=== PATIENT | female | born 1985 | race Caucasian/White ===

== ENCOUNTER 2023-08-22 19:03 | Emergency (ER) | payer BC, SELFPAY ==
[2023-08-22 19:06] VITALS: BP 168/110; PULSE 92; RESP 18; TEMP 37.2; O2SAT 100; BMI 33.9
--- NOTE | 2023-08-22 19:17 | CT_ITS ---
[place] [id number] Patient Name: SANDY CARDOZO MRN: [id number] date: 1985 Sex: F Assigned Patient Location: ER Current Patient Location: [facility] Accession/Order Number: [id number] Exam Date: 08/22/2023 19:57 Report Date: 08/22/2023 20:47 At the request of: SAMANTHA CROW Procedure: CT abdomen pelvis wo con EXAM: CT abdomen pelvis wo con , 08/22/2023 HISTORY: pain COMPARISON: Pelvic ultrasound from 10/31/2022 TECHNIQUE: Noncontrast CT scan of the abdomen and pelvis was performed. Coronal and sagittal reconstructions were performed. Dose reduction techniques were achieved by using automated exposure control and/or adjustment of mA and/or kV according to patient size and/or use of iterative reconstruction technique. FINDINGS: The liver, spleen, pancreas and both adrenal glands are unremarkable. Status post cholecystectomy. No biliary dilatation. No urolithiasis or urinary tract dilatation. No obvious focal lesions in the kidneys. Unremarkable urinary bladder. The uterus and adnexa are unremarkable. No free fluid in the peritoneal cavity. No bowel loop dilatation or bowel wall thickening. No abdominal or pelvic lymphadenopathy. Unremarkable abdominal aorta and IVC. Colonic diverticulosis without diverticulitis. No acute osseous findings. Scans through the lung bases are clear. CT/CT abdomen pelvis wo con IMPRESSION: 1. No acute findings in the abdomen or pelvis. 2. Status post cholecystectomy. 3. Colonic diverticulosis without diverticulitis. Electronically authenticated by: JULIO CONNELLY Date: 08/22/2023 20:47
[2023-08-22 19:38] LABS: Basophils Absolute Auto 0.1 10^3/uL (0.0-0.1); Basophils Percent Auto 0.7 % (0.2-2.0); Eosinophils Absolute Auto 0.1 10^3/uL (0.0-0.7); Eosinophils Percent Auto 0.7 % (0.9-7.0); Hematocrit 40.7 % (36.0-48.0); Hemoglobin 12.9 g/dL (12.0-16.0); Immature Granulocytes Abs Auto 0.01 10^3/uL (0.00-0.03); Immature Granulocytes Pct Auto 0.1 % (0.0-0.5); Lymphocytes Absolute Auto 3.6 10^3/uL (1.2-3.8); Lymphocytes Percent Auto 38.4 % (20.5-60.0); Mean Corpuscular HGB Conc 31.7 g/dL (29.9-35.2); Mean Corpuscular Volume 85.1 fL (81.0-99.0); Monocytes Absolute Auto 0.8 10^3/uL (0.3-0.8); Monocytes Percent Auto 8.9 % (1.7-12.0); Neutrophils Absolute Auto 4.8 10^3/uL (1.4-6.5); Neutrophils Percent Auto 51.2 % (43.0-75.0); Platelet Count 316 10^3/uL (150-450); Red Blood Count 4.78 10^6/uL (4.20-5.40); Red Cell Distribution Width 12.8 % (11.0-15.0); White Blood Count 9.4 10^3/uL (4.0-11.0)
[2023-08-22 19:39] LABS: Bilirubin Urine NEGATIVE (NEGATIVE); Blood Urine MODERATE (NEGATIVE); Clarity Urine CLEAR (CLEAR); Color Urine LT. YELLOW (YELLOW); Glucose Urine UA NEGATIVE (NEGATIVE); Ketones Urine NEGATIVE (NEGATIVE); Leukocyte Esterase Urine NEGATIVE (NEGATIVE); Nitrite Urine NEGATIVE (NEGATIVE); Protein Urine NEGATIVE (NEG/TRACE); Specific Gravity Urine 1.025 (1.005-1.025); Urine Microscopic Indicated YES; Urobilinogen Urine 0.2 EU/dL (0.2-1.0)
[2023-08-22 19:40] LABS: HCG Qualitative Urine* NEGATIVE (NEGATIVE)
[2023-08-22 19:45] LABS: RBC Urine 0-2 #/HPF (0-2); WBC Urine NONE SEEN #/HPF (NONE SEEN)
[2023-08-22] MEDS: ONDANSETRON PF 4 MG/2 ML VIAL IV (19:45)
[2023-08-22] MEDS: KETOROLAC TROMETHAMINE 30 MG/ML VIAL IVP (19:45)
[2023-08-22] MEDS: 0.9 % SODIUM CHLORIDE 1,000 ML 999 ML IV (19:45)
[2023-08-22 19:46] LABS: Bacteria Urine TRACE #/HPF (NONE SEEN); Cast Seen? NONE SEEN #/LPF (NONE SEEN); Crystals Seen? None Seen #/HPF (None Seen); Mucus Urine NONE SEEN (NONE SEEN); Squamous Epithelial Cell Urine MANY #/LPF (NONE/RARE); Urine Culture Indicated NO
[2023-08-22 19:49] VITALS: BP 143/93; PULSE 81; O2SAT 98
[2023-08-22 19:58] LABS: Alanine Aminotransferase 16 U/L (14-59); Albumin Globulin Ratio 0.9; Albumin Level 3.6 g/dL (3.4-5.0); Alkaline Phosphatase 62 U/L (46-116); Anion Gap 11.5; Aspartate Amino Transferase 12 U/L (15-37); BUN Creatinine Ratio 12.5; Bilirubin Total 0.2 mg/dL (0.2-1.0); Calcium 8.9 mg/dL (8.5-10.1); Carbon Dioxide 27.1 mmol/L (21.0-32.0); Chloride 104 mmol/L (98-107); Estimated GFR (African America >60 (>=60); Estimated GFR (Non-African Ame 59 (>=60); Globulin 3.9 g/dL; Glucose 101 mg/dL (74-106); Potassium 3.6 mmol/L (3.5-5.1); Sodium 139 mmol/L (136-145); Total Protein 7.5 g/dL (6.4-8.2)
[2023-08-22 20:43] VITALS: BP 132/90
--- NOTE | 2023-08-22 21:13 | ED.ABDPAIN1 ---
HPI - Abdominal Pain General Chief Complaint: Abdominal Pain Stated Complaint: stabbing pain, r of midline, nausea Time Seen by Provider: 08/22/23 19:09 Source: patient Mode of arrival: walk-in History of Present Illness HPI narrative: 38-year-old female presents chief complaint right lower quadrant abdominal pain. Patient states the pain began suddenly today. She states it feels as if she has a stabbing pain to her right groin region. She had a history of ovarian cysts in the past and states had a 6 cm cyst removed last year on the left side. Denies any known history of cyst on the right. She states she does have heavy menstrual cramping and pain as well. States her period ended earlier this week. Patient history of cholecystectomy and appendectomy. She's had some nausea with this pain. Denies a known history of kidney stone. Patient is afebrile nontoxic. She does have pain to palpation the right lower quadrant on exam. Patient denies any vaginal discharge. Denies dysuria. Related Data Home Medications Medication Instructions Recorded Confirmed No Known Home Medications 08/22/23 08/22/23 Allergies Allergy/AdvReac Type Severity Reaction Status Date / Time No Known Drug Allergies Allergy Verified 08/22/23 19:10 Review of Systems ROS Narrative All Systems are negative except as noted/marked. Status of ROS 10 or more systems reviewed and unremarkable except as noted in history and below [facility] Social History Smoking status: Never smoker Exam Narrative Exam Narrative: Patient is a All Systems are negative except as noted/marked.All systems reviewed and otherwise negative Nurses note and vital signs reviewed and patient is not hypoxic. General: The patient appears well and in no apparent distress. Patient is resting comfortably on cart. Skin: Warm, dry, no pallor noted. There is no rash noted. Head: Normocephalic, atraumatic Cardiovascular: Regular Rate and Rhythm Respiratory: Patient is in no distress, no accessory muscle use, lungs are clear to auscultation, no wheezing, rales or rhonchi Back: non-tender, no CVA tenderness bilaterally to percussion. GI: Normal bowel sounds, no tenderness to palpation, no masses appreciated. No rebound, guarding, or rigidity noted. : Right lower quadrant abdominal tenderness, no rebound or guarding, no masses palpated, Musculoskeletal: The patient has no evidence of calf tenderness, no pitting edema, symmetrical pulses noted bilaterally Neurological: A&O x4, normal speech Psychiatric: Cooperative Constitutional Vital Signs, click to edit/add: Last Vital Signs Temp 98.9 F 08/22/23 19:06 Pulse 81 08/22/23 19:49 Resp 18 08/22/23 19:06 BP 132/90 08/22/23 20:43 Pulse Ox 98 08/22/23 19:49 O2 Del Method Room Air 08/22/23 19:06 Course Vital Signs Vital signs: Vital Signs Temperature 98.9 F 08/22/23 19:06 Pulse Rate 92 H 08/22/23 19:06 Respiratory Rate 18 08/22/23 19:06 Blood Pressure 168/110 H 08/22/23 19:06 Pulse Oximetry 100 08/22/23 19:06 Oxygen Delivery Method Room Air 08/22/23 19:06 Temperature 98.9 F 08/22/23 19:06 Pulse Rate 81 08/22/23 19:49 Respiratory Rate 18 08/22/23 19:06 Blood Pressure 132/90 08/22/23 20:43 Pulse Oximetry 98 08/22/23 19:49 Oxygen Delivery Method Room Air 08/22/23 19:06 MDM - Abdominal Pain MDM Narrative Medical decision making narrative: 43-year-old female presents with a chief complaint right lower quadrant abdominal tenderness. Upon arrival to the emergency room IV was established patient was medicated with Toradol and Zofran. He did help alleviate her symptoms. CBC BMP and urinalysis were obtained. Small amount of blood was noted in her urine. She is currently finishing her menses. CT scan without contrast was also performed to rule out kidney stone. CT scan was read negative. Patient does have a history of a history of ovarian cysts with removal and surgery in the past. Patient has history of cholecystectomy and appendectomy. Examination is negative this time. Patient be given a prescription to have a pelvic ultrasound performed at she will follow-up with her [facility] office this next week. Patient denies need for pain medicine to take home. She states Toradol and Zofran helped her symptoms. I did explain to patient that she may be having cramping pain or pain from adhesions. Patient be evaluated by her [facility]. Patient agrees with plan of care Differential Diagnosis Differential diagnosis: Likely abdominal pain and endometriosis (kidney stone, ovarian cyst) Medical Records Attestation: I reviewed the patient's medical records. Lab Data Attestation: I reviewed the patient's lab results. Labs: Lab Results 08/22/23 Range/Units 19:30 WBC 9.4 (4.0-11.0) 10^3/uL RBC 4.78 (4.20-5.40) 10^6/uL Hgb 12.9 (12.0-16.0) g/dL Hct 40.7 (36.0-48.0) % MCV 85.1 (81.0-99.0) fL MCH 27.0 (26.7-34.0) pg MCHC 31.7 (29.9-35.2) g/dL RDW 12.8 (11.0-15.0) % Plt Count 316 (150-450) 10^3/uL MPV 9.0 L (9.5-13.5) fL Neut % (Auto) 51.2 (43.0-75.0) % Lymph % (Auto) 38.4 (20.5-60.0) % [place] % (Auto) 8.9 (1.7-12.0) % Eos % (Auto) 0.7 L (0.9-7.0) % Baso % (Auto) 0.7 (0.2-2.0) % Neut # (Auto) 4.8 (1.4-6.5) 10^3/uL Lymph # (Auto) 3.6 (1.2-3.8) 10^3/uL [place] # (Auto) 0.8 (0.3-0.8) 10^3/uL Eos # (Auto) 0.1 (0.0-0.7) 10^3/uL Baso # (Auto) 0.1 (0.0-0.1) 10^3/uL Abs Immat Gran (auto) 0.01 (0.00-0.03) 10^3/uL Imm/Tot Granulo (auto) 0.1 (0.0-0.5) % Sodium 139 (136-145) mmol/L Potassium 3.6 (3.5-5.1) mmol/L Chloride 104 (98-107) mmol/L Carbon Dioxide 27.1 (21.0-32.0) mmol/L Anion Gap 11.5 BUN 13.0 (7.0-18.0) mg/dL Creatinine 1.04 H (0.55-1.02) mg/dL Est GFR ( Amer) >60 (>=60) Est GFR (Non-Af Amer) 59 L (>=60) BUN/Creatinine Ratio 12.5 Glucose 101 (74-106) mg/dL Calcium 8.9 (8.5-10.1) mg/dL Total Bilirubin 0.2 (0.2-1.0) mg/dL AST 12 L (15-37) U/L ALT 16 (14-59) U/L Alkaline Phosphatase 62 (46-116) U/L Total Protein 7.5 (6.4-8.2) g/dL Albumin 3.6 (3.4-5.0) g/dL Globulin 3.9 g/dL Albumin/Globulin Ratio 0.9 Urine Color Lt. yellow (YELLOW) Urine Clarity Clear (CLEAR) Urine pH 6.0 (5.0-9.0) Ur Specific [place] 1.025 (1.005-1.025) Urine Protein Negative (NEG/TRACE) mg/dL Urine Glucose (UA) Negative (NEGATIVE) mg/dL Urine Ketones Negative (NEGATIVE) mg/dL Urine Occult Blood Moderate A (NEGATIVE) Urine Nitrite Negative (NEGATIVE) Urine Bilirubin Negative (NEGATIVE) Urine Urobilinogen 0.2 (0.2-1.0) EU/dL Ur Leukocyte Esterase Negative (NEGATIVE) Urine RBC 0-2 (0-2) #/HPF Urine WBC None seen (NONE SEEN) #/HPF Ur Squamous Epith Cells Many A (NONE/RARE) #/LPF Urine Crystals None seen (None Seen) #/HPF Urine Bacteria Trace A (NONE SEEN) #/HPF Urine Casts None seen (NONE SEEN) #/LPF Urine Mucus None seen (NONE SEEN) Ur Culture Indicated? No Urine HCG, Qual Negative (NEGATIVE) Imaging Data CT scan - abdomen: Radiologist's impression: ITS Impressions Abdomen/Pelvis CT 08/22/23 19:17 IMPRESSION: 1. No acute findings in the abdomen or pelvis. 2. Status post cholecystectomy. 3. Colonic diverticulosis without diverticulitis. Electronically authenticated by: JULIO CONNELLY Date: 08/22/2023 20:47 Discharge Plan Discharge Chief Complaint: Abdominal Pain Clinical Impression: Pelvic pain in female, Abdominal pain Patient Disposition: Home, Self-Care Time of Disposition Decision: 21:07 Condition: Good Prescriptions / Home Meds: No Action No Known Home Medications Instructions: Abdominal Pain (ED), Pelvic Pain (ED) Stand Alone Forms: Portal Instructions Referrals: Vikram Chahal DO [Physician] - 1 week Physician,Non-Staff, MD [Primary Care Provider] - 1 week
[2023-08-22 21:16] VITALS: BP 124/86; PULSE 90; O2SAT 98
== END 2023-08-22 21:18 | disposition home or self-care (01) ==
PROVIDERS: Physician Assistant; Emergency Provider Student in an Organized Health Care Education/Training Program
DX: R10.9 Unspecified abdominal pain (principal); R10.2 Pelvic and perineal pain
CPT/HCPCS: 36415; 74176; 80053; 81001; 84703; 85025; 96374; 96375; 99285; J1885; J2405

== ENCOUNTER 2023-08-23 07:28 | Outpatient (OUT) | payer BC, SELFPAY ==
--- NOTE | 2023-08-23 07:41 | US_ITS ---
The [address] [address] Patient Name: SANDY CARDOZO MRN: [id number] date: 1985 Sex: F Assigned Patient Location: [facility] Current Patient Location: RAD Accession/Order Number: [id number] Exam Date: 08/23/2023 07:45 Report Date: 08/23/2023 10:11 At the request of: SAMANTHA CROW Procedure: US pelvis transvaginal EXAM: Pelvic ultrasound HISTORY: . Pelvic pain, ovarian cyst . COMPARISON: None. TECHNIQUE: Transvaginal scanning was performed FINDINGS: Scanning of the pelvis demonstrates the uterus to be anteflexed and measures 9 x 5.2 x 4.1 cm. Endometrial complex measures 5 mm. Right ovary measures 3.8 x 2.2 x 1.8 cm. Color-flow is noted. Within the right ovary is a 1.3 x 1.2 x 0.9 cm avascular smoothly marginated hypoechoic area. Left ovary measures 3.3 x 1.4 x 1.7 cm. Color-flow is noted. No masses were noted. US/US pelvis transvaginal IMPRESSION: 1. Normal-appearing anteflexed uterus with a normal endometrial complex. 2. Normal left ovary. 3. 1.3 x 0.9 cm avascular complicated cyst in the right ovary. Findings would be most consistent with that hemorrhagic follicle/cyst. Less likely would be an inflammatory mass or neoplasm. Clinical correlation is suggested. Electronically authenticated by: YANIRA TATE Date: 08/23/2023 10:11
== END 2023-08-23 07:29 | disposition home or self-care (01) ==
LOC: RAD 07:29
PROVIDERS: Visit Provider Physician Assistant
DX: N83.201 Unspecified ovarian cyst, right side (principal)
CPT/HCPCS: 76830

== ENCOUNTER 2023-12-04 20:24 | Outpatient (REF) | payer BC, SELFPAY ==
--- OUTSIDE RECORDS SUMMARY | 2023-12-04 20:29 | XMS_ITS | CCD ---
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 [employer]otive Name Role Phone Wilda Buckner Primary Care Physician HOME ., DR TRUJILLO Admitting Unavailable HOME ., DR TRUJILLO Consulting Unavailable MISC, DR NEGRON Primary Care Unavailable HOME ., DR TRUJILLO Attending Unavailable ZIEBER, DR KULWINDER Floyd Consulting Unavailable HOME ., DR TRUJILLO Admitting Unavailable HOME ., DR TRUJILLO Consulting Unavailable MISC, DR NEGRON Primary Care Unavailable HOME ., DR TRUJILLO Attending Unavailable MISC, DR NEGRON Primary Care Unavailable HOME ., DR TRUJILLO Consulting Unavailable HOME ., DR TRUJILLO Attending Unavailable HOME ., DR TRUJILLO Admitting Unavailable AGUBOSIM, NURIS Consulting Unavailable LONG, JON Consulting Unavailable JONATAN, MARK Consulting Unavailable HOME ., DR TRUJILLO Consulting Unavailable MISC, DR NEGRON Primary Care Unavailable HOME ., DR TRUJILLO Attending Unavailable HOME ., DR TRUJILLO Admitting Unavailable ZIEBER, DR KULWINDER Floyd Consulting Unavailable HOME ., DR TRUJILLO Consulting Unavailable MISC, DR NEGRON Primary Care Unavailable HOME ., DR TRUJILLO Attending Unavailable HOME ., DR TRUJILLO Admitting Unavailable HOMECASSANDRA R Attending Unavailable Buckner, Wilda L Admitting Unavailable Buckner, Wilda L Attending Unavailable Kaushal Craft Attending Unavailable Buckner, Wilda L Admitting Unavailable Buckner, Wilda L Attending Unavailable Buckner, Wilda L Admitting Unavailable Buckner, Wilda L Attending Unavailable SAMANTHA CROW Attending Unavailable SUJATA RUDD Referring Unavailable SUJATA RUDD Attending Unavailable TIERRA WILL Attending Unavailable SUJATA RUDD Referring Unavailable SUJATA RUDD Attending Unavailable Allergies Allergy Classification Reported Allergen(s) Allergy Type Date of Onset Reaction(s) Facility (5 sources) Ciprofloxacin; Translations: [ciprofloxacin] Drug Allergy Tenalgia (finding) [facility] (1 source) Ciprofloxacin Drug Allergy [facility] Repository Problems Active Problems Problem Classification Problem Date Documented Date Episodic/Chronic Abdominal pain (5 sources) Pelvic and perineal pain; Translations: [PELVIC AND PERINEAL PAIN] Onset: 12-28-2021 Episodic Biliary tract disease (4 sources) Acute cholecystitis 04-17-2018 Episodic Immunizations and screening for infectious disease (1 source) Encounter for screening for human papillomavirus (HPV); Translations: [ENC SCREENING HUMAN PAPILLOMAVIRUS] Onset: 10-25-2022 Episodic Nonmalignant breast conditions (5 sources) Mastodynia; Translations: [Unspecified lump in the right breast, upper outer quadrant] Onset: 10-31-2022 Episodic Other nutritional; endocrine; and metabolic disorders (1 source) Obesity, unspecified; Translations: [OBESITY UNSPECIFIED] Onset: 01-23-2022 Chronic Other nutritional; endocrine; and metabolic disorders (1 source) Body mass index (BMI) 32.0-32.9, adult; Translations: [BODY MASS INDEX BMI 32.0-32.9 ADULT] Onset: 01-23-2022 Chronic Other screening for suspected conditions (not mental disorders or infectious disease) (4 sources) Encounter for screening for malignant neoplasm of cervix; Translations: [ENC SCREENING MALIG NEOPLASM CERV] Onset: 10-23-2022 Episodic Other upper respiratory infections (4 sources) Acute sinusitis 04-17-2018 Episodic Comment on above: taking antibioics, h as had 4 doses so far Ovarian cyst (2 sources) Unspecified ovarian cyst, left side; Translations: [Unspecified ovarian cyst, unspecified side] Onset: 12-27-2021 Episodic Viral infection (1 source) COVID-19; Translations: [COVID-19] Onset: 01-23-2022 Past or Other Problems Problem Classification Problem Date Documented Da te Episodic/Chronic Other gastrointestinal disorders (1 source) Peritoneal adhesions (postprocedural) (postinfection); Translations: [PERITONEAL ADHES POSTPROC POSTINF] Onset: 01-23-2022 Episodic Residual codes; unclassified (1 source) Acquired absence of other specified parts of digestive tract; Translations: [ACQ ABSENCE OTH PART DIGESTV TRACT] Onset: 01-23-2022 Episodic Results Test Name Value Interpretation Reference Range Facility MR KNEE RIGHT WO IV CONTRAST on 10-22-2023 MR KNEE RIGHT WO IV CONTRAST Exam: MR KNEE RIGHT WO IV CONTRAST History: Right knee medial meniscus tear Technique: Multiplanar multisequence MRI of the knee was performed without contrast. Comparison: Radiographs October 09, 2023 Findings: Quadriceps and patellar tendons are intact. No joint effusion. Anterior and posterior cruciate ligaments are intact. The medial collateral ligament, lateral collateral ligament, and popliteus are intact. The medial and lateral meniscus are intact. Partial-thickness cartilage loss of the weightbearing medial femoral condyle without well-defined or measurable cartilage defect. A tiny focus of subcortical bone marrow edema of the inner weightbearing medial femoral condyle is likely secondary to an occult full-thickness cartilage fissure. Popliteal fossa structures are intact. No Estrada cyst. IMPRESSION: Ligaments and menisci are intact. Mild medial compartment osteoarthritis. ELECTRONICALLY SIGNED BY: Delta Geller, DO Normal Not Available Comment on above: Order Comment: No to all MRI Questions Consent for Treatmenton Consent for Treatment [id number] #1.00CD:127 Normal [facility] Physician Orderon 04-02-2023 Physician Order [id number] 0#1.00CD:127 Normal [facility] XR Foot 3+ Views Lefton XR Foot 3+ Views Left Exam Date/Time: 04/02/2023 09:13 EDT Reason for Exam: M25.572 Report IMPRESSION: NEGATIVE LEFT FOOT. CLINICAL HISTORY: M25.572 COMPARISON: None available. FINDINGS: AP, lateral and oblique views of the left foot demonstrate no evidence of a fracture, dislocation, bone or joint abnormality. Ordering Provider: Wilda Buckner FINAL REPORT Dictated: 04/02/2023 1:06 pm Gianni Montoya MD, V. Signed (Electronic Signature): 04/02/2023 1:06 pm Signed by: Gianni Montoya MD, V. Transcribed by: MICHEAL Technologist: APOLLO Technical Comments Radiation Dose: Ka,r in mGy = na DAP = na Normal [facility] XR Wrist 3+ Views Lefton XR Wrist 3+ Views Left Exam Date/Time: 01/09/2023 14:05 EDT Reason for Exam: [id number] Report IMPRESSION: NEGATIVE LEFT WRIST. EXAM: XR Wrist 3+ Views Left DATE: 01/09/2023 1:52 PM CLINICAL HISTORY: M25.539. COMPARISON: None available. TECHNIQUE: PA, lateral, oblique, and navicular radiographs of the left wrist were obtained. FINDINGS: There is no fracture, dislocation, worrisome bone destruction, radiodense foreign bodies, or pathologic calcifications identified. Ordering Provider: Wilda Buckner FINAL REPORT Dictated: 01/11/2023 3:14 pm Boubacar Blank MD Signed (Electronic Signature): 01/11/2023 3:14 pm Signed by: Boubacar Blank MD Transcribed by: MICHEAL Technologist: ORB Technical Comments Radiation Dose: Ka,r in mGy = . DAP = . Normal [facility] XR Wrist 3+ Views Righton XR Wrist 3+ Views Right Exam Date/Time: 01/09/2023 14:05 EDT Reason for Exam: [id number] Report IMPRESSION: NEGATIVE RIGHT WRIST. EXAM: XR Wrist 3+ Views Right DATE: 01/09/2023 1:52 PM CLINICAL HISTORY: M25.539. COMPARISON: Right hand 06/12/2017 TECHNIQUE: PA, lateral, oblique, and navicular radiographs of the right wrist were obtained. FINDINGS: There is no fracture, significant degenerative changes, dislocation, worrisome bone destruction, radiodense foreign bodies, or pathologic calcifications identified. Ordering Provider: Wilda Buckner FINAL REPORT Dictated: 01/11/2023 3:15 pm Boubacar Blank MD Signed (Electronic Signature): 01/11/2023 3:15 pm Signed by: Boubacar Blank MD Transcribed by: MICHEAL Technologist: EITAN Technical Comments Radiation Dose: Ka,r in mGy = . DAP = . Normal [facility] Consent for Treatmenton 12-26 Consent for Treatment [id number] #1.00CD:127 Normal [facility] Physician Orderon 01-09-2023 Physician Order [id number]#1.00CD:127 Normal [facility] SURGICAL PATH REPORTon 11-14 SURGICAL PATH REPORT [facility] Department of Pathology [address] [place] [address] Name: SANDY DENNIS : 1985 [facility] [id number] Number: Gender Female Bartolome SINGH ELMIRA : n: Admit 37 years Attending CASSANDRA CHAHAL Age: Provider: Ordering CASSANDRA CHAHAL Provider: Consulti Surgical Pathology Report ng: ACCESSION: COLLECTED DATE/TIME: RECEIVED DATE/TIME: PATHOLOGIST: [id number] 11/12/2022 16:30 EDT 11/13/2022 13:47 EDT DEJUAN RODRIGUEZ MD Final Diagnosis Report for THE [place] [place] ENDOMETRIAL BIOPSY: - PROLIFERATIVE ENDOMETRIUM. DEJUAN RODRIGUEZ PATHOLOGIST (Electronic Signature) Date Verified 11/14/2022 AD Clinical Data PRE-OP DIAGNOSIS: Not specified POST-OP DIAGNOSIS: Thickened endometrium PROCEDURES: EMBX SPECIMEN: EMBX VISIT #N/A / Doctor's office Gross Description Labeled EMBX. Received in formalin are multiple irregular simons feathery segments of soft tissue. The specimen is filtered and has a filtrate aggregate dimension of 2.5 x 2.0 x 0.5 cm. The specimen is entirely submitted in one cassette. MP/ shital 11/13/2022 Tissue pathology report for: [facility], [address] [place] [id number]; ____ Print 11/14/2022 14:01 EDT Number: Date/Time: [facility] Department of Pathology [address] [place], [place] [address] [phone] Name: SANDY DENNIS : 1985 [employer] [id number] Number: Gender Female Bartolome MCKINNEYUE : n: Admit 37 years Attending CASSANDRA CHAHAL Age: Provider: Ordering CASSANDRA CHAHAL Provider: Consulti Surgical Pathology Report ng: ACCESSION: COLLECTED DATE/TIME: RECEIVED DATE/TIME: PATHOLOGIST: [id number] 11/12/2022 16:30 EDT 11/13/2022 13:47 EDT MICHAEL ZAVALA, DEJUAN Gross Description PATHOLOGY SERVICES PROVIDED BY [employer] (CLIA #[id number]) in cooperation with [facility] at [address] [place] [address] (CLIA #[id number]) Microscopic Diagnosis The final diagnosis is based on a microscopic exam of sales donor recruitment representative sections. Codes CPT CODE: 80189 ____ Print 11/14/2022 14:01 EDT Number: Date/Time: [facility] Comment on above: Performed By: #### [id number] #### [facility] Laboratory Services [address] [place] [address] [employer] Intern: Dejuan Rodriguez MD MG MAMM DIAGNOSTIC 3D YARITZA CA Don 10-31-2022 MG MAMM DIAGNOSTIC 3D YARITZA CAD Patient: SANDY DENNIS. Exam Date: 10/31/2022 : 1985 Gender:F Ordering : DR CASSANDRA CHAHAL . Admission #: [id number] Family : Order #: [id number] CLICK HERE TO VIEW EXAM RADIOLOGY REPORT PROCEDURE: MAMMOGRAM DIAGNOSTIC 3D BILATERAL CAD, 10/31/2022, 09:22 ULTRASOUND BREAST BILATERAL LIMITED, 10/31/2022, 10:18 COMPARISON: None. INDICATIONS: Lump in upper outer quadrant of right breast Calculator Name NCI Breast Cancer Risk Assessment Tool 5 Year Breast Cancer Risk 0.40% Lifetime Breast Cancer Risk 11.20% Personal Breast Cancer No Personal Ovarian Cancer No Treatments None Family Cancers Aunt-paternal with breast cancer at age 48. LOCATION: [facility] BREAST COMPOSITION: Heterogeneously dense,which may obscure small masses. FINDINGS: DIAGNOSTIC CATEGORY 1--NEGATIVE. RIGHT BREAST: Skin surface marker localizing patient's palpable lump to the posterior upper-outer quadrant. Normal appearing underlying fibroglandular tissue. No suspicious findings. Ultrasound evaluation demonstrates normal appearing fibroglandular tissue; no mass or cyst. LEFT BREAST: No significant or suspicious findings. Patient describes tenderness in the subareolar region. Ultrasound evaluation demonstrates normal appearing fibroglandular tissue. RECOMMENDATIONS: CLINICAL EVALUATION. PLEASE NOTE: A NORMAL MAMMOGRAM DOES NOT EXCLUDE THE POSSIBILITY OF BREAST CANCER. A CLINICALLY SUSPICIOUS PALPABLE LUMP SHOULD BE BIOPSIED. Dictated by: Kulwinder Carson M.D. on 10/31/2022 at 11:11 Approved by: Kulwinder Carson M.D. on 10/31/2022 at 11:12 Normal [facility] US BREAST YARITZA LIMITEDon 04-0 US BREAST YARITZA LIMITED Patient: SANDY DENNIS Exam Date: 10/31/2022 : 1985 Gender:F Ordering : DR CASSANDRA CHAHAL . Admission #: [id number] Family : Order #: [id number] CLICK HERE TO VIEW EXAM RADIOLOGY REPORT PROCEDURE: MAMMOGRAM DIAGNOSTIC 3D BILATERAL CAD, 10/31/2022, 09:22 ULTRASOUND BREAST BILATERAL LIMITED, 10/31/2022, 10:18 COMPARISON: None. INDICATIONS: Lump in upper outer quadrant of right breast Calculator Name NCI Breast Cancer Risk Assessment Tool 5 Year Breast Cancer Risk 0.40% Lifetime Breast Cancer Risk 11.20% Personal Breast Cancer No Personal Ovarian Cancer No Treatments None Family Cancers Aunt-paternal with breast cancer at age 48. LOCATION: [facility] BREAST COMPOSITION: Heterogeneously dense,which may obscure small masses. FINDINGS: DIAGNOSTIC CATEGORY 1--NEGATIVE. RIGHT BREAST: Skin surface marker localizing patient's palpable lump to the posterior upper-outer quadrant. Normal appearing underlying fibroglandular tissue. No suspicious findings. Ultrasound evaluation demonstrates normal appearing fibroglandular tissue; no mass or cyst. LEFT BREAST: No significant or suspicious findings. Patient describes tenderness in the subareolar region. Ultrasound evaluation demonstrates normal appearing fibroglandular tissue. RECOMMENDATIONS: CLINICAL EVALUATION. PLEASE NOTE: A NORMAL MAMMOGRAM DOES NOT EXCLUDE THE POSSIBILITY OF BREAST CANCER. A CLINICALLY SUSPICIOUS PALPABLE LUMP SHOULD BE BIOPSIED. Dictated by: Kulwinder Carson M.D. on 10/31/2022 at 11:11 Approved by: Kulwinder Carson M.D. on 10/31/2022 at 11:[address] [facility] US PELVIS AND TRANSVAGon US PELVIS AND TRANSVAG EXAMINATION: US PELVIS AND TRANSVAG HISTORY: Pelvic and perineal pain ; abnormal menses COMPARISON: Ultrasound pelvis 12/26/2021 TECHNIQUE: Transabdominal and transvaginal sonographic examination. FINDINGS: UTERUS: Normal size and appearance. Uterus size: 9.2 x 6.1 x 4.5 cm ENDOMETRIUM: Slightly heterogeneous endometrium with a focal 10 x 9 x 5 mm hypoechoic area of possibly a fluid collection. Endometrial thickness: 14 mm RIGHT OVARY: Normal size and appearance. Duplex Doppler demonstrates normal waveform and flow; resistive index 0.5. Ovary size: 3.9 x 2.8 x 2.6 cm LEFT OVARY: Contains a 1.9 cm benign-appearing cyst/dominant follicle. Duplex Doppler demonstrates normal waveform and flow; resistive index 0.5. Ovary size: 3.0 x 2.2 x 2.5 cm CUL-DE-SAC: Unremarkable. No significant free fluid. BLADDER: Unremarkable. OTHER: None. IMPRESSION: 1. Heterogeneous endometrium at upper limits of normal thickness, with likely small amount of pooling blood products; correlate with patient's stage in her menstrual cycle. 2. Benign cyst within left ovary of doubtful clinical significance. Electronically authenticated by: KULWINDER CARSON Date: 2022-10-31 09:[address] [facility] PAP ACOG PANEL 2: 30 to 65on 10-30-[address] [facility] Comment on above: Result Comment: Perf ormed at: WB Performed By: #### [id number] #### [facility] [address] [place] [address] Dr. Edwina Vicente Age Gdln ACOG Testing 30-[address] [facility] Comment on above: Performed By: #### [id number] #### [facility] [address] [place] [address] Dr. Edwina Vicente DIAGNOSIS: Comment Normal [facility] Comment on above: Result Comment: NEGA TIVE FOR INTRAEPITHELIAL LESION OR MALIGNANCY. Performed at: WB Performed By: #### [id number] #### [facility] [address] [place] [address] Dr. Edwina Vicente HPV Aptima Negative Normal Negative [facility] Comment on above: Result Comment: This nucleic acid amplification test detects fourteen high-risk HPV types (16,18,31,33,35,39,45,51,52,56,58,59,66,68) without differentiation. Performed at: =G Performed By: #### [id number] #### [facility] [address] [place] [address] Dr. Edwina Vicente HPV Genotype Reflex Comment Normal [facility] Comment on above: Result Comment: Crit eria not met, HPV Genotype not performed. Performed at: WB Performed By: #### [id number] #### [facility] [address] [place] [address] Dr. Edwina Vicente Methodology: CTIM [facility] Comment on above: Result Comment: The Thin Prep(R) Cook Ship was unable to read this specimen. Therefore a manual review was performed. Performed at: WB Performed By: #### [id number] #### [facility] [address] [place] [address] Dr. Edwina Vicente Note: Comment Normal [facility] Comment on above: Result Comment: The Pap smear is a screening test designed to aid in the detection of premalignant and malignant conditions of the uterine cervix. It is not a diagnostic procedure and should not be used as the sole means of detecting cervical cancer. Both false-positive and false-negative reports do occur. . Performed at: WB Performed By: #### [id number] #### [facility] [address] [place] [address] Dr. Edwina Vicente Performed by: Comment Normal [facility] Comment on above: Result Comment: Bo Rao, Research Program Assistant (ASCP) Performed at: WB Performed By: #### [id number] #### [facility] [address] [place] [address] Dr. Edwina Vicente Specimen adequacy: Comment Normal [facility] Comment on above: Result Comment: Sati sfactory for evaluation. Endocervical and/or squamous metaplastic cells (endocervical component) are present. Performed at: WB Performed By: #### [id number] #### [facility] [address] [place] [address] Dr. Edwina Vicente Coding Summary.on 09-30-2022 Coding Summary. CD:[id number] Gh0bWw+PGhlYWQ+PE1FV KXkD08xoPVqeN6OL6oPK C2ZCCEXJVXWZO6QCW2hb BL8LPbxZ2SdbxJe NeiaeRPzAX48VXi9UBE3 mNjrCAoyoJ3fbGYwR0u3 AwUoPU55iE69YPbmIIMo YvC2QyZvxidbeNQd O2dnBrLubSXdHrw+PHRh YmxlIHdpZHRoPScxMDAl EsTpvAccTE4fAr2lRSSc LWNvbGxhcHNlOiBj z7gcDXJtESqiBN9aoZok X1QcgMF8EBFif9w3Rt07 dHI+PXDkEAT1xGgoBCvd q927AbKjl0ysEWR6 eNHlAAasFPP7V15xs3V8 JDMpUGKzQAU6hLF6xF7n dEfhhzliD6DyvBEwUpT8 GVM9sCHlvT9wzMnw irtfxN9xKed+S98OWW4M LKVSGB2FSdg1N3ApIxup dHI+CC26NFMaEF73fYFi wAZpp0xjyVh8LvQt YZAuDWH6pUnxFOpbc0Vs QFUrR84rlPCqe8L8FOLj dXnnvXDwSnOtsWK8oH7x OVvjszkyj3fjpfwh Xqllg6fcpm88bA87A60e MJahPCOcZGX6GKHjQHIr wGewgi2ufC2hZs6+IDxj h6hht1grjMj5OgGy CRCkybIgdNofBYG1r9Zc Si58I8UvmHuqg5TvUzi6 lk43iHNha9H9eVD5HWab IANmaP3fUOgxTuU2 OGLnQkZtnB53bYTkLRin Mp7rvIkeyRbsYA0dQOPx clmxUWBbaP4mJZNqdXMt oAykRC8xLDMlmjhu i359OaLdEGE7AXDicZEc L5SldR9pAqWnIDTdJEUf Z5NwsGIvOKexJ230BQfd NcG8KLYkbdRyP3Fc YWRulCwtEeE0b8K8Fp4O h7UaizapGKU9EIdnSZGp LmL9AdDtAsE1H2FhNdg6 GJFsfMlxLN0pU9Ia HYHgiouruhgqzYK9QKIe PSFktQ07pKXuAYsiUf2j v9F5r949IVYwKBIqcN62 Xv4xiDjuSEOciBPO qR8noxwib3lqwyqqHyTk DSTtNJl1FJc9MGZcpDwz AxFlDQT8OuC8TGL1zTBn dX9bhMahuicyrL2j Oyc+M84jqO9pCUE7KFN6 iuooNOFianAwXN79EA16 W4AyGguabCIeqGI+PGRp pfVayValTU0mXxEs l9qjo3YaGZvrW8NrPZRp PGpsHvx6WVQcYXV9dUE5 qO7oIMBoDWuls9J4dCJ2 F6GmqjFnvw9rz7pu SWUfWZtjX68muZBsn0N6 QGUvkTT6KUJvzBjyCmSr vR73Jfl+NMKhkGswi4Py Dldgc2hiu5vybCh8 IjMwJSIgdmFsaWduPSJ0 c1KgDw82H09qHBunTBYf DOFnVTEhUPSukBhnsb5c lN7dWg4+PGNvbCB3 fBY1qX4kXXRbWwW4NKym P826AdAfjJVwQghjo7yt c7tayAh3JfIkLOHhfqLc oNxgRIY8q1VnJm68 R75aMSmsWRIiMWLeTFEw VPEblSnaob1hoM3xEv3+ AS7kr2ylzy15cF72sDS+ ZZPfGLL1jPhmFSsq DZLohK5gIGakQrF2TFAv KmBvjM32kLBwHQprZf7v dUvcwXreHJ0sICQegoxh g638XoXxi4deMCFb yEWrYCjcXQT0M89ih4U6 KRDzIDSkHBK2cPO2zA8h bGlnbjogbGVmdDsgdmVy lMvvHSinCYafC166 IHRvcDsnPlBhdGllbnQg MqUsJKh8L9VvYvu1YRHu hRcnIR5arFCcRMojXc9f jUdfqNdwMN3rHVEk hfpgg463ZpTec5baEIJx gHFnFJptYPT8Z59mt3V7 VUXgYCLeXQY4gMW2xB0e bGlnbjogbGVmdDsg gyFllOyvTOafMRrbF002 IHRvcDsnPkJpcnRoIERh pEI7VH83UC04dUZet5T9 hAB4R5UfUQEtuwzg ftckoYJ8KAErNLKjrN93 Un1nmVnbTi6uDOIbVEE9 VXJmeVXeV0MwuN1jFjNt WQDeSEFsC1MypBFe PWnaB541ZOtvBmZ4OIDh eyNnF4KaDJWuhCcwOnY3 w4B3Ic4WB8T7BB48HP50 pTRbb5S1kJS1N7Ng ZTGpzbqfpazruTH3DQWs VOIlrH75Rf9szQadPc4j NOSnJGP7QZZeoQSoU8Pc nM6iNxTuCOTpGPAj S9FrbHFtYCvuS236RQdo NbI2DUBzneOdT0CvMTCu uHioZdE5b5Y2Vi5ERHs1 PI43NF74xHApq9H8 zPR7S3FpAHJhcclgnpao wDI7QROeTGXelU89Oz9c qUkfKd2rXOSkUFR2GEKg tCPzD9AxpP9bCpQu FAQlJGZwE9SiwOWeEFnx G865AOhaWpP0TZTuwhQn J8TbDLMgyUepOpV3m2N8 Ju9OPPXqTJ61EPW8 pKN0ER61MJ00W4HmBoon dGFibGU+PHRhYmxlIHdp ZHRoPScxMDAlJyBzdHls EV5sKo3iAQQeQGDw uNtylOFmTzWil8auVTWc SHwqEU1dlPhdB8TxpKT7 OVAyi5w3Pr88S20iN6Ck dXA+ZHGbmUJ2pNQ1 fQ2wQhRgKvY5QByuX105 RsRaqCShPdrwf3sbz7cr zSu8GrP6XYDzmeVycNht UHM2j3QoZp90I50t IHdpZHRoPSIxNSUiIHZh bFixll5thG3dVr7+PGNv vQW5uZP6aA1iVvNfBaD1 CWtkF383YnVqaPRn Zsndw2ggy2rrgWa2FtTt MMUtajOxrObhHOI5v6St Za19R8FavEugi3KvBgy0 gx04iCVjf8L8yOZ2 K7UiCASsvvqlkCVhtWqc YE8qICYxgghdAPBkrW2z ORRnK3f1VoKfDnA8FRlm V9YnavT5STWdrZJq BXvnKRC6R57zy2F5WMIr MOYvQLD8jER5rS3mpTxv bjogbGVmdDsgdmVydGlj WNfjCSkvP646KHJc qAjpLTXlcU2uJDEnnORu aSemEP0aRMFwphfwCdKG RVBPVEUsIFRSSVNIQSBK IV43NZ97hDXwy6P6 eIE0U4FpNDTkojuxivag sIR9XVUsNUHhsJ11oYEd DRgqBj5fr8D4a398FRRs PTXusN20Yt3ssMww GFFxgCZUvM6ferxvs3mb jimhWdSuLRDcLRr8GVv3 DYRgbXirRjCxBOC7TqP3 VBQ3tKMdoQ6vqKzt patvkQ6aIkt+MDgvMTAv HMi5UDkdiWA+PHRkIHN0 xPtsKMlgWMBawB3aUJFd X9q7TgRdGvF4WXus K9KoYNTbftjqSq72yF5c AcUsJrC1TVuyB7IrboZ9 XXNvcDLqLMvdPBY2V28w w9R0SXRqDDVjIMJ6 oHA2iY9xgVcdstkdaTFl dDsgdmVydGljYWwtYWxp B634FFAzmVzrGcW1ZOxh UUWwGU74HB69gFVq p5A4hUB3K4OrCRCtkxib nyiosPP8CGQzXZPwbZ43 cNEaSIjdSg1xa4S6k978 IQKoFDSokQ49Du6l uRqyUOVsjAJYqG2tbepa l4jxrvanVlBoVUIfKAt0 TTw9GTLvmOdbWjWtZMC6 WnM3KGN9eWVpwX9d uYrposxwtR7jGrr+RmVt EYsqIS44TU69fWZvd7F1 cFQ3P1XuBKFtkniheush rQL1DPPoYLXspN33 vPBkNWghUz3ke3K1d435 GZNjCIAuoC73Tr5mmYoj PIOkwWCJiX7hahrtq0ym cjogIzAwMDAwMDt0 OAl6QOXxmPugEzSdHGH3 JmE3KYF8nFIjzO4vsZii ikmzuZ0oRgr+G1B2jPW6 aWVudDwvdGQ+PC90 ds91G6GfUvagItg5DFHb YPX1qWU2iP1gBEIeIIwf u9K0dVZ0X2JlglBglr5b z2laGWNhEWnsB74z uRRpo5B5IGOjbWN3CBHb gSdtJsZmdZ65Fav+PGNv xGwmh7JdBpcrh2vhl6bm aEr9SvWvMMImdlAo kFjrHZY0m7KtPg01D62d IHdpZHRoPSIzMCUiIHZh kSutta3ymE9jKc0+PGNv bSX4bJU6wS5sKtUh GaQ5OQtaY286CpBigPWy Qvceg7jrr4ptlXi4CtKz ENGqkkRjfKoqODU6t4Xp Zx68I0FhdCxgr5Eg Zqj2pk27eQGit3G1dBK0 L9DnWLLqsnlrrYOcvLlf UY9mXKSetdybAMEjdA3p ZIYwC8h4RzJzWyS6 GIohN4FzorE3PSEheJAa ULBqgSJLtF0sqdpin0na getqWzPcGLUuKYd8MYe5 LWFsaWduOiBsZWZ0 XqP2JNM5dPDzkF1ncRmf hvkckT0oZvx+CEi8h2cw jWOuXH6niYW0UJ04JH14 hTYiu6U0wQK3M6Tt LRRfnnynqvsbrPT7GKEr MFBplP20Qb7hcMnmGf9m SHXuDAQ3XWFwbUSrF0Tn rZ1uNmPxTREkLJDm I3NylNFwJHklI194RYfu NdC7MZPmqnClU9ZcNYWs yNowJuV0z8P2Id4WPH51 WG90EY84uSRuv2C7 qJW4G4PzQWHgzimehypw xPE8EKTqKAWpaV70Bj6y gQjoDu9dGJHdZSU1GTBa kZMaQ7TmkA2sTeRt FMHkLCPyJ4BipVQbJWgs W900XRxkJwR9RVTebxGn K0UwPPDwdAzrTbM4h3X4 Xv9FLi75NP74MS09 lSFxy6R7iPU7W4YfIXJm imwmigzgnKA3KHYhUOVu xI92Zc4vtShvYn3iOOTf VZW7KDEmsNBtH2Ey aV5eNvTuJNQqREGuA4Pw gIWbJXluA084VTelKyK2 PRQnvhFbN8YtVJIyfFad RuK5a9P3Yt5GISyb tkm9E0ZaDsatfGY+PC90 ZTIzZE35hRTajIQyp7be gHb6VcPeRPYdTYW3tQxy HEutq8AhLIGwP97e bGFw (more content not included)... Normal [facility] Auto Diffon 09-24-2022 Basophils/100 WBC (Bld) 0.5 % Normal 0.0-2.0 [facility] Comment on above: Order Comment: Order Added by Discern Expert. Performed By: #### 2 [id number] #### [facility] [address] [place] [address] Basophils/Leukocytes Auto (Bld) [Pure # fraction] 0.0 E9/L Normal 0.0-0.2 [facility] Comment on above: Order Comment: Order Added by Discern Expert. Performed By: #### 2 [id number] #### [facility] [address] [place] [address] Eosinophils/100 WBC (Bld) 0.9 % Normal 0.0-8.0 [facility] Comment on above: Order Comment: Order Added by Discern Expert. Performed By: #### 2 [id number] #### [facility] [address] [place] [id number] Eosinophils/Leukocyte s Auto (Bld) [Pure # fraction] 0.1 E9/L Normal 0.0-0.5 [facility] Comment on above: Order Comment: Order Added by Discern Expert. Performed By: #### 2 287221, 0976222, 7494144, 8959503, 8759783, [id number] #### [facility] [address] [place] [address] 58336 Lymphocytes/100 WBC (Bld) 28.2 % Normal 14.0-50.0 [facility] Comment on above: Order Comment: Order Added by Discern Expert. Performed By: #### 2 991510, 1981965, 0325050, 8462492, 9449994, [id number] #### [facility] [address] [place] [address] 33781 Lymphocytes/Leukocyte s Auto (Bld) [Pure # fraction] 2.6 E9/L Normal 1.0-4.0 [facility] Comment on above: Order Comment: Order Added by Discern Expert. Performed By: #### 2 426094, 5387166, 0911756, 0761244, 0618959, 94553485 #### [facility] [address] [place] [address] 43147 Monocytes/100 WBC (Bld) 7.4 % Normal 4.0-14.0 [facility] Comment on above: Order Comment: Order Added by Discern Expert. Performed By: #### 2 170767, 2755899, 7425635, 7248335, 2605305, 57870267 #### [facility] [address] [place] [address] 40257 Monocytes/Leukocytes Auto (Bld) [Pure # fraction] 0.7 E9/L Normal 0.2-1.0 [facility] Comment on above: Order Comment: Order Added by Discern Expert. Performed By: #### 2 105576, 3817531, 8195493, 7464757, 1917128, 88386102 #### [facility] [address] [place] [address] Neutrophils/100 WBC (Bld) 63.0 % Normal 36.0-75.0 [facility] Comment on above: Order Comment: Order Added by Discern Expert. Performed By: #### 2 008628, 4438924, 0626964, 8475916, 9488759, 01244452 #### [facility] [address] [place] [address] Neutrophils/Leukocyte s Auto (Bld) [Pure # fraction] 5.7 E9/L Normal 2.0-7.5 [facility] Comment on above: Order Comment: Order Added by Discern Expert. Performed By: #### 2 135567, 5187285, 0345380, 9098149, 5143807, 79122224 #### [facility] [address] [place] [address] 35018 CBC w/ Auto Diffon Erythrocyte distribution width (RBC) [Ratio] 13.6 % Normal 10.9-14.2 [facility] Comment on above: Performed By: #### 2 832900, 3258574, 3330116, 0139813, 3590371, 13682905 #### [facility] [address] [place] [address] Hematocrit (Bld) [Volume fraction] 41.4 % Normal 34.0-46.0 [facility] Comment on above: Performed By: #### 2 392116, 9476795, 6701655, 1487772, 1068389, 85103986 #### [facility] [address] [place] [address] 66328 Hemoglobin (Bld) [Mass/Vol] 13.7 g/dL Normal 12.0-16.0 [facility] Comment on above: Performed By: #### 2 587210, 6947996, 8317998, 0841011, 8695908, 97693834 #### [facility] [address] [place] [address] 19083 MCH (RBC) [Entitic mass] 27.6 pg Normal 27.0-34.0 [facility] Comment on above: Performed By: #### 2 987511, 3971646, 7727875, 5890023, 0708502, 67480323 #### [facility] [address] [place], [place] [id number] MCHC (RBC) [Mass/Vol] 33.1 g/dL Normal 31.4-36.0 [facility] Comment on above: Performed By: #### 2 356520, 3612351, 5781235, 9055271, 5158143, 11229145 #### [facility] [address] [place] [address] 47154 MCV (RBC) [Entitic vol] 83.2 fL Normal 80.0-100.0 [facility] Comment on above: Performed By: #### 2 379546, 7412102, 3290001, 2732481, 3196785, 45618870 #### [facility] [address] [place] [address] 58850 Platelet mean volume (Bld) [Entitic vol] 7.8 fL Normal 6.4-10.8 [facility] Comment on above: Performed By: #### 2 616678, 2097093, 3010105, 9949132, 3451896, 43483418 #### [facility] [address] [place] [address] 51238 Platelets (Bld) [#/Vol] 310.0 E9/L Normal 150.0-500.0 [facility] Comment on above: Performed By: #### 2 026759, 8186242, 4272525, 5729059, 2960489, 23658360 #### [facility] [address] [place] [address] 36134 RBC (Bld) [#/Vol] 5.0 E12/L Normal 4.3-5.9 [facility] Comment on above: Performed By: #### 2 973981, 8207304, 0992726, 0373780, 0601715, 99174636 #### [facility] [address] [place] [address] WBC corrected for nucl RBC Auto (Bld) [#/Vol] 9.1 E9/L Normal 4.0-11.0 [facility] Comment on above: Performed By: #### 2 899541, 6867696, 6298233, 1368483, 3043929, 17926447 #### [facility] [address] [place] [address] CHEMISTRYOrdered By: SYSTEM SYSTEM on 09-24-2022 Albumin [Mass/Vol] 4.0 g/dL Normal 3.3 - 5.0 gm/dL [facility] Albumin/Globulin [Mass ratio] 1.2 {ratio} Normal 1.1 - 2.2 [facility] ALP [Catalytic activity/Vol] 51 [iU]/d Normal 21 - 98 Int._Unit/L [facility] ALT No additional P-5'-P [Catalytic activity/Vol] 16 [iU]/d Normal 6 - 46 Int._Unit/L [facility] Anion gap [Moles/Vol] 9 mmol/L Normal 6 - 16 mEq/L [facility] AST [Catalytic activity/Vol] 15 [iU]/d Normal 5 - 43 Int._Unit/L [facility] Bilirubin [Mass/Vol] 0.7 mg/dL Normal 0.0 - 1 .1 mg/dL [facility] Calcium [Mass/Vol] 8.8 mg/dL Low 8.9 - 11. 1 mg/dL [facility] Chloride [Moles/Vol] 102 mmol/L Normal 101 - 1 11 mmol/L [facility] Cholesterol [Mass/Vol] 185 mg/dL Normal 120 - 200 mg/dL [facility] Cholesterol in HDL [Mass/Vol] 69 mg/dL Invalid Interpretation Code [facility] Cholesterol in LDL [Mass/Vol] 93 mg/dL Normal <=129mg/dL [facility] Cholesterol in VLDL [Mass/Vol] 20 mg/dL Normal 7 - 40 mg/dL [facility] CO2 [Moles/Vol] 29 mmol/L Normal 21 - 31 mmol/L [facility] Creatinine [Mass/Vol] 0.8 mg/dL Normal 0.5 - 1.3 mg/dL [facility] GFR/1.73 sq M.predicted among blacks MDRD (S/P/Bld) [Vol rate/Area] mL/min/1.73 m2 Normal >=59mL/min/1. 73 m2 [facility] Chem S GFR/1.73 sq M.predicted among non-blacks MDRD (S/P/Bld) [Vol rate/Area] mL/min/1.73 m2 Normal >=59mL/min/1. 73 m2 [facility] Chem S Globulin (S) [Mass/Vol] 3.2 g/dL Normal 1.4 - 4.0 gm/dL [facility] Glucose [Mass/Vol] 97 mg/dL Normal 55 - 199 mg/dL [facility] Potassium [Moles/Vol] 3.7 mmol/L Normal 3.5 - 5.3 mmol/L [facility] Protein [Mass/Vol] 7.2 g/dL Normal 6.0 - 7.8 gm/dL [facility] Sodium [Moles/Vol] 136 mmol/L Normal 135 - 145 mmol/L [facility] Triglyceride [Mass/Vol] 102 mg/dL Normal <=149mg/dL [facility] TSH Qn 2.06 m[IU]/L Normal 0.34 - 5.60 mcIU/mL [facility] Urea nitrogen [Mass/Vol] 10 mg/dL Normal 5 - 21 mg/dL [facility] Urea nitrogen/Creatinine [Mass ratio] 12 mg/mg Normal 10 - 20 [facility] CMPon 09-24-2022 Albumin [Mass/Vol] 4.0 g/dL Normal 3.3-5.0 [facility] Comment on above: Performed By: #### 2 503835, 5851121, 1666295, 3106751, 1223978, 83615870 #### [facility] [address] [place] [address] 41861 Albumin/Globulin (S) [Mass conc ratio] 1.2 Normal 1.1-2.2 [facility] Comment on above: Performed By: #### 2 963841, 0966275, 7442112, 4268959, 5009861, 99522561 #### [facility] [address] [place] [address] ALP [Catalytic activity/Vol] 51 Int._Unit/L Normal 21-98 [facility] Comment on above: Performed By: #### 2 728714, 6658453, 8272613, 6585708, 3192902, 68679305 #### [facility] [address] [place] [address] ALT No additional P-5'-P [Catalytic activity/Vol] 16 Int._Unit/L Normal 6-46 [facility] Comment on above: Performed By: #### 2 977314, 9616600, 7313698, 1480264, 1592414, 09129424 #### [facility] [address] [place] [address] Anion gap [Moles/Vol] 9 mmol/L Normal 6-16 [facility] Comment on above: Performed By: #### 2 272367, 2772213, 9226650, 1446263, 9799558, 67915990 #### [facility] [address] [place] [address] AST [Catalytic activity/Vol] 15 Int._Unit/L Normal 5-43 [facility] Comment on above: Performed By: #### 2 266403, 4516881, 1668672, 2758099, 1842417, 64936815 #### [facility] [address] [place] [address] Bilirubin [Mass/Vol] 0.7 mg/dL Normal 0.0-1.1 [facility] Comment on above: Performed By: #### 2 655641, 1571930, 7102068, 4996423, 6792607, 02898310 #### [facility] [address] [place] [address] Calcium [Mass/Vol] 8.8 mg/dL Low 8.9-11.1 [facility] Comment on above: Performed By: #### 2 605594, 7798643, 7467917, 7630590, 0006614, 79415711 #### [facility] [address] [place] [address] Chloride [Moles/Vol] 102 mmol/L Normal 101-111 [facility] Comment on above: Performed By: #### 2 224642, 9736646, 7747439, 5421020, 0119195, 66772179 #### [facility] [address] [place] [address] CO2 [Moles/Vol] 29 mmol/L Normal 21-31 [facility] Comment on above: Performed By: #### 2 763453, 9367229, 8413744, 6519897, 8725748, 86059311 #### [facility] [address] [place] [address] Creatinine [Mass/Vol] 0.8 mg/dL Normal 0.5-1.3 [facility] Comment on above: Performed By: #### 2 216688, 7624006, 2491860, 6379790, 9356853, 45819696 #### [facility] [address] [place] [address] Globulin (S) [Mass/Vol] 3.2 g/dL Normal 1.4-4.0 [facility] Comment on above: Performed By: #### 2 758766, 2934818, 9385714, 9865576, 8986312, 22340906 #### [facility] [address] [place] [address] Glucose [Mass/Vol] 97 mg/dL Normal 55-199 [facility] Comment on above: Result Comment: If t his glucose result represents a fasting glucose, interpretation should refer to the following reference range: 55-99 mg/dL Performed By: #### 2 820434, 5990958, 1326253, 2967267, 5536175, 78770806 #### [facility] [address] [place] [address] Potassium [Moles/Vol] 3.7 mmol/L Normal 3.5-5.3 [facility] Comment on above: Performed By: #### 2 404039, 6595530, 9854939, 4294357, 7538162, 70255056 #### [facility] [address] [place] [address] Protein [Mass/Vol] 7.2 g/dL Normal 6.0-7.8 [facility] Comment on above: Performed By: #### 2 128769, 0531662, 1523608, 3576060, 1916343, 50083067 #### [facility] [address] [place] [address] Sodium [Moles/Vol] 136 mmol/L Normal 135-145 [facility] Comment on above: Performed By: #### 2 138324, 9727222, 1432110, 8848809, 3508214, 41268121 #### [facility] [address] [place] [address] Urea nitrogen [Mass/Vol] 10 mg/dL Normal 5-21 [facility] Comment on above: Performed By: #### 2 828140, 2341320, 7598052, 6534678, 2464592, 43878739 #### [facility] [address] [place] [address] Urea nitrogen/Creatinine [Mass ratio] 12 No Units Normal 10-20 [facility] Comment on above: Performed By: #### 2 251570, 2732878, 1118373, 3198287, 0164419, 21255622 #### [facility] [address] [place] [address] Consent for Treatmenton 08-29 Consent for Treatment [id number] #1.00CD:127 Normal [facility] HEMATOLOGYOrdered By: SYSTEM SYSTEM on 09-24-2022 Basophils/100 WBC (Bld) 0.5 % Normal 0.0 - 2.0 % [facility] Basophils/Leukocytes Auto (Bld) [Pure # fraction] 0.0 E9/L Normal 0.0 - 0.2 E9/L [facility] Eosinophils/100 WBC (Bld) 0.9 % Normal 0.0 - 8.0 % [facility] Eosinophils/Leukocyte s Auto (Bld) [Pure # fraction] 0.1 E9/L Normal 0.0 - 0.5 E9/L [facility] Lymphocytes/100 WBC (Bld) 28.2 % Normal 14.0 - 50.0 % [facility] Lymphocytes/Leukocyte s Auto (Bld) [Pure # fraction] 2.6 E9/L Normal 1.0 - 4.0 E9/L [facility] Monocytes/100 WBC (Bld) 7.4 % Normal 4.0 - 14.0 % [facility] Monocytes/Leukocytes Auto (Bld) [Pure # fraction] 0.7 E9/L Normal 0.2 - 1.0 E9/L [facility] Neutrophils/100 WBC (Bld) 63.0 % Normal 36.0 - 75.0 % [facility] Neutrophils/Leukocyte s Auto (Bld) [Pure # fraction] 5.7 E9/L Normal 2.0 - 7.5 E9/L [facility] HEMATOLOGYOrdered By: Mayank Benson on 09-24-2022 Erythrocyte distribution width (RBC) [Ratio] 13.6 % Normal 10.9 - 14.2 % [facility] Hematocrit (Bld) [Volume fraction] 41.4 % Normal 34.0 - 46.0 % [facility] Hemoglobin (Bld) [Mass/Vol] 13.7 g/dL Normal 12.0 - 16.0 gm/dL [facility] MCH (RBC) [Entitic mass] 27.6 pg Normal 27.0 - 34.0 pg [facility] MCHC (RBC) [Mass/Vol] 33.1 g/dL Normal 31.4 - 36.0 gm/dL [facility] MCV (RBC) [Entitic vol] 83.2 fL Normal 80.0 - 100.0 fL [facility] Platelet mean volume (Bld) [Entitic vol] 7.8 fL Normal 6.4 - 10.8 fL [facility] Platelets (Bld) [#/Vol] 310.0 E9/L Normal 150.0 - 500.0 E9/L [facility]eAutoSS RBC (Bld) [#/Vol] 5.0 E12/L Normal 4.3 - 5.9 E12/L [facility] WBC corrected for nucl RBC Auto (Bld) [#/Vol] 9.1 E9/L Normal 4.0 - 11.0 E9/L [facility] Lipid Panelon 09-24-2022 Cholesterol [Mass/Vol] 185 mg/dL Normal 120-200 [facility] Comment on above: Performed By: #### 2 661561, 1772409, 0320524, 3558217, 6597976, 06137734 #### [facility] [address] [place] [address] Cholesterol in HDL [Mass/Vol] 69 mg/dL Invalid Interpretation Code [facility] Comment on above: Result Comment: HDL > or equal to 60 mg/dL: Low cardiovascular risk HDL < 40 mg/dL : High cardiovascular risk Performed By: #### 2 334072, 7028541, 9730113, 1324591, 2587370, 38334530 #### [facility] [address] [place] [address] Cholesterol in LDL [Mass/Vol] 93 mg/dL Normal <=129 [facility] Comment on above: Performed By: #### 2 293957, 3367335, 4951050, 5795479, 2973349, 30594208 #### [facility] [address] [place] [address] Cholesterol in VLDL [Mass/Vol] 20 mg/dL Normal 7-40 [facility] Comment on above: Performed By: #### 2 665525, 2406698, 2901183, 6593631, 1245954, 61353837 #### [facility] [address] [place] [address] Triglyceride [Mass/Vol] 102 mg/dL Normal <=149 [facility] Comment on above: Performed By: #### 2 101943, 4254648, 4085850, 9215854, 3162065, 37475353 #### [facility] [address] [place] [address] Physician Orderon 09-24-2022 Physician Order [id number] #1.00CD:127 Normal [facility] TSHon 09-24-2022 TSH Qn 2.06 m[IU]/L Normal 0.34-5.60 [facility] Comment on above: Performed By: #### 2 171380, 5501809, 0917929, 6100645, 3211646, 07597515 #### [facility] [address] [place] [address] eGFRon 09-24-2022 GFR/1.73 sq M.predicted among blacks MDRD (S/P/Bld) [Vol rate/Area] mL/min/{1.73_m2} Normal >=59 [facility] Comment on above: Order Comment: Order added by Discern Expert. Result Comment: eGFR is race adjusted. AA=. Performed By: #### 2 783526, 5957390, 9518708, 6194829, 9205313, 31905564 #### [facility] [address] [place] [address] GFR/1.73 sq M.predicted among non-blacks MDRD (S/P/Bld) [Vol rate/Area] mL/min/{1.73_m2} Normal >=59 [facility] Comment on above: Order Comment: Order added by Discern Expert. Result Comment: Regional Liaison isis kidney disease could be indicated at eGFR's of less than 60 mL/min/1.73m2. Kidney failure is indicated at less than 15 mL/min/1.73m2. Performed By: #### 2 669632, 5717072, 6329904, 6728157, 8283937, 05573959 #### [facility] [address] [place] [address] CBC AUTO DIFFon 12-28-2021 BASO # 0.1 103/ul Normal 0.0-0.1 [facility] Comment on above: Performed By: #### C BC #### [facility] [address] [address] [address] Edwina Vicente Basophils/100 WBC (Bld) 0.8 % Normal 0.2-2.0 [facility] Comment on above: Performed By: #### C BC #### [facility] [address] [address] [address] Edwina Vicente EO # 0.1 103/ul Normal 0.0-0.7 [facility] Comment on above: Performed By: #### C BC #### [facility] [address] [place] [address] Dr. Edwina Vicente Eosinophils/100 WBC (Bld) 1.6 % Normal 0.9-7.0 [facility] Comment on above: Performed By: #### C BC #### [facility] [address] [place] [address] Dr. Edwina Vicente Erythrocyte distribution width (RBC) [Ratio] 12.8 % Normal 11.0-15.0 [facility] Comment on above: Performed By: #### C BC #### [facility] [address] [place] [address] Dr. Edwina Vicente Hematocrit (Bld) [Volume fraction] 43.1 % Normal 36.0-48.0 [facility] Comment on above: Performed By: #### C BC #### [facility] [address] [place] [address] Dr. Edwina Vicente Hemoglobin (Bld) [Mass/Vol] 14.1 g/dL Normal 12.0-16.0 [facility] Comment on above: Performed By: #### C BC #### [facility] [address] [place] [address] Dr. Edwina Vicente IG # 0.01 10e3/ul Normal 0.00-0.03 [facility] Comment on above: Performed By: #### C BC #### [facility] [address] [place] [address] Dr. Edwina Vicente IG % 0.2 % Normal 0.0-0.5 [facility] Comment on above: Performed By: #### C BC #### [facility] [address] [place] [address] Dr. Edwina Vicente LYMPH # 2.4 103/ul Normal 1.2-3.8 [facility] Comment on above: Performed By: #### C BC #### [facility] [address] [place] [address] Dr. Edwina Vicente Lymphocytes/100 WBC (Bld) 37.2 % Normal 20.5-60.0 [facility] Comment on above: Performed By: #### C BC #### [facility] [address] [place] [address] Dr. Edwina Vicente MANUAL DIFF REQ NO Normal [facility] Comment on above: Performed By: #### C BC #### [facility] [address] [place] [address] Dr. Edwina Vicente MCH (RBC) [Entitic mass] 27.3 pg Normal 26.7-34.0 [facility] Comment on above: Performed By: #### C BC #### [facility] [address] [place] [address] Dr. Edwina Vicente MCHC (RBC) [Mass/Vol] 32.7 g/dL Normal 29.9-35.2 [facility] Comment on above: Performed By: #### C BC #### [facility] [address] [place] [address] Dr. Edwina Vicente MCV (RBC) [Entitic vol] 83.4 fL Normal 81.0-99.0 [facility] Comment on above: Performed By: #### C BC #### [facility] [address] [place] [address] Dr. Edwina Vicente MONO # 0.5 103/ul Normal 0.3-0.8 [facility] Comment on above: Performed By: #### C BC #### [facility] [address] [place] [address] Dr. Edwina Vicente Monocytes/100 WBC (Bld) 8.1 % Normal 1.7-12.0 [facility] Comment on above: Performed By: #### C BC #### [facility] [address] [place] [address] Dr. Edwina Vicente NEUT # 3.3 103/ul Normal 1.4-6.5 [facility] Comment on above: Performed By: #### C BC #### [facility] [address] [place] [address] Dr. Edwina Vicente Neutrophils/100 WBC (Bld) 52.1 % Normal 43.0-75.0 [facility] Comment on above: Performed By: #### C BC #### [facility] [address] [place] [address] Dr. Edwina Vicente Platelet mean volume (Bld) [Entitic vol] 8.8 fL Critically low 9.5-13.5 [facility] Comment on above: Performed By: #### C BC #### [facility] [address] [place] [address] Dr. Edwina Vicente PLT 328 103/ul Normal 150-450 [facility] Comment on above: Performed By: #### C BC #### [facility] [address] [place] [address] Dr. Edwina Vicente RBC 5.17 106/ul Normal 4.20-5.40 [facility] Comment on above: Performed By: #### C BC #### [facility] [address] [place] [address] Dr. Edwina Vicente WBC 6.4 103/ul Normal 4.0-11.0 [facility] Comment on above: Performed By: #### C BC #### [facility] [address] [place] [address] Dr. Edwina Vicente PREG QUANT HCGon 12-28-2021 HCG QUANT <1 Normal [facility] Comment on above: Performed By: #### P REGQNT #### [facility] [address] [place] [address] Dr. Edwina Vicente HCG RANGE SEE BELOW Normal [facility] Comment on above: Result Comment: 5-50 0-1 WEEK 40-300 1-2 WEEKS 100-1,000 2-3 WEEKS 500-6,000 3-4 WEEKS 5,000-200,000 1-2 MONTHS 10,000-100,000 2-3 MONTHS 3,000-50,000 2ND TRIMESTER 1,000-50,000 3RD TRIMESTER Performed By: #### P REGQNT #### [facility] [address] [address] [address] Edwina Vicente US PELVIS AND TRANSVAGon US PELVIS AND TRANSVAG EXAMINATION: US PELVIS AND TRANSVAG HISTORY: Cyst of ovary ; left ovarian cyst COMPARISON: No relevant comparison available. TECHNIQUE: Transabdominal and transvaginal sonographic examination. FINDINGS: UTERUS: Normal size and appearance. Uterus size: 8.6 x 3.9 x 5.0 cm ENDOMETRIUM: Normal homogeneous appearance. Endometrial thickness: 5 mm RIGHT OVARY: Normal size and appearance. Duplex Doppler demonstrates normal waveform and flow; resistive index 0.44. Ovary size: 3.7 x 2.1 x 2.9 cm LEFT OVARY: Contains a 3.4 x 2.3 x 2.1 cm heterogeneous complex cyst versus hypovascular mass. Duplex Doppler demonstrates normal waveform and flow; resistive index 0.46. Ovary size: 4.9 x 3.4 3.7 cm CUL-DE-SAC: Unremarkable. No significant free fluid. BLADDER: Unremarkable. OTHER: None. IMPRESSION: 1. Left ovary contains a 3.4 cm complex cyst versus mass. Follow-up ultrasound evaluation in 6 weeks is recommended to document regression. No prior studies available for comparison. Electronically authenticated by: KULWINDER CARSON Date: 2021-12-27 07:30 Normal [facility] Covid-19 PCR (CVDTB)on SARS-CoV-2 (COVID-19) RNA TRESSA+probe Ql (Unsp spec) Detected Critically abnormal NOT DETECTED [facility] Comment on above: Result Comment: This test is not yet approved or cleared by the [place] FDA. When there are no FDA-approved or cleared tests available, and other criteria are met, FDA can make tests available under an emergency access mechanism called an Emergency Use Authorization (EUA). The EUA for this test is supported by the [place] of Health and Human Service's declaration that circumstances exist to justify the emergency use of in vitro diagnostics for the detection and/or diagnosis of the virus that causes COVID-19. This EUA will remain in effect for the duration of the COVID-19 declaration justifying emergency of IVDs, unless it is terminated or revoked by the FDA (after which the test may no longer be used). Performed By: #### C VDTB #### [facility] [address] [place] [address] Dr. Edwina Pereira 10-16-2020 CNOV Office Visit (ORTHCC) SANDY DENNIS ([id number]) 1985 F Date Time Provider Department 10/16/20 1:15 PM MINESH GURROLA)POOL During your visit today, we recorded the following information about you: Minesh Gurrola PA-C 10/16/2020 1:03 PM Signed SUBJECTIVE Sandy Aponte Jeannie is a 35 year old female, right hand dominate, Worker's Compensation and legal considerations: none Ms. Dennis presents for initial evaluation of bilateral wrist pain Patient reports: Patient presents the office today for evaluation of bilateral wrist pain. Patient states that she has had increased wrist pain (right greater than left) on and off for several years. 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 Patient rates her pain currently 2-3/10. States her pain is worse with use of repetitive nature in both hands. Symptoms are primarily of the first dorsal compartment and will radiate into the thumb. She denies numbness or tingling in both hands, denies previous surgery to same. Review of Systems: All were reviewed and found to be negative except those present in HPI. Past medical history: There is no problem list on file for this patient. Past surgical history: No past surgical history on file. Family history:No family history on file. Social history: Social History Tobacco Use - Smoking status: Not on file Substance Use Topics - Alcohol use: Not on file - Drug use: Not on file Medications: No current outpatient medications on file prior to visit. No current facility-administere d medications on file prior to visit. Allergies: ALLERGIES Not on File OBJECTIVE GENERAL: no acute distress, alert, oriented x 3, appropriate mood and affect Bilateral Hand(s): SKIN: intact SWELLING: negative EFFUSION: negative WARMTH: negative TENDERNESS: First dorsal compartment ROM: Full range of motion NOHEMI TEST: Positive STRENGTH: 5/5 biceps, triceps, document image technician, finger abduction, WE, WF, AND EPL STABILITY: all joints stable CREPITUS: negative NEUROLOGICAL EXAM: Sensory: sensation intact to light touch axillary, radial, median, AND ulnar distributions 2-point discrimination intact throughout all digits. Motor strength: equal bilaterally with 5/5 biceps, triceps, document image technician, finger abduction, WE, WF, thumb opposition, AND EPL Atrophy: none seen in thenar, hypothenar, or first dorsal interosseous. Tinel sign: at carpal tunnel negative and at ulnar nerve negative Phalen's test: negative Flexed elbow test: negative NECK: supple, non tender, full ROM, AND negative Spurling's VASCULAR EXAM: good capillary refill, warm with good color, and radial AND brachial pulses present LYMPH NODES: no epitrochlear adenopathy palpable ASSESSMENT Tendinitis, de quervain's (primary encounter diagnosis) PLAN The following plan was agreed upon: Discussed conservative treatment for de Quervain's syndrome. Discussed cortisone injection, patient wishes to defer. Discussed use of thumb spica splint, topical NSAID cream (Voltaren gel), icing and occupational therapy. Patient will call to schedule for occupational therapy. Start diclofenac gel apply 2 g to site of pain 4 times daily as needed. Follow-up as symptoms dictate Minesh Gurrola PA-C This note is created with the assistance of a speech-recognition program. It may contain inaccuracies such as misspellings,inaccua rate syntax or word sense that escaped review. While intending to generate a document that accurately reflects the content of the visit, no guarantee can be provided that every mistake has been identified and corrected by editing. Referring Provider: SELF [[id number]] Allergies As of Date: 10/16/2020 (Not on File) Date Reviewed: 10/16/2020 Reviewed by: Minesh ReaNeida Gurrola - Fully Assessed Reason for Visit: Hand Pain [1581] Cmt: R>L Primary Visit Diagnosis:Tendinitis , de Quervain's [M65.4] Order(s):diclofenac (VOLTAREN) 1 % topical gelApply 2 g to affected area four times daily.Disp: 100 gRfl: 1 CONSULT TO AFTER SCHOOL TUTOR [[id number]] Order #: [id number]: 1 FUTURE Prescriptions as of 10/16/2020 Sig: DICLOFENAC 1 % TOPICAL GEL Apply 2 g to affected area fo* Problem List As Of Date: 10/16/2020 (None) Prescriptions ordered this encounter Disp Refills Start End DICLOFENAC 1 % TOPICAL GEL 100 g 1 10/16/2020 Route: TOPICAL Sig: Apply 2 g to affected area four times daily. Disposition: Return if symptoms worsen or fail to improve. Follow-up and Disposition History Recorded Encounter Status:Closed by MINESH GURROLA PA-C on 10/16/20 Normal [facility] Encounters Encounter Date Encounter Type Care Provider Facility Start: 10-28-2023 End: 10-28-2023 ambulatory SUJATA RUDD Not Available Start: 10-22-2023 End: 10-23-2023 ambulatory SUJATA RUDD Not Available Start: 10-09-2023 End: 10-09-2023 ambulatory SUJATA RUDD Not Available Start: 08-27-2023 End: 08-27-2023 ambulatory SAMANTHA CROW Not Available Start: 06-17-2023 End: 06-17-2023 ambulatory TIERRA WILL Not Available Start: 04-02-2023 End: 04-03-2023 ambulatory Wilda Buckner Facility:[facility] Start: 04-02-2023 End: 04-02-2023 Patient encounter procedure Wilda Buckner [facility] Start: 01-09-2023 End: 01-10-2023 ambulatory Wilda Buckner Facility:[facility] Start: 01-09-2023 End: 01-09-2023 Patient encounter procedure Wilda Buckner [facility] Start: 11-12-2022 End: 11-13-2022 ambulatory CASSANDRA CHAHAL Facility:[facility] Start: 10-31-2022 End: 11-01-[address] CASSANDRA CHAHAL . Facility: Start: 10-23-2022 End: 10-23-[address] CASSANDRA CHAHAL . Facility: Start: 09-24-2022 End: 09-25-2022 ambulatory Wilda Buckner Facility:[facility] Start: 09-24-2022 End: 09-24-2022 Patient encounter procedure Wilda Buckner [facility] Start: 05-03-2022 End: 08-02-2022 ambulatory Kaushal Craft Facility:[facility] Start: 12-28-2021 End: 12-28-[address] DOCTOR DUEÑAS Facility: Start: 12-27-2021 Encounter for preprocedural laboratory examination DR CASSANDRA CHAHAL . [facility] Start: 12-26-2021 End: 12-27-2021 Encounter for preprocedural laboratory examination DR CASSANDRA CHAHAL . Facility: Start: 12-26-2021 End: 12-27-[address] CASSANDRA CHAHAL . Facility: Start: 12-18-2021 End: 12-18-2021 Patient encounter procedure YELENA JAMES [facility] Procedures Date Procedure Procedure Detail Performing Clinician Start: 06-04-2019 Esophagogastroduodenoscopy YELENA CHE Start: 04-17-2018 CHOLECYSTECTOMY LAPAROSCOPIC W/ CHOLANGIOGRAM 1 YELENA JAMES Comment on above: CHOLECYSTECTOMY LAPAROSCOPIC W/ CHOLANGI OGRAM Start: 04-25-2013 Appendectomy YELENA JAMES Immunizations Immunization Date Immunization Notes Care Provider Fa cili 05-21-2022 influenza virus vaccine, unspecified formulation Wilda Buckner [facility] Comment on above: Reason for Medicatio n: Prophylaxis 05-25-2021 influenza virus vaccine, unspecified formulation; Translations: [Fluzone PF Quadrivalent ] YELENA JAMES [facility] Comment on above: Reason for Medicatio n: Other (see comment) Payers Date Payer Category Payer Unknown [id number] 1985 Unknown [id number] 2.16.84 [id number] 1985 Unknown [id number] 2.16.84 [id number] 1985 Unknown [id number] 2.16.84 0.1.659840.3.579.2.593 1985 Unknown [id number] 2.16.84 0.1.559550.3.579.2.593 1985 Unknown [id number] 2.16.84 0.1.782764.3.579.2.593 1985 Unknown [id number] 2.16.8 40.1.867111.3.579.2.727 1985 Unknown [id number] 2.16.8 40.1.549517.3.579.2.727 1985 Unknown [id number] 2.16.8 40.1.812887.3.579.2.727 1985 Unknown [id number] 2.16.8 40.1.697877.3.579.2.727 1985 Unknown [id number] 2.16.84 0.1.275205.3.579.2.1259 1985 Unknown [id number] 2.16.84 0.1.442144.3.579.2.1259 1985 Unknown [id number] 2.16.84 0.1.263651.3.579.2.1259 1985 Unknown [id number] 2.16.84 0.1.947758.3.579.2.1259 1985 Unknown [id number] 2.16.84 0.1.036269.3.579.2.1259 1985 Unknown [id number] 2.16.840 .1.279772.3.579.2.1259 1959 Unknown [id number] 1959 Unknown [id number] Social History Date Type Detail Facility Start: 02-22-2021 Tobacco smoking status Never s moked tobacco (finding) [facility] Tobacco smoking status Never [facility] Sex Assigned At Female [facility] Clinical Note 12-28-2021 Note Date & Type Note Facility 12-28-2021 Note [facility] [place], [place] NAME: SANDY DENNIS DATE OF : MEDICAL REC#: [id number] [employer]ASOLINE [employer] 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 PREOPERATIVE DIAGNOSIS: Pelvic pain, left ovarian cyst 6 cm in nature. POSTOPERATIVE DIAGNOSIS: Pelvic pain without left ovarian cyst, however, there was a small adhesion which was easily taken down from the anterior abdominal wall that was omental in nature. SURGEON: Cassandra Chahal D.O. PROTOTYPE DEICER ASSEMBLER: VITA Rondon URINE OUTPUT: Yellow and clear. BLOOD LOSS: 5 mL. FINDINGS: Normal appearing ovaries, uterus and tubes. A small adhesion of the omentum to the anterior abdominal wall. SPECIMEN: None. PROCEDURE: The patient was taken back to the Operating Room where she was placed in dorsal lithotomy position after given general anesthesia. The patient was prepped and draped in normal sterile fashion. A sponge stick was placed into the patient's vagina. Attention was turned to the patient's abdomen, where a small umbilical incision was made. The fascia was tented using Jovanni clamps and the fascia was entered sharply. Confirmation of intraabdominal placement of the 10 mm port was confirmed under direct visualization using a laparoscope. The patient's abdomen was then insufflated using CO2 gas with approximately 4 liters. A second port was placed left laterally, this was done under direct visualization with a 5 mm port. Survey of the patient's abdomen demonstrated normal liver and gallbladder. Survey of the patient's pelvic anatomy demonstrated normal appearing ovaries and tubes as well as normal appearing uterus. No endometrial implants could be noted, no evidence of any pelvic disease was seen, normal appearing pelvic cavity. All instruments were removed from the patient's abdomen. The patient's abdomen was desufflated of CO2 gas. The patient tolerated the procedure well. Sponge stick was removed from the patient's vagina. The patient's infraumbilical fascia was closed using #0 Vicryl on a GI needle. The patient's skin was closed laterally and infraumbilically using 4-0 Vicryl. The patient tolerated the procedure well. Sponge, lap and needle counts were correct x 2. The patient was taken to Recovery Room in stable condition. please note small adhesion was taken down bluntly from anterior abdominal wall Electronically Authenticated and Edited by: Cassandra Chahal DO on 01/01/2022 09:27 PM EDT IFC Signed and Approved by: DR CASSANDRA CHAHAL . 01/01/2022 21:27:00 [facility] Progress note 10-16-2020 Note Date & Type Note Facility 10-16-2020 Note HNO ID: [id number] Author: Minesh Gurrola Service: ? Author Type: Physician Toolroom Clerk Type: Progress Notes Filed: 10/16/2020 1:03 PM Note Text: SUBJECTIVE Sandy Dennis is a 35 year old female, right hand dominate, Worker's Compensation and legal considerations: none Ms. Dennis presents for initial evaluation of bilateral wrist pain Patient reports: Patient presents the office today for evaluation of bilateral wrist pain. Patient states that she has had increased wrist pain (right greater than left) on and off for several years. 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 Patient rates her pain currently 2-3/10. States her pain is worse with use of repetitive nature in both hands. Symptoms are primarily of the first dorsal compartment and will radiate into the thumb. She denies numbness or tingling in both hands, denies previous surgery to same. Review of Systems: All were reviewed and found to be negative except those present in HPI. Past medical history: There is no problem list on file for this patient. Past surgical history: No past surgical history on file. Family history:No family history on file. Social history: Social History Tobacco Use - Smoking status: Not on file Substance Use Topics - Alcohol use: Not on file - Drug use: Not on file Medications: No current outpatient medications on file prior to visit. No current facility-administered medications on file prior to visit. Allergies: ALLERGIES Not on File OBJECTIVE GENERAL: no acute distress, alert, oriented x 3, appropriate mood and affect Bilateral Hand(s): SKIN: intact SWELLING: negative EFFUSION: negative WARMTH: negative TENDERNESS: First dorsal compartment ROM: Full range of motion NOHEMI TEST: Positive STRENGTH: 5/5 biceps, triceps, document image technician, finger abduction, WE, WF, AND EPL STABILITY: all joints stable CREPITUS: negative NEUROLOGICAL EXAM: Sensory: sensation intact to light touch axillary, radial, median, AND ulnar distributions 2-point discrimination intact throughout all digits. Motor strength: equal bilaterally with 5/5 biceps, triceps, document image technician, finger abduction, WE, WF, thumb opposition, AND EPL Atrophy: none seen in thenar, hypothenar, or first dorsal interosseous. Tinel sign: at carpal tunnel negative and at ulnar nerve negative Phalen's test: negative Flexed elbow test: negative NECK: supple, non tender, full ROM, AND negative Spurling's VASCULAR EXAM: good capillary refill, warm with good color, and radial AND brachial pulses present LYMPH NODES: no epitrochlear adenopathy palpable ASSESSMENT Tendinitis, de quervain's (primary encounter diagnosis) PLAN The following plan was agreed upon: Discussed conservative treatment for de Quervain's syndrome. Discussed cortisone injection, patient wishes to defer. Discussed use of thumb spica splint, topical NSAID cream (Voltaren gel), icing and occupational therapy. Patient will call to schedule for occupational therapy. Start diclofenac gel apply 2 g to site of pain 4 times daily as needed. Follow-up as symptoms dictate Minesh Gurrola PA-C This note is created with the assistance of a speech-recognition program. It may contain inaccuracies such as misspellings,inaccuarate syntax or word sense that escaped review. While intending to generate a document that accurately reflects the content of the visit, no guarantee can be provided that every mistake has been identified and corrected by editing. [facility] Evaluation + Plan note Note Date & Type Note Facility Evaluation + Plan note No data available for this section [facility] Hospital Discharge instructions Note Date & Type Note Facility Hospital Discharge instructions No data available for this section [facility] Progress note Note Date & Type Note Facility Progress note No data available for this section [facility] Summary Purpose Family History No Family History Records FoundNo Family History Records FoundNo Family History Records FoundNo Family History Records FoundNo Family History Records Found Advance Directives No Advanced Directives Records FoundNo Advanced Directives Records FoundNo Advanced Directives Records FoundNo Advanced Directives Records FoundNo Advanced Directives Records Found Additional Source Comments INFORMATION SOURCE (unrecogn ized section and content) DATE CREATED AUTHOR 08/26/2021 [facility] DATE CREATED AUTHOR AUTHOR'S ORGANIZ ATION 11/09/2022 [facility] DATE CREATED AUTHOR AUTHOR'S ORGANIZ ATION 11/14/2022 [facility] DATE CREATED AUTHOR AUTHOR'S ORGANIZ ATION 04/03/2023 [facility] DATE CREATED AUTHOR AUTHOR'S ORGANIZ ATION 10/29/2023 [facility] EPIC Patient Care team informatio n (unrecognized section and content) Personnel Name: Wilda Buckner CNP Address: Address: [address] [place] [address] Personnel Name: Wilda Buckner CNP Address: Address: [address] [place] [address] Personnel Name: Wilda Buckner CNP Address: Address: [address] [place] [address] FOR RECORDS PERTAINING TO PATIENTS WHO ARE OR HAVE BEEN ENROLLED IN A CHEMICAL DEPENDENCY/SUBSTANCEABUSE PROGRAM, SOME INFORMATION MAY BE OMITTED. This clinical summary was aggregated from multiple sources. Caution should be exercised in using it in the provision of clinical care. This summary normalizes information from multiple sources, and as a consequence, information in this document may materially change the coding, format and clinical context of patient data. In addition, data may be omitted in some cases. CLINICAL DECISIONS SHOULD BE BASED ON THE PRIMARY CLINICAL RECORDS. [facility] [employer] [facility]. provides no warranty or guarantee of the accuracy or completeness of information in this document.
== END 2023-12-04 20:25 | disposition home or self-care (01) ==
LOC: LAB 20:24
PROVIDERS: Visit Provider Obstetrics & Gynecology
DX: Z01.419 Encounter for gynecological examination (general) (routine) without abnormal findings (principal)
CPT/HCPCS: 87624; G0145

== ENCOUNTER 2023-12-15 08:21 | Outpatient (OUT) | payer BC, SELFPAY ==
--- NOTE | 2023-12-15 08:24 | MM_ITS ---
Patient Name: SANDY CARDOZO MR#: [id number] : 1985 Exam Date: 12/15/2023 Ordering Doctor: DR Vikram Chahal . RADIOLOGY REPORT PROCEDURE: MM TOMOSYNTHESIS SCREENING BI COMPARISON: [facility] MAMM DIAGNOSTIC 3D YARITZA CAD, 10/31/2022. INDICATIONS: Screening Calculator Name NCI Breast Cancer Risk Assessment Tool 5 Year Breast Cancer Risk 0.50% Lifetime Breast Cancer Risk 11.20% Personal Breast Cancer No Personal Ovarian Cancer No Treatments None Family Cancers Aunt-paternal with breast cancer at age 48. LOCATION: [facility] BREAST COMPOSITION: The breasts are heterogeneously dense,which may obscure small masses. FINDINGS: DIAGNOSTIC CATEGORY 1--NEGATIVE. RIGHT BREAST: No significant suspicious finding. No significant change has occurred. LEFT BREAST: No significant suspicious finding. No significant change has occurred. RECOMMENDATIONS: ROUTINE MAMMOGRAM AND CLINICAL EVALUATION IN 12 MONTHS. PLEASE NOTE: A NORMAL MAMMOGRAM DOES NOT EXCLUDE THE POSSIBILITY OF BREAST CANCER. A CLINICALLY SUSPICIOUS PALPABLE LUMP SHOULD BE BIOPSIED. Dictated by: Kulwinder Carson M.D. on 12/16/2023 at 14:23 Approved by: Kulwinder Carson M.D. on 12/16/2023 at 14:25
== END 2023-12-15 08:22 | disposition home or self-care (01) ==
LOC: MAMMO 08:22
PROVIDERS: Visit Provider Obstetrics & Gynecology
DX: Z12.31 Encounter for screening mammogram for malignant neoplasm of breast (principal); Z80.3 Family history of malignant neoplasm of breast
CPT/HCPCS: 77063; 77067

== ENCOUNTER 2024-03-17 06:33 | Outpatient (OUT) | payer BC, SELFPAY ==
--- OUTSIDE RECORDS SUMMARY | 2024-03-17 06:35 | XMS_ITS | CCD ---
Author Organization [facility] Care Team Providers Care Glass Calibrator Name Role Phone Wilda Buckner Primary Care [...] TRUJILLO Admitting Unavailable AGUBOSIM, NURIS Consulting Unavailable DEEPAK, JON Consulting Unavailable JONATAN, MARK Consulting Unavailable [...] CROW Attending Unavailable SUJATA RUDD Referring Unavailable TIERRA WILL Attending Unavailable SUJATA RUDD Attending Unavailable SUJATA RUDD Referring Unavailable SUJATA RUDD Attending Unavailable CASSANDRA CHAHAL Attending Unavailable Allergies Allergy Classification Reported Allergen(s) Allergy Type Date of Onset Reaction(s) Facility (5 sources) Ciprofloxacin; Translations: [ciprofloxacin] Drug Allergy Tenalgia (finding) [facility] (1 source) Ciprofloxacin Drug Allergy [facility] Repository Problems Active Problems Problem Classification [...] compartment osteoarthritis. ELECTRONICALLY SIGNED BY: Delta Geller, Normal Not Available Comment on above: Order Comment: No to all MRI Questions Consent for Treatmenton Consent for Treatment [id number] 30 [id number] #1.00CD:127 Normal [facility] Physician Orderon 04-02-2023 Physician Order [id number] 0#1.00CD:127 Normal [facility] XR Foot 3+ Views Lefton XR Foot [...] MICHEAL Technologist: APOLLO Technical Comments Radiation Dose: Kar in mGy = na DAP = na Normal [facility] XR Wrist 3+ Views Lefton XR Wrist [...] mGy = . DAP = . Normal [facility] XR Wrist 3+ Views Righton XR Wrist [...] mGy = . DAP = . Normal [facility] Consent for Treatmenton 12-26 Consent for Treatment [id number] #1.00CD:127 Normal [facility] Physician Orderon 01-09-2023 Physician Order [id number] 5#1.00CD:127 Normal [facility] SURGICAL PATH REPORTon 11-14 SURGICAL PATH REPORT [facility] Department of Pathology [address] [place] [address] Name: SANDY DENNIS : 1985 [facility] [id number] Number: Gender Female [facility] : n: Admit 37 years Attending CASSANDRA CHAHAL Age: Provider: Ordering CASSANDRA CHAHAL Provider: Consulti Surgical Pathology Report ng: ACCESSION: COLLECTED DATE/TIME: RECEIVED DATE/TIME: PATHOLOGIST: [id number] 11/12/2022 16:30 EDT 11/13/2022 13:47 EDT DEJUAN RODRIGUEZ MD Final Diagnosis Report for [facility], [place] ENDOMETRIAL BIOPSY: - PROLIFERATIVE ENDOMETRIUM. DEJUAN [...] shital 11/13/2022 Tissue pathology report for: [facility], [address] [place] [address]; ____ Print 11/14/2022 14:01 EDT Number: Date/Time: [facility] Department of Pathology [address] [place] [id number] Name: SANDY DENNIS : 1985 [employer] [id number] Number: Gender Female aBrtolome MCKINNEYUE : n: Admit 37 years Attending CASSANDRA CHAHAL Age: Provider: Ordering CASSANDRA CHAHAL Provider: Consulti Surgical Pathology Report ng: ACCESSION: COLLECTED DATE/TIME: RECEIVED DATE/TIME: PATHOLOGIST: [id number] 11/12/2022 16:30 EDT 11/13/2022 13:47 EDT MICHAEL ZAVALA, DEJUAN Gross Description PATHOLOGY SERVICES PROVIDED BY [employer] (CLIA #[id number]) in cooperation with [facility] at [address] [place] [address] (CLIA #[id number]) Microscopic Diagnosis The final diagnosis is based on a microscopic exam of provider service representative sections. Codes CPT CODE: 86714 ____ [facility] 11/14/2022 14:01 EDT Number: Date/Time: Normal [facility] Comment on above: Performed By: #### 9 [id number] #### [facility] [address] [place] [address] Order Planner: Dejuan Rodriguez MD [facility] 3D YARITZA CA Don 10-31-2022 [facility] 3D YARITZA CAD Patient: SANDY DENNIS. Exam Date: 10/31/2022 : 1985 Gender:F Ordering : DR CASSANDRA CHAHAL . Admission #: [id number] Family : Order #: [id number] CLICK HERE TO VIEW EXAM RADIOLOGY REPORT [...] breast cancer at age 48. LOCATION: [facility] BREAST COMPOSITION: Heterogeneously dense,which may obscure small [...] M.D. on 10/31/2022 at 11:12 Normal [facility] US BREAST YARITZA LIMITEDon 04-0 US BREAST YARITZA LIMITED Patient: SANDY DENNIS Exam Date: 10/31/2022 : 1985 Gender:F Ordering : DR CASSANDRA CHAHAL . Admission #: [id number] Family : Order #: [id number] CLICK HERE TO VIEW EXAM RADIOLOGY REPORT [...] breast cancer at age 48. LOCATION: [facility] BREAST COMPOSITION: Heterogeneously dense,which may obscure small [...] Carson M.D. on 10/31/2022 at 11:12 Normal [facility] US PELVIS AND TRANSVAGon US PELVIS [...] by: KULWINDER CARSON Date: 2022-10-31 09:40 Normal [facility] PAP ACOG PANEL 2: 30 to 65on 10-30-2022 . . Normal [facility] Comment on above: Result Comment: Perf ormed at: WB Performed By: #### 4 [id number] #### [facility] [address] [place] [address] Dr. Edwina Vicente Age Gdln ACOG Testing 30-65 [facility] Comment on above: Performed By: #### 4 [id number] #### [facility] [address] [address] [address] Edwina Vicente DIAGNOSIS: Comment Normal [facility] Comment on above: Result Comment: NEGA TIVE FOR INTRAEPITHELIAL LESION OR MALIGNANCY. Performed at: WB Performed By: #### 4 [id number] #### [facility] [address] [place] [address] Dr. Edwina Vicente HPV Aptima Negative Normal Negative [facility] Comment on above: Result Comment: This nucleic acid amplification test detects fourteen high-risk HPV types (16,18,31,33,35,39,45,51,52,56,58,59,66,68) without differentiation. Performed at: =G Performed By: #### 4 [id number] #### [facility] [address] [place] [address] Dr. Edwina Vicente HPV Genotype Reflex Comment Normal [facility] Comment on above: Result Comment: Crit eria not met, HPV Genotype not performed. Performed at: WB Performed By: #### 4 [id number] #### [facility] [address] [place] [address] Dr. Edwina Vicente Methodology: CTIM [facility] Comment on above: Result Comment: The Thin Prep(R) Agricultural Research Technician was unable to read this specimen. Therefore a manual review was performed. Performed at: WB Performed By: #### 4 [id number] #### [facility] [address] [place] [address] Dr. Edwina Vicente Note: Comment Normal [facility] Comment on above: Result Comment: The Pap smear is a screening test designed to aid in the detection of premalignant and malignant conditions of the uterine cervix. It is not a diagnostic procedure and should not be used as the sole means of detecting cervical cancer. Both false-positive and false-negative reports do occur. . Performed at: WB Performed By: #### 4 [id number] #### [facility] [address] [place] [address] Dr. Edwina Vicente Performed by: Comment Normal [facility] Comment on above: Result Comment: Bo Rao, Logistics Engineer (ASCP) Performed at: WB Performed By: #### 4 [id number] #### [facility] [address] [place] [address] Dr. Edwina Vicente Specimen adequacy: Comment Normal [facility] Comment on above: Result Comment: Sati sfactory for evaluation. Endocervical and/or squamous metaplastic cells (endocervical component) are present. Performed at: WB Performed By: #### 4 [id number] #### [facility] [address] [place] [address] Dr. Edwina Vicente Coding Summary.on 09-30-2022 Coding Summary. CD:[id number] Gh0bWw+PGhlYWQ+PE1FV JLuR61qtKZvzY4HA0uPI E7YBLEFRRCYGD9VKX1of CV1EVouX3SxqzUt XbcntLBcFH36NYz6ZIX0 tPsqZIzvkT1czIJzM6r9 BjIyVA54mT02ZOywKAUb JbH2QsSsykwuxVBz E8ubDhIfiWDtKwt+PHRh YmxlIHdpZHRoPScxMDAl OdIieJygVM1tEk3zKKZn LWNvbGxhcHNlOiBj y4wrQKMySJfeEC6vxNvc N6OkeBE0NMIyb2y9Mw23 dHI+OOGfFZH3zCjuRBcv t564ZtZij4bcBLK0 mOOcKIetPCQ7D91jh4V0 ETTqLJYbANP2eWM9pI9s bUvzwydvA2BbmDUqWtW7 VJZ2nIBaaO7ahFps djnkmI1oRms+H82OYL9U VTOLDA0BAwh0P4RxEcss dHI+ZT78IUJdRF55kSTz dRAkm2paiLn0ZgDg EEMfWVB6fQjoVBpni7Iq GEZoN84jyYZxk9W9DMRv aHfkpDZxNjQalPA6dN9k MHigukqda9xkvtwh Dptnx7tewb57yZ47F29c TIhsTCVmBFN3QHKsLCJh kEubjd3fkR6vSo9+IDxj s6skx3jxfJr8BpEd FLEmeyUapSvgIZF8h6Wc Or13D6TvxZolt9SfZrd7 wn53oZTvm2U8lDZ7HZgz XKYgeE8yLBraEcF6 SSCjXxAmnB03lNZwTKce Rr9ycTkvcNlmHQ8sJXMt dmcwZDEqtY3cYFFufGBi qFzaMZ3sONIvzten r015ZvWsOEM8YJQrwKTq Y4DcnQ9dUrMkNFFcVEYe R5DfmRNeZLhsW265PBlp IbF9EBLwubJyK1Jd YTHwfCxxLvL4b9T2Wa7B u9OzoqlzSSV9OFccOQVe RmA3JnKhTpQ7S4YgKnz7 JJZybMasNU6fG3My LDQzaxmbvbhpdCW5JXZr RFAuzW57zYHxRJkbVr7f l4G4u107IHPqDABgoR39 Bj7blSueFARguCWZ eW8bgjhxv2cdslfjIeBl NLBpATa5YOy7UVIhiAbh MuQdXYP4QuB4OHC4oXId tF3nrIcpnfzvhN1e Oyc+J85pfN0mVDM5GBW3 fetmETDircRuCG00UZ79 Q7TdKasxbJIupHM+PGRp xiNbvMzcRF6kRqCs e0mct3WjXPnzY4LbRYWb WNobGda5SRVvYOO7bEA1 eJ0cMVXnUDhrg2O0dYL2 G5SdxxVtwj2js7ap MNIuVMchZ02gaHUtq2Q3 SPSmsZJ7ABZzeJjuIaAj xA28Cme+KSPegLuti0Fu Jyavf1yqd8jakYm7 IjMwJSIgdmFsaWduPSJ0 w6ClFz81P36qBOndIYUa SFTvDGQaKDMscDefdv1u rA0qOx8+PGNvbCB3 uJW2aY8aBDXaPxA2DIko N396YbMuzSAzAeeeg3ga r7jhrFd4QhPyRRUyqoBs iRqvCNG8a2YoVj86 M76mVTjsMQSpOPIcAZJi IDBqaHaczy8caB3qOu0+ EE9ls2gphj83qL73pEB+ PQZoTZS5tWfbINkh VDAnmW4vSQklEiZ3MGQj FbPmmY59xOQaROrvIs0p eUziqHupDJ8tEKBcntet l577ZhKxi5gpHQEr iNXtGHoeQPW0H47gy2H7 OKVoHCPiTWP8gXM5iP9p bGlnbjogbGVmdDsgdmVy eTyqQQucLMumW741 IHRvcDsnPlBhdGllbnQg MfKsGRw6J9AjTkx8DXRk nXjhGX9rgAGlLNdeTo0x oWhhkOlqVB8jYTSx ktzux168YxTjm8szDYHr hWZoLByjHHV4D11qz9M3 EXCsCWXwDNS6iIC7kU8f bGlnbjogbGVmdDsg vqCskNajMGeuBJmsD285 IHRvcDsnPkJpcnRoIERh fRV4PU26MF58rNWgz5U9 tPX2B1MsFNMkxfdu zpslwKO2SJMiEBEpdU47 Gu5zbXlgWu9bGFQeLAX1 IZXonJDrT1LkvC9sVwIy KNHhDBPoY1HiuKXd DTjsM030XKbjRqH4VVMb zkHfV0MsRZKwxZmxGnG0 g4L6Nw0ZO9E6JZ98TC97 qTLyw5Z5xJL0S1Cv QIEicviwzdvlxWP0PYNl RIJusD23Fa7ftMchCi8g WCNiHHC8XNIrpDCbC5Ix sG1zIxGhMZExBOVu U7EesJXeNBccX776YMlr LqO9UAOvgmRbH1AvAWUd kGvfUeD2n8I7Oc9PSDb9 KJ98RN39wIBrj0W3 uOY2V7OeKHBvsefqxyrh tEG7OAYsHYAyyA60Lk0p jJfmMr2vJXAgSIJ8RDDn gKBgH7HdxG4wMhKw FMGnUCAbI8MqlOKeBZfr A522TMvqSeN3IKXxomHq R0MpGONgnQhbQzG3u5J6 Ol9MVMWsPN85QRE1 hCH6OA47KT85R5GoGllx dGFibGU+PHRhYmxlIHdp ZHRoPScxMDAlJyBzdHls EA9qIc1uNTNvICNa gHdnbGMtEkCes9kxAXId VFecJN8nhFtkI2OslTW8 PVDjj0m5Eg04E88aK3Sj dXA+XOXzpCP8hFU8 aM6tYyQmZfK2YNmkN087 NxHufDZzYumqk2fmu5cl rTu6KjT3ZIWgmvSqlPiz SUT8j6XvYa64F49j IHdpZHRoPSIxNSUiIHZh wEqxtv5gsX5xVs7+PGNv vJP0tIL1mN3mJcCqXsJ0 CVhdW530QdVymMIn Kcdps7orh5rkhLw4WoCe EBUjgnHnbZuxRWM6t1Mc Te96R4DpjKbdw6YpChe3 xl80qJFhv4E9sPZ1 P3CpXLAauxcpvJAaoYpi BK0pCVQmvabmJZFgjT1v YKFrV4j5IhSsVpB2FKsu A1OybeN8KVGjkRBp ZIbxNZV6V31kv4K5NIAz WBYhNSJ4uXT3nS1myGqc bjogbGVmdDsgdmVydGlj ESwcWVjeE909SQSn jEnbTBZbzL4yYOPlmKJh nPdrLA5vGZZhwhfeDiWG RVBPVEUsIFRSSVNIQSBK JN52NM82pKZuz6P7 iAC8A1MvCTKzdjzqccue aUP0VPQhOURoyC05qJDm HElsNm0rl3S1m984YMWw VBVvcU78Iq1qeRsm FKAayBCDlB3hjvdcw8ie tdvxCyCwTIKuDQj5HYx5 DGRwmIkbTtSeCVS4IiL0 AXD3zLZcaN3ceHik vghswN0cBxn+MDgvMTAv LVz2EUbkyZX+PHRkIHN0 sKdgSKlcTANvrT3sSQDm H1b4AlUxQiV0EWud S2YnXSPmylaoMv79dG8s DzBuRaZ9ZOrqE8MgioZ0 RODhlCDdMDfoTCG7G17w q5M7YJNxIEFoVPL1 pKF0cO1pjYwvxhrcvMKw dDsgdmVydGljYWwtYWxp E111UEXwsFeyJfT9QHib STNxQF80JW16vGKr f2M9tRJ9C4PaULSkjryq qlvcwQN0ENIsOBAgyM72 fZBwHYdaYd6np0A0r996 ZFQbYWAqhF22Oa8p kTfkXSKvcFJQvY3fauwu z9gajoapNaVvZRBvSQt4 YXr1CHSyaTthPaKfKNW6 WbE2OXL5qPQfnR1c nVilvngvtY4uKqk+RmVt HEfpDH91GD81qGHqc9F1 tIN4Q0PkODInrrnfwgwf bNV3IFBtEJRfbE10 lSPiLUdcAl8qw5G0u779 DMNbTTAtbO70Nw1riJmn XEGtrRVZiI5qyibps2qz cjogIzAwMDAwMDt0 LCa5WUDcjCnbQrLyCZI4 CzG8KTQ8cOUnoL1vjDtm sadxfP4nXyb+E4H4cPW1 aWVudDwvdGQ+PC90 jx30E7DjZrywPtp7DOMa RMD5pRT2iC9cFAYeEJht i6J7tPU5V9YiihYfat9t y0wxWBMgTRhwP40m aNCiv0L3WNTbfVE7OLFh pKklHdUmuJ40Fwc+PGNv sJcit2IhOaquc1hdj5gp gQc0LdHfKWJwlpHg tMjyOBG3z0XaJr40O53q IHdpZHRoPSIzMCUiIHZh zXfyzj5tnC3nUq3+PGNv rTO9zBO2xB6sKjFp QnR1LKgvV709PkTpfQAc Nybuc7psj4lkrHi8QpTu FXJleqNruKwmKOK9a2Wa Jw55H7BaaTqep0Bf Bvt0mu81aRTjp4X7pOA3 X8DwCEFejwaxyWDkhNnn VR7iATCxlpiiGVMoeK3f DMEhD8n0ElIhUcD2 RUveW2EeloA4OZJrvIVw MBYziINUaI9gmgwfn8yy kzlhFxUjNOQoMOf3CXj9 LWFsaWduOiBsZWZ0 MgB5MEJ8eJEmgU0mrFsv qvjheX9aAqk+ANq4g8du wZZqVS0vhOT8IS37PO17 pGBta1V2fCJ3Y5Ro TUJmkgyepzdhsBX8HYLx HWVpjC19An4arUmdPb6k ZZZhPLX1CPDmgPMqV4Fq vT3uYlHjTPRcGFMi O2GgkYOsDNgmM847HVeg QyZ3VGSrcsUuF4UzMKRl pWmxIgW7j0R7At9GGW33 AT54KC21fJVuu3A6 nMG9V3RcEDDuhprtoxuq qDS9YTEcMTWjfW73Ae2m sJiyHx0tLYHrDJC3AZKq jEWeN8YneY8pOwOy IGPnOSEoQ7XvkUFrMJgr L519CXcoFbP4ZFOarcAg Y0KlROVqbTdwGqN0n5R8 Of4VSu72EE91CW41 bZMpl4Q4bCD1F9JlGQHj tderlvznhRD1XPSgTPEx sQ53Qo0uaEuiAd5iMAGt UST6UYUqcFRgO0Ak rA2wJtVrWMTvUEYqD4Gt hYXvSGpbX073DWgpXoY8 EBVbnjUxH5JwVLIftBcd EyF8e7J9Xt9UMVai igk6E8GyQncvrTG+PC90 IKPnKK62xZMssKXsi2ij jDi4PbUqULSiSPG7mMml OWurq2KiPDLyR60c bGFw (more content not included)... Normal [facility] Auto Diffon 09-24-2022 Basophils/100 WBC (Bld) 0.5 % Normal 0.0-2.0 [facility] Comment on above: Order Comment: Order Added by Discern Expert. Performed By: #### 2 873723, 7497910, 7934143, 4316171, 0893870, 50223875 #### [facility] [address] [place] [address] Basophils/Leukocytes Auto (Bld) [Pure # fraction] 0.0 E9/L Normal 0.0-0.2 [facility] Comment on above: Order Comment: Order Added by Discern Expert. Performed By: #### 2 814665, 3827144, 2580775, 6734141, 4762282, 75125558 #### [facility] [address] [place] [address] Eosinophils/100 WBC (Bld) 0.9 % Normal 0.0-8.0 [facility] Comment on above: Order Comment: Order Added by Discern Expert. Performed By: #### 2 394785, 1430345, 3173911, 3450440, 5164230, 08234781 #### [facility] [address] [place] [address] Eosinophils/Leukocyte s Auto (Bld) [Pure # fraction] 0.1 E9/L Normal 0.0-0.5 [facility] Comment on above: Order Comment: Order Added by Discern Expert. Performed By: #### 2 184539, 9417544, 0237458, 5561240, 3776720, 36230822 #### [facility] [address] [place] [address] Lymphocytes/100 WBC (Bld) 28.2 % Normal 14.0-50.0 [facility] Comment on above: Order Comment: Order Added by Discern Expert. Performed By: #### 2 577147, 3459920, 6706098, 8828941, 5924780, 09803127 #### [facility] [address] [place] [address] Lymphocytes/Leukocyte s Auto (Bld) [Pure # fraction] 2.6 E9/L Normal 1.0-4.0 [facility] Comment on above: Order Comment: Order Added by Discern Expert. Performed By: #### 2 686631, 5494868, 2437630, 7515780, 6215033, 48579327 #### [facility] [address] [place] [address] Monocytes/100 WBC (Bld) 7.4 % Normal 4.0-14.0 [facility] Comment on above: Order Comment: Order Added by Discern Expert. Performed By: #### 2 654054, 4626885, 4152123, 2458249, 6251057, 70816077 #### [facility] [address] [place] [address] Monocytes/Leukocytes Auto (Bld) [Pure # fraction] 0.7 E9/L Normal 0.2-1.0 [facility] Comment on above: Order Comment: Order Added by Discern Expert. Performed By: #### 2 831698, 7691422, 2117711, 5545512, 3159438, 46192851 #### [facility] [address] [place] [address] Neutrophils/100 WBC (Bld) 63.0 % Normal 36.0-75.0 [facility] Comment on above: Order Comment: Order Added by Discern Expert. Performed By: #### 2 627984, 7494330, 5445651, 7814570, 9039811, 08120377 #### [facility] [address] [place] [address] Neutrophils/Leukocyte s Auto (Bld) [Pure # fraction] 5.7 E9/L Normal 2.0-7.5 [facility] Comment on above: Order Comment: Order Added by Discern Expert. Performed By: #### 2 657839, 9923327, 4328322, 5079642, 0014493, 42070724 #### [facility] [address] [place] [address] CBC w/ Auto Diffon Erythrocyte distribution width (RBC) [Ratio] 13.6 % Normal 10.9-14.2 [facility] Comment on above: Performed By: #### 2 319436, 5030422, 5401494, 1676011, 4321918, 78024716 #### [facility] [address] [place] [address] Hematocrit (Bld) [Volume fraction] 41.4 % Normal 34.0-46.0 [facility] Comment on above: Performed By: #### 2 579964, 5390418, 9255700, 4437750, 6496807, 81274736 #### [facility] [address] [place] [address] Hemoglobin (Bld) [Mass/Vol] 13.7 g/dL Normal 12.0-16.0 [facility] Comment on above: Performed By: #### 2 485905, 8788986, 3118700, 8283923, 3564980, 88417829 #### [facility] [address] [place], [place] [address] MCH (RBC) [Entitic mass] 27.6 pg Normal 27.0-34.0 [facility] Comment on above: Performed By: #### 2 417113, 1397281, 3861303, 4624418, 7725387, 41028845 #### [facility] [address] [place] [address] MCHC (RBC) [Mass/Vol] 33.1 g/dL Normal 31.4-36.0 [facility] Comment on above: Performed By: #### 2 159410, 9557426, 3667938, 7158128, 4101421, 95000873 #### [facility] [address] [place] [address] MCV (RBC) [Entitic vol] 83.2 fL Normal 80.0-100.0 [facility] Comment on above: Performed By: #### 2 139889, 2367836, 3252516, 9274914, 6911290, 94437702 #### [facility] [address] [place], [place] [address] Platelet mean volume (Bld) [Entitic vol] 7.8 fL Normal 6.4-10.8 [facility] Comment on above: Performed By: #### 2 460144, 0569946, 1227481, 8453410, 9888045, 42691312 #### [facility] [address] [place], [place] [address] Platelets (Bld) [#/Vol] 310.0 E9/L Normal 150.0-500.0 [facility] Comment on above: Performed By: #### 2 229102, 4080708, 7661584, 6930975, 0969671, 30487238 #### [facility] [address] [place], [place] [address] RBC (Bld) [#/Vol] 5.0 E12/L Normal 4.3-5.9 [facility] Comment on above: Performed By: #### 2 699009, 2008711, 8375324, 5865650, 6237095, 12204193 #### [facility] [address] [place] [address] WBC corrected for nucl RBC Auto (Bld) [#/Vol] 9.1 E9/L Normal 4.0-11.0 [facility] Comment on above: Performed By: #### 2 776804, 0061273, 7450972, 6727950, 7728032, 67550446 #### [facility] [address] [place] [address] CHEMISTRYOrdered By: SYSTEM SYSTEM on 09-24-2022 Albumin [...] rate/Area] mL/min/1.73 m2 Normal >=59mL/min/1. 73 m2 FT Chem S Globulin (S) [Mass/Vol] 3.2 g/dL [...] 09-24-2022 Albumin [Mass/Vol] 4.0 g/dL Normal 3.3-5.0 [facility] Comment on above: Performed By: #### 2 434932, 2912114, 3019882, 0607998, 9240598, 41509099 #### [facility] [address] [place] [address] Albumin/Globulin (S) [Mass conc ratio] 1.2 Normal 1.1-2.2 [facility] Comment on above: Performed By: #### 2 610033, 7557277, 9909018, 3209664, 9207794, 47702642 #### [facility] [address] [place] [address] ALP [Catalytic activity/Vol] 51 Int._Unit/L Normal 21-98 [facility] Comment on above: Performed By: #### 2 103963, 4352295, 7477984, 7990710, 6934572, 93523086 #### [facility] [address] [place] [address] ALT No additional P-5'-P [Catalytic activity/Vol] 16 Int._Unit/L Normal 6-46 [facility] Comment on above: Performed By: #### 2 634509, 3293920, 9959279, 5406000, 5767652, 11895571 #### [facility] [address] [id number] Anion gap [Moles/Vol] 9 mmol/L Normal 6-16 [facility] Comment on above: Performed By: #### 2 474923, 8447927, 3000196, 7249852, 2669139, 33425543 #### [facility] [address] [place] [address] AST [Catalytic activity/Vol] 15 Int._Unit/L Normal 5-43 [facility] Comment on above: Performed By: #### 2 209524, 1911752, 6046317, 3682505, 6393083, 85904200 #### [facility] [address] [place] [address] Bilirubin [Mass/Vol] 0.7 mg/dL Normal 0.0-1.1 [facility] Comment on above: Performed By: #### 2 083523, 3530180, 8079917, 5282274, 4081299, 35755869 #### [facility] [address] [place] [address] Calcium [Mass/Vol] 8.8 mg/dL Low 8.9-11.1 [facility] Comment on above: Performed By: #### 2 726165, 5047464, 4876231, 1242059, 5271098, [id number] #### [facility] [address] [place] [address] Chloride [Moles/Vol] 102 mmol/L Normal 101-111 [facility] Comment on above: Performed By: #### 2 890207, 1768157, 4801409, 0125798, 4113613, 62713430 #### [facility] [address] [place] [address] CO2 [Moles/Vol] 29 mmol/L Normal 21-31 [facility] Comment on above: Performed By: #### 2 695490, 7771890, 2544619, 7706389, 0890151, 19522937 #### [facility] [address] [place] [address] Creatinine [Mass/Vol] 0.8 mg/dL Normal 0.5-1.3 [facility] Comment on above: Performed By: #### 2 958822, 8920032, 4358839, 7175817, 9531549, 68799137 #### [facility] [address] [place] [address] Globulin (S) [Mass/Vol] 3.2 g/dL Normal 1.4-4.0 [facility] Comment on above: Performed By: #### 2 711833, 3457599, 3204494, 1163379, 8995742, 50189908 #### [facility] [address] [place] [address] Glucose [Mass/Vol] 97 mg/dL Normal 55-199 [facility] Comment on above: Result Comment: If t his glucose result represents a fasting glucose, interpretation should refer to the following reference range: 55-99 mg/dL Performed By: #### 2 736182, 8567829, 3301860, 2344033, 4799235, [id number] #### [facility] [address] [place] [address] Potassium [Moles/Vol] 3.7 mmol/L Normal 3.5-5.3 [facility] Comment on above: Performed By: #### 2 041362, 7692347, 5554209, 1030546, 3214357, 69952915 #### [facility] [address] [place] [address] Protein [Mass/Vol] 7.2 g/dL Normal 6.0-7.8 [facility] Comment on above: Performed By: #### 2 073865, 9096992, 6978919, 6443254, 8069534, 43838683 #### [facility] [address] [place] [address] Sodium [Moles/Vol] 136 mmol/L Normal 135-145 [facility] Comment on above: Performed By: #### 2 589796, 3100159, 9258766, 3508497, 6685939, 83535079 #### [facility] [address] [place] [address] Urea nitrogen [Mass/Vol] 10 mg/dL Normal 5-21 [facility] Comment on above: Performed By: #### 2 206761, 7940057, 3985872, 8969822, 9746010, 22590265 #### [facility] [address] [place] [address] Urea nitrogen/Creatinine [Mass ratio] 12 No Units Normal 10-20 [facility] Comment on above: Performed By: #### 2 844573, 2679499, 4387789, 2919371, 6149781, 22307229 #### [facility] [address] [place] [address] Consent for Treatmenton 08-29 Consent for Treatment [id number] #1.00CD:127 Normal [facility] HEMATOLOGYOrdered By: SYSTEM SYSTEM on 09-24-2022 Basophils/100 [...] 7.8 fL Normal 6.4 - 10.8 fL [facility] HemeAutoSS Platelets (Bld) [#/Vol] 310.0 E9/L Normal 150.0 - 500.0 E9/L [facility]eAutoSS RBC (Bld) [#/Vol] 5.0 E12/L Normal 4.3 - 5.9 E12/L [facility] HemeAutoSS WBC corrected for nucl RBC Auto (Bld) [#/Vol] 9.1 E9/L Normal 4.0 - 11.0 E9/L [facility]eAutoSS Lipid Panelon 09-24-2022 Cholesterol [Mass/Vol] 185 mg/dL Normal 120-200 [facility] Comment on above: Performed By: #### 2 982417, 3989151, 7420778, 4875329, 6536901, 66401533 #### [facility] [address] [place] [address] Cholesterol in HDL [Mass/Vol] 69 mg/dL Invalid Interpretation Code [facility] Comment on above: Result Comment: HDL > or equal to 60 mg/dL: Low cardiovascular risk HDL < 40 mg/dL : High cardiovascular risk Performed By: #### 2 843225, 5240365, 7117227, 9334762, 1755221, 06759012 #### [facility] [address] [place] [address] Cholesterol in LDL [Mass/Vol] 93 mg/dL Normal <=129 [facility] Comment on above: Performed By: #### 2 236451, 8579986, 8524603, 8274557, 4782901, 12184046 #### [facility] [address] [place] [address] Cholesterol in VLDL [Mass/Vol] 20 mg/dL Normal 7-40 [facility] Comment on above: Performed By: #### 2 091513, 6793744, 2438633, 3598264, 9751549, 84430218 #### [facility] Laboratory [address] [place] [address] Triglyceride [Mass/Vol] 102 mg/dL Normal <=149 [facility] Comment on above: Performed By: #### 2 [id number], [id number], [id number], [id number], [id number], [id number] #### [facility] [address] [place] [address] Physician Orderon 09-24-2022 Physician Order [id number] #[id number]:[id number] Normal [facility] TSHon 09-24-2022 TSH Qn 2.06 m[IU]/L Normal 0.34-5.60 [facility] Comment on above: Performed By: #### 2 [id number], [id number], [id number], [id number], [id number] #### [facility] [address] [place] [address] eGFRon 09-24-2022 GFR/1.73 sq M.predicted among blacks MDRD (S/P/Bld) [Vol rate/Area] mL/min/{1.73_m2} Normal >=59 [facility] Comment on above: Order Comment: Order added by Discern Expert. Result Comment: eGFR is race adjusted. AA=. Performed By: #### 2 [id number], [id number], [id number], [id number], [id number], [id number] #### [facility] [address] [place] [address] GFR/1.73 sq M.predicted among non-blacks MDRD (S/P/Bld) [Vol rate/Area] mL/min/{1.73_m2} Normal >=59 [facility] Comment on above: Order Comment: Order added by Discern Expert. Result Comment: [employer] isis kidney disease could be indicated at eGFR's of less than 60 mL/min/1.73m2. Kidney failure is indicated at less than 15 mL/min/1.73m2. Performed By: #### 2 [id number], [id number], [id number], [id number], [id number], [id number] #### [facility] [address] [place] [address] CBC AUTO DIFFon 12-28-2021 BASO # 0.1 103/ul Normal 0.0-0.1 [facility] Comment on above: Performed By: #### C BC #### [facility] [address] [place] [address] Dr. Edwina Vicente Basophils/100 WBC (Bld) 0.8 % Normal 0.2-2.0 [facility] Comment on above: Performed By: #### C BC #### [facility] [address] [place] [address] Dr. Edwina Vicente EO # 0.1 103/ul Normal 0.0-0.7 [facility] Comment on above: Performed By: #### C BC #### [facility] [address] [place] [address] Dr. Edwina Vicente Eosinophils/100 WBC (Bld) 1.6 % Normal 0.9-7.0 [facility] Comment on above: Performed By: #### C BC #### [facility] [address] [place] [address] Dr. Edwina Vicente Erythrocyte distribution width (RBC) [Ratio] 12.8 % Normal 11.0-15.0 [facility] Comment on above: Performed By: #### C BC #### [facility] [address] [place] [address] Dr. Edwina Vicente Hematocrit (Bld) [Volume fraction] 43.1 % Normal 36.0-48.0 [facility] Comment on above: Performed By: #### C BC #### [facility] [address] [place] [address] Dr. Edwina Vicente Hemoglobin (Bld) [Mass/Vol] 14.1 g/dL Normal 12.0-16.0 [facility] Comment on above: Performed By: #### C BC #### [facility] [address] [place] [address] Dr. Edwina Vicente IG # 0.01 10e3/ul Normal 0.00-0.03 [facility] Comment on above: Performed By: #### C BC #### [facility] [address] [place] [address] Dr. Edwina Vicente IG % 0.2 % Normal 0.0-0.5 [facility] Comment on above: Performed By: #### C BC #### [facility] [address] [place] [address] Dr. Edwina Vicente LYMPH # 2.4 103/ul Normal 1.2-3.8 [facility] Comment on above: Performed By: #### C BC #### [facility] [address] [place] [address] Dr. Edwina Vicente Lymphocytes/100 WBC (Bld) 37.2 % Normal 20.5-60.0 [facility] Comment on above: Performed By: #### C BC #### [facility] [address] [place] [address] Dr. Edwina Vicente MANUAL DIFF REQ NO Normal [facility] Comment on above: Performed By: #### C BC #### [facility] [address] [place] [address] Dr. Edwina Vicente MCH (RBC) [Entitic mass] 27.3 pg Normal 26.7-34.0 [facility] Comment on above: Performed By: #### C BC #### [facility] [address] [place] [address] Dr. Edwina Vicente MCHC (RBC) [Mass/Vol] 32.7 g/dL Normal 29.9-35.2 [facility] Comment on above: Performed By: #### C BC #### [facility] [address] [place] [address] Dr. Edwina Vicente MCV (RBC) [Entitic vol] 83.4 fL Normal 81.0-99.0 [facility] Comment on above: Performed By: #### C BC #### [facility] [address] [place] [address] Dr. Edwina Vicente MONO # 0.5 103/ul Normal 0.3-0.8 [facility] Comment on above: Performed By: #### C BC #### [facility] [address] [place] [address] Dr. Edwina Vicente Monocytes/100 WBC (Bld) 8.1 % Normal 1.7-12.0 [facility] Comment on above: Performed By: #### C BC #### [facility] [address] [address] [address] Edwina Vicente NEUT # 3.3 103/ul Normal 1.4-6.5 [facility] Comment on above: Performed By: #### C BC #### [facility] [address] [place] [address] Dr. Edwina Vicente Neutrophils/100 WBC (Bld) 52.1 % Normal 43.0-75.0 [facility] Comment on above: Performed By: #### C BC #### [facility] [address] [place] [address] Dr. Edwina Vicente Platelet mean volume (Bld) [Entitic vol] 8.8 fL Critically low 9.5-13.5 [facility] Comment on above: Performed By: #### C BC #### [facility] [address] [place] [address] Dr. Edwina Vicente PLT 328 103/ul Normal 150-450 [facility] Comment on above: Performed By: #### C BC #### [facility] [address] [place] [address] Dr. Edwina Vicente RBC 5.17 106/ul Normal 4.20-5.40 [facility] Comment on above: Performed By: #### C BC #### [facility] [address] [place] [address] Dr. Edwina Vicente WBC 6.4 103/ul Normal 4.0-11.0 [facility] Comment on above: Performed By: #### C BC #### [facility] [address] [place] [address] Dr. Edwina Vicente PREG QUANT HCGon 12-28-2021 HCG QUANT <1 Normal [facility] Comment on above: Performed By: #### P REGQNT #### [facility] [address] [place] [address] Dr. Edwina Vicente HCG RANGE SEE BELOW Normal [facility] Comment on above: Result Comment: 5-50 0-1 WEEK 40-300 1-2 WEEKS 100-1,000 2-3 WEEKS 500-6,000 3-4 WEEKS 5,000-200,000 1-2 MONTHS 10,000-100,000 2-3 MONTHS 3,000-50,000 2ND TRIMESTER 1,000-50,000 3RD TRIMESTER Performed By: #### P REGQNT #### [facility] [address] [address] [address] Edwina Vicente US PELVIS AND TRANSVAGon [...] KULWINDER CARSON Date: 2021-12-27 07:30 Normal [facility]on SARS-CoV-2 (COVID-19) RNA TRESSA+probe Ql (Unsp spec) Detected Critically abnormal NOT DETECTED [facility] Comment on above: Result Comment: This test is not yet approved or cleared by the [place] FDA. When there are no FDA-approved or cleared tests available, and other criteria are met, FDA can make tests available under an emergency access mechanism called an Emergency Use Authorization (EUA). The EUA for this test is supported by the [place] of Health and Human Service's declaration that [...] longer be used). Performed By: #### C [facility] #### [facility] [address] [address] [address] Edwina Pereira 10-16-2020 CNOV Office Visit (ORTHCC) SANDY DENNIS ([id number]) 1985 F Date Time Provider Department 10/16/20 1:15 PM MINESH GURROLA (LEXIS)DESIRE During your visit today, we recorded the [...] NOHEMI TEST: Positive STRENGTH: 5/5 biceps, triceps, team sports sales associate, finger abduction, WE, WF, AND EPL STABILITY: all joints stable CREPITUS: negative NEUROLOGICAL EXAM: Sensory: sensation intact to light touch axillary, radial, median, AND ulnar distributions 2-point discrimination intact throughout all digits. Motor strength: equal bilaterally with 5/5 biceps, triceps, team sports sales associate, finger abduction, WE, WF, thumb opposition, AND [...] File) Date Reviewed: 10/16/2020 Reviewed by: Minesh Rea) [employer] - Fully Assessed Reason for Visit: Hand Pain [1581] Cmt: R>L Primary Visit Diagnosis:Tendinitis , de Quervain's [M65.4] Order(s):diclofenac (VOLTAREN) 1 % topical gelApply 2 g to affected area four times daily.Disp: 100 gRfl: 1 CONSULT TO TROLLEY OPERATOR [[id number]] Order #: [id number]: 1 FUTURE Prescriptions as of 10/16/2020 Sig: [...] and Disposition History Recorded Encounter Status:Closed by GALILEO PIRES, MINESH Blue on 10/16/20 [facility] Encounters Encounter Date Encounter Type Care Provider Facility Start: 12-04-2023 End: 12-04-2023 ambulatory CASSANDRA CHAHAL Not Available Start: 10-28-2023 End: 10-28-2023 ambulatory SUJATA RUDD Not Available Start: 10-22-2023 End: 10-23-2023 ambulatory SUJATA RUDD Not Available Start: 10-09-2023 End: 10-09-2023 ambulatory SUJATA RUDD Not Available Start: 08-27-2023 End: 08-27-2023 ambulatory SAMANTHA CROW Not Available Start: 06-17-2023 End: 06-17-2023 ambulatory TIERRA WILL Not Available Start: 04-02-2023 End: 04-03-2023 ambulatory Wilda Buckner Facility:[facility] Start: 04-02-2023 End: 04-02-2023 Patient encounter procedure Wilda Buckner [facility] Start: 01-09-2023 End: 01-10-2023 ambulatory Wilda Buckner Facility:[facility] Start: 01-09-2023 End: 01-09-2023 Patient encounter procedure Wilda Buckner [facility] Start: 11-12-2022 End: 11-13-2022 ambulatory CASSANDRA CHAHAL Facility:[facility] Start: 10-31-2022 End: 11-01-[address] CASSANDRA CHAHAL . Facility: Start: 10-23-2022 End: 10-23-[address] CASSANDRA CHAHAL . Facility: Start: 09-24-2022 End: 09-25-2022 ambulatory Wilda Buckner Facility:[facility] Start: 09-24-2022 End: 09-24-2022 Patient encounter procedure Wilda Buckner [facility] Start: 05-03-2022 End: 08-02-2022 ambulatory Kaushal Craft Facility:[facility] Start: 12-28-2021 End: 12-28-[address] DOCTOR DUEÑAS Facility: Start: 12-27-2021 Encounter for preprocedural laboratory examination DR CASSANDRA CHAHAL . [facility] Start: 12-26-2021 End: 12-27-2021 Encounter for preprocedural laboratory examination DR CASSANDRA CHAHAL . Facility: Start: 12-26-2021 End: 12-27-[address] CASSANDRA CHAHAL . Facility: Start: 12-18-2021 End: 12-18-2021 Patient encounter procedure YELENA JAMES [facility] Procedures Date Procedure Procedure Detail Performing Clinician Start: 06-04-2019 Esophagogastroduodenoscopy YELENA CHE Start: 04-17-2018 CHOLECYSTECTOMY LAPAROSCOPIC W/ CHOLANGIOGRAM 1 YELENA JAMES Comment on above: CHOLECYSTECTOMY LAPAROSCOPIC W/ CHOLANGI OGRAM Start: 04-25-2013 Appendectomy YELENA JAMES Immunizations Immunization Date Immunization Notes Care Provider Fa cili 05-21-2022 influenza virus vaccine, unspecified formulation Wilda Dudley [facility] Comment on above: Reason for Medicatio n: Prophylaxis 05-25-2021 influenza virus vaccine, unspecified formulation; Translations: [Fluzone PF Quadrivalent ] YELENA JAMES [facility] Comment on above: Reason for Medicatio n: Other (see comment) Payers Date Payer Category Payer Unknown [id number] 1985 Unknown [id number] 2.16.84 [id number] 1985 Unknown [id number] 2.16.84 0.1.053463.3.579.2.593 1985 Unknown [id number] 2.16.84 0.1.859624.3.579.2.593 1985 Unknown [id number] 2.16.84 0.1.517843.3.579.2.593 1985 Unknown [id number] 2.16.84 0.1.546263.3.579.2.593 1985 Unknown [id number] 2.16.8 40.1.528194.3.579.2.727 1985 Unknown [id number] 2.16.8 40.1.393130.3.579.2.727 1985 Unknown [id number] 2.16.8 40.1.028649.3.579.2.727 1985 Unknown [id number] 2.16.8 40.1.074763.3.579.2.727 1985 Unknown [id number] 2.16.84 0.1.317564.3.579.2.1259 1985 Unknown [id number] 2.16.84 0.1.263438.3.579.2.1259 1985 Unknown [id number] 2.16.84 0.1.024625.3.579.2.1259 1985 Unknown [id number] 2.16.84 0.1.232702.3.579.2.9 1985 Unknown [id number] 2.16.84 0.1.114447.3.579.2.9 1985 Unknown [id number] 2.16.84 0.1.413350.3.579.2.1258 1985 Unknown [id number] 2.16.840 .1.793413.3.579.2.1259 1959 Unknown [id number] 1959 Unknown [id number] Social History Date Type Detail Facility Start: 02-22-2021 Tobacco smoking status Never s moked tobacco (finding) [facility] Tobacco smoking status Never [facility] Sex Assigned At Female [facility] Clinical Note 12-28-2021 Note Date & Type Note Facility 12-28-2021 Note [facility] [place] [place] NAME: SANDY DENNIS DATE OF : MEDICAL REC#: [id number] PHYSICIST NUCLEAR: [address] [facility], TRANSADMIT DATE: 12/28/2021 11:03:00 JUNIOR ANALYST DATE: 12/29/2021 21:00 DICTATING PHYSICIAN: CASSANDRA CHAHAL DICTATION DATE: 12/28/2021 15:00 OPERATIVE NOTE OPERATION DATE: 12/28/2021 PROCEDURE: Diagnostic laparoscopy. PREOPERATIVE DIAGNOSIS: Pelvic pain, left ovarian cyst 6 cm in nature. POSTOPERATIVE DIAGNOSIS: Pelvic pain without left ovarian cyst, however, there was a small adhesion which was easily taken down from the anterior abdominal wall that was omental in nature. SURGEON: Cassandra Chahal D.O. AIR INTERCEPT CONTROLLER: VITA Rondon URINE OUTPUT: Yellow and clear. [...] DR CASSANDRA CHAHAL . 01/01/2022 21:27:00 [facility] Progress note 10-16-2020 Note Date & Type Note Facility 10-16-2020 Note HNO ID: [id number] Author: Minesh Gurrola Service: ? Author Type: Physician Sticker Machine Operator Type: Progress Notes Filed: 10/16/2020 1:03 PM [...] NOHEMI TEST: Positive STRENGTH: 5/5 biceps, triceps, team sports sales associate, finger abduction, WE, WF, AND EPL STABILITY: all joints stable CREPITUS: negative NEUROLOGICAL EXAM: Sensory: sensation intact to light touch axillary, radial, median, AND ulnar distributions 2-point discrimination intact throughout all digits. Motor strength: equal bilaterally with 5/5 biceps, triceps, team sports sales associate, finger abduction, WE, WF, thumb opposition, AND [...] has been identified and corrected by editing. [facility] Evaluation + Plan note Note Date & Type Note Facility Evaluation + Plan note No data available for this section [facility] Hospital Discharge instructions Note Date & Type Note Facility Hospital Discharge instructions No data available for this section [facility] Progress note Note Date & Type Note Facility Progress note No data available for this section [facility] Summary Purpose Family History No Family History Records FoundNo Family History Records FoundNo Family History Records FoundNo Family History Records FoundNo Family History Records Found Advance Directives No Advanced Directives Records FoundNo Advanced Directives Records FoundNo Advanced Directives Records FoundNo Advanced Directives Records FoundNo Advanced Directives Records Found Additional Source Comments INFORMATION SOURCE (unrecogn ized section and content) DATE CREATED AUTHOR 08/26/2021 [facility] DATE CREATED AUTHOR AUTHOR'S ORGANIZ ATION 11/09/2022 [facility] DATE CREATED AUTHOR AUTHOR'S ORGANIZ ATION 11/14/2022 [facility] DATE CREATED AUTHOR AUTHOR'S ORGANIZ ATION 04/03/2023 [facility] DATE CREATED AUTHOR AUTHOR'S ORGANIZ ATION 12/06/2023 [facility] EPIC Patient Care team informatio n (unrecognized section and content) Personnel Name: Wilda Buckner CNP Address: Address: [address] [place] [address] Personnel Name: Wilda Buckner CNP Address: Address: [address] [place] [address] Personnel Name: Wilda uBckner CNP Address: Address: [address] [place] [address] FOR RECORDS PERTAINING TO PATIENTS WHO ARE [...] BE BASED ON THE PRIMARY CLINICAL RECORDS. [facility]. provides no warranty or guarantee of the accuracy or completeness of information in this document.
[2024-03-17 07:01] LABS: Estimated Average Glucose 100 mg/dL; Glycohemoglobin A1C 5.1 % (4.5-6.2)
[2024-03-17 07:29] LABS: Free T3 2.75 pg/mL (2.18-3.98); Glucose 91 mg/dL (74-106); Thyroid Stimulating Hormone 2.168 uIU/mL (0.358-3.740)
[2024-03-17 10:12] LABS: Free T4 0.72 ng/dL (0.76-1.46)
[2024-03-18 04:07] LABS: Progesterone 6.2 ng/mL (.); Sex Horm Binding Glob, Serum 42.1 nmol/L (24.6-122.0)
[2024-03-18 09:09] LABS: Insulin 14.4 uIU/mL (2.6-24.9)
[2024-03-18 10:09] LABS: C-Peptide, Serum 2.9 ng/mL (1.1-4.4)
[2024-03-18 14:10] LABS: Thyroglobulin Antibody <1.0 IU/mL (0.0-0.9); Thyroid Peroxidase (TPO) Ab <9 IU/mL (0-34)
[2024-03-20 13:11] LABS: Free Testosterone(Direct) 3.6 pg/mL (0.0-4.2); Testosterone 28 ng/dL (8-60)
[2024-03-20 19:07] LABS: Serotonin, Serum 178 ng/mL (31-207)
== END 2024-03-17 06:34 | disposition home or self-care (01) ==
LOC: LAB 06:33
PROVIDERS: Visit Provider Physician Assistant
DX: E34.9 Endocrine disorder, unspecified (principal)
CPT/HCPCS: 36415; 82306; 82530; 82627; 82670; 82679; 82728; 82947; 83036; 83525; 84144; 84260; 84270; 84402; 84403; 84432; 84436; 84439; 84443; 84481; 84482; 84681; 86376; 86800

== ENCOUNTER 2024-03-20 08:55 | Outpatient (OUT) | payer BC, SELFPAY ==
--- OUTSIDE RECORDS SUMMARY | 2024-03-20 08:57 | XMS_ITS | CCD ---
Author Organization [facility] [employer] Care Team Providers Care Missing Persons Investigator Name Role Phone Wilda Buckner Primary Care Physician [phone] TRUJILLO Admitting Unavailable HOME [...] RUDD Attending Unavailable CASSANDRA CHAHAL Attending Unavailable SAMANTHA CROW Attending Unavailable Allergies Allergy Classification Reported Allergen(s) Allergy Type Date of Onset Reaction(s) Facility (5 sources) Ciprofloxacin; Translations: [ciprofloxacin] Drug Allergy Tenalgia (finding) [facility] (1 source) Ciprofloxacin Drug Allergy [facility] Repository Problems Active Problems Problem Classification Problem [...] for Treatmenton Consent for Treatment [id number] #1.00CD:127 Normal [facility] Physician Orderon 04-02-2023 Physician Order [id number] 0#1.00CD:127 Normal [facility] XR Foot 3+ Views Lefton XR [...] mGy = na DAP = na Normal [facility] XR Wrist 3+ Views Lefton XR [...] mGy = . DAP = . Normal [facility] XR Wrist 3+ Views Righton XR [...] mGy = . DAP = . Normal [facility] Consent for Treatmenton 12-26 Consent for Treatment [id number] #1.00CD:127 Normal [facility] Physician Orderon 01-09-2023 Physician Order [id number] 5#1.00CD:127 Normal [facility] SURGICAL PATH REPORTon 11-14 SURGICAL PATH REPORT [facility] Department of Pathology [address] [place] [id number] Name: SANDY DENNIS : 1985 [facility] [id number] Number: Gender Female Locatio [facility] : n: Admit 37 years Attending CASSANDRA CHAHAL Age: Provider: Ordering CASSANDRA CHAHAL Provider: Consulti Surgical Pathology Report ng: ACCESSION: COLLECTED DATE/TIME: RECEIVED DATE/TIME: PATHOLOGIST: [id number] 11/12/2022 16:30 EDT 11/13/2022 13:47 EDT DEJUAN RODRIGUEZ MD Final Diagnosis Report for [facility], [place] ENDOMETRIAL BIOPSY: - PROLIFERATIVE ENDOMETRIUM. DEJUAN [...] shital 11/13/2022 Tissue pathology report for: [facility], [address] [place] [address]; ____ Print 11/14/2022 14:01 EDT Number: Date/Time: [facility] Department of Pathology [address] [place] [id number] Name: SANDY DENNIS : 1985 [employer] [id number] Number: Gender Female Loclei [facility] : n: Admit 37 years Attending CASSANDRA CHAHAL Age: Provider: Ordering CASSANDRA CHAHAL Provider: Consulti Surgical Pathology Report ng: ACCESSION: COLLECTED DATE/TIME: RECEIVED DATE/TIME: PATHOLOGIST: [id number] 11/12/2022 16:30 EDT 11/13/2022 13:47 EDT MICHAEL ZAVALA, DEJUAN Gross Description PATHOLOGY SERVICES PROVIDED BY [employer] (CLIA #[id number]) in cooperation with [facility] at [address] [place] [address] (CLIA #[id number]) Microscopic Diagnosis The final diagnosis is based on a microscopic exam of traffic workforce representative sections. Codes CPT CODE: 06070 ____ Print 11/14/2022 14:01 EDT Number: Date/Time: Normal [facility] Comment on above: Performed By: #### 9 [id number] #### [facility] Laboratory Services [address] [place], [place] [id number] Learning Disabilities Specialist: Dejuan Rodriguez MD [facility] 3D YARITZA CA Don 10-31-2022 [facility] YARITZA CAD Patient: SANDY DENNIS. Exam Date: 10/31/2022 : 1985 Gender:F Ordering : DR CASSANDRA CHAHAL . Admission #: [id number] Family : Order #: [id number] CLICK HERE TO VIEW EXAM RADIOLOGY REPORT [...] breast cancer at age 48. LOCATION: [facility] BREAST COMPOSITION: Heterogeneously dense,which may obscure [...] M.D. on 10/31/2022 at 11:12 Normal [facility] US BREAST YARITZA LIMITEDon 04-0 US BREAST YARITZA LIMITED Patient: SANDY DENNIS Exam Date: 10/31/2022 : 1985 Gender:F Ordering : DR CASSANDRA CHAHAL . Admission #: [id number] Family : Order #: [id number] CLICK HERE TO VIEW EXAM RADIOLOGY REPORT [...] breast cancer at age 48. LOCATION: [facility] BREAST COMPOSITION: Heterogeneously dense,which may obscure [...] Carson M.D. on 10/31/2022 at 11:12 Normal [facility] US PELVIS AND TRANSVAGon US PELVIS AND [...] by: KULWINDER CARSON Date: 2022-10-31 09:40 Normal [facility] PAP ACOG PANEL 2: 30 to 65on 10-30-2022 . . Normal [facility] Comment on above: Result Comment: Perf ormed at: WB Performed By: #### 4 [id number] #### [facility] [address] [address] [address] Edwina Vicente Age Gdln ACOG Testing 30-65 Normal [facility] Comment on above: Performed By: #### 4 [id number] #### [facility] [address] [address] [address] Edwina Vicente DIAGNOSIS: Comment Normal [facility] Comment on above: Result Comment: NEGA TIVE FOR INTRAEPITHELIAL LESION OR MALIGNANCY. Performed at: WB Performed By: #### 4 [id number] #### [facility] [address] [address] [address] Edwina Vicente HPV Aptima Negative Normal Negative [facility] Comment on above: Result Comment: This nucleic acid amplification test detects fourteen high-risk HPV types (16,18,31,33,35,39,45,51,52,56,58,59,66,68) without differentiation. Performed at: =G Performed By: #### 4 [id number] #### [facility] [address] [address] [address] Edwina Vicente HPV Genotype Reflex Comment Normal [facility] Comment on above: Result Comment: Crit eria not met, HPV Genotype not performed. Performed at: WB Performed By: #### 4 [id number] #### [facility] [address] [place] [address] Dr. Edwina Vicente Methodology: CTIM [facility] Comment on above: Result Comment: The Thin Prep(R) Lead Nuclear Medicine Technologist was unable to read this specimen. Therefore a manual review was performed. Performed at: WB Performed By: #### 4 [id number] #### [facility] [address] [place] [address] Dr. Edwina Vicente Note: Comment Normal [facility] Comment on above: Result Comment: The Pap smear is a screening test designed to aid in the detection of premalignant and malignant conditions of the uterine cervix. It is not a diagnostic procedure and should not be used as the sole means of detecting cervical cancer. Both false-positive and false-negative reports do occur. . Performed at: WB Performed By: #### 4 [id number] #### [facility] [address] [place] [address] Dr. Edwina Vicente Performed by: Comment Normal [facility] Comment on above: Result Comment: Bo Rao, Merchandise Execution Leader (ASCP) Performed at: WB Performed By: #### 4 [id number] #### [facility] [address] [place] [address] Dr. Edwina Vicente Specimen adequacy: Comment Normal [facility] Comment on above: Result Comment: Sati sfactory for evaluation. Endocervical and/or squamous metaplastic cells (endocervical component) are present. Performed at: WB Performed By: #### 4 [id number] #### [facility] [address] [place] [address] Dr. Edwina Vicente Coding Summary.on 09-30-2022 Coding Summary. CD:[id number] Gh0bWw+PGhlYWQ+PE1FV CIbY09qdCWdrF6PB6fBH F4TDLDARDENOH5YRY2vw EU8YLoiZ0PqngPk RtzodDMwPA39BNx2DYN8 dXrxKQrgzA7riGIbY7e5 ZnKnJO29sJ42LWqwFFRb BoJ9UgJbbxhkkIGy R9ltWtKckYXdAmp+PHRh YmxlIHdpZHRoPScxMDAl NrMahIqrBM5nOe3xKBJh LWNvbGxhcHNlOiBj c6ghDKGjZJzfVQ6wvJtn S0DqcFI3FDJyb8t9Cd18 dHI+NMCiSUS1cXbpBWct e675YpJio8xpECI4 pEIoKKenVPV8K40gi9E0 ORLnCLPzGLL8pLV3gH4m aFzpkjybC8NatQAjLmD9 LQH4qHLgaU6buNra eaoepD2bZmz+C64EXR5W UPSBPK4VAwo8A1FeCbog dHI+MY37KKJiBE79vFIv xPXpk0xirZh2YbTi FBFoQUO1dAhaBYnpr7Hv HOFuE95eyHKpo0L7PWEb rGsguYDgAlAwqRH8rH4k FUygoxpwo5rwhfnd Volmj3rlqa68vK23K74t BElcOXEaGEO8KKDmQPEt iLftbv6feH7xTu5+IDxj b9apf8mkjLk5LyHs PCGqmqSjlLmgYKM1g3Gj Fj49N5GwwHort8KxYxu8 lh02fINrr7O9gII7OFkj ROEuvY2cVXgrNdB9 YXKxRsIzuB39lZTiGYlq Pr3sdYogvEpdND9jDLTq hpgyUHJtuA2bQONorTOn yCasYC9tNTMhszhe x295SiXtHSK7HFTltZXy X5YhzK7zCkPaENQpEBHt Z3DoeYHoZEzrI917LVkr RzF4FYCnowQfN4Vh UMDunNauZsM4r7I5Zs3A v3NsxujwNPM8YAiwCDBd RxX5NwXaUxO6L0BoIka7 QPPyqWnrYS4wW1Zp HFTjnnjswufpbJB4OBLa QPYjnP55hFJqEJzrJa8k d5W6p278RYAhYJLzvB03 Rk2fmVweONHlkDKK fC2ymqbxg2rfkoqnVrRx YJRaMMz2CYe4SIThmWej YaRoBPY9FgI0NFI9xBPi hK0xrWuchdgmmY2s Oyc+A71omH5qDJL0TTP1 agqbNVYwvsVhWI39HU80 A3TwVtugtSUbfQB+PGRp wgJsnBrtXR2zWaOw a7dik0DnUUvuB0PxKVRk PWycPjn1QGGgWER9vAL2 eN2gULTdEVqcf7K0pNV4 Z8OrgmHclt7zu8yj KDKfSXpgJ14dkQXur0A0 OIFeoCP0OFJffGgzLmYz lV92Uir+PADleCgaq6Lc Jfqqt1eid7pqoAf4 IjMwJSIgdmFsaWduPSJ0 w1YvTx42E16lZZlyZZFu OOXkIMGwCPLztFaltv8l hL3bYl6+PGNvbCB3 wCE3kP1oWOBkQxE3UHun T538CjWoyRSzYegvu1cj k9iiyAt8KqLmPPSdqbWx eQezITS6d0UhTz75 A57qNTscVEJzSLAvJYWk YSNoaHdmzw7kjU1gVw6+ FC9xi6lncq56qS36jLI+ VNXeQJR7yFjoBMui DBCdqQ4aOVusQyC0WIBp JsQanH76aCDkFOjoYy1u gEvolIunSX2vHYZriwyk p483JvEmf1aiWRVo jJByQSpfKKH5D30ib1S4 TOJcIUTcOSG8kRT6rT5m bGlnbjogbGVmdDsgdmVy xRrhMLskSAioE218 IHRvcDsnPlBhdGllbnQg HbXcIIq9E1QzEnj7KMJg gVyeBE3yuZFqSPgtNc9l aFubjYdkQQ1oUPCk nfada147QeTns1dxSCAr bXSfIWqsGXH7Q57sc2N4 OQTfLHVgNIA1bFO8fF1u bGlnbjogbGVmdDsg cdOazEzeCJbaICurJ358 IHRvcDsnPkJpcnRoIERh uLA5FN61CB70eZKgf0D4 sYG9K5VnXOEegble onkzmSI6NHAsIHSmpN57 Od6lgWmmUo8nRRLjJRO5 NLNxkQHgU9CelH3hZiQk IXDpSKTdF6XqwYAj EFpqB162OTieItZ7SIQr rrMeZ8XiEUPaaPmcYrD4 s9K5Eg2MH7F6AU34UZ23 fOIet3B7dSD3X0Fq SOJgdtlerwkddGU0QJYt AWCitM85Dg3ojBvpIm8d VRAlOUW8JDKuiQKhU9Dk yT1sXrDnUVSnTEWv G7EcwIBuYUllM517LRuf SsF3CRJehlRrK2DnCSTg lRnpVjK5s0S8Fx8XTZn9 HD32OQ15dVKvt9K7 aWJ4Z0DnBGKcozvyyeux yOQ5MWCqLFYtgN20Ie1x aAymIg5iDIOvPEB4HFJh wDOfJ8KkcY4kTdRt VETsVXIpB4YezWZqWRqn C981AJjxHdA3AZQvqbBd Z0HfUQPwrVuoRnQ1v9O9 Dp8ETVPiQB00EEH1 mHJ6AI51QP87C8SoYtzq dGFibGU+PHRhYmxlIHdp ZHRoPScxMDAlJyBzdHls MA4wNx8qPWYzHYTc fLvmoFOyHbOvv6ynUEBq NJexDM7dcLovB2VibWB6 PPLxw5w1Wk78E53pM1Hv dXA+UUFrxYS0pVV0 dY0tGlFhChK5NQjhC516 ZdMcaVNzHiygi0vfk5pz mOh5SbZ4FDJiunAptXgp PWL5x6JtKb03H58n IHdpZHRoPSIxNSUiIHZh nSmfyy1mdQ4dDt6+PGNv bNT2pGQ1eT1zFkFpAgW7 ZVyiR634FkHdgPPl Yvcbj4dyp7wwxYz2WwAu YDHftfBzqArvAGV8k0Yl Bx47Q8JgbAonu8RwBjx2 bg79gCPdu0R9gZW5 F6ImHUObmnamgCLveMpa OP0uLOSbfcewBPWnwB9l HRSeC9k9BrTpDiB6IMsm W7JlwnL9BYFgdQVw GYxvMIM8O10se2R8RWLw FKGuJGP3mIT6gO3nzDer bjogbGVmdDsgdmVydGlj TVrwMPixJ245JEHc uOixENSjaC9xDCFspIMg oPozVO1dODPjnfytUuUL RVBPVEUsIFRSSVNIQSBK JJ71YD42dZAzr6P0 qKB0K7AtLUYmlpkostat kXB4XZAbFOLuhF42qPPv NOjkSs2rs9Y1m172VHOl ZPNdtG93Pp4vnXny GGTxcFOJxV8mxwmoa0zd psxuUcHqCKBnQVt7MTm8 EIApgUqyNtQpALA5TzP9 YWZ8mWZxtC5jdAqt rrhdiR2eKnd+MDgvMTAv HJb9UJdebIS+PHRkIHN0 fIdkUWnxKTRxtX4sKRYk R5z8UzIeYgG1ZOpb O8AmJDVqkpzxDo37jQ7o NsDmFaD9NAzwW4LrvuZ6 FOVhvCHtJDsfXYL9W12z o6M4DEDrAEFfOBJ0 kSC8iK5akTpirfgcjQYo dDsgdmVydGljYWwtYWxp Z851GBTljBgvQmD9TZik DYOpMQ95VJ90wVIp r8K9oSU2N9KxGZTtyrbw yolbrGL7ABCoSMSwcO00 iCLvEWifGk0nv3Q0r229 HIFmMQSrvY92Sk1v bPfmNRVkqAAMaK3izlzt b0dgmfbkPwJpTLDeCFg2 JKc5YKTjvClcJxGtVAV2 MzD8VDB5lKXojN0r oZjqxiyjfJ0mUby+RmVt DAlbMB33TV97xVDov7R7 zUX4R0XoGHGiilqqktew wYC0RHTwQOZpnF04 dXSaJPtnUr1hb7M4c101 MKTaKORfkQ16Zf5euFga MJPshPGEuO9nrqclz1gu cjogIzAwMDAwMDt0 XRs9YTTbcAdiRlLdORO5 EwH7NYD3pLYavA2bpLql bxclhA9lWcc+W3C7sIW1 aWVudDwvdGQ+PC90 yl45W5BeUdduBxz8QGSm CLW8mQU1eO8mBMOoDWgu w3M6dOT3R4XzenGhbi2u p5vcWNNsCKdxS34l rEUir0L1VQNolGC4WCDq aAdmUeOnoV27Ewl+PGNv nFdpf2CbWmcsq5apa6mb bEq8BiPsTKEkfmBk qHxvKYL3b3UpAz05C28l IHdpZHRoPSIzMCUiIHZh nChjva2fvH9eOp0+PGNv lKI8wRZ7kM7fAyNs NwP7CAxrC492BzVygACm Xbmhi1bkj6erlHn2TgEp AAXhbjKimMhdFVM0m9Hu Pa33T8TopDonp2Gu Ixy5bp19cPUnm8F1bUK6 T1AsLAMljtqnzIYmmSyr XU5uRRSlwwkcANDznJ5j AJKkF5q2FzFfWdA8 FYwzA4CfriO4CDRmhXDz NHCciOBNvC0bvhfzw6jy rmnjPqHtOZTwQOu3UZq4 LWFsaWduOiBsZWZ0 MlS4WHA6uSGwhY9dgGez yyoujM2rWak+QRk1x7zs hSQkZB7xuZE9FV25OX25 vXZlz7I6lMY5H3Up KCWrryrrdbtjsZC9TYFl INXndJ54Fa8jbCzcTe5z EEEpIGN9ALGpsLHeC1Zd oG2yNdUoNUTiALQh B3YxzLNbWYvmZ578WWya XwS3GKZcupFmP3JhKZTp fZvpGcF6p7B7Rx2TOZ18 MJ95GI40dYTzl2I8 sRM6A1NkRTJwdmtiagqp eAF6AHFaQUThbM69Wb2g pHyeMd9nURRhNJO7GNDw xNLnU4TxqZ0vRwSt TJMpNOStR8CcoRMwPVes I547WDedFlV2NGTbkjJd K8PsEKQckDwrNcT8w3R1 Lj0GHo98ZG59BN39 mVEdg8C2oIR1A0XuOMUn naznrytydVF2FVUlKKSl vR50Yv2fgCffBr3tLNZr PXP2UCUdyFPiP5Sg tY5fYzZnHHWzEIKtP8Jl lWZxKKtxO133IGuwIyV7 DVVmigEpX8TzSHYvtTyt OxS6c3I6Km7GGTwj vbg7F2OzInjxlVF+PC90 OXZfXM92lSFnlNIab3vb qGd0DpPbXKElCPB3gGkc IRons2GxJBDzX76h bGFw (more content not included)... Normal [facility] Auto Diffon 09-24-2022 Basophils/100 WBC (Bld) 0.5 % Normal 0.0-2.0 [facility] Comment on above: Order Comment: Order Added by Discern Expert. Performed By: #### 2 639532, 6655005, 2282057, 6707416, 8275705, [id number] #### [facility] [address] [place] [address] Basophils/Leukocytes Auto (Bld) [Pure # fraction] 0.0 E9/L Normal 0.0-0.2 [facility] Comment on above: Order Comment: Order Added by Discern Expert. Performed By: #### 2 428091, 8488552, 1478254, 1115982, 0039191, 97310298 #### [facility] [address] [place] [address] Eosinophils/100 WBC (Bld) 0.9 % Normal 0.0-8.0 [facility] Comment on above: Order Comment: Order Added by Discern Expert. Performed By: #### 2 322371, 3021380, 6830822, 1557691, 2640813, 51657851 #### [facility] [address] [place] [address] Eosinophils/Leukocyte s Auto (Bld) [Pure # fraction] 0.1 E9/L Normal 0.0-0.5 [facility] Comment on above: Order Comment: Order Added by Discern Expert. Performed By: #### 2 796127, 5982078, 2058395, 8662844, 8010132, 97877385 #### [facility] [address] [place] [address] Lymphocytes/100 WBC (Bld) 28.2 % Normal 14.0-50.0 [facility] Comment on above: Order Comment: Order Added by Discern Expert. Performed By: #### 2 723903, 7626807, 1343197, 2148888, 2705728, 10663140 #### [facility] [address] [place] [address] Lymphocytes/Leukocyte s Auto (Bld) [Pure # fraction] 2.6 E9/L Normal 1.0-4.0 [facility] Comment on above: Order Comment: Order Added by Discern Expert. Performed By: #### 2 445724, 7816387, 8911422, 8812913, 7669255, 63941741 #### [facility] [address] [place] [address] Monocytes/100 WBC (Bld) 7.4 % Normal 4.0-14.0 [facility] Comment on above: Order Comment: Order Added by Discern Expert. Performed By: #### 2 285532, 1523722, 5749778, 9348386, 5565649, 23398042 #### [facility] [address] [place] [address]453 Monocytes/Leukocytes Auto (Bld) [Pure # fraction] 0.7 E9/L Normal 0.2-1.0 [facility] Comment on above: Order Comment: Order Added by Discern Expert. Performed By: #### 2 127286, 8403769, 4178684, 5708098, 5964562, 31804459 #### [facility] [address] [place] [address] Neutrophils/100 WBC (Bld) 63.0 % Normal 36.0-75.0 [facility] Comment on above: Order Comment: Order Added by Discern Expert. Performed By: #### 2 726469, 0412188, 4106846, 7991420, 9279705, 38592761 #### [facility] [address] [place] [address] Neutrophils/Leukocyte s Auto (Bld) [Pure # fraction] 5.7 E9/L Normal 2.0-7.5 [facility] Comment on above: Order Comment: Order Added by Discern Expert. Performed By: #### 2 312930, 1140377, 3020632, 8629360, 1620275, 87168982 #### [facility] [address] [place] [address] 611[address] CBC w/ Auto Diffon Erythrocyte distribution width (RBC) [Ratio] 13.6 % Normal 10.9-14.2 [facility] Comment on above: Performed By: #### 2 761663, 1891502, 0341512, 1750969, 0574925, 44286593 #### [facility] [address] [place] [address] Hematocrit (Bld) [Volume fraction] 41.4 % Normal 34.0-46.0 [facility] Comment on above: Performed By: #### 2 823233, 6159301, 2541683, 0786661, 2345863, 60478670 #### [facility] [address] [place] [address] 47572 Hemoglobin (Bld) [Mass/Vol] 13.7 g/dL Normal 12.0-16.0 [facility] Comment on above: Performed By: #### 2 810016, 3934488, 0933284, 5238643, 5720803, 44275388 #### [facility] [address] [place] [address] 25412 MCH (RBC) [Entitic mass] 27.6 pg Normal 27.0-34.0 [facility] Comment on above: Performed By: #### 2 674005, 1028455, 1793658, 7346675, 2510426, 09647105 #### [facility] [address] [place] [address] 20799 MCHC (RBC) [Mass/Vol] 33.1 g/dL Normal 31.4-36.0 [facility] Comment on above: Performed By: #### 2 484919, 1852197, 6613768, 7041964, 1803314, 21203763 #### [facility] [address] [place], [place] [address] MCV (RBC) [Entitic vol] 83.2 fL Normal 80.0-100.0 [facility] Comment on above: Performed By: #### 2 855731, 2780257, 2868164, 3401792, 0053131, 41049661 #### [facility] [address] [place] [address] Platelet mean volume (Bld) [Entitic vol] 7.8 fL Normal 6.4-10.8 [facility] Comment on above: Performed By: #### 2 544267, 1946133, 6235644, 0376445, 5760019, 36906317 #### [facility] [address] [place] [address]2952 Platelets (Bld) [#/Vol] 310.0 E9/L Normal 150.0-500.0 [facility] Comment on above: Performed By: #### 2 600158, 2628681, 7056964, 5532569, 0117706, 73811024 #### [facility] [address] [place] [address] 75280 RBC (Bld) [#/Vol] 5.0 E12/L Normal 4.3-5.9 [facility] Comment on above: Performed By: #### 2 126991, 3683796, 6564969, 6960369, 4577955, 32630238 #### [facility] [address] [place] [address] WBC corrected for nucl RBC Auto (Bld) [#/Vol] 9.1 E9/L Normal 4.0-11.0 [facility] Comment on above: Performed By: #### 2 288307, 8452236, 8705461, 8410039, 3068868, 02106268 #### [facility] [address] [place] [address] CHEMISTRYOrdered By: SYSTEM SYSTEM on 09-24-2022 Albumin [...] 09-24-2022 Albumin [Mass/Vol] 4.0 g/dL Normal 3.3-5.0 [facility] Comment on above: Performed By: #### 2 721670, 7262546, 4513561, 6334689, 2365866, 28077034 #### [facility] [address] [place] [address] 19025 Albumin/Globulin (S) [Mass conc ratio] 1.2 Normal 1.1-2.2 [facility] Comment on above: Performed By: #### 2 219913, 0148992, 8670770, 5319359, 3420067, 85204837 #### [facility] [address] [place] [address] ALP [Catalytic activity/Vol] 51 Int._Unit/L Normal 21-98 [facility] Comment on above: Performed By: #### 2 754361, 1552621, 9648828, 5065329, 4509525, 65660266 #### [facility] [address] [place] [address] ALT No additional P-5'-P [Catalytic activity/Vol] 16 Int._Unit/L Normal 6-46 [facility] Comment on above: Performed By: #### 2 528525, 7838459, 9348285, 8108843, 2295854, 79087052 #### [facility] [address] [place] [address] Anion gap [Moles/Vol] 9 mmol/L Normal 6-16 [facility] Comment on above: Performed By: #### 2 105230, 5704613, 7590757, 8787109, 2194849, 00554907 #### [facility] [address] [place] [address] AST [Catalytic activity/Vol] 15 Int._Unit/L Normal 5-43 [facility] Comment on above: Performed By: #### 2 808301, 5249897, 3072969, 4378157, 6948496, 00924604 #### [facility] [address] [place] [address] Bilirubin [Mass/Vol] 0.7 mg/dL Normal 0.0-1.1 [facility] Comment on above: Performed By: #### 2 659381, 3625263, 1592344, 3254059, 8620890, 06666244 #### [facility] [address] [place] [address] Calcium [Mass/Vol] 8.8 mg/dL Low 8.9-11.1 [facility] Comment on above: Performed By: #### 2 930044, 1076166, 3349046, 0542282, 0782618, 55805858 #### [facility] [address] [place] [address] Chloride [Moles/Vol] 102 mmol/L Normal 101-111 [facility] Comment on above: Performed By: #### 2 851277, 5511548, 7198369, 0837998, 9048619, 01000439 #### [facility] [address] [place] [address] CO2 [Moles/Vol] 29 mmol/L Normal 21-[address] [facility] Comment on above: Performed By: #### 2 977851, 5461501, 2314201, 1693084, 7138762, [id number] #### [facility] [address] [place] [address] Creatinine [Mass/Vol] 0.8 mg/dL Normal 0.5-1.3 [facility] Comment on above: Performed By: #### 2 [id number], 3693973, 2724818, 0980004, 7365352, [id number] #### [facility] [address] [place] [address] Globulin (S) [Mass/Vol] 3.2 g/dL Normal 1.4-4.0 [facility] Comment on above: Performed By: #### 2 308350, 2328147, 8407784, 0991335, 2120896, [id number] #### [facility] [address] [place] [address] Glucose [Mass/Vol] 97 mg/dL Normal 55-199 [facility] Comment on above: Result Comment: If t his glucose result represents a fasting glucose, interpretation should refer to the following reference range: 55-99 mg/dL Performed By: #### 2 511567, 3857741, 0960865, 2821263, 1247711, [id number] #### [facility] [address] [place] [address] Potassium [Moles/Vol] 3.7 mmol/L Normal 3.5-5.3 [facility] Comment on above: Performed By: #### 2 818322, 0075616, 7635266, 1927066, 4416626, [id number] #### [facility] [address] [place] [address] Protein [Mass/Vol] 7.2 g/dL Normal 6.0-7.8 [facility] Comment on above: Performed By: #### 2 362302, 3076297, 5585102, 0134772, 7373886, [id number] #### [facility] [address] [place] [address] Sodium [Moles/Vol] 136 mmol/L Normal 135-145 [facility] Comment on above: Performed By: #### 2 521861, 9356488, 6466584, 2861038, 5514998, [id number] #### [facility] [address] [place] [address] Urea nitrogen [Mass/Vol] 10 mg/dL Normal 5-21 [facility] Comment on above: Performed By: #### 2 571022, 4160536, 6180804, 0838342, 7726025, [id number] #### [facility] [address] [place] [address] Urea nitrogen/Creatinine [Mass ratio] 12 No Units Normal 10-20 [facility] Comment on above: Performed By: #### 2 232802, 0526891, 7454265, 6769712, 9757825, [id number] #### [facility] [address] [place] [address] Consent for Treatmenton 08-29 Consent for Treatment [id number] 30 [id number] #[id number]:[id number] Normal [facility] HEMATOLOGYOrdered By: SYSTEM SYSTEM on 02-28-2023 Basophils/100 WBC (Bld) 0.5 % Normal 0.0 [...] 7.8 fL Normal 6.4 - 10.8 fL [facility]e[employer] Platelets (Bld) [#/Vol] 310.0 E9/L Normal 150.0 - 500.0 E9/L [facility] RBC (Bld) [#/Vol] 5.0 E12/L Normal 4.3 - 5.9 E12/L [facility] WBC corrected for nucl RBC Auto (Bld) [#/Vol] 9.1 E9/L Normal 4.0 - 11.0 E9/L [facility] Lipid Panelon 09-24-2022 Cholesterol [Mass/Vol] 185 mg/dL Normal 120-200 [facility] Comment on above: Performed By: #### 2 589969, 0382999, 4880805, 4536777, 1554503, [id number] #### [facility] [address] [place] [address] Cholesterol in HDL [Mass/Vol] 69 mg/dL Invalid Interpretation Code [facility] Comment on above: Result Comment: HDL > or equal to 60 mg/dL: Low cardiovascular risk HDL < 40 mg/dL : High cardiovascular risk Performed By: #### 2 [id number], [id number], [id number], [id number], [id number], [id number] #### [facility] [address] [place] [address] Cholesterol in LDL [Mass/Vol] 93 mg/dL Normal <=129 [facility] Comment on above: Performed By: #### 2 [id number], [id number], [id number], [id number], [id number], [id number] #### [facility] [address] [place] [address] Cholesterol in VLDL [Mass/Vol] 20 mg/dL Normal 7-40 [facility] Comment on above: Performed By: #### 2 [id number], [id number], 1987133, [id number], [id number], [id number] #### [facility] [address] [place] [address] Triglyceride [Mass/Vol] 102 mg/dL Normal <=149 [facility] Comment on above: Performed By: #### 2 [id number], [id number], [id number], [id number], [id number], [id number] #### [facility] [address] [place] [address] Physician Orderon 09-24-2022 Physician Order [id number] #[id number]:127 Normal [facility] TSHon 09-24-2022 TSH Qn 2.06 m[IU]/L Normal 0.34-5.60 [facility] Comment on above: Performed By: #### 2 [id number], [id number], 6305774, [id number], [id number], [id number] #### [facility] [address] [place] [address] eGFRon 09-24-2022 GFR/1.73 sq M.predicted among blacks MDRD (S/P/Bld) [Vol rate/Area] mL/min/{1.73_m2} Normal >=59 [facility] Comment on above: Order Comment: Order added by Discern Expert. Result Comment: eGFR is race adjusted. AA=. Performed By: #### 2 [id number], [id number], [id number], 7256440, [id number], [id number] #### [facility] [address] [place] [address] GFR/1.73 sq M.predicted among non-blacks MDRD (S/P/Bld) [Vol rate/Area] mL/min/{1.73_m2} Normal >=59 [facility] Comment on above: Order Comment: Order added by Discern Expert. Result Comment: Tool Analyst isis kidney disease could be indicated at eGFR's of less than 60 mL/min/1.73m2. Kidney failure is indicated at less than 15 mL/min/1.73m2. Performed By: #### 2 [id number], 6372998, [id number], 1382630, [id number], [id number] #### [facility] [address] [place] [address] CBC AUTO DIFFon 12-28-2021 BASO # 0.1 103/ul Normal 0.0-0.1 [facility] Comment on above: Performed By: #### C BC #### [facility] [address] [place] [address] Dr. Edwina Vicente Basophils/100 WBC (Bld) 0.8 % Normal 0.2-2.0 [facility] Comment on above: Performed By: #### C BC #### [facility] [address] [place] [address] Dr. Edwina Vicente EO # 0.1 103/ul Normal 0.0-0.7 [facility] Comment on above: Performed By: #### C BC #### [facility] [address] [place] [address] Dr. Edwina Vicente Eosinophils/100 WBC (Bld) 1.6 % Normal 0.9-7.0 [facility] Comment on above: Performed By: #### C BC #### [facility] [address] [place] [address] Dr. Edwina Vicente Erythrocyte distribution width (RBC) [Ratio] 12.8 % Normal 11.0-15.0 [facility] Comment on above: Performed By: #### C BC #### [facility] [address] [place] [address] Dr. Edwina Vicente Hematocrit (Bld) [Volume fraction] 43.1 % Normal 36.0-48.0 [facility] Comment on above: Performed By: #### C BC #### [facility] [address] [place] [address] Dr. Edwina Vicente Hemoglobin (Bld) [Mass/Vol] 14.1 g/dL Normal 12.0-16.0 [facility] Comment on above: Performed By: #### C BC #### [facility] [address] [place] [address] Dr. Edwina Vicente IG # 0.01 10e3/ul Normal 0.00-0.03 [facility] Comment on above: Performed By: #### C BC #### [facility] [address] [place] [address] Dr. Edwina Vicente IG % 0.2 % Normal 0.0-0.5 [facility] Comment on above: Performed By: #### C BC #### [facility] [address] [place] [address] Dr. Edwina Vicente LYMPH # 2.4 103/ul Normal 1.2-3.8 [facility] Comment on above: Performed By: #### C BC #### [facility] [address] [place] [address] Dr. Edwina Vicente Lymphocytes/100 WBC (Bld) 37.2 % Normal 20.5-60.0 [facility] Comment on above: Performed By: #### C BC #### [facility] [address] [place] [address] Dr. Edwina Vicente MANUAL DIFF REQ NO Normal [facility] Comment on above: Performed By: #### C BC #### [facility] [address] [place] [address] Dr. Edwina Vicente MCH (RBC) [Entitic mass] 27.3 pg Normal 26.7-34.0 [facility] Comment on above: Performed By: #### C BC #### [facility] [address] [place] [address] Dr. Edwina Vicente MCHC (RBC) [Mass/Vol] 32.7 g/dL Normal 29.9-35.2 [facility] Comment on above: Performed By: #### C BC #### [facility] [address] [place] [address] Dr. Edwina Vicente MCV (RBC) [Entitic vol] 83.4 fL Normal 81.0-99.0 [facility] Comment on above: Performed By: #### C BC #### [facility] [address] [place] [address] Dr. Edwina Vicente MONO # 0.5 103/ul Normal 0.3-0.8 [facility] Comment on above: Performed By: #### C BC #### [facility] [address] [place] [address] Dr. Edwina Vicente Monocytes/100 WBC (Bld) 8.1 % Normal 1.7-12.0 [facility] Comment on above: Performed By: #### C BC #### [facility] [address] [address] [address] Edwina Vicente NEUT # 3.3 103/ul Normal 1.4-6.5 [facility] Comment on above: Performed By: #### C BC #### [facility] [address] [address] [address] Edwina Vicente Neutrophils/100 WBC (Bld) 52.1 % Normal 43.0-75.0 [facility] Comment on above: Performed By: #### C BC #### [facility] [address] [address] [address] Edwina Vicente Platelet mean volume (Bld) [Entitic vol] 8.8 fL Critically low 9.5-13.5 [facility] Comment on above: Performed By: #### C BC #### [facility] [address] [place] [address] Dr. Edwina Vicente PLT 328 103/ul Normal 150-450 [facility] Comment on above: Performed By: #### C BC #### [facility] [address] [address] [address] Edwina Vicente RBC 5.17 106/ul Normal 4.20-5.40 [facility] Comment on above: Performed By: #### C BC #### [facility] [address] [place] [address] Dr. Edwina Vicente WBC 6.4 103/ul Normal 4.0-11.0 [facility] Comment on above: Performed By: #### C BC #### [facility] [address] [place] [address] Dr. Edwina Vicente PREG QUANT HCGon 12-28-2021 HCG QUANT <1 Normal [facility] Comment on above: Performed By: #### P REGQNT #### [facility] [address] [place] [address] Dr. Edwina Vicente HCG RANGE SEE BELOW Normal [facility] Comment on above: Result Comment: 5-50 0-1 WEEK 40-300 1-2 WEEKS 100-1,000 2-3 WEEKS 500-6,000 3-4 WEEKS 5,000-200,000 1-2 MONTHS 10,000-100,000 2-3 MONTHS 3,000-50,000 2ND TRIMESTER 1,000-50,000 3RD TRIMESTER Performed By: #### P REGQNT #### [facility] [address] [address] [address] Edwina Vicente US PELVIS AND TRANSVAGon [...] KULWINDER CARSON Date: 2021-12-27 07:30 Normal [facility] Covid-19 PCR (CVDTBH)on SARS-CoV-2 (COVID-19) RNA TRESSA+probe Ql (Unsp spec) Detected Critically abnormal NOT DETECTED [facility] Comment on above: Result Comment: This test is not yet approved or cleared by the [place] FDA. When there are no FDA-approved or cleared tests available, and other criteria are met, FDA can make tests available under an emergency access mechanism called an Emergency Use Authorization (EUA). The EUA for this test is supported by the [place] of Health and Human Service's declaration that [...] longer be used). Performed By: #### C [facility] #### [facility] [address] [address] [address] Edwina Pereira 10-16-2020 CNOV Office Visit (ORTHCC) SANDY DENNIS ([id number]) 1985 F Date Time Provider Department 10/16/20 [...] NOHEMI TEST: Positive STRENGTH: 5/5 biceps, triceps, pharmacy innovation assistant, finger abduction, WE, WF, AND EPL STABILITY: all joints stable CREPITUS: negative NEUROLOGICAL EXAM: Sensory: sensation intact to light touch axillary, radial, median, AND ulnar distributions 2-point discrimination intact throughout all digits. Motor strength: equal bilaterally with 5/5 biceps, triceps, pharmacy innovation assistant, finger abduction, WE, WF, thumb opposition, AND [...] times daily.Disp: 100 gRfl: 1 CONSULT TO BUDGET AND POLICY ANALYST [19990805] Order #: [id number]: 1 FUTURE Prescriptions as of 10/16/2020 Sig: [...] by GALILEO PIRES, MINESH Blue on 10/16/20 Normal [facility] Encounters Encounter Date Encounter Type Care Provider Facility Start: 03-16-2024 End: 03-16-2024 ambulatory SAMANTHA CROW Not Available Start: 12-04-2023 End: 12-04-2023 ambulatory CASSANDRA CHAHAL Not Available Start: 10-28-2023 End: 10-28-2023 ambulatory SUJATA RUDD Not Available Start: 10-22-2023 End: 10-22-2023 ambulatory SUJATA RUDD Not Available Start: 10-09-2023 End: 10-09-2023 ambulatory SUJATA RUDD Not Available Start: 08-27-2023 End: 08-27-2023 ambulatory SAMANTHA CROW Not Available Start: 06-17-2023 End: 06-17-2023 ambulatory TIERRA WILL Not Available Start: 04-02-2023 End: 04-03-2023 ambulatory Wilda Buckner Facility:[facility] Start: 04-02-2023 End: 04-02-2023 Patient encounter procedure Wilda Buckner [facility] Start: 01-09-2023 End: 01-10-2023 ambulatory Wilda Buckner Facility:[facility] Start: 01-09-2023 End: 01-09-2023 Patient encounter procedure Wilda Botello Dudley [facility] Start: 11-12-2022 End: 11-13-2022 ambulatory CASSANDRA CHAHAL Facility:[facility] Start: 10-31-2022 End: 11-01-[address] CASSANDRA CHAHAL . Facility: Start: 10-23-2022 End: 10-23-[address] CASSANDRA CHAHAL . Facility: Start: 09-24-2022 End: 09-25-2022 ambulatory Wilda Buckner Facility:[facility] Start: 09-24-2022 End: 09-24-2022 Patient encounter procedure Wilda Buckner [facility] Start: 05-03-2022 End: 08-02-2022 ambulatory Kaushal Craft Facility:[facility] Start: 12-28-2021 End: 12-28-[address] DOCTOR DUEÑAS Facility: Start: 12-27-2021 Encounter for preprocedural laboratory examination DR CASSANDRA CHAHAL . [facility] Start: 12-26-2021 End: 12-27-2021 Encounter for preprocedural laboratory examination DR CASSANDRA CHAHAL . Facility: Start: 12-26-2021 End: 12-27-[address] CASSANDRA CHAHAL . Facility: Start: 12-18-2021 End: 12-18-2021 Patient encounter procedure YELENA JAMES [facility] Procedures Date Procedure Procedure Detail Performing Clinician Start: 06-04-2019 Esophagogastroduodenoscopy YELENA CHE Start: 04-17-2018 CHOLECYSTECTOMY LAPAROSCOPIC W/ CHOLANGIOGRAM 1 YELENA JAMES Comment on above: CHOLECYSTECTOMY LAPAROSCOPIC W/ CHOLANGI OGRAM Start: 04-25-2013 Appendectomy YELENA JAMES Immunizations Immunization Date Immunization Notes Care Provider Fa cility 05-21-2022 influenza virus vaccine, unspecified formulation Wilda Dudley [facility] Comment on above: Reason for Medicatio n: Prophylaxis 05-25-2021 influenza virus vaccine, unspecified formulation; Translations: [Fluzone PF Quadrivalent ] YELENA JAMES [facility] Comment on above: Reason for Medicatio n: Other (see comment) Payers Date Payer Category Payer Unknown [id number] 1985 Unknown [id number] 2.16.84 [id number] 1985 Unknown [id number] 2.16.84 0.1.225228.3.579.2.593 1985 Unknown [id number] 2.16.84 0.1.505376.3.579.2.593 1985 Unknown [id number] 2.16.84 0.1.525774.3.579.2.593 1985 Unknown [id number] 2.16.84 0.1.766786.3.579.2.593 1985 Unknown [id number] 2.16.8 40.1.425233.3.579.2.727 1985 Unknown [id number] 2.16.8 40.1.675452.3.579.2.727 1985 Unknown [id number] 2.16.8 40.1.465193.3.579.2.727 1985 Unknown [id number] 2.16.8 40.1.169684.3.579.2.727 1985 Unknown [id number] 2.16.84 0.1.234868.3.579.2.1259 1985 Unknown [id number] 2.16.84 0.1.566366.3.579.2.1258 1985 Unknown [id number] 2.16.84 0.1.657104.3.579.2.1258 1985 Unknown [id number] 2.16.84 0.1.636727.3.579.2.1258 1985 Unknown [id number] 2.16.84 0.1.608918.3.579.2.1258 1985 Unknown [id number] 2.16.84 0.1.759209.3.579.2.1258 1985 Unknown [id number] 2.16.84 0.1.843695.3.579.2.1258 1985 Unknown [id number] 2.16.840 .1.706004.3.579.2.9 1959 Unknown [id number] 1959 Unknown [id number] Social History Date Type Detail Facility Start: 02-22-2021 Tobacco smoking status Never s moked tobacco (finding) [facility] Tobacco smoking status Never [facility] Sex Assigned At Female [facility] Clinical Note 12-28-2021 Note Date & Type Note Facility 12-28-2021 Note The [place], [place] NAME: SANDY DENNIS DATE OF : MEDICAL REC#: [id number] 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 PREOPERATIVE DIAGNOSIS: Pelvic pain, left ovarian cyst 6 cm in nature. POSTOPERATIVE DIAGNOSIS: Pelvic pain without left ovarian cyst, however, there was a small adhesion which was easily taken down from the anterior abdominal wall that was omental in nature. SURGEON: Cassandra Chahal D.O. ACCOUNT OFFICER: VITA Rondon URINE OUTPUT: Yellow and clear. [...] Chahal DO on 01/01/2022 09:27 PM EDT [facility] Signed and Approved by: DR CASSANDRA CHAHAL . 01/01/2022 21:27:00 [facility] Progress note 10-16-2020 Note Date & Type Note Facility 10-16-2020 Note HNO ID: [id number] Author: Minesh Gurrola Service: ? Author Type: Physician Bean Weigher Type: Progress Notes Filed: 10/16/2020 1:03 PM [...] NOHEMI TEST: Positive STRENGTH: 5/5 biceps, triceps, pharmacy innovation assistant, finger abduction, WE, WF, AND EPL STABILITY: all joints stable CREPITUS: negative NEUROLOGICAL EXAM: Sensory: sensation intact to light touch axillary, radial, median, AND ulnar distributions 2-point discrimination intact throughout all digits. Motor strength: equal bilaterally with 5/5 biceps, triceps, pharmacy innovation assistant, finger abduction, WE, WF, thumb opposition, AND [...] has been identified and corrected by editing. [facility] Evaluation + Plan note Note Date & Type Note Facility Evaluation + Plan note No data available for this section [facility] Hospital Discharge instructions Note Date & Type Note Facility Hospital Discharge instructions No data available for this section [facility] Progress note Note Date & Type Note Facility Progress note No data available for this section [facility] Summary Purpose Family History No Family History Records FoundNo Family History Records FoundNo Family History Records FoundNo Family History Records FoundNo Family History Records Found Advance Directives No Advanced Directives Records FoundNo Advanced Directives Records FoundNo Advanced Directives Records FoundNo Advanced Directives Records FoundNo Advanced Directives Records Found Additional Source Comments INFORMATION SOURCE (unrecogn ized section and content) DATE CREATED AUTHOR 08/26/2021 [facility] DATE CREATED AUTHOR AUTHOR'S ORGANIZ ATION 11/09/2022 [facility] DATE CREATED AUTHOR AUTHOR'S ORGANIZ ATION 11/14/2022 [facility] DATE CREATED AUTHOR AUTHOR'S ORGANIZ ATION 04/03/2023 [facility] DATE CREATED AUTHOR AUTHOR'S ORGANIZ ATION 03/17/2024 [facility] EPIC Patient Care team informatio n (unrecognized section and content) Personnel Name: Wilda Buckner CNP Address: Address: [address] [place] [address], [address] Personnel Name: Wilda Buckner CNP Address: Address: [address] Personnel Name: Wilda Buckner CNP Address: Address: [address] [place] [address], [address] FOR RECORDS PERTAINING TO PATIENTS WHO ARE [...] BE BASED ON THE PRIMARY CLINICAL RECORDS. [facility] [employer] [facility]. provides no warranty or guarantee of the accuracy or completeness of information in this document.
--- NOTE | 2024-03-20 08:58 | US_ITS ---
The [address] [address] Patient Name: SANDY CARDOZO MRN: [id number] date: 1985 Sex: F Assigned Patient Location: US Current Patient Location: US Accession/Order Number: [id number] Exam Date: 03/20/2024 09:00 Report Date: 03/20/2024 23:42 At the request of: SAMANTHA CROW Procedure: US pelvis w/ transvaginal EXAM: US Pelvis Transvaginal CLINICAL INDICATION: PELVIC PAIN, OVARIAN CYST TECHNIQUE: Real-time transvaginal pelvic ultrasound with image documentation. Transvaginal imaging was used for better evaluation of the endometrium and adnexa. COMPARISON: July 2023 FINDINGS: UTERUS/CERVIX: Unremarkable. Normal endometrial stripe thickness. No myometrial mass. RIGHT OVARY: Dominant 2.1 x 1.5 cm right ovarian follicle. This appears to be increased slightly from prior examination. Normal blood flow. LEFT OVARY: Unremarkable. No mass. Normal blood flow. FREE FLUID: No free fluid. BLADDER: Empty bladder which cannot be evaluated with this probe. US/US pelvis w/ transvaginal IMPRESSION: Mild increase in size of a right ovarian cyst or dominant follicle. Continued surveillance advised with a follow-up ultrasound in 6 months. Electronically authenticated by: KAI OCAMPO Date: 03/20/2024 23:42
== END 2024-03-20 08:56 | disposition home or self-care (01) ==
LOC: US 08:55
PROVIDERS: Visit Provider Physician Assistant
DX: R10.2 Pelvic and perineal pain (principal); N83.291 Other ovarian cyst, right side
CPT/HCPCS: 76830; 76856

== ENCOUNTER 2024-05-11 07:59 | Outpatient (REF) | payer BC, SELFPAY ==
--- OUTSIDE RECORDS SUMMARY | 2024-05-19 08:04 | XMS_ITS | CCD ---
Author Organization 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 Name Role Phone Wilda Buckner Primary Care Physician TIRSO ., DR TRUJILLO Admitting Unavailable TIRSO ., DR TRUJILLO Consulting Unavailable MISC, DR NEGRON Primary Care Unavailable TIRSO ., DR TRUJILLO Attending Unavailable ZIEBER, DR KULWINDER Floyd Consulting Unavailable TIRSO ., DR TRUJILLO Admitting Unavailable TIRSO ., DR TRUJILLO Consulting Unavailable MISC, DR NEGRON Primary Care Unavailable TIRSO ., DR TRUJILLO Attending Unavailable MISC, DR NEGRON Primary Care Unavailable TIRSO ., DR TRUJILLO Consulting Unavailable TIRSO ., DR TRUJILLO Attending Unavailable TIRSO ., DR TRUJILLO Admitting Unavailable AGUBOSIM, NURIS Consulting Unavailable JON SOTELO Consulting Unavailable JONATANMARK Consulting Unavailable TIRSO ., DR TRUJILLO Consulting Unavailable MISC, DR NEGRON Primary Care Unavailable TIRSO ., DR TRUJILLO Attending Unavailable TIRSO ., DR TRUJILLO Admitting Unavailable ZIEBER, DR KULWINDER Floyd Consulting Unavailable TIRSO ., DR TRUJILLO Consulting Unavailable MISC, DR NEGRON Primary Care Unavailable TIRSO ., DR TRUJILLO Attending Unavailable TIRSO ., DR TRUJILLO Admitting Unavailable TIRSOCASSANDRA R Attending Unavailable Buckner, Wilda L Admitting Unavailable Buckner, Wilda L Attending Unavailable Kaushal Craft Attending Unavailable Buckner, Wilda L Admitting Unavailable Buckner, Wilda L Attending Unavailable Buckner, Wilda L Admitting Unavailable Buckner, Wilda L Attending Unavailable Unallocated , Noms Provider Primary Care Provi mirna SAMANTHA CROW Attending Unavailable SUJATA RUDD Referring Unavailable TIERRA STEPHENSON Attending Unavailable SUJATA RUDD Attending Unavailable SUJATA RUDD Referring Unavailable SUJATA RUDD Attending Unavailable CASSANDRA CHAHAL Attending Unavailable SAMANTHA CROW Attending Unavailable TIERRA STEPHENSON Attending Unavailable CASSANDRA CHAHAL Attending Unavailable Allergies Allergy Classification Reported Allergen(s) Allergy Type Date of Onset Reaction(s) Facility (9 sources) Ciprofloxacin; Translations: [ciprofloxacin] Drug Allergy 3 Tenalgia (finding), Rash [facility] (1 source) Ciprofloxacin Drug Allergy 7 [facility] Repository Medications Current Medications Medication Drug Class(es) Dates Sig (Normalized) Sig (Original) escitalopram 20 mg oral tablet (1 source) Serotonin Reuptake Inhibitor Start: 01-06-2024 take 1 tablet by mouth once daily escitalopram (Lexapro) 20 MG tablet Take 20 mg by mouth Daily 01/06/2024 Active Problems Active Problems Problem Classification Problem Date Documented Date Episodic/Chronic Abdominal pain (6 sources) Pelvic and perineal pain; Translations: [Pain in female pelvis] Onset: 12-28-2021 Episodic Biliary tract disease (4 sources) Acute cholecystitis 04-17-2018 Episodic Contraceptive and procreative management (1 source) Sterilization requested; Translations: [Encounter for sterilization] 05-11-2024 Episodic Immunizations and screening for infectious disease (1 source) Encounter for screening for human papillomavirus (HPV); Translations: [ENC SCREENING HUMAN PAPILLOMAVIRUS] Onset: 10-25-2022 Episodic Menstrual disorders (1 source) Menorrhagia; Translations: [Excessive and frequent menstruation with regular cycle] 05-11-2024 Chronic Nonmalignant breast conditions (5 sources) Mastodynia; Translations: [Unspecified lump in the right breast, upper outer quadrant] Onset: 10-31-2022 Episodic Other connective tissue disease (2 sources) Pain in left foot; Translations: [Pain in left foot] 04-29-2024 Episodic Other endocrine disorders (1 source) Disorder of endocrine system; Translations: [Endocrine disorder, unspecified] 05-11-2024 Episodic Other female genital disorders (1 source) Abnormal uterine bleeding; Translations: [Abnormal uterine and vaginal bleeding, unspecified] 05-11-2024 Chronic Other fractures (2 sources) Disorder of bone; Translations: [Stress fracture, unspecified site, initial encounter for fracture] 04-29-2024 Episodic Other nutritional; endocrine; and metabolic disorders [...] ovarian cyst, unspecified side] Onset: 12-27-2021 Episodic Sprains and strains (2 sources) Sprain of ligament of tarsometatarsal joint; Translations: [Sprain of tarsometatarsal ligament of left foot, subsequent encounter] 04-29-2024 Episodic Viral infection (1 source) COVID-19; Translations: [...] Test Name Value Interpretation Reference Range Facility HCG ( test) Ql (U)o n 05-11-2024 Interpretation and review of laboratory results Normal [facility] Preg Test, Ur Negative [facility] XR Foot - left 3 [facility] Result: Three views of the left foot: AP, MO, LAT were performed today in the office. Radiographs were read by myself and demonstrate: No evidence of acute fracture or dislocation. Normal joint spaces noted with no evidence of narrowing or osteophyte formation. There are no structural deformities noted [facility]iology Study observation (narrative) [facility] MR KNEE RIGHT WO IV CONTRAST on [...] medial compartment osteoarthritis. ELECTRONICALLY SIGNED BY: Delta Geller DO Normal Not Available Comment on above: Order Comment: No to all MRI Questions Consent for Treatmenton Consent for Treatment [id number] #1.00CD:127 Normal [facility] Physician Orderon 04-02-2023 Physician Order [id number] 0#1.00CD:127 Normal [facility] XR Foot 3+ Views Lefton XR [...] mGy = na DAP = na Normal [facility] XR Wrist 3+ Views Lefton XR [...] mGy = . DAP = . Normal [facility] XR Wrist 3+ Views Righton XR [...] mGy = . DAP = . Normal [facility] Consent for Treatmenton 12-26 Consent for Treatment [id number] #1.00CD:127 Normal [facility] Physician Orderon 01-09-2023 Physician Order [id number] 5#1.00CD:127 Normal [facility] SURGICAL PATH REPORTon 11-14 SURGICAL PATH REPORT [facility] Department of Pathology [address] [place] [id number] [phone] Name: SANDY DENNIS : 1985 [facility] [id number] Number: [facility] : n: Admit 37 years Attending CASSANDRA CHAHAL Age: Provider: Ordering CASSANDRA CHAHAL Provider: Consulti Surgical Pathology Report ng: ACCESSION: COLLECTED DATE/TIME: RECEIVED DATE/TIME: PATHOLOGIST: [id number] 11/12/2022 16:30 EDT 11/13/2022 13:47 EDT DEJUAN RODRIGUEZ MD Final Diagnosis Report for [facility] [place] [place] ENDOMETRIAL BIOPSY: - PROLIFERATIVE ENDOMETRIUM. DEJUAN [...] is entirely submitted in one cassette. MP/ ald 11/13/2022 Tissue pathology report for: [facility], [address] [place] [address]; ____ Print 11/14/2022 14:01 EDT Number: Date/Time: [facility] Department of Pathology [address] [place], [place] [id number] Name: SANDY DENNIS : 1985 [employer] [id number] Number: Gender Female Bartolome MCKINNEYUE : n: Admit 37 years Attending CASSANDRA CHAHAL Age: Provider: Ordering CASSANDRA CHAHAL Provider: Consulti Surgical Pathology Report ng: ACCESSION: COLLECTED DATE/TIME: RECEIVED DATE/TIME: PATHOLOGIST: [id number] 11/12/2022 16:30 EDT 11/13/2022 13:47 EDT MICHAEL ZAVALA, DEJUAN Gross Description PATHOLOGY SERVICES PROVIDED BY [facility] (CLIA #[id number]) in cooperation with [facility] at [address] [place] [address] (CLIA #[id number]) Microscopic Diagnosis The final diagnosis is based on a microscopic exam of novelties sales representative sections. Codes CPT CODE: 30905 ____ Print 11/14/2022 14:01 EDT Number: Date/Time: Normal [facility] Comment on above: Performed By: #### 9 [id number] #### [facility] Services [address] [place] [address] Manager Net: Dejuan Rodriguez MD [facility] DIAGNOSTIC 3D YARITZA CA Don 10-31-2022 [facility] DI[facility]NOST[facility] 3D YARITZA CAD Patient: SANDY DENNIS. Exam Date: 10/31/2022 : 1985 Gender:F Ordering : DR CASSANDRA CHAHAL . Admission #: [id number] Family : Order #: [id number] CLICK HERE TO VIEW EXAM RADIOLOGY REPORT PROCEDURE: MAMMOGRAM DIAGNOSTIC 3D BILATERAL CAD, 10/31/2022, 09:22 ULTRASOUND BREAST BILATERAL LIMITED, 10/31/2022, 10:18 COMPARISON: None. INDICATIONS: Lump in upper outer quadrant of right breast Calculator Name [facility] Breast Cancer Risk Assessment Tool 5 Year Breast Cancer Risk 0.40% Lifetime Breast Cancer Risk 11.20% Personal Breast Cancer No Personal Ovarian Cancer No Treatments None Family Cancers Aunt-paternal with breast cancer at age 48. LOCATION: [facility] BREAST COMPOSITION: Heterogeneously dense,which may obscure small [...] M.D. on 10/31/2022 at 11:12 Normal [facility] US BREAST YARITZA LIMITEDon 04-0 US BREAST YARITZA LIMITED Patient: SANDY DENNIS Exam Date: 10/31/2022 : 1985 Gender:F Ordering : DR CASSANDRA CHAHAL . Admission #: [id number] Family : Order #: [id number] CLICK HERE TO VIEW EXAM RADIOLOGY REPORT [...] breast cancer at age 48. LOCATION: [facility] BREAST COMPOSITION: Heterogeneously dense,which may obscure small [...] Carson M.D. on 10/31/2022 at 11:12 Normal [facility] US PELVIS AND TRANSVAGon US PELVIS AND [...] by: KULWINDER CARSON Date: 2022-10-31 09:40 Normal [facility] PAP ACOG PANEL 2: 30 to 65on 10-30-2022 . . Normal [facility] Comment on above: Result Comment: Perf ormed at: WB Performed By: #### 4 [id number] #### [facility] [address] [address] [address] Edwina Vicente Age Gdln ACOG Testing 30-65 Normal [facility] Comment on above: Performed By: #### 4 [id number] #### [facility] [address] [place] [address] Dr. Edwina Vicente DIAGNOSIS: Comment Normal [facility] Comment on above: Result Comment: NEGA TIVE FOR INTRAEPITHELIAL LESION OR MALIGNANCY. Performed at: WB Performed By: #### 4 [id number] #### [facility] [address] [place] [address] Dr. Edwina Vicente HPV Aptima Negative Normal Negative [facility] Comment on above: Result Comment: This nucleic acid amplification test detects fourteen high-risk HPV types (16,18,31,33,35,39,45,51,52,56,58,59,66,68) without differentiation. Performed at: =G Performed By: #### 4 [id number] #### [facility] [address] [place] [address] Dr. Edwina Vicente HPV Genotype Reflex Comment Normal [facility] Comment on above: Result Comment: Crit eria not met, HPV Genotype not performed. Performed at: WB Performed By: #### 4 [id number] #### [facility] [address] [place] [address] Dr. Edwina Vicente Methodology: CTIM Normal [facility] Comment on above: Result Comment: The Thin Prep(R) Dairy Nutritionist was unable to read this specimen. Therefore a manual review was performed. Performed at: WB Performed By: #### 4 [id number] #### [facility] [address] [place] [address] Dr. Edwina Vicente Note: Comment Normal [facility] Comment on above: Result Comment: The Pap smear is a screening test designed to aid in the detection of premalignant and malignant conditions of the uterine cervix. It is not a diagnostic procedure and should not be used as the sole means of detecting cervical cancer. Both false-positive and false-negative reports do occur. . Performed at: WB Performed By: #### 4 [id number] #### [facility] [address] [address] [address] Edwina Vicente Performed by: Comment Normal [facility] Comment on above: Result Comment: Bo Rao, Wide Piece Goods Inspector (ASCP) Performed at: WB Performed By: #### 4 [id number] #### [facility] [address] [address] [address] Edwina Vicente Specimen adequacy: Comment Normal [facility] Comment on above: Result Comment: Sati sfactory for evaluation. Endocervical and/or squamous metaplastic cells (endocervical component) are present. Performed at: WB Performed By: #### 4 [id number] #### [facility] [address] [place] [address] Dr. Edwina Vicente Coding Summary.on 09-30-2022 Coding Summary. CD:[id number] Gh0bWw+PGhlYWQ+PE1FV RTyZ43deKScfT2RP1xBA V3CIJKUFIIBJX7BQO2nw RS5CZloD2DuirDz FsfpoKNhZP54HMz3RTJ7 yRfzDNlxiU1lgCRvG6j0 GyFoHI64eF83MRcmIVSj ChO5XeBwzjqwqPYh C0ztLzKppMVmKec+PHRh YmxlIHdpZHRoPScxMDAl OtIzaRxnLY3zXv1xLRIy LWNvbGxhcHNlOiBj i5maHQFeNNtfAV3bzNyn I3DjeGX7ZWUdq2c5Io04 dHI+HSOzBSE4vBgrNIcz o548BdSfk9wxYFI6 tRQpMRixFEF8M20hn5Q5 GCTyHXUyZTZ2bNX0qG3g xQjblohlB5DtkSCfHbP2 MRT9mGOrxC1klWyn lkvpdL4yTnq+S21OSO9X LZHGOQ0GXen5H2RtRuac dHI+UU69SDWnOS72wRMs xCZvp1nclJn7CwDj VBRsNTQ7iAkiJJjej2Er AQBoU09viIFbn2X3KAMf uFcjwFJlKrRcdPB0mX6y AFlqyjunu1ybjpdy Abanm8zflm84eR28E39g LRtcUFNnDJN2EMQtZECa mQakxj5ayB3sRm0+IDxj k0tmu5koySi0DfKm JBRadcEjvGjrHSQ1p1Hh Kl60L2ZtoIqfq4AjJlq5 rl39lDEbt4O2bCE6NQfw PPHomM1aFTkgSuL2 LPYsHsPatH43jQGgCDcb Cb1myWyfsJwhIL8vIAKz qlvdPKHnhG7dGPTinOEn nHhqGG8yEMEiaxfm k239TvExZGE7UYEreEWf L1LvaV4xEdRfIYCwOFBm D3QtwLCuCNroB947HMjb AcX3NIWeetZeF0Mv WDHfkVrtPjS2p0F7Eb7T a8TmqkugLNM6XRchXGEn EqS5IuIaWhR4U2QmHzq8 WKYqeHfoWS6iY3Dz YAOllxvgpbxndFD9BZEr XYTsgR48yEHqZDhgLi2i w0B3i789DRMeRLBblX81 Rd5phFsqVGNcaIFV vA1xjoudx9lsgorzJmQq KWQuIXr8ZRs3KHKxxDta PsIrVDL3TlH5BZC0nONj kU9jvMqfawptkB3o Oyc+D59cyT3kEMF4PIC6 iljxDYKupyLbGY60VC82 S0FsWxlfbQAbgIQ+PGRp cgCymWdqMG7tGhJx e1ehm9WqBCulM5SgHGKn FLhpQni8KVBfHRX2iBA8 jL9eMPDaJAkmr7R1wQI7 Y6XvuqOplv6yv3wm RVHmAIvqZ78jwFHee5P1 ODHvuDQ6OYOsnFziJbCz eO49Ofd+HNKtbNuos3Fs Badri7bbh3elgTe8 IjMwJSIgdmFsaWduPSJ0 z9JyFc46N20iTUonESZd CNKgYWXcVGBmnTmtpy2u yY6zMq5+PGNvbCB3 fYT8mP7dFGQvLeR0WIxy V156FaCryENjOzkya9ap a1ivzOy1OtZzLXLsfeBd nXxjPUX7i4KnNp39 F03lGXasKOUjXXVeTOEw CWRpmVymly2vlR5uDq2+ GE6qf2rpke59iT73jOJ+ ANJnWSZ5hEbaJSom MJDsqL2hAGuqVhE0UGLm XsFzhZ18pBFkIKddMx4w kTczkWrvWQ0qLUNziqca j162DtSdx3axNNXj nHRfOJfzJSS3M96mx8R9 YRKfVZFhNAU6eGY8uL1d bGlnbjogbGVmdDsgdmVy aPpcDPfhNAqjX522 IHRvcDsnPlBhdGllbnQg XoYkFKc6J7CaQnd8OBVx rZlqNT4qxLDpCBnyQi1z iFwzqIibMJ5gJHJd esbeo543UoZts9mxZTSt rQRwAMuoBLI5W22wa8C8 LPQmDXDpCCT6mJL7uC1z bGlnbjogbGVmdDsg seLruPjpYIzcBAzeD857 IHRvcDsnPkJpcnRoIERh vXT8PD57QE87lKDvj9I8 xED2C6QcAUYgkjge jmzmmVW0KWBeJGBxpB52 Ee2ktZqfOi1kBQEqHWC9 WEDyoZStE7UepL8cMtBu PRGaVKGiZ3IarSPq ZLkpG827IPauIbO4WKXk bgWcL3JhFJSkpUuaUtZ1 t8G1Wm9KC3J8OD35GX45 qYCcg4K2bAD4C4Lz DCZfrvbilmvvuOF0YWNe SIBfdX38Bc6qeQmoOk1j HYUgFBY7BZDrbNQmC7Uu pC9eKbDcUZQzKQDr C1FegSBvZPsoB280QHkr QmJ6SMXlqcNmK7EkSAAh bJaxAvE0p8H2Xo4LHJs0 FQ54MZ24yHFkp4B0 kZW5P2XfEDOqkkjrgdxe kOC5OVWoCCBpnB21Tp7f oEilKh2yIYCeRZE5WFOe sYKeO7OhxR6jSyRw JFUiJWKdH3MveKFdLOmz O624LFhrQdO9WXLpbmBj P6DeALZxqWvnMwN8z8F9 Sr9MUBQvBR22NJI5 xOM1UB57IF99E1UnKtbn dGFibGU+PHRhYmxlIHdp ZHRoPScxMDAlJyBzdHls NI4tUr2qWHCwSBIz lTdggSRxUaIjr0vfMBQo FYqeJI6wfSlmE4ZffAO6 OHSfi2r6Dy76F07wP0Gu dXA+ZRHmbSO1qDK0 jU5aLwWlNmR8QJbkM055 BcFbsNCaVogau8hke8zh nOs6JnS2GYDbcwUzyPym KYH6r1MmZp28E43u IHdpZHRoPSIxNSUiIHZh vHumie5sdF3jPc5+PGNv cDO0ePZ2nZ6kWiHmQdR1 DHfpI784KvEumFMf Dfdcm0uid5qzzEx0GyLo OPUonmIakTguWSD5i5Im Vt90Z0JffZdwh7VvSmq2 dh47zCVin9S1gTQ8 X6HtYURxmbalqGBirZob MB2sPKVylfpdOPYtqH5l TQTqC5l9XpQcSrM2ZEkb U9HktoQ1TQUpzQZk NIitRCR9K86bn5U4KGPu UJKmXFY0lBE0qG1noSim bjogbGVmdDsgdmVydGlj XDtdCFnwF134JOLw tPyoFDLrmI4uRYEocDAu tSlnPI6xKIEfguosUgCG RVBPVEUsIFRSSVNIQSBK JE69FQ50tMTkl5Q9 sKD8X8BwBZPisaphtwwf qWJ3MGFpVISkkK10oZPe VKiwPn9qq8U3e394QYAk VOWmzV58Xi4thQge HRTnnLUYaZ0vjcbjk4rk zolzPpJvFAHtUXr9GLy6 PBYyuVgnKgVcAJK4NjJ9 BKA9eHEvuA0mmPhg ckuibN0bTqd+MDgvMTAv DYl7GDoxiWM+PHRkIHN0 pLiqWYdrJNOacP0dXOCe K8o2GjTwRhV6GOdd S6WzINAhgqxmFy30yA0g SoPgYiY5BDhjT8UthjO1 WYEsgDKqBZlnYGF6T08n c7G3ZXVfKPCuNQU4 pWI3jJ5fjKgksawxdADj dDsgdmVydGljYWwtYWxp Q414LEKahQtrVtO4PItb AZCyEW52KN78aKUk o4E1dEZ9K6JsFTRvzavh putqrII0AFZgKZGtdE63 nOZxAMraZk9ln4F4d588 CRVdMNUgmB80Nj2r uQvqLXBxwFSWeN0kvgqg p2vhpxeiHcLjOQZuAJr9 WUs4CWOwdFjyRkMeYUR2 BwP2SBI4tMRrcT8j jNhyvbkpiE3vWfc+RmVt VLrhNV65TD68zVKit1D7 vBG1O3DiROPmxclamvwn sKP6BXDoRESztU47 fPRhIMjlWo7mf2Y3o923 EMPnYPZdkH15Dr9syYcl SBHbpMGIhT8ezgvsu4ry cjogIzAwMDAwMDt0 OVd2FABbqZauFnVoQAK9 AoH9LZD5aDTezN2vnZsd huhzwK7jEee+B6T6oJI6 aWVudDwvdGQ+PC90 yp31B6ShFnjvHgq6YZGt LAI6uUV2tW1lCGOaUKuw e1H6zDU6P3LmblGkvf4k g7tnKSUwCLjzE20f eQPwx0A3MKQfdWR4TASn yZvvJsLhmA49Txa+PGNv sLwki4MgSbxqg9pkk2th fHl4ZvBpMZWwkoSq iYqgQFO8s3DoLh91U01l IHdpZHRoPSIzMCUiIHZh eAhclo7veI8dSq9+PGNv pVM5dRF8vK4oSbDk AiR4JJroL535LiZknLXj Ahyen1fxe9hptSl9DzOr QUBbcsVvcVnpRES1q1Cl Hy76P9RakLymf7Cz Yqo8za49nFDce4T5eTK2 E3YlYTKruwpkxVBwiGcn QT8tTXIztpvrLTXspO7p KKZkB1i2HbKiBhE3 XIouI4FogsN4YROriCHq PKGeoZYFmD9dyuuqx0sm mpumUcTsEHWcMEq9QWi9 LWFsaWduOiBsZWZ0 FkV4SDR0bTFkrQ1inCvy cwvgdX5qQxd+TTk5i4px eQQlYC0awJZ0JR39GI90 sNUmi1I7aYR2W3Gv VBDnibadqeddeBS7OEGv WAGolQ88Rr7wzCazBp5v PYIjPBZ1RTAykUKmU2Cq eM3wJsGfLNVoMTVg S3WvmILmQOfcS407DScf CwH3DUBoewSvZ5IbWGEi pKbeRpQ5z2B8Zq6ZIH34 RQ58NR83fSVjp9N6 tFB6G2QeRRUqyrqorkln jWW7AYSwRHVzeV47Yj0u lYwkNd4zZBJtGGI3UEBe cPXgC9ThgS6pRgSf KJMdQQWrP2FnqHJnMHdw S284PWnhEjM1EDMvpjMx Y8PvIPMqwRtoJbM9w1H2 Ao9PSq67WA38ON92 nELjd4C7dBW8Q4TnWDMs wxdfudezoTR5FIEfRZQk uM66Bm3xdIfwAw7lFYGa SLR5GMSocKNiJ7Cc pX2nSlXvPNHgLLLhI5Di hSPhBYciT600JZtzTkT2 EYIpdaZpB6MjIRYqjHdk HmH7f3J9Xc7OFXld dsu5V4DtRnvwnVF+PC90 ZXJtMF48eCUpuKCvu0xz qSf9GpWwVSQkWHP6sVim XOlcf2YcNKFoJ64a bGFw (more content not included)... Normal [facility] Auto Diffon 09-24-2022 Basophils/100 WBC (Bld) 0.5 % Normal 0.0-2.0 [facility] Comment on above: Order Comment: Order Added by Discern Expert. Performed By: #### 2 [id number], 7741445, 3296154, 2117755, 7758271, [id number] #### [facility] [address] [place] [address] Basophils/Leukocytes Auto (Bld) [Pure # fraction] 0.0 E9/L Normal 0.0-0.2 [facility] Comment on above: Order Comment: Order Added by Discern Expert. Performed By: #### 2 859555, 8663005, 4927886, 5160578, 7345897, [id number] #### [facility] [address] [place] [address] Eosinophils/100 WBC (Bld) 0.9 % Normal 0.0-8.0 [facility] Comment on above: Order Comment: Order Added by Discern Expert. Performed By: #### 2 440812, 2057476, 0380095, 3845394, 4276080, [id number] #### [facility] [address] [place] [address] Eosinophils/Leukocyte s Auto (Bld) [Pure # fraction] 0.1 E9/L Normal 0.0-0.5 [facility] Comment on above: Order Comment: Order Added by Discern Expert. Performed By: #### 2 672005, 6637643, 6247379, 2938016, 3285787, [id number] #### [facility] [address] [place] [address] Lymphocytes/100 WBC (Bld) 28.2 % Normal 14.0-50.0 [facility] Comment on above: Order Comment: Order Added by Discern Expert. Performed By: #### 2 425714, 9500608, 3572971, 8750409, 8615164, [id number] #### [facility] [address] [place] [address] Lymphocytes/Leukocyte s Auto (Bld) [Pure # fraction] 2.6 E9/L Normal 1.0-4.0 [facility] Comment on above: Order Comment: Order Added by Discern Expert. Performed By: #### 2 566069, 1620297, 8976439, 0087738, 0704086, [id number] #### [facility] [address] [place] [address] Monocytes/100 WBC (Bld) 7.4 % Normal 4.0-14.0 [facility] Comment on above: Order Comment: Order Added by Discern Expert. Performed By: #### 2 063953, 8098856, 1853031, 6433408, 5149167, [id number] #### [facility] [address] [place] [address] Monocytes/Leukocytes Auto (Bld) [Pure # fraction] 0.7 E9/L Normal 0.2-1.0 [facility] Comment on above: Order Comment: Order Added by Discern Expert. Performed By: #### 2 422774, 5010202, 1912446, 6376358, 2020530, [id number] #### [facility] [address] [place] [address] Neutrophils/100 WBC (Bld) 63.0 % Normal 36.0-75.0 [facility] Comment on above: Order Comment: Order Added by Discern Expert. Performed By: #### 2 589141, 0277155, 6924895, 5670352, 3274972, [id number] #### [facility] [address] [place] [address] Neutrophils/Leukocyte s Auto (Bld) [Pure # fraction] 5.7 E9/L Normal 2.0-7.5 [facility] Comment on above: Order Comment: Order Added by Discern Expert. Performed By: #### 2 029652, 9099749, 8551430, 9432705, 7496494, [id number] #### [facility] [address] [place] [address] CBC w/ Auto Diffon Erythrocyte distribution width (RBC) [Ratio] 13.6 % Normal 10.9-14.2 [facility] Comment on above: Performed By: #### 2 [id number], 3693055, 3688027, 2833680, 2751779, [id number] #### [facility] [address] [place] [address] Hematocrit (Bld) [Volume fraction] 41.4 % Normal 34.0-46.0 [facility] Comment on above: Performed By: #### 2 995708, 4855142, 3071621, 2603980, 0634774, [id number] #### [facility] [address] [place] [address] Hemoglobin (Bld) [Mass/Vol] 13.7 g/dL Normal 12.0-16.0 [facility] Comment on above: Performed By: #### 2 031331, 7214335, 2850025, 7056980, 0056948, [id number] #### [facility] [address] [place] [address] MCH (RBC) [Entitic mass] 27.6 pg Normal 27.0-34.0 [facility] Comment on above: Performed By: #### 2 918778, 1822847, 4339169, 6868239, 3500677, 45974100 #### [facility] [address] [place], [place] [id number] MCHC (RBC) [Mass/Vol] 33.1 g/dL Normal 31.4-36.0 [facility] Comment on above: Performed By: #### 2 012029, 8389188, 6617857, 6119028, 3064162, 62983614 #### [facility] [address] [place], [place] [address] MCV (RBC) [Entitic vol] 83.2 fL Normal 80.0-100.0 [facility] Comment on above: Performed By: #### 2 205860, 0319817, 2809903, 5612672, 6502059, 23008224 #### [facility] [address] [place], [place] [address] Platelet mean volume (Bld) [Entitic vol] 7.8 fL Normal 6.4-10.8 [facility] Comment on above: Performed By: #### 2 007422, 8854190, 7455516, 3988314, 4882586, [id number] #### [facility] [address] [place] [address] Platelets (Bld) [#/Vol] 310.0 E9/L Normal 150.0-500.0 [facility] Comment on above: Performed By: #### 2 602974, 8143477, 4462665, 7607620, 5323389, [id number] #### [facility] [address] [place] [address] RBC (Bld) [#/Vol] 5.0 E12/L Normal 4.3-5.9 [facility] Comment on above: Performed By: #### 2 372812, 1775233, 4258131, 7412930, 5309326, 94060385 #### [facility] [address] [place] [address] WBC corrected for nucl RBC Auto (Bld) [#/Vol] 9.1 E9/L Normal 4.0-11.0 [facility] Comment on above: Performed By: #### 2 636550, 7259199, 9885127, 0583400, 6436305, 88208012 #### [facility] [address] [place] [address] CHEMISTRYOrdered By: SYSTEM SYSTEM on 09-24-2022 Albumin [...] 3.2 g/dL Normal 1.4 - 4.0 gm/dL FT Remisol Glucose [Mass/Vol] 97 mg/dL Normal 55 - 199 mg/dL FT Remisol Potassium [Moles/Vol] 3.7 mmol/L Normal 3.5 - 5.3 mmol/L FT Remisol Protein [Mass/Vol] 7.2 g/dL Normal 6.0 [...] 09-24-2022 Albumin [Mass/Vol] 4.0 g/dL Normal 3.3-5.0 [facility] Comment on above: Performed By: #### 2 653302, 0953172, 7697499, 7509603, 0043459, 33553929 #### [facility] [address] [place] [address] Albumin/Globulin (S) [Mass conc ratio] 1.2 Normal 1.1-2.2 [facility] Comment on above: Performed By: #### 2 961186, 3184783, 3384220, 4878441, 0971473, 71800786 #### [facility] [address] [place] [address] ALP [Catalytic activity/Vol] 51 Int._Unit/L Normal 21-98 [facility] Comment on above: Performed By: #### 2 924632, 3453735, 1184156, 4778014, 8547086, 89325056 #### [facility] [address] [place] [address] ALT No additional P-5'-P [Catalytic activity/Vol] 16 Int._Unit/L Normal 6-46 [facility] Comment on above: Performed By: #### 2 060200, 5859205, 3102831, 9942016, 9368904, 24340079 #### [facility] [address] [place] [address] Anion gap [Moles/Vol] 9 mmol/L Normal 6-16 [facility] Comment on above: Performed By: #### 2 911515, 6743904, 0059798, 1936540, 0950775, 33504186 #### [facility] [address] [place] [address] AST [Catalytic activity/Vol] 15 Int._Unit/L Normal 5-43 [facility] Comment on above: Performed By: #### 2 022133, 0824695, 9627112, 6299926, 4486573, 91700248 #### [facility] [address] [place] [address] Bilirubin [Mass/Vol] 0.7 mg/dL Normal 0.0-1.1 [facility] Comment on above: Performed By: #### 2 100549, 1827351, 8479772, 2468558, 8920699, 91748990 #### [facility] [address] [place] [address] Calcium [Mass/Vol] 8.8 mg/dL Low 8.9-11.1 [facility] Comment on above: Performed By: #### 2 644942, 0237049, 8490875, 5019929, 0447218, 38608581 #### [facility] [address] [place] [address] Chloride [Moles/Vol] 102 mmol/L Normal 101-111 [facility] Comment on above: Performed By: #### 2 864764, 9727527, 4105696, 4822449, 9173960, 59324146 #### [facility] [address] [place] [address] CO2 [Moles/Vol] 29 mmol/L Normal 21-31 [facility] Comment on above: Performed By: #### 2 620546, 1044900, 0878872, 6215902, 1635611, 05032100 #### [facility] [address] [place] [address] Creatinine [Mass/Vol] 0.8 mg/dL Normal 0.5-1.3 [facility] Comment on above: Performed By: #### 2 075117, 5861277, 3158283, 0325609, 9063333, 12559914 #### [facility] [address] [place] [address] Globulin (S) [Mass/Vol] 3.2 g/dL Normal 1.4-4.0 [facility] Comment on above: Performed By: #### 2 525345, 8896734, 1172581, 3628948, 1755919, 91908873 #### [facility] [address] [place] [address] Glucose [Mass/Vol] 97 mg/dL Normal 55-199 [facility] Comment on above: Result Comment: If t his glucose result represents a fasting glucose, interpretation should refer to the following reference range: 55-99 mg/dL Performed By: #### 2 936413, 4948564, 3915380, 0716201, 4500598, 76140612 #### [facility] [address] [place] [address] Potassium [Moles/Vol] 3.7 mmol/L Normal 3.5-5.3 [facility] Comment on above: Performed By: #### 2 138567, 9805511, 9330983, 9588279, 0336407, 33190838 #### [facility] [address] [place] [address] Protein [Mass/Vol] 7.2 g/dL Normal 6.0-7.8 [facility] Comment on above: Performed By: #### 2 600361, 4388741, 1814154, 8776567, 8981780, 49445265 #### [facility] [address] [place] [address] Sodium [Moles/Vol] 136 mmol/L Normal 135-145 [facility] Comment on above: Performed By: #### 2 651366, 5049920, 8784489, 7397515, 4535390, 02894360 #### [facility] [address] [place] [address] Urea nitrogen [Mass/Vol] 10 mg/dL Normal 5-21 [facility] Comment on above: Performed By: #### 2 589051, 2799223, 0128066, 9806515, 1501713, 34134857 #### [facility] [address] [place] [address] Urea nitrogen/Creatinine [Mass ratio] 12 No Units Normal 10-20 [facility] Comment on above: Performed By: #### 2 276823, 3786934, 0548823, 8018852, 8860724, 55943873 #### [facility] [address] [place] [address] Consent for Treatmenton 08-29 Consent for Treatment [id number] #1.00CD:127 Normal [facility] HEMATOLOGYOrdered By: SYSTEM SYSTEM on 09-24-2022 Basophils/100 WBC (Bld) 0.5 % Normal 0.0 - 2.0 % [facility] HemeAutoSS Basophils/Leukocytes Auto (Bld) [Pure # fraction] [...] 310.0 E9/L Normal 150.0 - 500.0 E9/L [facility] HemeAutoSS RBC (Bld) [#/Vol] 5.0 E12/L Normal 4.3 - 5.9 E12/L [facility] HemeAutoSS WBC corrected for nucl RBC Auto (Bld) [#/Vol] 9.1 E9/L Normal 4.0 - 11.0 E9/L [facility] HemeAutoSS Lipid Panelon 09-24-2022 Cholesterol [Mass/Vol] 185 mg/dL Normal 120-200 [facility] Comment on above: Performed By: #### 2 928493, 3618433, 8795910, 3480703, 8718347, 96542966 #### [facility] [address] [place] [address] Cholesterol in HDL [Mass/Vol] 69 mg/dL Invalid Interpretation Code [facility] Comment on above: Result Comment: HDL > or equal to 60 mg/dL: Low cardiovascular risk HDL < 40 mg/dL : High cardiovascular risk Performed By: #### 2 983897, 8433755, 2049294, 5947580, 1058392, 83571061 #### [facility] [address] [place] [address] Cholesterol in LDL [Mass/Vol] 93 mg/dL Normal <=129 [facility] Comment on above: Performed By: #### 2 953405, 8509897, 7006424, 1256411, 3221104, 31099087 #### [facility] [address] [place] [address] Cholesterol in VLDL [Mass/Vol] 20 mg/dL Normal 7-40 [facility] Comment on above: Performed By: #### 2 463436, 8237341, 6036236, 1945080, 0796904, 11401640 #### [facility] [address] [place] [address] Triglyceride [Mass/Vol] 102 mg/dL Normal <=149 [facility] Comment on above: Performed By: #### 2 857339, 8797058, 7882692, 4425290, 8055539, 25953679 #### [facility] [address] [place] [address] Physician Orderon 09-24-2022 Physician Order [id number] #1.00CD:127 Normal [facility] TSHon 09-24-2022 TSH Qn 2.06 m[IU]/L Normal 0.34-5.60 [facility] Comment on above: Performed By: #### 2 950074, 9793207, 7771545, 2013902, 6876751, 78287473 #### [facility] [address] [place] [address] eGFRon 09-24-2022 GFR/1.73 sq M.predicted among blacks MDRD (S/P/Bld) [Vol rate/Area] mL/min/{1.73_m2} Normal >=59 [facility] Comment on above: Order Comment: Order added by Discern Expert. Result Comment: eGFR is race adjusted. AA=. Performed By: #### 2 325904, 6873120, 1777217, 2334819, 7452695, 63651920 #### [facility] [address] [place] [address] GFR/1.73 sq M.predicted among non-blacks MDRD (S/P/Bld) [Vol rate/Area] mL/min/{1.73_m2} Normal >=59 [facility] Comment on above: Order Comment: Order added by Discern Expert. 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 Kidney failure is indicated at less than 15 mL/min/1.73m2. Performed By: #### 2 480747, 6622811, 3144867, 7846370, 2260261, 84272524 #### [facility] [address] [place] [address] CBC AUTO DIFFon 12-28-2021 BASO # 0.1 103/ul Normal 0.0-0.1 [facility] Comment on above: Performed By: #### C BC #### [facility] [address] [place] [address] Dr. Edwina Vicente Basophils/100 WBC (Bld) 0.8 % Normal 0.2-2.0 [facility] Comment on above: Performed By: #### C BC #### [facility] [address] [place] [address] Dr. Edwina Vicente EO # 0.1 103/ul Normal 0.0-0.7 [facility] Comment on above: Performed By: #### C BC #### [facility] [address] [place] [address] Dr. Edwina Vicente Eosinophils/100 WBC (Bld) 1.6 % Normal 0.9-7.0 [facility] Comment on above: Performed By: #### C BC #### [facility] [address] [place] [address] Dr. Edwina Vicente Erythrocyte distribution width (RBC) [Ratio] 12.8 % Normal 11.0-15.0 [facility] Comment on above: Performed By: #### C BC #### [facility] [address] [place] [address] Dr. Edwina Vicente Hematocrit (Bld) [Volume fraction] 43.1 % Normal 36.0-48.0 [facility] Comment on above: Performed By: #### C BC #### [facility] [address] [place] [address] Dr. Edwina Vicente Hemoglobin (Bld) [Mass/Vol] 14.1 g/dL Normal 12.0-16.0 [facility] Comment on above: Performed By: #### C BC #### [facility] [address] [place] [address] Dr. Edwina Vicente IG # 0.01 10e3/ul Normal 0.00-0.03 [facility] Comment on above: Performed By: #### C BC #### [facility] [address] [place] [address] Dr. Edwina Vicente IG % 0.2 % Normal 0.0-0.5 [facility] Comment on above: Performed By: #### C BC #### [facility] [address] [place] [address] Dr. Edwina Vicente LYMPH # 2.4 103/ul Normal 1.2-3.8 [facility] Comment on above: Performed By: #### C BC #### [facility] [address] [place] [address] Dr. Edwina Vicente Lymphocytes/100 WBC (Bld) 37.2 % Normal 20.5-60.0 [facility] Comment on above: Performed By: #### C BC #### [facility] [address] [place] [address] Dr. Edwina Vicente MANUAL DIFF REQ NO Normal [facility] Comment on above: Performed By: #### C BC #### [facility] [address] [place] [address] Dr. Edwina Vicente MCH (RBC) [Entitic mass] 27.3 pg Normal 26.7-34.0 [facility] Comment on above: Performed By: #### C BC #### [facility] [address] [place] [address] Dr. Edwina Vicente MCHC (RBC) [Mass/Vol] 32.7 g/dL Normal 29.9-35.2 [facility] Comment on above: Performed By: #### C BC #### [facility] [address] [place] [address] Dr. Edwina Vicente MCV (RBC) [Entitic vol] 83.4 fL Normal 81.0-99.0 [facility] Comment on above: Performed By: #### C BC #### [facility] [address] [place] [address] Dr. Edwina Vicente MONO # 0.5 103/ul Normal 0.3-0.8 [facility] Comment on above: Performed By: #### C BC #### [facility] [address] [place] [address] Dr. Edwina Vicente Monocytes/100 WBC (Bld) 8.1 % Normal 1.7-12.0 [facility] Comment on above: Performed By: #### C BC #### [facility] [address] [place] [address] Dr. Edwina Vicente NEUT # 3.3 103/ul Normal 1.4-6.5 [facility] Comment on above: Performed By: #### C BC #### [facility] [address] [place] [address] Dr. Edwina Vicente Neutrophils/100 WBC (Bld) 52.1 % Normal 43.0-75.0 [facility] Comment on above: Performed By: #### C BC #### [facility] [address] [place] [address] Dr. Edwina Vicente Platelet mean volume (Bld) [Entitic vol] 8.8 fL Critically low 9.5-13.5 [facility] Comment on above: Performed By: #### C BC #### [facility] [address] [place] [address] Dr. Edwina Vicente PLT 328 103/ul Normal 150-450 [facility] Comment on above: Performed By: #### C BC #### [facility] [address] [place] [address] Dr. Edwina Vicente RBC 5.17 106/ul Normal 4.20-5.40 [facility] Comment on above: Performed By: #### C BC #### [facility] [address] [place] [address] Dr. Edwina Vicente WBC 6.4 103/ul Normal 4.0-11.0 [facility] Comment on above: Performed By: #### C BC #### [facility] [address] [place] [address] Dr. Edwina Vicente PREG QUANT HCGon 12-28-2021 HCG QUANT <1 Normal [facility] Comment on above: Performed By: #### P REGQNT #### [facility] [address] [place] [address] Dr. Edwina Vicente HCG RANGE SEE BELOW Normal [facility] Comment on above: Result Comment: 5-50 0-1 WEEK 40-300 1-2 WEEKS 100-1,000 2-3 WEEKS 500-6,000 3-4 WEEKS 5,000-200,000 1-2 MONTHS 10,000-100,000 2-3 MONTHS 3,000-50,000 2ND TRIMESTER 1,000-50,000 3RD TRIMESTER Performed By: #### P REGQNT #### [facility] [address] [address] [address] Edwina Vicente US PELVIS AND TRANSVAGon [...] KULWINDER CARSON Date: 2021-12-27 07:30 Normal [facility] PCR [facility]on SARS-CoV-2 (COVID-19) RNA TRESSA+probe Ql (Unsp spec) Detected Critically abnormal NOT DETECTED [facility] Comment on above: Result Comment: This test is not yet approved or cleared by the [place] FDA. When there are no FDA-approved or cleared tests available, and other criteria are met, FDA can make tests available under an emergency access mechanism called an Emergency Use Authorization (EUA). The EUA for this test is supported by the Nurse Informatics Educator of Health and Human Service's declaration that [...] longer be used). Performed By: #### C [facility] #### [facility] [address] [place] [address] Dr. Edwina Pereira 10-16-2020 CNOV Office Visit (ORTHCC) SANDY DENNIS ([id number]) 1985 F Date Time Provider Department 10/16/20 1:15 PM MINESH GURROLA (LEXIS)[facility] During your visit today, we recorded the [...] NOHEMI TEST: Positive STRENGTH: 5/5 biceps, triceps, animal nurse, finger abduction, WE, WF, AND EPL STABILITY: all joints stable CREPITUS: negative NEUROLOGICAL EXAM: Sensory: sensation intact to light touch axillary, radial, median, AND ulnar distributions 2-point discrimination intact throughout all digits. Motor strength: equal bilaterally with 5/5 biceps, triceps, animal nurse, finger abduction, WE, WF, thumb opposition, AND [...] Date Reviewed: 10/16/2020 Reviewed by: Minesh Rea) Tony - Fully Assessed Reason for Visit: Hand Pain [1581] Cmt: R>L Primary Visit Diagnosis:Tendinitis , de Quervain's [M65.4] Order(s):diclofenac (VOLTAREN) 1 % topical gelApply 2 g to affected area four times daily.Disp: 100 gRfl: 1 CONSULT TO AIRFRAME AND POWERPLANT MECHANIC [19990805] Order #: [id number]: 1 FUTURE Prescriptions as of 10/16/2020 Sig: [...] by MINESH GURROLA PA-C on 10/16/20 Normal [facility] Vital Signs Date Time Vital Sign Value Performing Clinician Faci lity 05-11-2024 09:56-0400 Body mass index (BMI) [Ratio] 34.02 kg/m2 [facility] Phone: [facility] 05-11-2024 09:56-0400 Body weight 95.62 kg [facility] Phone: [facility] 05-11-2024 09:56-0400 Diastolic blood pressure 78 mm[Hg] [facility] Phone: [facility] 05-11-2024 09:56-0400 Systolic blood pressure 116 mm[Hg] [facility] Phone: [facility] Healthcare Encounters Encounter Date Encounter Type Care Provider Facility Start: 05-11-2024 End: 05-11-2024 Patient encounter procedure [facility] Phone: [facility] Comment on above: Pre-op examination; Request for sterilization; Menorrhagia with regular cycle; Abnormal uterine bleeding (AUB); Pelvic pain in female; Hormone disorder Start: 05-11-2024 End: 05-11-2024 Preprocedural examination done Cassandra Tirso DO Work Phone: [facility] Start: 05-11-2024 End: 05-11-2024 ambulatory CASSANDRA TIRSO Not Available Start: 04-29-2024 End: 04-29-2024 Office outpatient visit 15 minutes Tierra Stephenson DPM Work Phone: [facility] Comment on above: Sprain of tarsometat arsal joint of left foot, subsequent encounter (Primary Dx); Stress reaction of bone; Left foot pain Start: 04-29-2024 End: 04-29-2024 ambulatory TIERRA STEPHENSON Not Available Start: 04-29-2024 End: 04-29-2024 Bamboo flowsheet Tierra Stephenson DPM Work Phone: [facility] Start: 04-29-2024 End: 04-29-2024 Bamboo flowsheet Tierra Stephenson DPM Work Phone: [facility] Start: 03-16-2024 End: 03-16-2024 ambulatory SAMANTHA CROW Not Available Start: 12-04-2023 End: 12-04-2023 ambulatory CASSANDRA TIRSO Not Available Start: 10-28-2023 End: 10-28-2023 ambulatory SUJATA RUDD Not Available Start: 10-22-2023 End: 10-22-2023 ambulatory SUJATA RUDD Not Available Start: 10-09-2023 End: 10-09-2023 ambulatory SUJATA RUDD Not Available Start: 08-27-2023 End: 08-27-2023 ambulatory SAMANTHA TRISTIN Not Available Start: 06-17-2023 End: 06-17-2023 ambulatory TIERRA STEPHENSON Not Available Start: 04-02-2023 End: 04-03-2023 ambulatory Wilda Buckner Facility:[facility] Start: 04-02-2023 End: 04-02-2023 Patient encounter procedure Wilda Buckner [facility] Start: 01-09-2023 End: 01-10-2023 ambulatory Wilda Buckner Facility:[facility] Start: 01-09-2023 End: 01-09-2023 Patient encounter procedure Wilda L Dudley [facility] Start: 11-12-2022 End: 11-13-2022 ambulatory CASSANDRA CHAHAL Facility:[facility] Start: 10-31-2022 End: 11-01-[address] CASSANDRA CHAHAL . Facility: Start: 10-23-2022 End: 10-23-[address] CASSANDRA CHAHAL . Facility: Start: 09-24-2022 End: 09-25-2022 ambulatory Wilda Buckner Facility:[facility] Start: 09-24-2022 End: 09-24-2022 Patient encounter procedure Wilda Bcukner [facility] Start: 05-03-2022 End: 08-02-2022 ambulatory Kaushal Craft Facility:[facility] Start: 12-28-2021 End: 12-28-[address] DOCTOR DUEÑAS Facility: Start: 12-27-2021 Encounter for preprocedural laboratory examination DR CASSANDRA CHAHAL . [facility] Start: 12-26-2021 End: 12-27-2021 Encounter for preprocedural laboratory examination DR CASSANDRA CHAHAL . Facility: Start: 12-26-2021 End: 12-27-[address] CASSANDRA CHAHAL . Facility: Start: 12-18-2021 End: 12-18-2021 Patient encounter procedure YELENA JAMES [facility] Procedures Date Procedure Procedure Detail Performing Clinician Start: 05-11-2024 Urine test visual color cmprsn dons Cassandra Chahal DO Work Phone: Start: 04-29-2024 Radex foot complete minimum 3 views Tierra Stephenson DPM Work Phone: Start: 12-04-2023 Microscopic observation [Identifier] in Cervix by Cyto stain Tierra Stephenson DPM Work Phone: Start: 06-04-2019 Esophagogastroduodenoscopy YELENA CHE Start: 04-17-2018 CHOLECYSTECTOMY LAPAROSCOPIC W/ CHOLANGIOGRAM 1 YELENA JAMES Comment on above: CHOLECYSTECTOMY LAPAROSCOPIC W/ CHOLANGI OGRAM Start: 04-25-2013 Appendectomy YELENA JAMES Plan of Treatment Date Care Activity Detail Author Start: 12-03-2026 Screening for malignant neoplasm of cervix [facility] Start: 12-13-2024 End: 12-13-2024 Patient encounter procedure 12/13/2024 9:00 AM EDT Office Visit [facility] [address] [id number] Cassandra Chahal, DO [address] [place] [address] [facility] Start: 09-22-2024 End: 09-22-2024 Professional / ancillary services management 09/22/2024 8:00 AM EST Ancillary Procedure [facility] [address] [id number] [facility] Start: 05-11-2024 End: 05-11-2024 Patient encounter procedure 05/11/2024 9:30 AM EDT Procedure Visit [facility] [address] [place] [phone] Cassandra Chahal, DO [address] [place] [address] [facility] Start: 04-29-2024 End: 04-29-2024 Patient encounter procedure 04/29/2024 3:00 PM EDT Office Visit [facility] [address] [place] [id number] Tierra Stephenson DPM [address] [place] [address] Arrived [facility] Comment on above: Arrived Start: 03-28-2024 Influenza vaccination Influenza Vacc ine (#1) [facility] Start: 2015 Screening for malignant neoplasm of cervix HPV/Cotest [facility] Biopsy endometrium Biopsy endome trium Procedures Routine Hormone disorder Ordered: 05/11/2024 [facility] Work Phone: Comment on above: Ordered: 05/11/2024 MR Ankle - left WO contrast MR ankle left wo IV contrast Imaging Routine Sprain of tarsometatarsal joint of left foot, subsequent encounter Stress reaction of bone Ordered: 04/29/2024 [facility] Work Phone: Comment on above: Ordered: 04/29/2024 Immunizations Immunization Date Immunization Notes Care Provider Fa [facility] 05-21-2022 influenza virus vaccine, unspecified formulation Wilda Dudley [facility] Comment on above: Reason for Medicatio n: Prophylaxis 05-25-2021 influenza virus vaccine, unspecified formulation; Translations: [Fluzone PF Quadrivalent ] YELENA JAMES [facility] Comment on above: Reason for Medicatio n: Other (see comment) Payers Date Payer Category Payer [facility] [id number] 2023 Unknown [facility] xxxxxx [id number] 2023-Present [phone] [address] [place] [address] [id number]. [id number] 2023 Unknown [id number] 1985 Unknown [id number] 2.16.840.1.949575.3.579. 2.593 1985 Unknown [id number] 2.16.840.1.364700.3.579. 2.593 1985 Unknown [id number] 2.16.840.1.124239.3.579. 2.593 1985 Unknown [id number] 2.16.840.1.841987.3.579. 2.593 1985 Unknown [id number] 2.16.840.1.989835.3.579. 2.593 1985 Unknown [id number] 2.16.840.1.600988.3.579. 2.727 1985 Unknown [id number] 2.16.840.1.537089.3.579. 2.727 1985 Unknown [id number] 2.16.840.1.393582.3.579. 2.727 1985 Unknown [id number] 2.16.840.1.559667.3.579. 2.727 1985 Unknown [id number] 2.16.840.1.236191.3.579. 2.1259 1985 Unknown [id number] 2.16.840.1.131136.3.579. 2.1259 1985 Unknown [id number] 2.16.840.1.978764.3.579. 2.1259 1985 Unknown [id number] 2.16.840.1.683590.3.579. 2.1259 1985 Unknown [id number] 2.16.840.1.894226.3.579. 2.1259 1985 Unknown [id number] 2.16.840.1.764650.3.579. 2.1259 1985 Unknown [id number] 2.16.840.1.207556.3.579. 2.1259 1985 Unknown [id number] 2.16.840.1.457231.3.579. 2.1259 1985 Unknown [id number] 2.16.840.1.405806.3.579. 2.9 1985 Unknown [id number] 2.16.840.1.861653.3.579. 2.1259 1959 Unknown [id number] 1959 Unknown [id number] Social History Date Type Detail Facility Start: 02-22-2021 End: 05-07-2023 Tobacco smoking status Never smoked tobacco (finding) [facility] Tobacco smoking status Never [facility] Start: 05-26-2023 End: 04-29-2024 Sex Assigned At Female [facility] Start: 05-07-2023 Tobacco use and exposure Smokeless tobacco non-user [facility] Start: 03-16-2024 End: 05-11-2024 Alcoholic beverage intake Current drinker of alcohol (finding) [facility] Start: 05-26-2023 End: 04-29-2024 History of Social function [facility] How often to you hav e a drink containing alcohol? Monthly or less [facility] How many standard drinks containing alcohol do you have on a typical day? 1 or 2 [facility] How often do you hav e 6 or more drinks on 1 occasion? Never [facility] Start: 1985 Sex assigned at Not on file [facility] History of Present illness Narrative 05-11-2024 Debo Graham - 05/11/2024 9:30 AM EDT Note Date & Type Note Facility 05-11-2024 History of Presen t illness Narrative Reason for Appointment: Patient ID: Sandy Dennis is a 39 y.o. female who presents for EMBX Patient presents today for Pre Op/Endometrial Biopsy appointment. Patient is scheduled to undergo Da Loly assisted Bilateral Laparoscopic Salpingectomy and Endometrial Ablation with Merly on 06/04/[address] Chahal at [facility]. MEDICATIONS Current Outpatient Medications Medication Instructions escitalopram (LEXAPRO) 20 mg, Daily ALLERGIES Allergies Allergen Reactions Ciprofloxacin Rash Other Reaction(s): Tendon pain PROBLEMS Active Ambulatory Problems Diagnosis Date Noted No Active Ambulatory Problems Resolved Ambulatory Problems Diagnosis Date Noted No Resolved Ambulatory Problems Past Medical History: Diagnosis Date Anxiety Obesity (BMI 30-39.9) Ovarian cyst Postop check HISTORY PAST MEDICAL HISTORY SOCIAL HISTORY Past Medical History: Diagnosis Date Anxiety Obesity (BMI 30-39.9) Ovarian cyst Postop check x4 Social History Tobacco Use Smoking status: Never Smokeless tobacco: Never Vaping Use Vaping status: Unknown Substance Use Topics Alcohol use: Yes Drug use: Not on file FAMILY HISTORY Family History Family history unknown: Yes SURGICAL HISTORY Past Surgical History: Procedure Laterality Date APPENDECTOMY 2013 CHOLECYSTECTOMY 2018 OVARIAN CYST REMOVAL Left 12/2021 REVIEW OF SYSTEMS Review of Systems: Review of Systems Constitutional: Negative. HENT: Negative. Eyes: Negative. Respiratory: Negative. Cardiovascular: Negative. Gastrointestinal: Negative. Genitourinary: Positive for menstrual problem and pelvic pain. Musculoskeletal: Negative. Skin: Negative. Neurological: Negative. All other systems reviewed and are negative. Hematological: Negative. Endocrine: Negative. Allergic/Immunologic: Negative. OBJECTIVE Objective: Physical Exam Constitutional: Appearance: Normal appearance. She is well-developed. Genitourinary: Vulva normal. Cardiovascular: Rate and Rhythm: Normal rate and regular rhythm. Pulmonary: Effort: Pulmonary effort is normal. Breath sounds: Normal breath sounds. Abdominal: General: Bowel sounds are normal. There is no distension. Palpations: Abdomen is soft. Tenderness: There is no abdominal tenderness. There is no guarding or rebound. Musculoskeletal: General: No swelling. Normal range of motion. Right lower leg: No edema. Left lower leg: No edema. Neurological: Mental Status: She is alert and oriented to person, place, and time. Skin: General: Skin is warm and dry. Psychiatric: Mood and Affect: Mood normal. Behavior: Behavior normal. Vitals and nursing note reviewed. Exam conducted with a director digital analytics present. Vitals: Estimated body mass index is 34.02 kg/m as calculated from the following: Height as of 03/16/24: 5' 6 . Weight as of this encounter: 210 lb 12.8 oz. BP: 116/78 No LMP recorded. ASSESSMENT & PLAN ICD-10-CM 1. Pre-op examination Z01.818 2. Request for sterilization Z30.2 3. Menorrhagia with regular cycle N92.0 4. Abnormal uterine bleeding (AUB) N93.9 5. Pelvic pain in female R10.2 6. Hormone disorder E34.9 POC , urine Biopsy endometrium EMBX: Patient was placed in dorsal lithotomy position with feet in stirrups. A sterile speculum was placed into the vagina and the cervix was visualized. The cervix was grasped with a single tooth tenaculum. The endometrial pipette was placed through the cervix into the uterus, endometrial curettage was performed and sampling was obtained, endometrial curettings were placed in formalin, and single tooth tenaculum was removed. Excellent hemostasis was assured. All instruments were removed from vagina. Pre Op: Patient is doing well but has desire for sterilization and has complaints of bleeding and pelvic pain. Patient has tried hormone therapy in the past but all attempts to subside patients issues of bleeding have failed. I have discussed conservative management vs. surgical management with the patient in detail and patient desires surgical management at this time. Patient has voiced understanding that a Bilateral Salpingectomy is considered to be permanent and patient will undergo Da Loly assisted Bilateral Laparoscopic Salpingectomy & Endometrial Ablation with Merly on 06/04/2024. Surgical consents were signed, mmc was reviewed, and patient is to proceed to [facility] OR. Follow Up: Patient is to follow up between 1-2 weeks post op to assess proper healing and recovery from procedure. Documented by Abida Wellington LPN on behalf of: Cassandra Chahal DO documented in this encounter [facility] History of Present illness Narrative 04-29-2024 Tierra Stephenson DPM - 04/29/2024 3:00 PM EDT Note Date & Type Note Facility 04-29-2024 History of Presen t illness Narrative Images from the original note were not included. HPI: Sandy Dennis presents today for Recheck of left foot pain. She states that once she started exercising again the pain came back. Pt states she has tried using the walking boot for over 3-4 weeks again with no relief. The boot seemed to cause more pain in the left foot. She has pain to the lateral left foot along the outside of foot that worsens with activity. She will walk and start to have pain and symptoms after 20 mins and then it will be painful for 3-4 days. She has done shoe gear changes, NSAIDs, inserts, home therapy and ROM along with the walking boot for over 10 months without symptom improvement. No other complaints. Exam: General Examination: GENERAL APPEARANCE: awake, aware of surroundings, in no acute distress Vascular: DORSALIS PEDIS PULSE: 2/4, bilaterally POSTERIOR TIBIAL PULSE: 2/4, bilaterally TEMPERATURE GRADIENT: warm to cool EDEMA: none CAPILLARY FILLING TIME(sec): capillary fill inact bilateral digits less than 3 secs Neurologic: NEUROLOGIC: light touch is intact to the plantar foot Dermatologic: SKIN FINDINGS: normal HYPERKERATOSIS: none NAIL PATHOLOGY: digits 1-5 bilateral are intact SKIN PATHOLOGY: texture, turgor, hair growth, within normal limits Orthopedic: FOOT MORPHOLOGY: Neutral JOINT RANGE OF MOTION: Without pain to the ankle, subtalar joint and first MPJ left DEFORMITIES: none PAIN ELICITED WITH PALPATION OF: No current pain with palpation overlying the base of the fourth, fifth metatarsal associated cuboid joint. No pain with palpation overlying the insertion of the peroneal brevis tendon and distal styloid process of the fifth metatarsal. There does not appear to be any pain with palpation to the more substance of the peroneal tendons along the inferior lateral ankle. There is no pain with compression to the left midfoot PAIN ELICITED WITH ROM: Dorsiflexion plantar flexion of the lateral aspect of the tarsometatarsal joint left MUSCLE STRENGTH: 5/5 for all pedal groups tested Assessments: Left midfoot sprain Stress reaction and bone possible stress fracture to the cuboid Insertional Peroneal Brevis tendinitis Left foot pain Plan: 1. I explained to the patient the indication for ancillary imaging, specifically MRI, due to the fact that they continue to have persistent and recurrent pain despite numerous conservative efforts, including immobilization, stretching, icing, inserts, and anti-inflammatories for several consecutive months. This will directly affect the treatment plan and is medically necessary for further evaluation of the current diagnosis. 2. [facility]. 3. Patient was instructed on scheduling once prior authorization is obtained if needed and follow-up afterward. Patient was instructed to make an appointment 3-5 days afterward to discuss the results and further treatment plan. 4. Patient was instructed on continued conservative treatment in the meantime including immobilization, NSAIDs, supportive shoe gear. 5. RTC: following MRI. 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 PREOPERATIVE DIAGNOSIS: Pelvic pain, left ovarian cyst 6 cm in nature. POSTOPERATIVE DIAGNOSIS: Pelvic pain without left ovarian cyst, however, there was a small adhesion which was easily taken down from the anterior abdominal wall that was omental in nature. SURGEON: Cassandra Chahal D.O. GRILL COOK: VITA Rondon URINE OUTPUT: Yellow and clear. [...] DR CASSANDRA CHAHAL . 01/01/2022 21:27:00 [facility] Progress note 10-16-2020 Note Date & Type Note Facility 10-16-2020 Note HNO ID: [id number] Author: Minesh Gurrola Service: ? Author Type: Physician [employer] Type: Progress Notes Filed: 10/16/2020 1:03 PM Note Text: DOMINIQUE Dennis is a 35 year old female, [...] NOHEMI TEST: Positive STRENGTH: 5/5 biceps, triceps, animal nurse, finger abduction, WE, WF, AND EPL STABILITY: all joints stable CREPITUS: negative NEUROLOGICAL EXAM: Sensory: sensation intact to light touch axillary, radial, median, AND ulnar distributions 2-point discrimination intact throughout all digits. Motor strength: equal bilaterally with 5/5 biceps, triceps, animal nurse, finger abduction, WE, WF, thumb opposition, AND [...] has been identified and corrected by editing. [facility] Evaluation + Plan note Note Date & Type Note Facility Evaluation + Plan note No data available for this section [facility] Evaluation note Note Date & Type Note Facility Evaluation note Diagnosis Sprain of tarsometatarsal joint of left foot, subsequent encounter- Primary Stress reaction of bone Stress fracture of other bone Left foot pain Pain in soft tissues of limb documented in this encounter [facility] Evaluation note Note Date & Type Note Facility Evaluation note Diagnosis Pre-op examination Request for sterilization Menorrhagia with regular cycle Abnormal uterine bleeding (AUB) Pelvic pain in female Unspecified symptom associated with female genital organs Hormone disorder Unspecified endocrine disorder documented in this encounter [facility] Hospital Discharge instructions Note Date & Type Note Facility Hospital Discharge instructions No data available for this section [facility] Progress note Note Date & Type Note Facility Progress note No data available for this section [facility] Summary Purpose Family History No Family History Records FoundNo Family History Records FoundNo Family History Records FoundNo Family History Records FoundNo Family History Records Found Advance Directives No Advanced Directives Records FoundNo Advanced Directives Records FoundNo Advanced Directives Records FoundNo Advanced Directives Records FoundNo Advanced Directives Records Found Reason for Referral Specialty Diagnoses / Procedures Referred By Gisela gibbons Referred To Contact Radiology Diagnoses Sprain of tarsometatarsal joint of left foot, subsequent encounter Stress reaction of bone Procedures MR ankle left wo IV contrast Tierra Stephenson, DPKev [address] [place] [address] Referral ID Status Reason Start Date Expiration Date V isits Requested Visits Authorized [id number] Pending Review 04/29/2024 10/26/2024 1 1 Additional Source Comments INFORMATION SOURCE (unrecogn ized section and content) DATE CREATED AUTHOR 08/26/2021 [facility] DATE CREATED AUTHOR AUTHOR'S ORGANIZ ATION 11/09/2022 [facility] DATE CREATED AUTHOR AUTHOR'S ORGANIZ ATION 11/14/2022 [facility] DATE CREATED AUTHOR AUTHOR'S ORGANIZ ATION 04/03/2023 [facility] DATE CREATED AUTHOR AUTHOR'S ORGANIZ ATION 05/13/2024 [facility] EPIC Patient Care team informatio n (unrecognized section and content) [employer] Relationship Specialty Start Date End Date Unallocated, Antionette Morales, [address] [facility] [place] [address] PCP - General 05/07/23 [employer] Relationship Specialty Start Date End Date Unallocated, Antionette [place] [address] PCP - General 05/07/23 [employer] Relationship Specialty Start Date End Date Unallocated, Antionette Morales MD [address] [place] [address] PCP - General 05/07/23 Reason for Visit (unrecogniz ed section and content) Reason Comments EMBX FOR RECORDS PERTAINING TO PATIENTS WHO ARE [...] BE BASED ON THE PRIMARY CLINICAL RECORDS. [facility] [employer] [facility]. provides no warranty or guarantee of the accuracy or completeness of information in this document.
== END 2024-05-11 08:00 | disposition home or self-care (01) ==
LOC: LAB 07:59
PROVIDERS: Visit Provider Obstetrics & Gynecology
DX: N93.9 Abnormal uterine and vaginal bleeding, unspecified (principal)

== ENCOUNTER 2024-05-27 09:24 | Outpatient (OUT) | payer BC, SELFPAY | END 2024-05-27 09:25 | disposition home or self-care (01) | LOC: PST 09:25 | PROVIDERS: Visit Provider Obstetrics & Gynecology | DX: Z01.818 Encounter for other preprocedural examination (principal); Z30.2 Encounter for sterilization; N92.0 Excessive and frequent menstruation with regular cycle; N93.9 Abnormal uterine and vaginal bleeding, unspecified; R10.2 Pelvic and perineal pain ==

== ENCOUNTER 2024-06-04 10:31 | Day surgery (SDC) | payer BC, SELFPAY ==
[2024-05-27 10:17] VITALS: BP 115/83; PULSE 82; TEMP 36.2; O2SAT 98; BMI 34.1
[2024-06-04] VITALS (16 sets, daily range): BP systolic 126–146; BP diastolic 79–96; PULSE 76–116; TEMP 35.5–36.3; O2SAT 98–100; BMI 33.7
[2024-06-04 10:38] LABS: Basophils Percent Auto 0.5 % (0.2-2.0); Eosinophils Absolute Auto 0.1 10^3/uL (0.0-0.7); Eosinophils Percent Auto 0.8 % (0.9-7.0); Hematocrit 42.5 % (36.0-48.0); Hemoglobin 14.2 g/dL (12.0-16.0); Immature Granulocytes Abs Auto 0.02 10^3/uL (0.00-0.03); Immature Granulocytes Pct Auto 0.3 % (0.0-0.5); Lymphocytes Absolute Auto 2.5 10^3/uL (1.2-3.8); Lymphocytes Percent Auto 31.4 % (20.5-60.0); Mean Corpuscular HGB Conc 33.4 g/dL (29.9-35.2); Mean Corpuscular Hemoglobin 28.1 pg (26.7-34.0); Mean Corpuscular Volume 84.2 fL (81.0-99.0); Mean Platelet Volume 8.8 fL (9.5-13.5); Monocytes Absolute Auto 0.7 10^3/uL (0.3-0.8); Monocytes Percent Auto 8.7 % (1.7-12.0); Neutrophils Absolute Auto 4.6 10^3/uL (1.4-6.5); Neutrophils Percent Auto 58.3 % (43.0-75.0); Platelet Count 306 10^3/uL (150-450); Red Blood Count 5.05 10^6/uL (4.20-5.40); Red Cell Distribution Width 13.1 % (11.0-15.0); White Blood Count 7.9 10^3/uL (4.0-11.0)
--- OUTSIDE RECORDS SUMMARY | 2024-06-04 10:53 | XMS_ITS | CCD ---
Author Organization [facility] Care Team Providers Care Mortician Helper Name Role Phone Widla Buckner Primary Care Physician TIRSO ., DR [...] STEPHENSON Attending Unavailable CASSANDRA CHAHAL Attending Unavailable TIERRA STEPHENSON Referring Unavailable TIERRA STEPHENSON Attending Unavailable Allergies Allergy Classification Reported Allergen(s) Allergy Type Date of Onset Reaction(s) Facility (10 sources) Ciprofloxacin; Translations: [ciprofloxacin] Drug Allergy 3 Tenalgia (finding), Rash [facility] (1 source) Ciprofloxacin Drug Allergy 7 [facility] Repository Medications Current Medications Medication Drug Class(es) Dates Sig (Normalized) Sig (Original) escitalopram 20 mg oral tablet (2 sources) Serotonin Reuptake Inhibitor Start: 01-06-2024 take 1 [...] Interpretation and review of laboratory results Normal [facility] Healthcare Preg Test, Ur Negative [facility] MR ANKLE LEFT WO IV CONTRAST on 04-29-2024 MR ANKLE LEFT WO IV CONTRAST EXAM: MR ANKLE LEFT WO IV CONTRAST HISTORY: Peroneal tendon pain. Midfoot pain. TECHNIQUE: Multisequence multiplanar MRI of the ankle was performed without contrast COMPARISON: FINDINGS: Achilles tendon is intact. The visualized plantar fascia is intact and is without thickening or nodularity. The tibialis posterior, flexor hallucis longus, and flexor digitorum longus tendons are intact. No space-occupying lesion within the tarsal tunnel. Tiny tear of peroneus longus tendon as it courses along the inferior margin of the cuboid with adjacent soft tissue edema and edema within the undersurface of the cuboid. Mild associated tenosynovitis. Peroneus brevis tendon is intact. Extensor tendons are intact. The anterior and posterior tibiofibular ligaments, anterior and posterior talofibular ligaments, and calcaneofibular ligament are intact. Superficial and deep fibers of the deltoid ligament are intact. Spring ligament is intact. Sinus tarsi fat is preserved. No well defined or measurable cartilage defect of the tibial plafond, talar dome, or subtalar joint. No ankle joint effusion. No evidence of fracture or stress reaction of the visualized bones. IMPRESSION: Tiny tear of peroneus longus tendon as detailed. ELECTRONICALLY SIGNED BY: Delta Geller, DO Normal Not Available Comment on above: Order Comment: Left midfoot/cuboid region XR Foot - left 3 [facility] Result: Three views of the left foot: AP, MO, LAT were performed today in the office. Radiographs were read by myself and demonstrate: No evidence of acute fracture or dislocation. Normal joint spaces noted with no evidence of narrowing or osteophyte formation. There are no structural deformities noted [facility] Radiology Study observation (narrative) [facility] MR KNEE RIGHT WO IV CONTRAST on [...] for Treatmenton Consent for Treatment [id number] #1.00CD:127 Normal [facility] Physician Orderon 04-02-2023 Physician Order [id number] 0#1.00CD:127 Normal [facility] XR Foot 3+ Views Lefton XR [...] mGy = na DAP = na Normal [facility] XR Wrist 3+ Views Lefton XR [...] mGy = . DAP = . Normal [facility] XR Wrist 3+ Views Righton XR [...] mGy = . DAP = . Normal [facility] Consent for Treatmenton 12-26 Consent for Treatment [id number] #1.00CD:[address] [facility] Physician Orderon 01-09-2023 Physician Order [id number] 5#1.00CD:127 Normal [facility] SURGICAL PATH REPORTon 11-14 SURGICAL PATH REPORT [facility] Department of Pathology [address] [place] [phone] Name: SANDY DENNIS : 1985 [facility] [id number] Number: Gender Female Bartolome MCKINNEYUE : n: Admit 37 years Attending CASSANDRA CHAHAL Age: Provider: Ordering CASSANDRA CHAHAL Provider: Consulti Surgical Pathology Report ng: ACCESSION: COLLECTED DATE/TIME: RECEIVED DATE/TIME: PATHOLOGIST: [id number] 11/12/2022 16:30 EDT 11/13/2022 13:47 EDT DEJUAN RODRIGUEZ MD Final Diagnosis Report for [facility] [place] ENDOM[facility]RIAL [facility]OPSY: - PROLIFERATIVE ENDOMETRIUM. DEJUAN [...] ald 11/13/2022 Tissue pathology report for: [facility], [address] [place] [id number]; ____ Print 11/14/2022 14:01 EDT Number: Date/Time: [facility] Department of Pathology [address] [place] [phone] Name: SANDY DENNIS : 1985 [facility] [id number] Number: Gender Female [facility] : n: Admit 37 years Attending CASSANDRA CHAHAL Age: Provider: Ordering CASSANDRA CHAHAL Provider: Consulti Surgical Pathology Report ng: ACCESSION: COLLECTED DATE/TIME: RECEIVED DATE/TIME: PATHOLOGIST: [id number] 11/12/2022 16:30 EDT 11/13/2022 13:47 EDT DEJUAN RODRIGUEZ MD Gross Description PATHOLOGY SERVICES PROVIDED BY [facility] (CLIA #[id number]) in cooperation with [facility] at [address] [place] [address] (CLIA #[id number]) Microscopic Diagnosis The final diagnosis is based on a microscopic exam of sales representative advertising sections. Codes CPT CODE: 77009 ____ Print 11/14/2022 14:01 EDT Number: Date/Time: Normal [facility] Comment on above: Performed By: #### 9 [id number] #### [facility] Laboratory Services [address] [place] [address] Product Expert: Dejuan Rodriguez MD [facility]ST[facility] 3D YARITZA CA Don 10-31-2022 [facility] DIAGNOSTIC 3D YARITZA CAD Patient: SANDY DENNIS Exam Date: 10/31/2022 : 1985 Gender:F Ordering : DR CASSANDRA CHAHAL . Admission #: [id number] Family : Order #: [id number] CLICK HERE TO VIEW EXAM RADIOLOGY REPORT [...] breast cancer at age 48. LOCATION: [facility] BREAST COMPOSITION: Heterogeneously dense,which may obscure [...] Carson M.D. on 10/31/2022 at 11:12 Normal [facility] US BREAST YARITZA LIMITEDon 04-0 US BREAST YARITZA LIMITED Patient: SANDY DENNIS Exam Date: 10/31/2022 : 1985 Gender:F Ordering : DR CASSANDRA CHAHAL . Admission #: [id number] Family : Order #: [id number] CLICK HERE TO VIEW EXAM RADIOLOGY REPORT [...] breast cancer at age 48. LOCATION: [facility] BREAST COMPOSITION: Heterogeneously dense,which may obscure [...] Carson M.D. on 10/31/2022 at 11:12 Normal [facility] US PELVIS AND TRANSVAGon US PELVIS [...] by: KULWINDER CARSON Date: 2022-10-31 09:40 Normal [facility] PAP ACOG PANEL 2: 30 to 65on 10-30-2022 . . Normal [facility] Comment on above: Result Comment: Perf ormed at: WB Performed By: #### 4 [id number] #### [facility] [address] [address] [address] Edwina Vicente Age Gdln ACOG Testing 30-65 Normal [facility] Comment on above: Performed By: #### 4 [id number] #### [facility] [address] [place], [place] [address] Dr. Edwina Vicente DIAGNOSIS: Comment Normal [facility] Comment on above: Result Comment: NEGA TIVE FOR INTRAEPITHELIAL LESION OR MALIGNANCY. Performed at: WB Performed By: #### 4 [id number] #### [facility] [id number] Edwina Vicente HPV Aptima Negative Normal Negative [facility] Comment on above: Result Comment: This nucleic acid amplification test detects fourteen high-risk HPV types (16,18,31,33,35,39,45,51,52,56,58,59,66,68) without differentiation. Performed at: =G Performed By: #### 4 [id number] #### [facility] [address] [place] [address] Dr. Edwina Vicente HPV Genotype Reflex Comment Normal [facility] Comment on above: Result Comment: Crit eria not met, HPV Genotype not performed. Performed at: WB Performed By: #### 4 [id number] #### [facility] [address] [place] [address] Dr. Edwina Vicente Methodology: CTIM Normal [facility] Comment on above: Result Comment: The [employer] Rep was unable to read this specimen. Therefore a manual review was performed. Performed at: WB Performed By: #### 4 [id number] #### [facility] [address] [place] [address] Dr. Edwina Vicente Note: Comment Normal [facility] Comment on above: Result Comment: The Pap smear is a screening test designed to aid in the detection of premalignant and malignant conditions of the uterine cervix. It is not a diagnostic procedure and should not be used as the sole means of detecting cervical cancer. Both false-positive and false-negative reports do occur. . Performed at: WB Performed By: #### 4 [id number] #### [facility] [address] [place] [address] Dr. Edwina Vicente Performed by: Comment Normal [facility] Comment on above: Result Comment: Cind allison Rao, Dramatic Agent (ASCP) Performed at: WB Performed By: #### 4 [id number] #### [facility] [address] [place] [address] Dr. Edwina Vicente Specimen adequacy: Comment Normal [facility] Comment on above: Result Comment: Sati sfactory for evaluation. Endocervical and/or squamous metaplastic cells (endocervical component) are present. Performed at: WB Performed By: #### 4 [id number] #### [facility] [address] [place] [address] Dr. Edwina Vicente Coding Summary.on 09-30-2022 Coding Summary. CD:[id number] Gh0bWw+PGhlYWQ+PE1FV ULsF94gtCAikX6VB4aMD H9JHDPUXQPFNB1OBO9np II1PZayS2AyniDw WfqizAHgSX22ACm9USI6 yAjaKXvrpD8mjAAbM9e0 YrRkRD43yU65SItcNADo HrE8IbExcfhbtJTu T5tsTnCydQXvExn+PHRh YmxlIHdpZHRoPScxMDAl RwCdvUskGK5kRt7aUDAy LWNvbGxhcHNlOiBj j0fsJHWtVLsxNX7xeMri W8NrfKY0SWYsb2f1Nx54 dHI+COQcZSF5zEmyNGms y022UrYgo0pcCUU6 iNWhZQyfCXH2B64he1T6 JNXmAXBoCYK7jNU9yJ5q uRnxkkwkV2WbwNZfRkM5 PMD2jCQkhM9bzYed hednnA1eGrd+V01ZXH2V DUFUJE7LZpl7A5YhOzrl dHI+DR80MCYsDL09wPXl tZVci5sesMi1DyPz ZBCqVVK0zQmlGZeuv5Db JQKrA32nvHEhq0R3SIWw tSdvcFCpFdYwpFZ9mC3g STcgpiwfy6cwqsxj Mvfca7emcj36lO26C36x KHxjJJHwSRP7ZGJvQVLr gMzmjz6wzB6pNu2+IDxj z4xqt6klvTw7HqZx RINagaVedTnkCJB7a9Bx Oj79Y0ZduLpoo7FjXsn6 ix97yAHrn3K2bMS7CHva ZTBapE8cMHjzNmB6 NJYyFrRplU34xCIgEVey Tq4goTbawUskZM9mCUOa rkfzUQGksB8vHUUorPYj dQzyWH0vIHGrhldk b658AnBxSAQ1JLBamNRy T3KjmC8qVtXoJCVmYTFu S0DyvAJpSHexQ608JFey SnQ0LGTdjeYcT1Kx WXPgaSotGgX6i2R6Mq1O f8WufstbVHF5VZcbEXQw TsD9GoGoVsR6K9XdLse3 ODZyhDrwIJ9hL2My RHNdjdhsoixhiSS6RHTb MIItaW50lPOeMWodWt0m f6B3m728HBMeYDSpwR37 Jp8fzHisFHUdsXJP cY3ndgphn5htzhasFdNl ERFeYZr3YSj6AYKrlGmy HhXlJLV7BaA6JPR5vPVy iQ4bmPzbneccmO2e Oyc+Y37fhW3uNPH6XLI0 rtfmMGFoplCnWH91GU78 K1ZzHznxoAXqeBR+PGRp vyKfwKwuJG9xBoCb d4jxb3FiDDscG2McPFYy ATukShg7YBUjKPJ7nOS5 pI2iQQAfGHkdl4U1mZB7 M7ExchKnll3yk7zy KHNaGUcpR33ceTKcv4D3 MAJikKT2TITgfApaBrTm sI32Hcx+WMIheXpls8Ua Cqmzd7sbg2trsHv8 IjMwJSIgdmFsaWduPSJ0 a9IbNf21P22jDOgcDWNo CNJzJHMzXCCmtOgznt4l iY1kTw6+PGNvbCB3 oXO8jA3uULAkHzM6FLfm Y210UwUwkYWjYukwe3ov r5cocNr6EsSkRPVdilHu xSbyBAM2h9UvAa63 S31pZVmwLTEnFJYjKXPu QWDnjVvbvh0eeT1cMj7+ UZ6oj7cdig82vI15bSM+ VZReFMV4hUmzCEzm UWYxxC5eTZnbVwF8XTRw RqTkaC07xODtKHypBb6y sTnlgKjaDD4jRUMuilbu s973EnOca2fpVRZd vPWtOHcmXCI7V13sk1L4 LJQtEFImRMA0cJC0wU3g bGlnbjogbGVmdDsgdmVy aHxmIOmdIVqbQ383 IHRvcDsnPlBhdGllbnQg AvNaORv1L5PbLlm6NUZl xFxbQG1yfUBjZMoxPn0m xIxusFpmWC7iPACx iisjn819JoJdj1vbSQQx zAVvGMtoRCT5E42ke6U0 UBBcROZrTRX1yQM0dZ1e bGlnbjogbGVmdDsg tpXnrTmrSTleVRvjY602 IHRvcDsnPkJpcnRoIERh sQP9ND78HW86wOVmr3X9 lHA8N6EyOZBjlkyl cnlzsWW7HMEoXTGnbQ32 Pm6ytUslRi1fBNDkANE1 LHScnVEkX7FpvW0qIpAa ADNaKNZgA6ZejFJf BAixL077BFzjEjG4JOOm onSlD0GyLUEujAqpYiO2 g3N2Ce5OK9X8UR04WR14 nYEba1S0mWD6F9Rz CEVdqrzzohbanTB5JFAc FBBjhN83Bm0hyKatIv3n MADxSLA1CKKtrDQbI5Mn pO5oYtCcENNmKBMt A9NlhHMvQVniX585PJxw SmW1LQVxcxEcL2FvDIXd bZrbFoB2p7L5Bm3FWNs9 GM03JP93bYYlu4S6 wZN4J2MlNEAimfkzaraj oCN5RBBsOOPrfT71Cb9l xEamHx0wYHQkIRO2CUJs rRAhP0UdrK2oLlAr ARBrSSPiK1ZosNRrNBuy R329JCkcOaD2WDKxvgCg X2DyMTEkvJjvWkA9u1N4 Qi6FSWWvEG28DFO4 lJK1ND50LC28I0ElCtrv dGFibGU+PHRhYmxlIHdp ZHRoPScxMDAlJyBzdHls BX8eIi0lIAWnJRAq vAknxJPkHwHbp0irJZDf DUzdRS6brAnyB0ShhVI7 ECIes6g3Cr93V53cP0Tq dXA+UJFwkUS6xFK9 tG8vNhLiIqL2DLgoA992 SsTqqIDrQwuet6bfq1ip sKf3OhJ8ABNaqbFjkOch DQH6q3BsGf98T58r IHdpZHRoPSIxNSUiIHZh hGguuh4zmB0nZl6+PGNv dER8dSR5bD1hScPuEiO7 GBgqC472RcDbsFBx Wdjiy7fie2oenTr7PnSq OQRhprWjdCkyKUH9z3Bx Vy03I7WwaFzlr0RnCex2 mu48oZXld0A4zQI5 F4QpRWEjbketnPBgdIey HE7hIVOsjfigFDDlyL3s GFRvW1k2DdRxUqF3YXux Y9NujrR8AVVimTEj XIcxPXH8H22nt4W3UWQv MUNnJAS7zYX0hZ9ifKnb bjogbGVmdDsgdmVydGlj PXpxGJzfI621UHZr wYbiFNAkuU2pMDDiqYDu kUvuQA2sWSMzlzakExYJ RVBPVEUsIFRSSVNIQSBK NV90XQ81dKVqb5B2 bTP5G3BlGWIuraytcwty bPH2CDZiLGDfgQ24xWAz TMucUm0qs7R2t205CHKe VKCjfC11Fq9lcRpm OTVkvMDCqW1nvdosf6su ggyeZhQdKUIsLOw7NNe1 UBKpoHofKsGuZPS8VdK8 POV0vSBojF8fxWty ggtbcT9uTra+MDgvMTAv SNd4JYgrsHV+PHRkIHN0 sOzbBNhhKBNcxN2mQDHy P3g0DxAxQlB9CEsq W2PyMTXcsxztFv39zD4s AuBlYdA0KKshW6PukmG8 RAXttRFtTHayGGJ5K69s t8M4LYDhAVDdGDS5 dJA5bQ3bxDvdbqmcfVTk dDsgdmVydGljYWwtYWxp L090PAIcqKcxJlM3DMsk CAVzKW99FE74iDHg p0E0eYH3O2BlOQRwpdhk hjphwRT4SGImLNMeiF52 sTXzBRukRp1vy9A7e635 WGLsLLVlvW89Rn7t kDguEQVldJIXgW6qdpmg p8cwcpfnPwBwTANvUCm8 FWn1CKKsdHluBgPgZGX8 VtY6TPK6kDVkiK1x wTctnctahT5gChd+RmVt EJygEP63PQ98xGFtx7T4 wHO7Q4GnRZSflqpeyxfu bKA3BYOzVAPdtP22 fBGpVCwbIm4qo1N9t686 CKXsKBOqwR51Px4obJuj VVTtnBAKzR3tjtthz3vi cjogIzAwMDAwMDt0 WEe4TAOlpOhzPiYsDGT0 SsJ0FBG1aUYfxG2ueNgc ltssrW5rOwt+U0U3iQM0 aWVudDwvdGQ+PC90 tg75L9JvCaipOoi6XNSo PUD3jCE9fK0cPVDhAXov z6Q0tDT7W9YkoyLapy8e r9fhPDKkXGuoB72z rTRtz9K5SZOnoLP1QDZa pBftMwZniW92Djc+PGNv gZdtg7WkUscdt2ojy2fk jVd6PkXxAXBbwlHh yLakHQU3b7RaBp44Z82e IHdpZHRoPSIzMCUiIHZh mXzdpj3hkJ8zJk7+PGNv mWF5yDC9aG3dHxYq ApB2EDkuX990NgBqoRCp Pxrfl3ahn5eppJu2AdIi YTOmvwMrbRvpYPU2z7Jw Mb82X1GkpAadn6Ph Tcr2qq13dUOek9Y9jKH0 D0EqWAUypeqvaVIcoRew FI6rFWPcwqkcCGZntD5p SJUhP9i5WcPfQzW6 SMwtE6EbxrV8DMKjpYIy RXCpkYVHvF2ngfhpm3jf eyfiYkRaHVYrERo4DKj3 LWFsaWduOiBsZWZ0 NaF8YAC6oZPdeD3gvXcp coxggO9eGnu+FIj5v8pg wNDmBM6ltCF3IP55ZF45 fBPaq6M1nOX7I8Pc OHDxritndsedmFC3BXJi ZWKkfM87Gr4nfUboJn3o SWXmBMJ8DWVugVGcA4Cp nR4nJyXbPVZaASLa N1ZxlYCjEJrmZ307HHwt NcM7LZJkjnIcM1WlNBFq eThzHlC8h6C3Nd9QAK01 NW78NV79gTJud9N8 zSZ2X0BtQKGvhhbwbnbb sZC9EAGoLFZnpJ90Zy1j rFytDt9nLFOkWBN0EXOl sVSuU1NolR9rCsVl AOHlLKZjO5KgiRCmFXkc U954VHjfQsR1FJJubeRj R8XsQXCvwSrfHsB4f5K0 Hq7JRb24CU82SC59 jQEsn2K2mPX5X5KiRCTn ibarcxdxsPK9MFQiDGZb uS69Kt4duAqeKo1mJYTt RLL6ETMljQKeK8Pm kW5mPqKrPNIbKTHpS5Gb pDUiDYewB252BYeoZzS2 MLDughWmH2FnVNBweXcb UzQ0n3Y2Hh6ILDqu tho3F7YgRdsxaEJ+PC90 TCLeRN12pTMmjIFgt0uc fId5HvYpMLHeHGW0hPfd BRmni3EmPACbG15k bGFw (more content not included)... Normal [facility] Auto Diffon 09-24-2022 Basophils/100 WBC (Bld) 0.5 % Normal 0.0-2.0 [facility] Comment on above: Order Comment: Order Added by Discern Expert. Performed By: #### 2 096414, 6518705, 4333576, 2552358, 8006067, [id number] #### [facility] [address] [place] [address] Basophils/Leukocytes Auto (Bld) [Pure # fraction] 0.0 E9/L Normal 0.0-0.2 [facility] Comment on above: Order Comment: Order Added by Discern Expert. Performed By: #### 2 843915, 2003106, 7692123, 1017876, 4342580, [id number] #### [facility] [address] [place] [address] Eosinophils/100 WBC (Bld) 0.9 % Normal 0.0-8.0 [facility] Comment on above: Order Comment: Order Added by Discern Expert. Performed By: #### 2 440723, 8408230, 3775464, 7720738, 1726182, [id number] #### [facility] [address] [place] [address] Eosinophils/Leukocyte s Auto (Bld) [Pure # fraction] 0.1 E9/L Normal 0.0-0.5 [facility] Comment on above: Order Comment: Order Added by Discern Expert. Performed By: #### 2 189930, 3176609, 4354225, 0184629, 5217961, 62769388 #### [facility] [address] [place] [address] Lymphocytes/100 WBC (Bld) 28.2 % Normal 14.0-50.0 [facility] Comment on above: Order Comment: Order Added by Discern Expert. Performed By: #### 2 768009, 7975753, 7008639, 4671123, 1278596, 89702634 #### [facility] [address] [place] [address] Lymphocytes/Leukocyte s Auto (Bld) [Pure # fraction] 2.6 E9/L Normal 1.0-4.0 [facility] Comment on above: Order Comment: Order Added by Discern Expert. Performed By: #### 2 573357, 1780149, 3035735, 3469940, 9765021, 21227649 #### [facility] [address] [place] [address] Monocytes/100 WBC (Bld) 7.4 % Normal 4.0-14.0 [facility] Comment on above: Order Comment: Order Added by Discern Expert. Performed By: #### 2 124743, 0404843, 5883971, 4301351, 6240840, 37033638 #### [facility] [address] [place] [address] Monocytes/Leukocytes Auto (Bld) [Pure # fraction] 0.7 E9/L Normal 0.2-1.0 [facility] Comment on above: Order Comment: Order Added by Discern Expert. Performed By: #### 2 126266, 9344249, 0180664, 6019413, 0440349, 92560314 #### [facility] [address] [place] [address] Neutrophils/100 WBC (Bld) 63.0 % Normal 36.0-75.0 [facility] Comment on above: Order Comment: Order Added by Discern Expert. Performed By: #### 2 469343, 8143035, 6685674, 7187800, 0710928, 57385058 #### [facility] [address] [place] [address] Neutrophils/Leukocyte s Auto (Bld) [Pure # fraction] 5.7 E9/L Normal 2.0-7.5 [facility] Comment on above: Order Comment: Order Added by Discern Expert. Performed By: #### 2 687055, 0036523, 1419814, 1231794, 5175083, 93757878 #### [facility] [address] [place] [address] CBC w/ Auto Diffon Erythrocyte distribution width (RBC) [Ratio] 13.6 % Normal 10.9-14.2 [facility] Comment on above: Performed By: #### 2 477629, 7663140, 5261885, 4387494, 9183016, 11848038 #### [facility] [address] [place] [address] Hematocrit (Bld) [Volume fraction] 41.4 % Normal 34.0-46.0 [facility] Comment on above: Performed By: #### 2 173431, 0601343, 2956761, 7131527, 4291608, 87419920 #### [facility] [address] [place] [address] Hemoglobin (Bld) [Mass/Vol] 13.7 g/dL Normal 12.0-16.0 [facility] Comment on above: Performed By: #### 2 566262, 9173678, 9422284, 6022401, 2246569, 41800694 #### [facility] [address] [place] [address] 16735 MCH (RBC) [Entitic mass] 27.6 pg Normal 27.0-34.0 [facility] Comment on above: Performed By: #### 2 542135, 2062751, 9963528, 0582064, 0203130, 42510301 #### [facility] [address] [place] [address] MCHC (RBC) [Mass/Vol] 33.1 g/dL Normal 31.4-36.0 [facility] Comment on above: Performed By: #### 2 575729, 0509586, 3188208, 3404290, 6843878, 05831092 #### [facility] [address] [place] [address] MCV (RBC) [Entitic vol] 83.2 fL Normal 80.0-100.0 [facility] Comment on above: Performed By: #### 2 831521, 0467789, 2433280, 8668070, 1390626, 02957747 #### [facility] [address] [id number] Platelet mean volume (Bld) [Entitic vol] 7.8 fL Normal 6.4-10.8 [facility] Comment on above: Performed By: #### 2 988309, 5906685, 4173572, 9034376, 6678725, 94270280 #### [facility] [address] [place], [place] [address] Platelets (Bld) [#/Vol] 310.0 E9/L Normal 150.0-500.0 [facility] Comment on above: Performed By: #### 2 009118, 5620082, 3461237, 8496831, 4295825, 67316451 #### [facility] [address] [place], [place] [address] RBC (Bld) [#/Vol] 5.0 E12/L Normal 4.3-5.9 [facility] Comment on above: Performed By: #### 2 910134, 7675973, 2483794, 9415587, 1885255, 55796090 #### [facility] [address] [place], [place] [address] WBC corrected for nucl RBC Auto (Bld) [#/Vol] 9.1 E9/L Normal 4.0-11.0 [facility] Comment on above: Performed By: #### 2 170055, 8215138, 3981097, 1536442, 5680001, 57894341 #### [facility] [address] [place] [address] CHEMISTRYOrdered By: SYSTEM SYSTEM on 09-24-2022 Albumin [...] Remisol Triglyceride [Mass/Vol] 102 mg/dL Normal <=149mg/dL FT Remisol TSH Qn 2.06 m[IU]/L Normal 0.34 - 5.60 mcIU/mL [facility] Remisol Urea nitrogen [Mass/Vol] 10 mg/dL Normal 5 - 21 mg/dL FT Remisol Urea nitrogen/Creatinine [Mass ratio] 12 mg/mg Normal 10 - 20 FT [facility] CMPon 09-24-2022 Albumin [Mass/Vol] 4.0 g/dL Normal 3.3-5.0 [facility] Comment on above: Performed By: #### 2 496585, 5938058, 9548725, 4944674, 8741990, 53333476 #### [facility] [address] [place] [address] Albumin/Globulin (S) [Mass conc ratio] 1.2 Normal 1.1-2.2 [facility] Comment on above: Performed By: #### 2 109326, 0796834, 9747955, 5320188, 0815557, [id number] #### [facility] [address] [place] [address] ALP [Catalytic activity/Vol] 51 Int._Unit/L Normal 21-98 [facility] Comment on above: Performed By: #### 2 921491, 1151726, 0712263, 8031056, 5664287, [id number] #### [facility] [address] [place] [address] ALT No additional P-5'-P [Catalytic activity/Vol] 16 Int._Unit/L Normal 6-46 [facility] Comment on above: Performed By: #### 2 384675, 1822496, 5518116, 2169734, 9902914, [id number] #### [facility] [address] [place] [address] Anion gap [Moles/Vol] 9 mmol/L Normal 6-16 [facility] Comment on above: Performed By: #### 2 610058, 6311543, 6988269, 8579681, 8292937, 46597970 #### [facility] [address] [place] [address] AST [Catalytic activity/Vol] 15 Int._Unit/L Normal 5-43 [facility] Comment on above: Performed By: #### 2 821009, 0364495, 3580182, 6412425, 0894696, [id number] #### [facility] [address] [place] [address] Bilirubin [Mass/Vol] 0.7 mg/dL Normal 0.0-1.1 [facility] Comment on above: Performed By: #### 2 945099, 4738045, 2675215, 7100969, 0876684, 72121208 #### [facility] [address] [place] [address] Calcium [Mass/Vol] 8.8 mg/dL Low 8.9-11.1 [facility] Comment on above: Performed By: #### 2 151824, 1498625, 4859673, 6654262, 3233383, [id number] #### [facility] [address] [place] [address] Chloride [Moles/Vol] 102 mmol/L Normal 101-111 [facility] Comment on above: Performed By: #### 2 159882, 2319585, 3112134, 0063459, 8712899, 96372916 #### [facility] [address] [place] [address] CO2 [Moles/Vol] 29 mmol/L Normal 21-31 [facility] Comment on above: Performed By: #### 2 699705, 6550283, 2171024, 9277156, 8033408, 98937968 #### [facility] [address] [place] [address] Creatinine [Mass/Vol] 0.8 mg/dL Normal 0.5-1.3 [facility] Comment on above: Performed By: #### 2 129373, 5644693, 6543767, 5790511, 8742446, [id number] #### [facility] [address] [place] [address] Globulin (S) [Mass/Vol] 3.2 g/dL Normal 1.4-4.0 [facility] Comment on above: Performed By: #### 2 848286, 9844558, 7758752, 7887118, 5663701, 01441908 #### [facility] [address] [place] [address] Glucose [Mass/Vol] 97 mg/dL Normal 55-199 [facility] Comment on above: Result Comment: If t his glucose result represents a fasting glucose, interpretation should refer to the following reference range: 55-99 mg/dL Performed By: #### 2 440446, 0668212, 2240694, 8123197, 8915454, 66955053 #### [facility] [address] [place] [address] Potassium [Moles/Vol] 3.7 mmol/L Normal 3.5-5.3 [facility] Comment on above: Performed By: #### 2 941569, 5715897, 9437424, 5368869, 4039038, 49059618 #### [facility] [address] [place] [address] Protein [Mass/Vol] 7.2 g/dL Normal 6.0-7.8 [facility] Comment on above: Performed By: #### 2 050046, 7216512, 0248262, 0669399, 2562622, 38176159 #### [facility] [address] [place] [address] Sodium [Moles/Vol] 136 mmol/L Normal 135-145 [facility] Comment on above: Performed By: #### 2 941528, 0224726, 0875458, 7815210, 1038738, [id number] #### [facility] [address] [place] [address] Urea nitrogen [Mass/Vol] 10 mg/dL Normal 5-21 [facility] Comment on above: Performed By: #### 2 891773, 4130528, 3192372, 8701558, 0269718, [id number] #### [facility] [address] [place] [address] Urea nitrogen/Creatinine [Mass ratio] 12 No Units Normal 10-20 [facility] Comment on above: Performed By: #### 2 245243, 3853502, 2921695, 7291026, 0974840, [id number] #### [facility] [address] [place] [address] Consent for Treatmenton 08-29 Consent for Treatment [id number] #1.00CD:127 Normal [facility] HEMATOLOGYOrdered By: SYSTEM SYSTEM on 09-24-2022 [...] 5.7 E9/L Normal 2.0 - 7.5 E9/L FT HemeAutoSS HEMATOLOGYOrdered By: Mayank Benson on 09-24-2022 [...] 7.8 fL Normal 6.4 - 10.8 fL FT [facility]eAutoSS Platelets (Bld) [#/Vol] 310.0 E9/L Normal 150.0 - 500.0 E9/L FT[facility] HemeAutoSS RBC (Bld) [#/Vol] 5.0 E12/L Normal 4.3 - 5.9 E12/L FT HemeAutoSS WBC corrected for nucl RBC Auto (Bld) [#/Vol] 9.1 E9/L Normal 4.0 - 11.0 E9/L FT [facility]SS Lipid Panelon 09-24-2022 Cholesterol [Mass/Vol] 185 mg/dL Normal 120-200 [facility] Comment on above: Performed By: #### 2 [id number], 0423159, 1446499, 3625476, 2216124, [id number] #### [facility] [address] [place] [address] Cholesterol in HDL [Mass/Vol] 69 mg/dL Invalid Interpretation Code [facility] Comment on above: Result Comment: HDL > or equal to 60 mg/dL: Low cardiovascular risk HDL < 40 mg/dL : High cardiovascular risk Performed By: #### 2 224848, 9529836, 8521277, 7585005, 7961129, [id number] #### [facility] [address] [place] [address] Cholesterol in LDL [Mass/Vol] 93 mg/dL Normal <=129 [facility] Comment on above: Performed By: #### 2 475213, 5034415, 8400131, 9319334, 2404047, 30077230 #### [facility] [address] [place] [address] Cholesterol in VLDL [Mass/Vol] 20 mg/dL Normal 7-40 [facility] Comment on above: Performed By: #### 2 283443, 8252352, 0493746, 0967730, 9381678, [id number] #### [facility] [address] [place] [address] Triglyceride [Mass/Vol] 102 mg/dL Normal <=149 [facility] Comment on above: Performed By: #### 2 625422, 2989018, 4746894, 4455382, 7178764, [id number] #### [facility] [address] [place] [address] Physician Orderon 09-24-2022 Physician Order [id number] #1.00CD:127 Normal [facility] TSHon 09-24-2022 TSH Qn 2.06 m[IU]/L Normal 0.34-5.60 [facility] Comment on above: Performed By: #### 2 925245, 3092658, 3542731, 9661943, 3673725, 96928612 #### [facility] [address] [place] [address] eGFRon 09-24-2022 GFR/1.73 sq M.predicted among blacks MDRD (S/P/Bld) [Vol rate/Area] mL/min/{1.73_m2} Normal >=59 [facility] Comment on above: Order Comment: Order added by Discern Expert. Result Comment: eGFR is race adjusted. AA=. Performed By: #### 2 756105, 5800216, 0260420, 2286038, 6385918, 83373059 #### [facility] [address] [place] [address] GFR/1.73 sq M.predicted among non-blacks MDRD (S/P/Bld) [Vol rate/Area] mL/min/{1.73_m2} Normal >=59 [facility] Comment on above: Order Comment: Order added by Discern Expert. Result Comment: Tin Assorter isis kidney disease could be indicated at eGFR's of less than 60 mL/min/1.73m2. Kidney failure is indicated at less than 15 mL/min/1.73m2. Performed By: #### 2 378066, 3206456, 3153453, 2687756, 0381267, [id number] #### [facility] [address] [place] [address] CBC AUTO DIFFon 12-28-2021 BASO # 0.1 103/ul Normal 0.0-0.1 [facility] Comment on above: Performed By: #### C BC #### [facility] [address] [place] [address] Dr. Edwina Vicente Basophils/100 WBC (Bld) 0.8 % Normal 0.2-2.0 [facility] Comment on above: Performed By: #### C BC #### [facility] [address] [address] [address] Edwina Vicente EO # 0.1 103/ul Normal 0.0-0.7 [facility] Comment on above: Performed By: #### C BC #### [facility] [address] [address] [address] Edwina Vicente Eosinophils/100 WBC (Bld) 1.6 % Normal 0.9-7.0 [facility] Comment on above: Performed By: #### C BC #### [facility] [address] [address] [address] Edwina Vicente Erythrocyte distribution width (RBC) [Ratio] 12.8 % Normal 11.0-15.0 [facility] Comment on above: Performed By: #### C BC #### [facility] [address] [place] [address] Dr. Edwina Vicente Hematocrit (Bld) [Volume fraction] 43.1 % Normal 36.0-48.0 [facility] Comment on above: Performed By: #### C BC #### [facility] [address] [place] [address] Dr. Edwina Vicente Hemoglobin (Bld) [Mass/Vol] 14.1 g/dL Normal 12.0-16.0 [facility] Comment on above: Performed By: #### C BC #### [facility] [address] [place] [address] Dr. Edwina Vicente IG # 0.01 10e3/ul Normal 0.00-0.03 [facility] Comment on above: Performed By: #### C BC #### [facility] [address] [place] [address] Dr. Edwina Vicente IG % 0.2 % Normal 0.0-0.5 [facility] Comment on above: Performed By: #### C BC #### [facility] [address] [place] [address] Dr. Edwina Vicente LYMPH # 2.4 103/ul Normal 1.2-3.8 [facility] Comment on above: Performed By: #### C BC #### [facility] [address] [place] [address] Dr. Edwina Vicente Lymphocytes/100 WBC (Bld) 37.2 % Normal 20.5-60.0 [facility] Comment on above: Performed By: #### C BC #### [facility] [address] [place] [address] Dr. Edwina Vicente MANUAL DIFF REQ NO Normal [facility] Comment on above: Performed By: #### C BC #### [facility] [address] [place] [address] Dr. Edwina Vicente MCH (RBC) [Entitic mass] 27.3 pg Normal 26.7-34.0 [facility] Comment on above: Performed By: #### C BC #### [facility] [address] [place] [address] Dr. Edwina Vicente MCHC (RBC) [Mass/Vol] 32.7 g/dL Normal 29.9-35.2 [facility] Comment on above: Performed By: #### C BC #### [facility] [address] [place] [address] Dr. Edwina Vicente MCV (RBC) [Entitic vol] 83.4 fL Normal 81.0-99.0 [facility] Comment on above: Performed By: #### C BC #### [facility] [address] [place] [address] Dr. Edwina Vicente MONO # 0.5 103/ul Normal 0.3-0.8 [facility] Comment on above: Performed By: #### C BC #### [facility] [address] [place] [address] Dr. Edwina Vicente Monocytes/100 WBC (Bld) 8.1 % Normal 1.7-12.0 [facility] Comment on above: Performed By: #### C BC #### [facility] [address] [place] [address] Dr. Edwina Vicente NEUT # 3.3 103/ul Normal 1.4-6.5 [facility] Comment on above: Performed By: #### C BC #### [facility] [address] [place] [address] Dr. Edwina Vicente Neutrophils/100 WBC (Bld) 52.1 % Normal 43.0-75.0 [facility] Comment on above: Performed By: #### C BC #### [facility] [address] [place] [address] Dr. Edwina Vicente Platelet mean volume (Bld) [Entitic vol] 8.8 fL Critically low 9.5-13.5 [facility] Comment on above: Performed By: #### C BC #### [facility] [address] [address] [address] Edwina Vicente PLT 328 103/ul Normal 150-450 [facility] Comment on above: Performed By: #### C BC #### [facility] [address] [place] [address] Dr. Edwina Vicente RBC 5.17 106/ul Normal 4.20-5.40 [facility] Comment on above: Performed By: #### C BC #### [facility] [address] [address] [address] Edwina Vicente WBC 6.4 103/ul Normal 4.0-11.0 [facility] Comment on above: Performed By: #### C BC #### [facility] [address] [place] [address] Dr. Edwina Vicente PREG QUANT HCGon 12-28-2021 HCG QUANT <1 Normal [facility] Comment on above: Performed By: #### P REGQNT #### [facility] [address] [place] [address] Dr. Edwina Vicente HCG RANGE SEE BELOW Normal [facility] Comment on above: Result Comment: 5-50 0-1 WEEK 40-300 1-2 WEEKS 100-1,000 2-3 WEEKS 500-6,000 3-4 WEEKS 5,000-200,000 1-2 MONTHS 10,000-100,000 2-3 MONTHS 3,000-50,000 2ND TRIMESTER 1,000-50,000 3RD TRIMESTER Performed By: #### P REGQNT #### [facility] [address] [place] [address] Dr. Edwina Vicente US PELVIS AND TRANSVAGon [...] KULWINDER CARSON Date: 2021-12-27 07:30 Normal [facility] Covid-19 PCR (CVDTBH)on SARS-CoV-2 (COVID-19) RNA TRESSA+probe Ql (Unsp spec) Detected Critically abnormal NOT DETECTED [facility] Comment on above: Result Comment: This test is not yet approved or cleared by the [place] FDA. When there are no FDA-approved or cleared tests available, and other criteria are met, FDA can make tests available under an emergency access mechanism called an Emergency Use Authorization (EUA). The EUA for this test is supported by the [place] of Health and Human Service's declaration that [...] longer be used). Performed By: #### C [facility] #### [facility] [address] [place] [address] Dr. Edwina Pereira 10-16-2020 CNOV Office Visit ([facility]) SANDY DENNIS ([id number]) 1985 F Date Time Provider Department 10/16/20 1:15 PM MINESH GURROLA)[facility] During your visit today, we recorded the following information about you: Minesh Gurrola PA-C 10/16/2020 1:03 PM Signed SUBJECTIVE Sandy Dennis is a 35 year [...] NOHEMI TEST: Positive STRENGTH: 5/5 biceps, triceps, printer helper, finger abduction, WE, WF, AND EPL STABILITY: all joints stable CREPITUS: negative NEUROLOGICAL EXAM: Sensory: sensation intact to light touch axillary, radial, median, AND ulnar distributions 2-point discrimination intact throughout all digits. Motor strength: equal bilaterally with 5/5 biceps, triceps, printer helper, finger abduction, WE, WF, thumb opposition, AND [...] times daily.Disp: 100 gRfl: 1 CONSULT TO LACE TEARING SUPERVISOR [[id number]] Order #: [id number]: 1 FUTURE Prescriptions as of 10/16/2020 Sig: [...] by MINESH GURROLA PA-C on 10/16/20 Normal [facility] Vital Signs Date Time Vital Sign Value Performing Clinician David echols 05-11-2024 09:56-0400 Body mass index (BMI) [Ratio] 34.02 kg/m2 Cassandra Tirso DO Work Phone: [facility] 05-11-2024 09:56-0400 Body weight 95.62 kg Cassandra Tirso DO Work Phone: [facility] 05-11-2024 09:56-0400 Diastolic blood pressure 78 mm[Hg] Cassandra Tirso DO Work Phone: [facility] 05-11-2024 09:56-0400 Systolic blood pressure 116 mm[Hg] Cassandra Tirso DO Work Phone: [facility] Healthcare Encounters Encounter Date Encounter Type Care Provider Facility Start: 06-02-2024 End: 06-02-2024 Bamboo flowsheet Tierra Stephenson DPM Work Phone: [facility] Start: 06-02-2024 End: 06-02-2024 Bamboo flowsheet Tierra Stephenson DPM Work Phone: [facility] Start: 06-02-2024 End: 06-02-2024 ambulatory TIERRA STEPHENSON Not Available Start: 05-28-2024 End: 05-28-2024 ambulatory TIERRA STEPHENSON Not Available Start: 05-11-2024 End: 05-11-2024 Patient encounter procedure Cassandra Tirso DO Work Phone: [facility] Comment on above: Pre-op examination; Request for sterilization; Menorrhagia with regular cycle; Abnormal uterine bleeding (AUB); Pelvic pain in female; Hormone disorder Start: 05-11-2024 End: 05-11-2024 Preprocedural examination done Cassandra Tirso DO Work Phone: [facility] Start: 05-11-2024 End: 05-11-2024 ambulatory CASSANDRA TIRSO Not Available Start: 04-29-2024 End: 04-29-2024 Office outpatient visit 15 minutes Tierra Stephenson DPM Work Phone: [facility] Comment on above: Sprain of tarsometat arsal joint of left foot, subsequent encounter (Primary Dx); Stress reaction of bone; Left foot pain Start: 04-29-2024 End: 04-29-2024 ambulatory TIERRA STEPHENSON Not Available Start: 04-29-2024 End: 04-29-2024 Bamboo flowsheet Tierra Stephenson DPM Work Phone: [facility] Start: 04-29-2024 End: 04-29-2024 Bamboo flowsheet Tierra Stephenson DPM Work Phone: [facility] Start: 03-16-2024 End: 03-16-2024 ambulatory SAMANTHA CROW Not Available Start: 12-04-2023 End: 12-04-2023 ambulatory CASSANDRA TIRSO Not Available Start: 10-28-2023 End: 10-28-2023 ambulatory SUJATA T BLAIRE Not Available Start: 10-22-2023 End: 10-22-2023 ambulatory SUJATA T RUDD Not Available Start: 10-09-2023 End: 10-09-2023 ambulatory SUJATA T RUDD Not Available Start: 08-27-2023 End: 08-27-2023 ambulatory SAMANTHA TRISTIN Not Available Start: 06-17-2023 End: 06-17-2023 ambulatory TIERRA STEPHENSON Not Available Start: 04-02-2023 End: 04-03-2023 ambulatory Wilda Buckner Facility:[facility] Start: 04-02-2023 End: 04-02-2023 Patient encounter procedure Wilda Buckner [facility] Start: 01-09-2023 End: 01-10-2023 ambulatory Wilda Buckner Facility:[facility] Start: 01-09-2023 End: 01-09-2023 Patient encounter procedure Wilda Buckner [facility] Start: 11-12-2022 End: 11-13-2022 ambulatory CASSANDRA CHAHAL Facility:[facility] Start: 10-31-2022 End: 11-01-[address] CASSANDRA CHAHAL . Facility: Start: 10-23-2022 End: 10-23-[address] CASSANDRA CHAHAL . Facility: Start: 09-24-2022 End: 09-25-2022 ambulatory Wilda Buckner Facility:[facility] Start: 09-24-2022 End: 09-24-2022 Patient encounter procedure Wilda Buckner [facility] Start: 05-03-2022 End: 08-02-2022 ambulatory Kaushal Craft Facility:[facility] Start: 12-28-2021 End: 12-28-[address] DOCTOR DUEÑAS Facility: Start: 12-27-2021 Encounter for preprocedural laboratory examination DR CASSANDRA CHAHAL . [facility] Start: 12-26-2021 End: 12-27-2021 Encounter for preprocedural laboratory examination DR CASSANDRA CHAHAL . Facility: Start: 12-26-2021 End: 12-27-[address] CASSANDRA CHAHAL . Facility: Start: 12-18-2021 End: 12-18-2021 Patient encounter procedure YELENA JAMES [facility] Procedures Date Procedure Procedure Detail Performing Clinician Start: 05-11-2024 Urine test visual color cmprsn meths Cassandra Chahal DO Work Phone: Start: 04-29-2024 Radex foot complete minimum 3 views Tierra BURTONM Work Phone: Start: 12-04-2023 Microscopic observation [Identifier] in Cervix by Cyto stain Tierra BURTONM Work Phone: Start: 06-04-2019 Esophagogastroduodenoscopy YELENA CHE Start: 04-17-2018 CHOLECYSTECTOMY LAPAROSCOPIC W/ CHOLANGIOGRAM 1 YELENA JAMES Comment on above: CHOLECYSTECTOMY LAPAROSCOPIC W/ CHOLANGI OGRAM Start: 04-25-2013 Appendectomy YELENA JAMES Plan of Treatment Date Care Activity Detail Author Start: 12-03-2026 Screening for malignant neoplasm of cervix [facility] Start: 12-13-2024 End: 12-13-2024 Patient encounter procedure 12/13/2024 9:00 AM EDT Office Visit [facility] [address] [place] [id number] Cassandra Chahal, DO [address] [place] [address] [facility] Start: 09-22-2024 End: 09-22-2024 Professional / ancillary services management 09/22/2024 8:00 AM EST Ancillary Procedure [facility] [address] [place] [id number] [facility] Start: 06-02-2024 End: 06-02-2024 Patient encounter procedure 06/02/2024 9:45 AM EST Office Visit [facility] [address] [place] [address] Tierra Stephenson DPM [address] [place] [address] Arrived [facility] Comment on above: Arrived Start: 05-11-2024 End: 05-11-2024 Patient encounter procedure 05/11/2024 9:30 AM EDT Procedure Visit [facility] [address] [place] [phone] Cassandra Chahal, DO [address] [place] [address] [facility] Start: 04-29-2024 End: 04-29-2024 Patient encounter procedure 04/29/2024 3:00 PM EDT Office Visit [facility] [address] [place] [address] Tierra Stephenson DPM [address] [place] [address] Arrived [facility] Comment on above: Arrived Start: 03-28-2024 Influenza vaccination Influenza Vacc ine (#1) [facility] Start: 2015 Screening for malignant neoplasm of cervix HPV/Cotest [facility] Biopsy endometrium Biopsy endome trium Procedures Routine Hormone disorder Ordered: 05/11/2024 [facility] Work Phone: Comment on above: Ordered: 05/11/2024 MR Ankle - left WO contrast MR ankle left wo IV contrast Imaging Routine Sprain of tarsometatarsal joint of left foot, subsequent encounter Stress reaction of bone Ordered: 04/29/2024 [facility] Work Phone: Comment on above: Ordered: 04/29/2024 Immunizations Immunization Date Immunization Notes Care Provider Fa [facility] 05-21-2022 influenza virus vaccine, unspecified formulation Wilda Buckner [facility] Comment on above: Reason for Medicatio n: Prophylaxis 05-25-2021 influenza virus vaccine, unspecified formulation; Translations: [Fluzone PF Quadrivalent ] YELENA JAMES [facility] Comment on above: Reason for Medicatio n: Other (see comment) Payers Date Payer Category Payer [facility] [id number] 2023 Unknown BCBS BCBS [id number] 2023-Present [phone] [address] [place] [address] [id number] 2023 Unknown [id number] 1985 Unknown [id number] 2.16.840.1.985964.3.579. 2.593 1985 Unknown [id number] 2.16.840.1.404410.3.579. 2.593 1985 Unknown [id number] 2.16.840.1.455047.3.579. 2.593 1985 Unknown [id number] 2.16.840.1.782717.3.579. 2.593 1985 Unknown [id number] 2.16.840.1.027722.3.579. 2.593 1985 Unknown [id number] 2.16.840.1.254184.3.579. 2.727 1985 Unknown [id number] 2.16.840.1.430083.3.579. 2.727 1985 Unknown [id number] 2.16.840.1.817644.3.579. 2.727 1985 Unknown [id number] 2.16.840.1.400631.3.579. 2.727 1985 Unknown [id number] 2.16.840.1.344129.3.579. 2.1259 1985 Unknown [id number] 2.16.840.1.973403.3.579. 2.1259 1985 Unknown [id number] 2.16.840.1.353020.3.579. 2.1259 1985 Unknown [id number] 2.16.840.1.705860.3.579. 2.1258 1985 Unknown [id number] 2.16.840.1.322295.3.579. 2.1258 1985 Unknown [id number] 2.16.840.1.942081.3.579. 2.1258 1985 Unknown [id number] 2.16.840.1.736274.3.579. 2.1258 1985 Unknown [id number] 2.16.840.1.085864.3.579. 2.1258 1985 Unknown [id number] 2.16.840.1.422861.3.579. 2.1258 1985 Unknown [id number] 2.16.840.1.131906.3.579. 2.1258 1985 Unknown [id number] 2.16.840.1.621741.3.579. 2.1258 1985 Unknown [id number] 2.16.840.1.931310.3.579. 2.9 1959 Unknown [id number] 1959 Unknown [id number] Social History Date Type Detail Facility Start: 02-22-2021 End: 05-07-2023 Tobacco smoking status Never smoked tobacco (finding) [facility] Tobacco smoking status Never [facility] Start: 05-26-2023 End: 04-29-2024 Sex Assigned At Female [facility] Start: 05-07-2023 Tobacco use and exposure [...] on 06/04/[address] Chahal at [facility]. MEDICATIONS Current Outpatient Medications Medication Instructions escitalopram [...] nursing note reviewed. Exam conducted with a establishment guide present. Vitals: Estimated body mass index is [...] reviewed, and patient is to proceed to [facility] OR. Follow Up: Patient is to follow up between 1-2 weeks post op to assess proper healing and recovery from procedure. Documented by Abida Wellington LPN on behalf of: Cassandra Tirso, DO documented in this encounter [facility] [...] current diagnosis. 2. Order was placed into [facility] for MRI left ankle. 3. Patient was instructed on scheduling once prior authorization is obtained if needed and follow-up afterward. Patient was instructed to make an appointment 3-5 days afterward to discuss the results and further treatment plan. 4. Patient was instructed on continued conservative treatment in the meantime including immobilization, NSAIDs, supportive shoe gear. 5. RTC: following MRI. documented in this encounter [facility] Clinical Note 12-28-2021 Note Date & Type Note Facility 12-28-2021 Note The [place], [place] NAME: SANDY DENNIS DATE OF : MEDICAL REC#: [id number] STAVE CUTTER: [address] [facility] TRANS[facility]MIT DATE: 12/28/2021 11:03:00 CATALYST SUPERVISOR DATE: 12/29/2021 21:00 DICTATING PHYSICIAN: CASSANDRA CHAHAL DICTATION DATE: 12/28/2021 15:00 OPERATIVE NOTE OPERATION DATE: 12/28/2021 PROCEDURE: Diagnostic laparoscopy. PREOPERATIVE DIAGNOSIS: Pelvic pain, left ovarian cyst 6 cm in nature. POSTOPERATIVE DIAGNOSIS: Pelvic pain without left ovarian cyst, however, there was a small adhesion which was easily taken down from the anterior abdominal wall that was omental in nature. SURGEON: Cassandra Chahal D.O. RESIDENTIAL CHILD CARE COUNSELOR: VITA Rondon URINE OUTPUT: Yellow and clear. [...] DR CASSANDRA CHAHAL . 01/01/2022 21:27:00 [facility] Progress note 10-16-2020 Note Date & Type Note Facility 10-16-2020 Note HNO ID: [id number] Author: Minesh Rea) Tony Service: ? Author Type: Physician Manufacturer Type: Progress Notes Filed: 10/16/2020 1:03 PM [...] NOHEMI TEST: Positive STRENGTH: 5/5 biceps, triceps, printer helper, finger abduction, WE, WF, AND EPL STABILITY: all joints stable CREPITUS: negative NEUROLOGICAL EXAM: Sensory: sensation intact to light touch axillary, radial, median, AND ulnar distributions 2-point discrimination intact throughout all digits. Motor strength: equal bilaterally with 5/5 biceps, triceps, printer helper, finger abduction, WE, WF, thumb opposition, AND [...] has been identified and corrected by editing. [facility] Evaluation + Plan note Note Date & Type Note Facility Evaluation + Plan note No data available for this section [facility] Evaluation note Note Date & Type Note Facility Evaluation note Diagnosis Sprain of tarsometatarsal joint of left foot, subsequent encounter- Primary Stress reaction of bone Stress fracture of other bone Left foot pain Pain in soft tissues of limb documented in this encounter [facility] Healthcare Evaluation note Note Date & Type Note Facility Evaluation note Diagnosis Pre-op examination Request for sterilization Menorrhagia with regular cycle Abnormal uterine bleeding (AUB) Pelvic pain in female Unspecified symptom associated with female genital organs Hormone disorder Unspecified endocrine disorder documented in this encounter [facility] Hospital Discharge instructions Note Date & Type Note Facility Hospital Discharge instructions No data available for this section [facility] Progress note Note Date & Type Note Facility Progress note No data available for this section [facility] [place] Summary Purpose Family History No Family History [...] ankle left wo IV contrast Tierra Stephenson, DPM [address] [place] [address] Referral ID Status Reason Start Date Expiration Date V isits Requested Visits Authorized [id number] Pending Review 04/29/2024 10/26/2024 1 1 Additional Source Comments INFORMATION SOURCE (unrecogn ized section and content) DATE CREATED AUTHOR 08/26/2021 [facility] DATE CREATED AUTHOR AUTHOR'S ORGANIZ ATION 11/09/2022 [facility] DATE CREATED AUTHOR AUTHOR'S ORGANIZ ATION 11/14/2022 [facility] DATE CREATED AUTHOR AUTHOR'S ORGANIZ ATION 04/03/2023 Slick Mejia [facility] DATE CREATED AUTHOR AUTHOR'S ORGANIZ ATION 06/04/2024 [facility] EPIC Patient Care team informatio n (unrecognized section and content) Mortician Helper Relationship Specialty Start Date End Date Unallocated, Antionette Morales MD [facility] [place] [address] PCP - General 05/07/23 Mortician Helper Relationship Specialty Start Date End Date Unallocated, Antionette Morales MD [facility] [place] [address] PCP - General 05/07/23 Mortician Helper Relationship Specialty Start Date End Date Unallocated, Antionette Morales MD [address] [place] [address] [place] [address] PCP - General 05/07/23 Mortician Helper Relationship Specialty Start Date End Date Unallocated, Antionette Morales MD [address] [place] [address] [place] [address] PCP - General 05/07/23 Reason for Visit [...] BE BASED ON THE PRIMARY CLINICAL RECORDS. [facility] provides no warranty or guarantee of the accuracy or completeness of information in this document.
[2024-06-04 11:00] LABS: HCG Quantitative <1 mIU/mL
[2024-06-04] MEDS: LACTATED RINGER'S SOLUTION 1,000 ML 50 ML IV ×2 (11:00→14:42)
--- NOTE | 2024-06-04 14:42 | PM.ONB ---
Brief Operative Note Date of procedure: 06/04/24 Pre-op diagnosis general: menorrhagia, desires permanent sterilization Post-op diagnosis: same as pre-op Procedure: NAME OF PROCEDURE: robotic assisted Laparoscopic bilateral salpingectomy, with Merly endometrial ablation with hysteroscopy PROCEDURE: The patient was taken back to the OR where she was prepped and draped in the normal sterile fashion after being placed in the dorsal lithotomy position, after being placed under general anesthesia without difficulty. a weighted speculum was then placed into the vagina. Pap and endometrial bx were performed without difficultyThe anterior lip was grasped with a single tooth tenaculum. The patient was then sounded to approximatley 9cm. The patient was gently sounded using Hegar dilators and the hysteroscope was passed through the cervix into the uterus where both ostia were seen. No gross evidence of polyps, fibroids or malignancy. The cervical length was noted to be 4cm. The Merly ablation apparatus was set to approximately 5cm in length. This was placed in through the cervix and into the uterus. After the seal was tested, at that time the total ablation of 120 seconds was performed with the Merly without difficulty. All instruments were removed from the vagina. A wet sponge stick was placed into the patient's vagina. Attention was then turned to the patient's abdomen, where a scalpel was used to make a small infraumbilical incision. The S retractors were then used to dissect the underlying layers until the fascia could be seen. The fascia was then grasped with Jovanni clamps and tented up. A knife was then used to make a small incision to the fascia. The muscle was identified, at that time two sutures of #0 Vicryl on a GI needlewas then used and placed through the fascia. The peritoneum was then identified and entered bluntly. The 10-4 Catracho was then placed into the patient's abdomen. This was confirmed with direct visualization of the bowel, using the laparoscope. The patient's abdomen was then insufflated using approximately 4 liters of CO2 gas. Survey of the patient's abdomen demonstrated normal appearing ovaries, uterus and tubes. A second and third lateral robotic ports, which was 8mm in size, was then placed laterally after incision was made in the skin under direct visualization. the robotic arms were engaged. The patient's tube on the patient's right side was identified. The tube was then tented up using a grasper. The ligasure was used to transect and coagulate the mesosalpingx from the fimbriated end to the insertion at the uterus, the tube was amputated and removed in its entirety.? Excellent hemostasis was noted. ?This was performed on the contralateral sideas well. The lateral ports were then moved under direct visualization with excellent hemostasis. The abdomen was deinsufflated. All instruments were removed from the patient's abdomen. The fascia was closed using the #0 Vicryl on GI needle. The skin was closed using 4-0 Vicryl subcuticularly. All instruments were removed from the patient's vagina as well. The patient was taken out of the dorsal lithotomy position and placed in the supine position and taken to recovery in stable condition. Sponge, lap and needle counts were correct x2. ??? Anesthesia: AMADOR Surgeon: Vikram Chahal Real Estate Rep: Alla Toribio Estimated blood loss (mL): 5 Pathology: other (tubes) Condition: stable Disposition: PACU Urinary Catheter Management Urinary Catheter Management Urethral: Cath placed during this visit: no
[2024-06-04] MEDS: HYDROMORPHONE HCL 0.5 MG/0.5 ML SYRINGE IV (15:12)
[2024-06-04] MEDS: HYDROCODONE/ACET 5-325 MG TABLET 1 TAB PO (15:27)
--- NOTE | 2024-06-04 16:48 | PC.NURSE ---
1645: pt reports pain pill is starting to work pt states that they have to void but is refusing to ambulate and wants to wait.
[2024-06-04] MEDS: PROMETHAZINE HCL 25 MG TABLET PO (17:22)
--- NOTE | 2024-06-04 17:27 | PC.NURSE ---
1722: pt states they are nauseated after ambulating to bathroom,pt able to void. PRN PO Phergan given.
== END 2024-06-04 17:54 | disposition home or self-care (01) ==
PROVIDERS: Visit Provider Obstetrics & Gynecology
PROC: (CPT 840; principal; 2024-06-04 12:00)
PROC: (CPT 840; 2024-06-04 12:00)
DX: Z30.2 Encounter for sterilization (principal); N92.0 Excessive and frequent menstruation with regular cycle; N93.9 Abnormal uterine and vaginal bleeding, unspecified; R10.2 Pelvic and perineal pain; N83.8 Other noninflammatory disorders of ovary, fallopian tube and broad ligament; Z90.49 Acquired absence of other specified parts of digestive tract
CPT/HCPCS: 58563; 58661; 36415; 84702; 85025; 88302; J1100; J1171; J1885; J2250; J2405; J2704; J3010; Q0169

== ENCOUNTER 2024-12-15 13:54 | Outpatient (OUT) | payer BC, SELFPAY ==
--- NOTE | 2024-12-15 | MM_ITS ---
Patient Name: SANDY CARDOZO MR#: [id number] : 1985 Exam Date: 12/15/2024 Ordering Doctor: DR CASSANDRA BHAT . RADIOLOGY REPORT PROCEDURE: MM TOMOSYNTHESIS SCREENING BI COMPARISON: MM TOMOSYNTHESIS SCREENING BI, 12/15/2023. MG MAMM DIAGNOSTIC 3D YARITZA CAD, 10/31/2022. INDICATIONS: Screening Calculator Name NCI Breast Cancer Risk Assessment Tool 5 Year Breast Cancer Risk 0.60% Lifetime Breast Cancer Risk 11.10% Personal Breast Cancer No Personal Ovarian Cancer No Treatments None Family Cancers Aunt-paternal with breast cancer at age 48. LOCATION: [facility] BREAST COMPOSITION: There are scattered areas of fibroglandular density. FINDINGS: RIGHT BREAST: No significant suspicious finding. Benign-appearing lymph nodes are noted along the right chest. LEFT BREAST: No significant suspicious finding. Benign-appearing lymph nodes are noted along the left chest wall. There is a similar focal asymmetry. DIAGNOSTIC CATEGORY 2--BENIGN FINDING. NO CHANGE FROM COMPARISON. RECOMMENDATIONS: ROUTINE MAMMOGRAM AND CLINICAL EVALUATION IN 12 MONTHS. PLEASE NOTE: A NORMAL MAMMOGRAM DOES NOT EXCLUDE THE POSSIBILITY OF BREAST CANCER. A CLINICALLY SUSPICIOUS PALPABLE LUMP SHOULD BE BIOPSIED. Dictated by: Cj Salomon MD on 12/15/2024 at 16:29 Approved by: Cj Salomon MD on 12/15/2024 at 16:33
--- OUTSIDE RECORDS SUMMARY | 2024-12-15 14:04 | XMS_ITS | CCD ---
Author Organization [facility] Care Team Providers Care End Finder Forming Department Name Role Phone Wilda Buckner Primary Care Physician [phone] TIRSO ., DR TRUJILLO Admitting Unavailable TIRSO ., DR TRUJILLO Consulting Unavailable MISC, DR NEGRON Primary Care Unavailable TIRSO ., DR TRUJILLO Attending Unavailable ZIEBER, DR KENNY Floyd Consulting Unavailable TIRSO ., DR TRUJILLO Admitting Unavailable TIRSO ., DR TRUJILLO Consulting Unavailable MISC, DR NEGRON Primary Care Unavailable TIRSO ., DR TRUJILLO Attending Unavailable MISC, DR NEGRON Primary Care Unavailable TIRSO ., DR TRUJILLO Consulting Unavailable TIRSO ., DR TRUJILLO Attending Unavailable TIRSO ., DR TRUJILLO Admitting Unavailable AGUBOSIM, NURIS Consulting Unavailable LONG, JON Consulting Unavailable JONATAN, MARK Consulting Unavailable TIRSO ., DR TRUJILLO Consulting Unavailable MISC, DR NEGRON Primary Care Unavailable TIRSO ., DR TRUJILLO Attending Unavailable TIRSO ., DR TRUJILLO Admitting Unavailable ZIEBER, DR KENNY Floyd Consulting Unavailable TIRSO ., DR TRUJILLO Consulting Unavailable MISC, DR NEGRON Primary Care Unavailable TIRSO ., DR TRUJILLO Attending Unavailable TIRSO ., DR TRUJILLO Admitting Unavailable TIRSOVIKRAM R Attending Unavailable Buckner, Wilda L Admitting Unavailable Buckner, Wilda L Attending Unavailable Kaushal Craft Attending Unavailable Buckner, Wilda L Admitting Unavailable Buckner, Wilda L Attending Unavailable Buckner, Wilda L Admitting Unavailable Buckner, Wilda L Attending Unavailable Unallocated , Justines Provider Primary Care Provi mirna Unallocated , Justines Provider Primary Care Provi mirna Marco Antonio Weaver DO Unavailable LORENA WILDER Referring Unavailable ARTUR, LORENA Carrillo Attending Unavailable LORENA WILDER Referring Unavailable SUSAN CROW Attending Unavailable RUDD, SUJATA Gibbons Referring Unavailable RUDD, SUJATA Gibbons Attending Unavailable RUDD, SUJATA Gibbons Referring Unavailable RUDD, SUJATA Gibbons Attending Unavailable TIRSO, VIKRAM Attending Unavailable LOWELL, SUSAN Attending Unavailable STEPHENSON, TIERRA H Attending Unavailable TIRSO, VIKRAM Attending Unavailable STEPHENSON, TIERRA H Referring Unavailable STEPHENSON, TIERRA H Attending Unavailable LOWELLSUSAN Attending Unavailable STEPHENSON, TIERRA H Attending Unavailable ELDER, DASHA Attending Unavailable STEPHENSON, TIERRA H Referring Unavailable BRINK, SARAY Attending Unavailable STEPHENSON, TIERRA H Referring Unavailable BRINK, SARAY Attending Unavailable STEPHENSON, TIERRA H Referring Unavailable ELDER, DASHA Attending Unavailable STEPHENSON, TIERRA H Referring Unavailable BRINK, SARAY Attending Unavailable STEPHENSON, TIERRA H Referring Unavailable REINIER, JOE Attending Unavailable STEPHENSON, TIERRA H Referring Unavailable RENIIER, JOE Attending Unavailable STEPHENSON, TIERRA H Referring Unavailable REINIER, JOE Attending Unavailable STEPHENSON, TIERRA H Referring Unavailable REINIER, JOE Attending Unavailable STEPHENSON, TIERRA H Referring Unavailable BRINK, SARAY Attending Unavailable STEPHENSON, TIERRA H Referring Unavailable ELDER, DASHA Attending Unavailable STEPHENSON, TIERRA H Referring Unavailable Allergies Allergy Classification Reported Allergen(s) Allergy Type Date of Onset Reaction(s) Facility (20 sources) Ciprofloxacin; Translations: [ciprofloxacin] Drug Allergy 3 Tenalgia (finding), Rash [facility] (1 source) Ciprofloxacin Drug Allergy 7 [facility] Repository Medications Current Medications Medication Drug Class(es) Dates Sig (Normalized) Sig (Original) ibuprofen 800 mg oral tablet (2 sources) Nonsteroidal Anti-inflammatory Drug Start: 06-04-2024 take 1 tablet by mouth every eight hours ibuprofen 800 MG tablet Take 800 mg by mouth every 8 (eight) hours 06/04/2024 Active Completed/Discontinued Medications Medication Drug Class(es) Dates Sig (Normalized) Sig (Original) escitalopram 20 mg oral tablet (20 sources) Serotonin Reuptake Inhibitor Start: 01-06-2024 End: 08-18-2024 take 1 tablet by mouth once daily escitalopram (Lexapro) 20 MG tablet Take 20 mg by mouth Daily 01/06/2024 08/18/2024 Discontinued (Therapy completed) Problems Active Problems Problem Classification Problem Date [...] [ENC SCREENING HUMAN PAPILLOMAVIRUS] Onset: 10-25-2022 Episodic Joint disorders and dislocations; trauma-related (15 sources) Cuboid syndrome; Translations: [Subluxation of tarsal joint of unspecified foot, subsequent encounter] 07-05-2024 Episodic Menstrual disorders (1 source) Menorrhagia; Translations: [Excessive and frequent menstruation with regular cycle] 05-11-2024 Chronic Nonmalignant breast conditions (5 sources) Mastodynia; Translations: [Unspecified lump in the right breast, upper outer quadrant] Onset: 10-31-2022 Episodic Other aftercare (2 sources) Surgical follow-up; Translations: [Encounter for follow-up examination after completed treatment for conditions other than malignant neoplasm] 06-09-2024 Episodic Other connective tissue disease (6 sources) Pain in left foot; Translations: [Pain in left foot] 04-29-2024 Episodic Other connective tissue disease (17 sources) Peroneal tendinitis of left lower limb; Translations: [Peroneal tendinitis, left leg] 06-04-2024 Episodic Other connective tissue disease (2 sources) Rupture of tendon of lower limb 07-05-2024 Episodic Other connective tissue disease (2 sources) Rotator cuff impingement syndrome; Translations: [Impingement syndrome of right shoulder] 08-18-2024 Episodic Other endocrine disorders (3 sources) Disorder of endocrine system; Translations: [Endocrine disorder, unspecified] 05-11-2024 Episodic Other female genital disorders (1 source) Abnormal uterine bleeding; Translations: [Abnormal uterine and vaginal bleeding, unspecified] 05-11-2024 Chronic Other female genital disorders (2 sources) Pain in female genitalia on intercourse; Translations: [Unspecified dyspareunia] 03-16-2024 Chronic Other fractures (2 sources) Disorder of bone; Translations: [Stress fracture, unspecified site, initial encounter for fracture] 04-29-2024 Episodic Other non-traumatic joint disorders (2 sources) Pain in right shoulder; Translations: [Pain in joint, shoulder region] 08-18-2024 Episodic Other nutritional; endocrine; and metabolic disorders [...] side] Onset: 12-27-2021 Episodic Sprains and strains (17 sources) Sprain of ligament of tarsometatarsal joint; Translations: [Sprain of tarsometatarsal ligament of left foot, subsequent encounter] 04-29-2024 Episodic Viral infection (1 source) COVID-19; Translations: [COVID-19] Onset: 01-23-2022 Past or Other Problems Problem Classification Problem Date Documented Da te Episodic/Chronic Other female genital disorders (2 sources) Ovarian pain; Translations: [Other specified conditions associated with female genital organs and menstrual cycle] 03-16-2024 Episodic Other gastrointestinal disorders (1 source) Peritoneal adhesions (postprocedural) (postinfection); Translations: [PERITONEAL ADHES POSTPROC POSTINF] Onset: 01-23-2022 Episodic Residual codes; unclassified (1 source) Acquired absence of other specified parts of digestive tract; Translations: [ACQ ABSENCE OTH PART DIGESTV TRACT] Onset: 01-23-2022 Episodic Residual codes; unclassified (2 sources) Menopause present; Translations: [Asymptomatic menopausal state] 03-16-2024 Episodic Results Test Name Value Interpretation Reference Range Facility XR Shoulder - right 2 Viewso n 08-18-2024 Imaging Result: Grashey and scapular Y-view of the right shoulder taken in the office today demonstrating no evidence of acute fracture bony tumor no proximal migration of the humeral head in relation to the glenoid no significant OA of the GH joint. Early arthritic findings of the AC joint with no significant spurring. Counts include 234 beds at the [facility] Radiology Study observation (narrative) [facility] ALL CBC WITH AUTO DIFFon BASOPHILS ABSOLUTE AUTO 0 [facility] Basophils/100 WBC (Bld) 0.5 % 0.2 - 2.0 % [facility] Eosinophils/100 WBC (Bld) 0.8 % Low 0.9 - 7.0 % [facility] Erythrocyte distribution width (RBC) [Ratio] 13.1 % 11.0 - 15.0 % [facility] Hematocrit (Bld) [Volume fraction] 42.5 % 36.0 - 48.0 % [facility] Hemoglobin (Bld) [Mass/Vol] 14.2 g/dL 12.0 - 16.0 g/dL [facility] IMMATURE GRANULOCYTES ABS AUTO 0.02 [facility] Immature granulocytes/100 WBC (Bld) 0.3 % 0.0 - 0.5 % [facility] Interpretation and review of laboratory results Abnormal [facility] LYMPHOCYTES ABSOLUTE AUTO 2.5 [facility] Lymphocytes/100 WBC (Bld) 31.4 % 20.5 - 60.0 % [facility] MCH (RBC) [Entitic mass] 28.1 pg 26.7 - 34.0 pg [facility] MCHC (RBC) [Mass/Vol] 33.4 g/dL 29.9 - 35.2 g/dL [facility] MCV (RBC) [Entitic vol] 84.2 fL 81.0 - 99.0 fL [facility] MONOCYTES ABSOLUTE AUTO 0.7 [facility] Monocytes/100 WBC (Bld) 8.7 % 1.7 - 12.0 % [facility] NEUTROPHILS ABSOLUTE AUTO 4.6 [facility] Neutrophils/100 WBC (Bld) 58.3 % 43.0 - 75.0 % [facility] Platelet mean volume (Bld) [Entitic vol] 8.8 fL Low 9.5 - 13.5 fL [facility] TBH EO # 0.1 [facility] PLT 306 [facility] RBC 5.05 [facility] WBC 7.9 [facility] HCG ( test) Ql (U)o n 05-11-2024 Interpretation and review of laboratory results Normal [facility] Preg Test, Ur Negative Counts include 234 beds at the [facility] MR ANKLE LEFT WO IV CONTRAST on [...] formation. There are no structural deformities noted Counts include 234 beds at the [facility] Radiology Study observation (narrative) [facility] MLR HEMOGLOBIN A1Con 024 Glucose [Mass/Vol] 100 mg/dL [facility] HbA1c (Bld) [Mass fraction] 5.1 % 4.5 - 6.2 % [facility] Comment on above: ADA RECOMMENDED LIMI T 4.0 - 6.0 ADA THERAPEUTIC TARGET < 7.0 ACTION SUGGESTED > 7.0 [facility] MR KNEE RIGHT WO IV CONTRAST on [...] for Treatmenton Consent for Treatment [id number] #1.00CD:127 Normal [facility] Physician Orderon 04-02-2023 Physician Order [id number] 0#1.00CD:127 Normal [facility] XR Foot 3+ Views Lefton XR Foot [...] mGy = na DAP = na Normal [facility] XR Wrist 3+ Views Lefton XR Wrist [...] mGy = . DAP = . Normal [facility] XR Wrist 3+ Views Righton XR Wrist [...] mGy = . DAP = . Normal [facility] Consent for Treatmenton 12-26 Consent for Treatment [id number] #1.00CD:127 Normal [facility] Physician Orderon 01-09-2023 Physician Order [id number] 5#1.00CD:127 Normal [facility] SURGICAL PATH REPORTon 11-14 SURGICAL PATH REPORT [facility] Department of Pathology [address] [place] [id number] Name: TRACIE DENNIS : 1985 [facility] [id number] Number: Gender Female [facility] : n: Admit 37 years Attending VIKRAM CHAHAL Age: Provider: Ordering VIKRAM CHAHAL Provider: Consulti Surgical Pathology Report ng: ACCESSION: COLLECTED DATE/TIME: RECEIVED DATE/TIME: PATHOLOGIST: [id number] 11/12/2022 16:30 EDT 11/13/2022 13:47 EDT DEJUAN RODRIGUEZ MD Final Diagnosis Report for THE [place], [place] ENDOMETRIAL BIOPSY: - PROLIFERATIVE ENDOMETRIUM. DEJUAN [...] ald 11/13/2022 Tissue pathology report for: [facility], [address] [place] [id number]; ____ Print 11/14/2022 14:01 EDT Number: Date/Time: [facility] Department of Pathology [address] [place], [place] [id number] Name: TRACIE DENNIS : 1985 [facility] [id number] Number: Gender Female Locatio FRANCIS[facility] : n: Admit 37 years Attending VIKRAM CHAHAL Age: Provider: Ordering VIKRAM CHAHAL Provider: Consulti Surgical Pathology Report ng: ACCESSION: COLLECTED DATE/TIME: RECEIVED DATE/TIME: PATHOLOGIST: [id number] 11/12/2022 16:30 EDT 11/13/2022 13:47 EDT MICHAEL ZAVALA, DEJUAN Gross Description PATHOLOGY SERVICES PROVIDED BY [employer] [facility] (CLIA #[id number]) in cooperation with [facility] at [address] [place] [address] (CLIA #[id number]) Microscopic Diagnosis The final diagnosis is based on a microscopic exam of physician relations representative sections. Codes CPT CODE: 77335 ____ Print 11/14/2022 14:01 EDT Number: Date/Time: Normal [facility] Comment on above: Performed By: #### [id number] #### [facility] Laboratory Services [address] [place] [address] Sound Engineering Technician: Dejuan Rodriguez MD [facility] 3D YARITZA CA Don 10-31-2022 [facility] 3D YARITZA CAD Patient: TRACIE DENNIS. Exam Date: 10/31/2022 : 1985 Gender:F Ordering : DR VIKRAM CHAHAL . Admission #: [id number] Family : Order #: [id number] CLICK HERE TO VIEW EXAM RADIOLOGY REPORT [...] breast cancer at age 48. LOCATION: [facility] BREAST COMPOSITION: Heterogeneously dense,which may obscure [...] PALPABLE LUMP SHOULD BE BIOPSIED. Dictated by: Kenny Carson M.D. on 10/31/2022 at 11:11 Approved by: Kenny Carson M.D. on 10/31/2022 at 11:12 Normal [facility] US BREAST YARITZA LIMITEDon 04-0 US BREAST YARITZA LIMITED Patient: TRACIE DENNIS Exam Date: 10/31/2022 : 1985 Gender:F Ordering : DR VIKRAM CHAHAL . Admission #: [id number] Family : Order #: [id number] CLICK HERE TO VIEW EXAM RADIOLOGY REPORT [...] breast cancer at age 48. LOCATION: [facility] BREAST COMPOSITION: Heterogeneously dense,which may obscure [...] PALPABLE LUMP SHOULD BE BIOPSIED. Dictated by: Kenny Carson M.D. on 10/31/2022 at 11:11 Approved by: Kenny Carson M.D. on 10/31/2022 at 11:12 Normal [facility] US PELVIS AND TRANSVAGon US PELVIS [...] of doubtful clinical significance. Electronically authenticated by: KENNY CARSON Date: 2022-10-31 09:[address] [facility] PAP ACOG PANEL 2: 30 to 65on 10-30-[address] [facility] Comment on above: Result Comment: Perf ormed at: WB Performed By: #### [id number] #### [facility] [address] [address] [address] Edwina Vicente Age Gdln ACOG Testing 30-[address] [facility] Comment on above: Performed By: #### [id number] #### [facility] [address] [address] [address] Edwina Vicente DIAGNOSIS: Comment Normal [facility] Comment on above: Result Comment: NEGA TIVE FOR INTRAEPITHELIAL LESION OR MALIGNANCY. Performed at: WB Performed By: #### [id number] #### [facility] [address] [place] [address] Dr. Edwina Vicente HPV Aptima Negative Normal Negative [facility] Comment on above: Result Comment: This nucleic acid amplification test detects fourteen high-risk HPV types (16,18,31,33,35,39,45,51,52,56,58,59,66,68) without differentiation. Performed at: =G Performed By: #### 4 [id number] #### [facility] [address] [address] [address] Edwina Vicente HPV Genotype Reflex Comment Normal [facility] Comment on above: Result Comment: Crit eria not met, HPV Genotype not performed. Performed at: WB Performed By: #### [id number] #### [facility] [address] [place] [address] Dr. Edwina Vicente Methodology: CTIM [facility] Comment on above: Result Comment: The Thin Prep(R) Smt Technician was unable to read this specimen. Therefore a manual review was performed. Performed at: WB Performed By: #### [id number] #### [facility] [address] [place] [address] Dr. Edwina Vicente Note: Comment Normal [facility] Comment on above: Result Comment: The Pap smear is a screening test designed to aid in the detection of premalignant and malignant conditions of the uterine cervix. It is not a diagnostic procedure and should not be used as the sole means of detecting cervical cancer. Both false-positive and false-negative reports do occur. . Performed at: WB Performed By: #### [id number] #### [facility] [address] [place] [address] Dr. Edwina Vicente Performed by: Comment Normal [facility] Comment on above: Result Comment: Bo Rao, Heavy Equipment Service Technician (ASCP) Performed at: WB Performed By: #### [id number] #### [facility] [address] [place] [address] Dr. Edwina Vicente Specimen adequacy: Comment Normal [facility] Comment on above: Result Comment: Sati sfactory for evaluation. Endocervical and/or squamous metaplastic cells (endocervical component) are present. Performed at: WB Performed By: #### 4 [id number] #### [facility] [address] [place] [address] Dr. Edwina Vicente Coding Summary.on 09-30-2022 Coding Summary. CD:[id number] Gh0bWw+PGhlYWQ+PE1FV LQrZ87vdRGwiM1NT3uXG X3KIXZTQUVJPM6WDA1lk YP1KBprK6YmlxBa WuonqBWsVK89UQa0OJT9 xAglJCdnxG0paVUvR6k2 SgPtQG79zW01MUtbMPEp EwG9VlAelhxwlTRn M8ckFwRhvNEiDly+PHRh YmxlIHdpZHRoPScxMDAl YkHxrKztYR9fDl2oLCDr LWNvbGxhcHNlOiBj o6ieFYCxTAmoHZ9mqLmk E5LosXN1QFEav5w0Cm24 dHI+TTNzVEA4qAinUOku b317XnKro7boKFT3 zZJuQCctEOA7Y02xy6A2 VAOgZIMoNZJ4mRU1vJ9b bWilvpbvS9NxyVSgTbV1 UQG2sICltE4amUcm zsfufF2iAyn+Y66YBX2T VRRBLQ2EFkd2G7ThDghy dHI+QS44ICHqYA15vRPi oAMcg6hupWs3WyMn SRLwZUY9tZonXKage8Kt QUFbK30rnGTux9X3TPMw jUcxlHPsDuNdxTN1vV5i NYxsxlsdz2zhaywi Xvmtt7hrqd37yG33B50f HMibTVRgJGW9NDFkNWFn mLvigb2gdB5yMs6+IDxj v3gwt5oqjJv2WmUx BPExkfIlyGotNKH7c8Qg Yq79O5WgaGyii3GmEkg5 ja95vRJdn2Z3kPU9VNib OCHrcT7jOVffHxT6 JMAtVoWbjF92gLWhCAte Jh2lmUusrJubBS1lPGEw btbzNCJlmN1hKLQuqFWe oXztCQ6cPCMkcvbg k939FkEoABM6AXRwtLLu L2CsnE1kToRhZKZcRXJg N2RnaRSdLLdcQ312WOfb RgR2GJTfzcFlO7Kt HUEnfZttQvH8s8K1Rg1P z6WlhresXJK3QUpgPSIs FxQ1ArApEkA9W1RjBax2 DPBmdVqzRW3lU0Rj OLWfdvysgteukCP6HWIu UVYfpN16zXEsPHtsQa4j h6D9w034ZCIcITXyzL76 Be6muWbqCOKuzYYH nJ7okyogd8yvqfgbGnKa BGLrPWr3YLa9OHBubMyj TgDaAEK9IeG6WAD0pBWf iI0orZuooglnmY4n Oyc+X72biW7dIUD3CNV4 idasGGFykbOhUO38UY67 V4ExOdcooRQjhFK+PGRp ymPjhZtyXO5mJrNn n4ufi8KfHUqwL7AmXNSo HBzeZmu0ETZaQMB0pOU7 lE1dWFVeDFvjm5O3qSP5 Y2MjbnJdmq6ls0nt HKUlJDivP96ltAFfx5A8 KYUudMB7MTDeaHfvYqDc tZ68Kas+NGRnqEiil3Mq Bodup4eos4chqSy5 IjMwJSIgdmFsaWduPSJ0 w2RbOe06F92kQCjpGDHy MLGsBKVlPMKpuSuxnq3n pB9kKm9+PGNvbCB3 pQB6iL4jZBAyTyQ9HRsi A729KyMgrGHjOigqj9la u1suaOs1AsYqYKSwhgUq uGvvGXF1p6OgIu68 Z55nNXsdRGGdBJJjKMOs OOGbnBhsbo7ooN8fUq0+ MT6ie5ddeh01lY99xDB+ ZWIwRJD0eIfmYNkr ASPqwK9lSPpnBnM1YNLj AuNmdR75sPAcPOqnHk1r mUgkxHshEN7qBLJnjecx a565RqDjp1twTWAq tFSzYRbcACS1P83bg4C8 JPVvYAKpZPA8iCL8tX7x bGlnbjogbGVmdDsgdmVy eQvmILqgUKkcY481 IHRvcDsnPlBhdGllbnQg JeEbFFy2A5VkByr4LJCy zLafSR8bxNLlYJztMw6s vVudeYdzFM3nIOFp eldia237RzUne0zfENTe rMIwNShqWCM8R92pb4K8 SJVvAPDtXFP8sES8eV1o bGlnbjogbGVmdDsg qrAfkDtzKYewVQnbE584 IHRvcDsnPkJpcnRoIERh mFY0NK45NS39sFQpo0V7 yEH3V4AkXNZvamao meurdQZ6DZRfRANcnF05 Rp5ijMycVq0jCEBrLKO1 HPEghKUoK4CqxX9yFpXi XJXtXJMcJ7YgmZCg ZUnyB062DEeoErO9ZVVg emJkW9EfBYZpvPjnDmJ0 b7R7Dp7OX2X5VE03NU99 eYSwt9D4jGV2Q8Bq JQPaabdtyisvtHN0NFTf EAEtcA48Zq4zsEblHp0a WQYkCAY4CBJczCVgS5Al dI7eNeApEWRqIAEv B3VztKBuCCxuT694TOph IoR1EMWofoVqM5AnYFMi yEgxVlK3v6J3Pf2KAEd4 FZ47TE08dCMwf5U6 lJU5R7XfPYQvgwnsomlk mKI9ZNNmUDLjjP97Gm6t jQkiGk2eCFSrYOG6KNOe rEElC7MmfA4bSvAe KWAfOVRpV4RnnOZnAUih G365ISznJtF0PSGmkuYt E5ErMVCzrDbpXxH1r9F9 Ld1XSZUrDZ90UOR6 gNN0LD81CY96Z7AhAxaj dGFibGU+PHRhYmxlIHdp ZHRoPScxMDAlJyBzdHls XA3nFm2hLILnPDYc jCxphWWnUjWaw5olXXQq SUsnFW1tmLsjR0QttZZ9 ZDDvd1z9Hu62C16eQ7Pf dXA+NRGfvNX4gCS3 zV2tYvUbWhT9SLwoB820 ZsRfiBCkQhndw8hlq5gv jHx0IuQ1CHXhvzHkjHha WZF1w7IsCx83S66k IHdpZHRoPSIxNSUiIHZh vUcucu8zcU8uBe3+PGNv iRU2iAC6uB9mVtWeUcY3 JZndD132UzSfiAGv Khhwx4evb7qosJb9MjPm SOVtwvBojOxtWKQ9g9Mp Sw24Q1DkoPmei1DdIlw0 sk04xJKxz4O3sHD5 F9WnCBLmfbypdKQbqWys LV3mBXYupmzpSIDkaP9l RZLhG0d5HvQzHvV0HWdh M1YlhaW1VDQttBNf ULlqDSZ0R09qf6D1TICt RYLoQHR6oHZ6jU4swOmx bjogbGVmdDsgdmVydGlj FBhqKPlqH169EUSk sArhWHYwgQ0tRWSucTFx bHmbMW2sGAKhtktmFpRR RVBPVEUsIFRSSVNIQSBK IY13KJ42yXUlv7H2 gEA3L8QcEARoszbhwgyz tJY6YFCwMZRvxH86oYWv JPelQf3qt4B9t846WWKm DKGluW16Ev9ffSuq RFHbpQGTmA2ujmboa4cr zrzcOkUpHXTdRPz0ZUr1 KUUezRyhJoZoYTQ3OvY0 VWG6eIPtuG4mxYss ucnbdK5zMvc+MDgvMTAv OAy5OQtweHD+PHRkIHN0 mIyjWZtpWHXbwU6uRISi F6p8PtHkCkL6GCcm R8KxDMWmcevuIm71bR1v EgZfFbO6YGwnT7PscjW7 NILfnGUgPDafRAK3B73e e0X3AIZvDDCkBPD1 jMO3kJ2ikClcbzgmaUOi dDsgdmVydGljYWwtYWxp S550DSHcwKqvOmF1ISaq DYLnWF37DQ33vRWd x5X8kMC5S9VyVBRqdsfr hppmiMR7MNFeSJZyuQ77 fOGfLPmoNf0iq7I7h775 XPSrNYQqhF48Mq7w gTrjPMRwqHAZvM1uomsx c1odgjumYaNbTQAwFDr9 WTb3AQEjhGitGgDkOWV5 BlM5MSI1qJDviX7c yLseubauhL9rAff+RmVt INeqCA88MV87jYSpp8H8 iMD2Z2LyGUDxoknkgkls oMT1VNEaMBLtoF66 pPZnQUnrRa7lm1A0b504 NIVvCGXwaD67Rq1jmGys ORPvmGYZaT1tkdwcz8lf cjogIzAwMDAwMDt0 QZy9KEXnhUaiXjLpUWR4 EcN9FVX6uQVsfL7fkPpx cjwxlN7mVko+F2Q7fSN4 aWVudDwvdGQ+PC90 ft03B0SrDpvwAhu0TGAp VYD7dCH5sC9kWUKgMItx v9B5rQR6K4InrtVkzh5x p3jkMMQuHBpuW35v jKNvb3J0FGSovWJ1YWWm rLnfKjNijZ87Wic+PGNv dJrlb7XlVoejw7wfb3zf sVm5UhVyWXXpqlSg sShoNNX8j5LpCg43E59b IHdpZHRoPSIzMCUiIHZh jApecs3veZ9eKp1+PGNv kOF7wCP5uV2lEtSu EgF1MWcdF587TvWybOIb Cjzfi5wfk6bfkGw0VpXj FXPvyqHpfJmfRNY0d3Co Am05G8UrhFggc2Jk Qoe2to05fFXqn1I6mTK2 M3KnSBLleewzrIVvxTfi HU7bFILfbumaIXVtfH1d WGCdH7o5CaUrLmJ5 XMwyN3RclaC1LSZxyMJa HNBmkAJApI0lsoypq8qa gcixHtQhEWFvZFl7ZQo4 LWFsaWduOiBsZWZ0 YsL8MGW1wNBcpJ5ymFdx hvloeT1aWhb+SPw7s0kr gSRgXR9psPF1WP14NN23 vIIrm7D9tDL3G4Ut HUDkcketjrgwoMV4KCOw QNGqnV21Gb0mdHpqHu1s BSGgFKG4OREbcXExM2Bp kS4tKjLeCRYwRQZe D7LidWJfOUkrR123ZTsy MqN1ZGIbegNbR3JqYNIi xXlzVbH9z5K9Ze2CCJ10 SN34PD46rDVqi2W6 vKV4A0VkTFYklrocgapw cQI1IQCjHJFhzJ93Hx0l kLqcId0jSFZyMCG7OVKj qAYqW3PndZ9yPhJz MPJfEJDzC5RwlHZfSQvl M213EIngIdP7AKYywcEa A0WfBUZkwChgHuQ5y0X8 Yb6FRw02RW85KT87 nKJyr3J2xLA3N2BhQWSp vdvracgauJV4NFHzLQTl yW12Kj3ndHqyEv6vLTRj KDG1RNCuqCZdX4Ur yV0vUeGbMRFwNFHhV6Df gKEdFUxpG849YPcxDtO0 VOGvwlTkS9UiPXVujEuj PsE6l8R8Zo7NDRgr gqp0A6OtTxfyfER+PC90 KZKsGA65jYOmrQWle2kz wDu5FvFvWHUyBCY5rYon QEbbd8YmYYVzF44w bGFw (more content not included)... Normal [facility] Auto Diffon 09-24-2022 Basophils/100 WBC (Bld) 0.5 % Normal 0.0-2.0 [facility] Comment on above: Order Comment: Order Added by Discern Expert. Performed By: #### 2 [id number] #### [facility] [address] [place] [address] Basophils/Leukocytes Auto (Bld) [Pure # fraction] 0.0 E9/L Normal 0.0-0.2 [facility] Comment on above: Order Comment: Order Added by Discern Expert. Performed By: #### 2 [id number] #### [facility] [address] [place] [address]602 Eosinophils/100 WBC (Bld) 0.9 % Normal 0.0-8.0 [facility] Comment on above: Order Comment: Order Added by Discern Expert. Performed By: #### 2 [id number] #### [facility] [address] [place] [address] 65328 Eosinophils/Leukocyte s Auto (Bld) [Pure # fraction] 0.1 E9/L Normal 0.0-0.5 [facility] Comment on above: Order Comment: Order Added by Discern Expert. Performed By: #### 2 [id number], [id number], [id number], [id number] #### [facility] [address] [place], [place] [id number] Lymphocytes/100 WBC (Bld) 28.2 % Normal 14.0-50.0 [facility] Comment on above: Order Comment: Order Added by Discern Expert. Performed By: #### 2 684388, 4016322, 0875806, 8715763, 9955807, [id number] #### [facility] [address] [place] [address] Lymphocytes/Leukocyte s Auto (Bld) [Pure # fraction] 2.6 E9/L Normal 1.0-4.0 [facility] Comment on above: Order Comment: Order Added by Discern Expert. Performed By: #### 2 507540, 6904638, 2146835, 4564335, 3848685, 60153692 #### [facility] [address] [place] [address] Monocytes/100 WBC (Bld) 7.4 % Normal 4.0-14.0 [facility] Comment on above: Order Comment: Order Added by Discern Expert. Performed By: #### 2 133601, 2509644, 8963542, 2127305, 1880560, 68354528 #### [facility] [address] [place] [address] Monocytes/Leukocytes Auto (Bld) [Pure # fraction] 0.7 E9/L Normal 0.2-1.0 [facility] Comment on above: Order Comment: Order Added by Discern Expert. Performed By: #### 2 332803, 9803242, 1345116, 5480026, 5144241, 67216016 #### [facility] [address] [place] [address] Neutrophils/100 WBC (Bld) 63.0 % Normal 36.0-75.0 [facility] Comment on above: Order Comment: Order Added by Discern Expert. Performed By: #### 2 470112, 4185306, 1242931, 5543302, 9186872, 34411539 #### [facility] [address] [place] [address] Neutrophils/Leukocyte s Auto (Bld) [Pure # fraction] 5.7 E9/L Normal 2.0-7.5 [facility] Comment on above: Order Comment: Order Added by Discern Expert. Performed By: #### 2 582971, 8294925, 4750076, 7474941, 0910426, 70034332 #### [facility] [address] [place] [address] 268[address] CBC w/ Auto Diffon Erythrocyte distribution width (RBC) [Ratio] 13.6 % Normal 10.9-14.2 [facility] Comment on above: Performed By: #### 2 582706, 8994656, 7921492, 2570938, 7932451, 71130134 #### [facility] [address] [place] [address] Hematocrit (Bld) [Volume fraction] 41.4 % Normal 34.0-46.0 [facility] Comment on above: Performed By: #### 2 022199, 1113738, 4554473, 3654709, 1115359, 73462683 #### [facility] [address] [place] [address] 13566 Hemoglobin (Bld) [Mass/Vol] 13.7 g/dL Normal 12.0-16.0 [facility] Comment on above: Performed By: #### 2 460620, 0541380, 7907060, 3202893, 6149179, 16529506 #### [facility] [address] [place], [place] [address] MCH (RBC) [Entitic mass] 27.6 pg Normal 27.0-34.0 [facility] Comment on above: Performed By: #### 2 362208, 3358661, 6156524, 9736780, 6198397, 77299574 #### [facility] [address] [place], [place] [address] MCHC (RBC) [Mass/Vol] 33.1 g/dL Normal 31.4-36.0 [facility] Comment on above: Performed By: #### 2 491837, 3102583, 9665275, 2883570, 1193138, 65821848 #### [facility] [address] [place], [place] [address] MCV (RBC) [Entitic vol] 83.2 fL Normal 80.0-100.0 [facility] Comment on above: Performed By: #### 2 825060, 2044880, 2143360, 6616771, 8140137, 67200827 #### [facility] [address] [place] [address] 86[address] Platelet mean volume (Bld) [Entitic vol] 7.8 fL Normal 6.4-10.8 [facility] Comment on above: Performed By: #### 2 728215, 6535776, 0037911, 6848877, 0906276, 94201576 #### [facility] [address] [place] [address]671 Platelets (Bld) [#/Vol] 310.0 E9/L Normal 150.0-500.0 [facility] Comment on above: Performed By: #### 2 759094, 2553267, 1952153, 3803531, 9811054, 24671042 #### [facility] [address] [place] [address] [place] [address] RBC (Bld) [#/Vol] 5.0 E12/L Normal 4.3-5.9 [facility] Comment on above: Performed By: #### 2 690576, 0251426, 5614162, 1160516, 0318761, 92817479 #### [facility] [address] [place] [address] WBC corrected for nucl RBC Auto (Bld) [#/Vol] 9.1 E9/L Normal 4.0-11.0 [facility] Comment on above: Performed By: #### 2 864151, 9937575, 2032013, 4003309, 3101678, 67242870 #### [facility] [address] [place] [address] CHEMISTRYOrdered By: SYSTEM SYSTEM on 09-24-2022 Albumin [...] Normal >=59mL/min/1. 73 m2 FT Chem S GFR/1.73 sq M.predicted among non-blacks [...] 09-24-2022 Albumin [Mass/Vol] 4.0 g/dL Normal 3.3-5.0 [facility] Comment on above: Performed By: #### 2 421892, 3317560, 9032042, 1760917, 3964367, 49781166 #### [facility] [address] [place] [address] Albumin/Globulin (S) [Mass conc ratio] 1.2 Normal 1.1-2.2 [facility] Comment on above: Performed By: #### 2 025799, 3907583, 0408732, 7430260, 3523414, 91595310 #### [facility] [address] [place] [address] ALP [Catalytic activity/Vol] 51 Int._Unit/L Normal 21-98 [facility] Comment on above: Performed By: #### 2 514344, 8131286, 0185430, 8282098, 7405362, 70907893 #### [facility] [address] [place] [address] 8[address] ALT No additional P-5'-P [Catalytic activity/Vol] 16 Int._Unit/L Normal 6-46 [facility] Comment on above: Performed By: #### 2 431949, 5140855, 6024518, 3546074, 5479059, 48149626 #### [facility] [address] [place] [address] Anion gap [Moles/Vol] 9 mmol/L Normal 6-16 [facility] Comment on above: Performed By: #### 2 664315, 4278930, 5382165, 0582731, 5098975, 33791628 #### [facility] [address] [place] [address] 06584 AST [Catalytic activity/Vol] 15 Int._Unit/L Normal 5-43 [facility] Comment on above: Performed By: #### 2 864527, 3495109, 0085330, 7885648, 7668738, 94839894 #### [facility] [address] [place] [address] 37027 Bilirubin [Mass/Vol] 0.7 mg/dL Normal 0.0-1.1 [facility] Comment on above: Performed By: #### 2 278862, 4275575, 1026486, 8203818, 1730054, 16281323 #### [facility] [address] [place] [address] Calcium [Mass/Vol] 8.8 mg/dL Low 8.9-11.1 [facility] Comment on above: Performed By: #### 2 008375, 6002061, 4609914, 2175780, 1962696, 78465188 #### [facility] [address] [place] [address] Chloride [Moles/Vol] 102 mmol/L Normal 101-111 [facility] Comment on above: Performed By: #### 2 849147, 3945777, 2329507, 7750617, 9206604, 69280673 #### [facility] [address] [place] [address] CO2 [Moles/Vol] 29 mmol/L Normal 21-31 [facility] Comment on above: Performed By: #### 2 061438, 0497630, 4170059, 8878475, 3755027, 41365669 #### [facility] [address] [place] [address] Creatinine [Mass/Vol] 0.8 mg/dL Normal 0.5-1.3 [facility] Comment on above: Performed By: #### 2 627483, 3345283, 6650550, 9602246, 7847631, 29936911 #### [facility] [address] [place] [address] Globulin (S) [Mass/Vol] 3.2 g/dL Normal 1.4-4.0 [facility] Comment on above: Performed By: #### 2 247327, 5670988, 3768656, 0475293, 7364102, 28866426 #### [facility] [address] [place] [address] Glucose [Mass/Vol] 97 mg/dL Normal 55-199 [facility] Comment on above: Result Comment: If t his glucose result represents a fasting glucose, interpretation should refer to the following reference range: 55-99 mg/dL Performed By: #### 2 659538, 3341955, 4014587, 7415898, 8489294, 36180690 #### [facility] [address] [place] [address] Potassium [Moles/Vol] 3.7 mmol/L Normal 3.5-5.3 [facility] Comment on above: Performed By: #### 2 783492, 0507988, 8063425, 0030434, 5765044, 09665385 #### [facility] [address] [place] [address] Protein [Mass/Vol] 7.2 g/dL Normal 6.0-7.8 [facility] Comment on above: Performed By: #### 2 539966, 7283957, 7696992, 7023330, 1587192, 72970698 #### [facility] [address] [place] [address] Sodium [Moles/Vol] 136 mmol/L Normal 135-145 [facility] Comment on above: Performed By: #### 2 484513, 6662320, 2658932, 7351443, 1899824, 85957852 #### [facility] [address] [place] [address] Urea nitrogen [Mass/Vol] 10 mg/dL Normal 5-21 [facility] Comment on above: Performed By: #### 2 249018, 2651770, 0105501, 2229917, 1769886, 70155376 #### [facility] [address] [place] [address] Urea nitrogen/Creatinine [Mass ratio] 12 No Units Normal 10-20 [facility] Comment on above: Performed By: #### 2 406596, 9441653, 8713742, 5043123, 3973185, 89007894 #### [facility] [address] [place] [address] Consent for Treatmenton 08-29 Consent for Treatment [id number] #1.00CD:127 Normal [facility] HEMATOLOGYOrdered By: SYSTEM SYSTEM on 09-24-2022 Basophils/100 [...] 83.2 fL Normal 80.0 - 100.[address] [facility] Platelet mean volume (Bld) [Entitic vol] 7.8 fL Normal 6.4 - 10.[address] [facility] Platelets (Bld) [#/Vol] 310.0 E9/L Normal 150.0 - 500.0 E9/L [facility] RBC (Bld) [#/Vol] 5.0 E12/L Normal 4.3 - 5.9 E12/L [facility] WBC corrected for nucl RBC Auto (Bld) [#/Vol] 9.1 E9/L Normal 4.0 - 11.0 E9/L [facility] Lipid Panelon 09-24-2022 Cholesterol [Mass/Vol] 185 mg/dL Normal 120-200 [facility] Comment on above: Performed By: #### 2 857379, 9664266, 2225069, 3489934, 3842813, 39320495 #### [facility] [address] [place] [address] Cholesterol in HDL [Mass/Vol] 69 mg/dL Invalid Interpretation Code [facility] Comment on above: Result Comment: HDL > or equal to 60 mg/dL: Low cardiovascular risk HDL < 40 mg/dL : High cardiovascular risk Performed By: #### 2 665517, 2201973, 5387585, 2451400, 2208345, 39938304 #### [facility] [address] [place] [address] Cholesterol in LDL [Mass/Vol] 93 mg/dL Normal <=129 [facility] Comment on above: Performed By: #### 2 882878, 1536327, 6168856, 3076562, 8446595, 45843475 #### [facility] [address] [place] [address] Cholesterol in VLDL [Mass/Vol] 20 mg/dL Normal 7-40 [facility] Comment on above: Performed By: #### 2 566884, 3736952, 2745313, 7092595, 3012114, 62586541 #### [facility] [address] [place] [address] Triglyceride [Mass/Vol] 102 mg/dL Normal <=149 [facility] Comment on above: Performed By: #### 2 255079, 8756638, 6250329, 6855196, 5445304, 59497994 #### [facility] [address] [place] [address] Physician Orderon 09-24-2022 Physician Order [id number] #1.00CD:127 Normal [facility] TSHon 09-24-2022 TSH Qn 2.06 m[IU]/L Normal 0.34-5.60 [facility] Comment on above: Performed By: #### 2 810744, 4105859, 3439270, 5414793, 0151593, 55697888 #### [facility] [address] [place] [address] eGFRon 09-24-2022 GFR/1.73 sq M.predicted among blacks MDRD (S/P/Bld) [Vol rate/Area] mL/min/{1.73_m2} Normal >=59 [facility] Comment on above: Order Comment: Order added by Discern Expert. Result Comment: eGFR is race adjusted. AA=. Performed By: #### 2 663562, 9318836, 9715344, 2304867, 7293788, 89621173 #### [facility] [address] [place] [address] GFR/1.73 sq M.predicted among non-blacks MDRD (S/P/Bld) [Vol rate/Area] mL/min/{1.73_m2} Normal >=59 [facility] Comment on above: Order Comment: Order added by Discern Expert. Result Comment: Sql Consultant isis kidney disease could be indicated at eGFR's of less than 60 mL/min/1.73m2. Kidney failure is indicated at less than 15 mL/min/1.73m2. Performed By: #### 2 972901, 7198791, 7924356, 2320311, 3813028, 73890575 #### [facility] [address] [place] [address] CBC AUTO DIFFon 12-28-2021 BASO # 0.1 103/ul Normal 0.0-0.1 [facility] Comment on above: Performed By: #### C BC #### [facility] [address] [place] [address] Dr. Edwina Vicente Basophils/100 WBC (Bld) 0.8 % Normal 0.2-2.0 [facility] Comment on above: Performed By: #### C BC #### [facility] [address] [place] [address] Dr. Edwina Vicente EO # 0.1 103/ul Normal 0.0-0.7 [facility] Comment on above: Performed By: #### C BC #### [facility] [address] [place] [address] Dr. Edwina Vicente Eosinophils/100 WBC (Bld) 1.6 % Normal 0.9-7.0 [facility] Comment on above: Performed By: #### C BC #### [facility] [address] [place] [address] Dr. Edwina Vicente Erythrocyte distribution width (RBC) [Ratio] 12.8 % Normal 11.0-15.0 [facility] Comment on above: Performed By: #### C BC #### [facility] [address] [place] [address] Dr. Edwina Vicente Hematocrit (Bld) [Volume fraction] 43.1 % Normal 36.0-48.0 [facility] Comment on above: Performed By: #### C BC #### [facility] [address] [place] [address] Dr. Edwina Vicente Hemoglobin (Bld) [Mass/Vol] 14.1 g/dL Normal 12.0-16.0 [facility] Comment on above: Performed By: #### C BC #### [facility] [address] [place] [address] Dr. Edwina Vicente IG # 0.01 10e3/ul Normal 0.00-0.03 [facility] Comment on above: Performed By: #### C BC #### [facility] [address] [place] [address] Dr. Edwina Vicente IG % 0.2 % Normal 0.0-0.5 [facility] Comment on above: Performed By: #### C BC #### [facility] [address] [place] [address] Dr. Edwina Vicente LYMPH # 2.4 103/ul Normal 1.2-3.8 [facility] Comment on above: Performed By: #### C BC #### [facility] [address] [place] [address] Dr. Edwina Vicente Lymphocytes/100 WBC (Bld) 37.2 % Normal 20.5-60.0 [facility] Comment on above: Performed By: #### C BC #### [facility] [address] [place] [address] Dr. Edwina Vicente MANUAL DIFF REQ NO Normal [facility] Comment on above: Performed By: #### C BC #### [facility] [address] [place] [address] Dr. Edwina Vicente MCH (RBC) [Entitic mass] 27.3 pg Normal 26.7-34.0 [facility] Comment on above: Performed By: #### C BC #### [facility] [address] [place] [address] Dr. Edwina Vicente MCHC (RBC) [Mass/Vol] 32.7 g/dL Normal 29.9-35.2 [facility] Comment on above: Performed By: #### C BC #### [facility] [address] [place] [address] Dr. Edwina Vicente MCV (RBC) [Entitic vol] 83.4 fL Normal 81.0-99.0 [facility] Comment on above: Performed By: #### C BC #### [facility] [address] [place] [address] Dr. Edwina Vicente MONO # 0.5 103/ul Normal 0.3-0.8 [facility] Comment on above: Performed By: #### C BC #### [facility] [address] [place] [address] Dr. Edwina iVcente Monocytes/100 WBC (Bld) 8.1 % Normal 1.7-12.0 [facility] Comment on above: Performed By: #### C BC #### [facility] [address] [place] [address] Dr. Edwina Vicente NEUT # 3.3 103/ul Normal 1.4-6.5 [facility] Comment on above: Performed By: #### C BC #### [facility] [address] [place] [address] Dr. Edwina Vicente Neutrophils/100 WBC (Bld) 52.1 % Normal 43.0-75.0 [facility] Comment on above: Performed By: #### C BC #### [facility] [address] [place] [address] Dr. Edwina Vicente Platelet mean volume (Bld) [Entitic vol] 8.8 fL Critically low 9.5-13.5 [facility] Comment on above: Performed By: #### C BC #### [facility] [address] [place] [address] Dr. Edwina Vicente PLT 328 103/ul Normal 150-450 [facility] Comment on above: Performed By: #### C BC #### [facility] [address] [place] [address] Dr. Edwina Vicente RBC 5.17 106/ul Normal 4.20-5.40 [facility] Comment on above: Performed By: #### C BC #### [facility] [address] [place] [address] Dr. Edwina Vicente WBC 6.4 103/ul Normal 4.0-11.0 [facility] Comment on above: Performed By: #### C BC #### [facility] [address] [place] [address] Dr. Edwina Vicente PREG QUANT HCGon 12-28-2021 HCG QUANT <1 Normal [facility] Comment on above: Performed By: #### P REGQNT #### [facility] [address] [place] [address] Dr. Edwina Vicente HCG RANGE SEE BELOW Normal [facility] Comment on above: Result Comment: 5-50 0-1 WEEK 40-300 1-2 WEEKS 100-1,000 2-3 WEEKS 500-6,000 3-4 WEEKS 5,000-200,000 1-2 MONTHS 10,000-100,000 2-3 MONTHS 3,000-50,000 2ND TRIMESTER 1,000-50,000 3RD TRIMESTER Performed By: #### P REGQNT #### [facility] [address] [address] [address] Edwina Vicente US PELVIS AND TRANSVAGon [...] studies available for comparison. Electronically authenticated by: KENNY CARSON Date: 2021-12-27 07:30 Normal [facility] Covid-19 PCR (CVDTBH)on SARS-CoV-2 (COVID-19) RNA TRESSA+probe Ql (Unsp spec) Detected Critically abnormal NOT DETECTED [facility] Comment on above: Result Comment: This test is not yet approved or cleared by the [place] FDA. When there are no FDA-approved or cleared tests available, and other criteria are met, FDA can make tests available under an emergency access mechanism called an Emergency Use Authorization (EUA). The EUA for this test is supported by the [employer] Specialist of Health and Human Service's declaration that [...] By: #### C [facility] #### [facility] [address] [place] [address] Dr. Edwina Pereira 10-16-2020 CNOV Office Visit (ORTHCC) MEMETRACIE MCCOLLUM Fadi ([id number]) 1985 F Date Time Provider Department 10/16/20 1:15 PM MINESH GURROLA)[facility] During your visit today, we recorded the following information about you: Minesh Gurrola PA-C 10/16/2020 1:03 PM Signed SUBJECTIVE Tracie Aponte Jeannie is a 35 year old [...] NOHEMI TEST: Positive STRENGTH: 5/5 biceps, triceps, tobacco drummer, finger abduction, WE, WF, AND EPL STABILITY: all joints stable CREPITUS: negative NEUROLOGICAL EXAM: Sensory: sensation intact to light touch axillary, radial, median, AND ulnar distributions 2-point discrimination intact throughout all digits. Motor strength: equal bilaterally with 5/5 biceps, triceps, tobacco drummer, finger abduction, WE, WF, thumb opposition, AND [...] File) Date Reviewed: 10/16/2020 Reviewed by: Minesh Gurrola - Fully Assessed Reason for Visit: Hand Pain [1581] Cmt: R>L Primary Visit Diagnosis:Tendinitis , de Quervain's [M65.4] Order(s):diclofenac (VOLTAREN) 1 % topical gelApply 2 g to affected area four times daily.Disp: 100 gRfl: 1 CONSULT TO [employer] [[id number]] Order #: [id number] FUTURE Prescriptions as of 10/16/2020 Sig: [...] by MINESH GURROLA PA-C on 10/16/20 Normal [facility] Vital Signs Date Time Vital Sign Value Performing Clinician Faci lity 08-18-2024 13:26-0500 Body height 167.6 cm [employer] Work Phone: [facility] [employer] 08-18-2024 13:26-0500 Body mass index (BMI) [Ratio] 33.89 kg/m2 [employer] Work Phone: [facility] [employer] 08-18-2024 13:26-0500 Body weight 95.25 kg Lorena [employer] Work Phone: [facility] 06-09-2024 13:00-0500 Body mass index (BMI) [Ratio] 33.96 kg/m2 Susan SCHMITT Work Phone: [facility] 06-09-2024 13:00-0500 Body weight 95.44 kg Susan SCHMITT Work Phone: [facility] 06-09-2024 13:00-0500 Diastolic blood pressure 80 mm[Hg] Susan SCHMITT Work Phone: [facility] 06-09-2024 13:00-0500 Systolic blood pressure 116 mm[Hg] Susan Crow PA Work Phone: [facility] 05-11-2024 09:56-0400 Body mass index (BMI) [Ratio] 34.02 kg/m2 Vikram Tirso DO Work Phone: [facility] 05-11-2024 09:56-0400 Body weight 95.62 kg Vikram Tirso DO Work Phone: [facility] 05-11-2024 09:56-0400 Diastolic blood pressure 78 mm[Hg] Vikram Tirso DO Work Phone: [facility] 05-11-2024 09:56-0400 Systolic blood pressure 116 mm[Hg] Vikram Tirso DO Work Phone: [facility] 03-16-2024 09:38-0400 Body height 167.6 cm Susan Crow PA Work Phone: [facility] 03-16-2024 09:38-0400 Body mass index (BMI) [Ratio] 33.43 kg/m2 Susan Denver PA Work Phone: [facility] 03-16-2024 09:38-0400 Body weight 93.95 kg Susan Lowell PA Work Phone: [facility] 03-16-2024 09:38-0400 Diastolic blood pressure 64 mm[Hg] Susan Crow PA Work Phone: [facility] 03-16-2024 09:38-0400 Systolic blood pressure 110 mm[Hg] Susan Lowell PA Work Phone: [facility] Healthcare Encounters Encounter Date Encounter Type Care Provider Facility Start: 08-18-2024 End: 08-18-2024 Patient encounter procedure Lorena SCHMITT Work Phone: [facility] Comment on above: Right shoulder pain, unspecified chronicity (Primary Dx); Rotator cuff impingement syndrome of right shoulder Start: 08-18-2024 End: 08-18-2024 ambulatory LORENA WILDER Not Available Start: 08-18-2024 End: 08-18-2024 ambulatory LORENA WILDER Not Available Start: 08-11-2024 End: 08-11-2024 Bamboo flowsheet Dasha Elder PT [facility] Start: 08-11-2024 End: 08-11-2024 Bamboo flowsheet Dasha Elder PT [facility] Start: 08-11-2024 End: 08-11-2024 ambulatory Dasha Elder PT [facility] Comment on above: Tear of tendon of le ft ankle, subsequent encounter (Primary Dx); Peroneal tendinitis of left lower extremity; Cuboid syndrome, subsequent encounter Start: 08-09-2024 End: 08-09-2024 Bamboo flowsheet Saray Hernandeznapoleon [facility] Start: 08-09-2024 End: 08-09-2024 Bamboo flowsheet Saray Santiago [facility] Start: 08-09-2024 End: 08-09-2024 ambulatory Saray Santiago [facility] Comment on above: Tear of tendon of le ft ankle, subsequent encounter (Primary Dx); Peroneal tendinitis of left lower extremity; Cuboid syndrome, subsequent encounter Start: 08-06-2024 End: 08-06-2024 Bamboo flowselisabeth Lakhanineth Reinier [facility] Start: 08-06-2024 End: 08-06-2024 Bamboo flowsheet Joe Reinier [facility] Start: 08-06-2024 End: 08-06-2024 ambulatory Joe Reinier [facility] Comment on above: Tear of tendon of le ft ankle, subsequent encounter (Primary Dx); Peroneal tendinitis of left lower extremity; Cuboid syndrome, subsequent encounter Start: 08-04-2024 End: 08-04-2024 Bamboo flowsheet Joe Reinier [facility] Start: 08-04-2024 End: 08-04-2024 Bamboo flowsheet Joe Reinier [facility] Start: 08-04-2024 End: 08-04-2024 ambulatory Joe Reinier [facility] Comment on above: Tear of tendon of le ft ankle, subsequent encounter (Primary Dx); Peroneal tendinitis of left lower extremity; Cuboid syndrome, subsequent encounter Start: 07-29-2024 End: 07-29-2024 ambulatory Joe Toscano [facility] Comment on above: Tear of tendon of le ft ankle, subsequent encounter (Primary Dx); Peroneal tendinitis of left lower extremity; Cuboid syndrome, subsequent encounter Start: 07-26-2024 End: 07-26-2024 Bamboo flowsheet Joe Toscano [facility] Start: 07-26-2024 End: 07-26-2024 Bamboo flowsheet Joe Toscano [facility] Start: 07-26-2024 End: 07-26-2024 ambulatory Joe Toscano [facility] Comment on above: Tear of tendon of le ft ankle, subsequent encounter; Peroneal tendinitis of left lower extremity; Cuboid syndrome, subsequent encounter Start: 07-23-2024 End: 07-23-2024 Bamboo flowsheet Saray Santiago [facility] Start: 07-23-2024 End: 07-23-2024 Bamboo flowsheet Saray Santiago [facility] Start: 07-23-2024 End: 07-23-2024 ambulatory Saray Santiago [facility] Comment on above: Peroneal tendinitis of left lower extremity (Primary Dx); Cuboid syndrome, subsequent encounter; Tear of tendon of left ankle, subsequent encounter Start: 07-19-2024 End: 07-19-2024 Bamboo flowsheet Dasha Elder PT [facility] Start: 07-19-2024 End: 07-19-2024 Bamboo flowsheet Dasha Elder PT [facility] Start: 07-19-2024 End: 07-19-2024 ambulatory Dasha Elder PT [facility] Comment on above: Peroneal tendinitis of left lower extremity (Primary Dx); Cuboid syndrome, subsequent encounter; Tear of tendon of left ankle, subsequent encounter Start: 07-14-2024 End: 07-14-2024 Bamboo flowsheet Saray Brnapoleon [facility] Start: 07-14-2024 End: 07-14-2024 Bamboo flowsheet Saray Brink [facility] Start: 07-14-2024 End: 07-15-2024 ambulatory Saray Santiago [facility] Comment on above: Peroneal tendinitis of left lower extremity (Primary Dx); Cuboid syndrome, subsequent encounter; Tear of tendon of left ankle, subsequent encounter Start: 07-12-2024 End: 07-12-2024 Bamboo flowsheet Saray Santiago [facility] Start: 07-12-2024 End: 07-12-2024 Bamboo flowsheet Saray Santiago [facility] Start: 07-12-2024 End: 07-12-2024 ambulatory Saray Santiago [facility] Comment on above: Peroneal tendinitis of left lower extremity (Primary Dx); Cuboid syndrome, subsequent encounter; Tear of tendon of left ankle, subsequent encounter Start: 07-09-2024 End: 07-09-2024 Bamboo flowsheet Dasha Elder PT [facility] Start: 07-09-2024 End: 07-09-2024 Bamboo flowsheet Dasha Elder PT [facility] Start: 07-09-2024 End: 07-09-2024 ambulatory Dasha Elder PT [facility] Comment on above: Peroneal tendinitis of left lower extremity (Primary Dx); Cuboid syndrome, subsequent encounter; Tear of tendon of left ankle, subsequent encounter Start: 07-05-2024 End: 07-05-2024 Office outpatient visit 15 minutes Tierra Stephenson DPM Work Phone: [facility] Comment on above: Tear of tendon of le ft ankle, subsequent encounter (Primary Dx); Peroneal tendinitis of left lower extremity; Cuboid syndrome, subsequent encounter; Left foot pain Start: 07-05-2024 End: 07-05-2024 ambulatory TIERRA STEPHENSON Not Available Start: 07-05-2024 End: 07-05-2024 Bamboo flowselisabeth Stephenson DPM Work Phone: [facility] Start: 07-05-2024 End: 07-05-2024 Bamboo flowsheet Tierra Stephenson DPM Work Phone: [facility] Start: 06-09-2024 End: 06-09-2024 Bamboo flowsheet Susan Crow PA Work Phone: [facility] Start: 06-09-2024 End: 06-09-2024 Bamboo flowsheet Susan Crow PA Work Phone: [facility] Start: 06-09-2024 End: 06-09-2024 Postop follow up visit related to original px Susan SCHMITT Work Phone: [facility] Comment on above: Postop check Start: 06-09-2024 End: 06-09-2024 ambulatory SUSAN LOWELL Not Available Start: 06-04-2024 End: 06-04-2024 Clinisync Result Encounter Vikram Tirso DO Work Phone: [facility] External Department Unsolicited Start: 06-04-2024 End: 06-04-2024 Clinisync Result Encounter Vikram Tirso DO Work Phone: [facility] External Department Unsolicited Start: 06-02-2024 End: 06-02-2024 Bamboo flowsheet Tierra Stephenson DPM Work Phone: [facility] Start: 06-02-2024 End: 06-02-2024 Bamboo flowsheet Tierra Stephenson DPM Work Phone: [facility] Start: 06-02-2024 End: 06-02-2024 Office outpatient visit 15 minutes Tierra Stephenson DPM Work Phone: [facility] Comment on above: Tear of tendon of le ft ankle, subsequent encounter (Primary Dx); Peroneal tendinitis of left lower extremity; Left foot pain Start: 06-02-2024 End: 06-02-2024 ambulatory TIERRA STEPHENSON Not Available Start: 05-28-2024 End: 05-28-2024 ambulatory TIERRA STEPHENSON Not Available Start: 05-11-2024 End: 05-11-2024 Patient encounter procedure Vikram Tirso DO Work Phone: [facility] Comment on above: Pre-op examination; Request for sterilization; Menorrhagia with regular cycle; Abnormal uterine bleeding (AUB); Pelvic pain in female; Hormone disorder Start: 05-11-2024 End: 05-11-2024 Preprocedural examination done Vikram Chahal DO Work Phone: [facility] Start: 05-11-2024 End: 05-11-2024 ambulatory VIKRAM CHAHAL Not Available Start: 04-29-2024 End: 04-29-2024 Office outpatient visit 15 minutes Tierra Stephenson DPM Work Phone: [facility] Comment on above: Sprain of tarsometat arsal joint of left foot, subsequent encounter (Primary Dx); Stress reaction of bone; Left foot pain Start: 04-29-2024 End: 04-29-2024 ambulatory TIERRA STEPHENSON Not Available Start: 04-29-2024 End: 04-29-2024 Bamboo flowsheet Tierra Stephenson DPM Work Phone: [facility] Start: 04-29-2024 End: 04-29-2024 Bamboo flowsheet Tierra Stephenson DPM Work Phone: [facility] Start: 03-17-2024 End: 03-17-2024 Clinisync Result Encounter Susan SCHMITT Work Phone: [facility] External Department Unsolicited Start: 03-17-2024 End: 03-17-2024 Clinisync Result Encounter Susan SCHMITT Work Phone: [facility] External Department Unsolicited Start: 03-16-2024 End: 03-16-2024 Bamboo flowsheet Susan SCHMITT Work Phone: [facility] Start: 03-16-2024 End: 03-16-2024 Bamboo flowsheet Susan SCHMITT Work Phone: [facility] Start: 03-16-2024 End: 03-16-2024 Office outpatient visit 15 minutes Susan SCHMITT Work Phone: [facility] Comment on above: Menopause; Pain of ovary; Pain in female genitalia on intercourse; Hormone disorder Start: 03-16-2024 End: 03-16-2024 ambulatory SUSAN CROW Not Available Start: 12-04-2023 End: 12-04-2023 ambulatory VIKRAM CHAHAL Not Available Start: 10-28-2023 End: 10-28-2023 ambulatory SUJATA RUDD Not Available Start: 10-22-2023 End: 10-22-2023 ambulatory SUJATA RUDD Not Available Start: 10-09-2023 End: 10-09-2023 ambulatory SUJATA RUDD Not Available Start: 08-27-2023 End: 08-27-2023 ambulatory SUASN CROW Not Available Start: 04-02-2023 End: 04-03-2023 ambulatory Wilda Buckner [facility] Start: 04-02-2023 End: 04-02-2023 Patient encounter procedure Wilda Buckner [facility] Start: 01-09-2023 End: 01-10-2023 ambulatory Wilda Buckner Facility[place] Start: 01-09-2023 End: 01-09-2023 Patient encounter procedure Wilda Buckner [facility] Start: 11-12-2022 End: 11-13-2022 ambulatory VIKRAM CHAHAL Facility:[facility] Start: 10-31-2022 End: 11-01-[address] VIKRAM CHAHAL . Facility: Start: 10-23-2022 End: 10-23-[address] VIKRAM CHAHAL . Facility: Start: 09-24-2022 End: 09-25-2022 ambulatory Wilda Buckner Facility[place] Start: 09-24-2022 End: 09-24-2022 Patient encounter procedure Wilda Buckner [facility] Start: 05-03-2022 End: 08-02-2022 ambulatory Kaushal Craft Facility[facility] Start: 12-28-2021 End: 12-28-[address] DOCTOR DUEÑAS Facility:[facility] Start: 12-27-2021 Encounter for preprocedural laboratory examination DR VIKRAM CHAHAL . [facility] Start: 12-26-2021 End: 12-27-2021 Encounter for preprocedural laboratory examination DR VIKRAM CHAHAL . Facility:[facility] Start: 12-26-2021 End: 12-27-[address] VIKRAM CHAHAL . Facility:[facility] Start: 12-18-2021 End: 12-18-2021 Patient encounter procedure YELENA JAMES [facility] Procedures Date Procedure Procedure Detail Performing Clinician Start: 08-18-2024 Radex shoulder complete minimum 2 views Lorena SCHMITT Work Phone: Start: 06-04-2024 ALL CBC WITH AUTO DIFF Vikram Tirso DO Work Phone: Start: 05-11-2024 Urine test visual color cmprsn meths Vikram Tirso DO Work Phone: Start: 04-29-2024 Radex foot complete minimum 3 views Tierra Stephenson DPM Work Phone: Start: 03-17-2024 MLR HEMOGLOBIN A1C Susan SCHMITT Work Phone: Start: 12-04-2023 Microscopic observation [Identifier] in Cervix by Cyto stain Susan SCHMITT Work Phone: Start: 06-04-2019 Esophagogastroduodenoscopy YELENA CHE Start: 04-17-2018 CHOLECYSTECTOMY LAPAROSCOPIC W/ CHOLANGIOGRAM 1 YELENA JAMES Comment on above: CHOLECYSTECTOMY LAPAROSCOPIC W/ CHOLANGI OGRAM Start: 04-25-2013 Appendectomy YELENA JAMES Plan of Treatment Date Care Activity Detail Author Start: 12-03-2026 Screening for malign ant neoplasm of cervix [facility] Start: 12-13-2024 End: 12-13-2024 Patient encounter procedure 12/13/2024 9:00 AM EDT Office Visit [facility] [address] [place] [id number] Vikram Chahal, DO [address] [place] [address] [place] [address] [facility] Start: 09-22-2024 End: 09-22-2024 Professional / ancillary services management 09/22/2024 8:00 AM EST Ancillary Procedure [facility] [address] [place] [address] [facility] Start: 08-18-2024 End: 08-18-2024 ambulatory 08/18/2024 10:30 AM EST Treatment [facility] [address] [facility] [address] [place] [address] Dasha Elder, PT [facility] Start: 08-16-2024 End: 08-16-2024 ambulatory 08/16/2024 10:30 AM EST Treatment [facility] [address] [place] [address] Saray Santiago, [facility] Start: 08-11-2024 End: 08-11-2024 ambulatory [facility] Comment on above: Arrived Start: 08-09-2024 End: 08-09-2024 ambulatory [facility] Comment on above: Arrived Start: 08-06-2024 End: 08-06-2024 ambulatory [facility] Comment on above: Arrived Start: 08-04-2024 End: 08-04-2024 ambulatory [facility] Comment on above: Tear of tendon of le ft ankle, subsequent encounter (Primary Dx); Peroneal tendinitis of left lower extremity; Cuboid syndrome, subsequent encounter Start: 08-02-2024 End: 08-02-2024 ambulatory 08/02/2024 10:30 AM EST Treatment [facility] [address] [place] [address] Saray Santiago, [facility] Start: 07-29-2024 End: 07-29-2024 ambulatory 07/29/2024 9:00 AM EST Treatment [facility] [address] [facility] [address] [place] [address] Joe Toscano PTA [facility] Start: 07-26-2024 End: 07-26-2024 ambulatory [facility] Comment on above: Tear of tendon of le ft ankle, subsequent encounter; Peroneal tendinitis of left lower extremity; Cuboid syndrome, subsequent encounter Start: 07-23-2024 End: 07-23-2024 ambulatory [facility] Comment on above: Peroneal tendinitis of left lower extremity (Primary Dx); Cuboid syndrome, subsequent encounter; Tear of tendon of left ankle, subsequent encounter Start: 07-19-2024 End: 07-19-2024 ambulatory [facility] Comment on above: Peroneal tendinitis of left lower extremity (Primary Dx); Cuboid syndrome, subsequent encounter; Tear of tendon of left ankle, subsequent encounter Start: 07-14-2024 End: 07-14-2024 ambulatory [facility] Comment on above: Arrived Start: 07-12-2024 End: 07-12-2024 ambulatory [facility] Comment on above: Arrived Start: 07-09-2024 End: 07-09-2024 ambulatory 07/09/2024 7:00 AM EST Evaluation [facility] [address] [facility] [address] [place] [address] Dasha Elder PT Arrived [facility] Comment on above: Arrived Start: 07-05-2024 End: 07-05-2024 Patient encounter procedure [facility] Comment on above: Arrived Start: 06-02-2024 End: 06-02-2024 Patient encounter procedure 06/02/2024 9:45 AM EST Office Visit [facility] [address] [place] [address] Tierra Stephenson DPM [address] [place] [address] Arrived [facility] Comment on above: Arrived Start: 05-11-2024 End: 05-11-2024 Patient encounter procedure 05/11/2024 9:30 AM EDT Procedure Visit [facility] [address] [place] [address] Vikram Chahal DO [address] [facility] [address] [place] [address] [facility] Start: 04-29-2024 End: 04-29-2024 Patient encounter procedure 04/29/2024 3:00 PM EDT Office Visit [facility] [address] [place] [address] Tierra Stephenson DPM [address] [place] [address] Arrived [facility] Comment on above: Arrived Start: 03-28-2024 Influenza vaccination Influenza Vacc ine (#1) [facility] Start: 03-16-2024 End: 03-16-2025 C-peptide C-peptide Lab Routine Hormone disorder Expected: 03/16/2024 (Approximate), Expires: 03/16/2025 [facility] Comment on above: Expected: 03/16/2024 (Approximate), Expires: 03/16/2025 Start: 03-16-2024 End: 03-16-2025 Cortisol free Cortisol, free Lab Routine Hormone disorder Expected: 03/16/2024 (Approximate), Expires: 03/16/2025 [facility] Comment on above: Expected: 03/16/2024 (Approximate), Expires: 03/16/2025 Start: 03-16-2024 End: 03-16-2025 Glucose [Mass/volume] in Serum or Plasma Glucose, random Lab Routine Hormone disorder Expected: 03/16/2024 (Approximate), Expires: 03/16/2025 [facility] Comment on above: Expected: 03/16/2024 (Approximate), Expires: 03/16/2025 Start: 03-16-2024 End: 03-16-2025 Insulin, total Insulin, total Lab Routine Hormone disorder Expected: 03/16/2024 (Approximate), Expires: 03/16/2025 [facility] Comment on above: Expected: 03/16/2024 (Approximate), Expires: 03/16/2025 Start: 03-16-2024 End: 03-16-2025 Serotonin serum Serotonin serum Lab Routine Hormone disorder Expected: 03/16/2024 (Approximate), Expires: 03/16/2025 [facility] Comment on above: Expected: 03/16/2024 (Approximate), Expires: 03/16/2025 Start: 03-16-2024 End: 03-16-2025 Thyroglobulin Thyroglobulin Lab Routine Hormone disorder Expected: 03/16/2024 (Approximate), Expires: 03/16/2025 [facility] Comment on above: Expected: 03/16/2024 (Approximate), Expires: 03/16/2025 Start: 03-16-2024 End: 03-16-2025 Thyroglobulin Antibody Thyroglobulin Antibody Lab Routine Hormone disorder Expected: 03/16/2024 (Approximate), Expires: 03/16/2025 [facility] Comment on above: Expected: 03/16/2024 (Approximate), Expires: 03/16/2025 Start: 03-16-2024 End: 03-16-2025 Thyrotropin [Units/volume] in Serum or Plasma [facility] Comment on above: Ordered: 03/16/2024 Expected: 03/16/2024 (Approximate), Expires: 03/16/2025 Start: 03-16-2024 End: 03-16-2024 Patient encounter procedure 03/16/2024 9:30 AM EDT Office Visit [facility] [address] [place] [address] Susan Crow PA [address] [facility] [address] [place], [place] [id number] Arrived [facility] Comment on above: Arrived Start: 2015 Screening for malign ant neoplasm of cervix HPV/Cotest [facility] Biopsy endometrium Biopsy endome trium Procedures Routine Hormone disorder Ordered: 05/11/2024 [facility] Work Phone: Comment on above: Ordered: 05/11/2024 DHEA-sulfate DHEA-sulfate Lab Routine Hormone disorder Ordered: 03/16/2024 [facility] Comment on above: Ordered: 03/16/2024 Estradiol Estradiol Lab Ro utine Hormone disorder Ordered: 03/16/2024 [facility] Work Phone: Comment on above: Ordered: 03/16/2024 Estrone Estrone Lab Rout ine Hormone disorder Ordered: 03/16/2024 [facility] Comment on above: Ordered: 03/16/2024 Ferritin [Mass/volum e] in Serum or Plasma Ferritin Lab Routine Hormone disorder Ordered: 03/16/2024 [facility] Comment on above: Ordered: 03/16/2024 Hemoglobin A1c/Hemoglobin.total in Blood Hemoglobin A1c Lab Routine Hormone disorder Ordered: 03/16/2024 [facility] Comment on above: Ordered: 03/16/2024 MR Ankle - left WO contrast MR ankle left wo IV contrast Imaging Routine Sprain of tarsometatarsal joint of left foot, subsequent encounter Stress reaction of bone Ordered: 04/29/2024 [facility] Work Phone: Comment on above: Ordered: 04/29/2024 Progesterone Progesterone Lab Routine Hormone disorder Ordered: 03/16/2024 [facility] Comment on above: Ordered: 03/16/2024 Sex hormone binding globulin Sex hormone binding globulin Lab Routine Hormone disorder Ordered: 03/16/2024 [facility] Comment on above: Ordered: 03/16/2024 T3, reverse T3, reverse Lab Routine Hormone disorder Ordered: 03/16/2024 [facility] Comment on above: Ordered: 03/16/2024 TESTOSTERONE, FREE TESTOSTERONE, FREE Lab Routine Hormone disorder Ordered: 03/16/2024 [facility] Comment on above: Ordered: 03/16/2024 Testosterone, free, total Testos terone, free, total Lab Routine Hormone disorder Ordered: 03/16/2024 [facility] Comment on above: Ordered: 03/16/2024 Thyroid peroxidase antibody Thyroid peroxidase antibody Lab Routine Hormone disorder Ordered: 03/16/2024 [facility] Comment on above: Ordered: 03/16/2024 Thyroxine (T4) free [Mass/volume] in Serum or Plasma T4, free Lab Routine Hormone disorder Ordered: 03/16/2024 [facility] Comment on above: Ordered: 03/16/2024 Triiodothyronine (T3 ) Free [Mass/volume] in Serum or Plasma T3, free Lab Routine Hormone disorder Ordered: 03/16/2024 [facility] Comment on above: Ordered: 03/16/2024 Vitamin D 1,25 dihydroxy Vitamin D 1,25 dihydroxy Lab Routine Hormone disorder Ordered: 03/16/2024 [facility] Comment on above: Ordered: 03/16/2024 Immunizations Immunization Date Immunization Notes Care Provider Fa cility 05-21-2022 influenza virus vaccine, unspecified formulation Wilda Buckner [facility] Comment on above: Reason for Medicatio n: Prophylaxis 05-25-2021 influenza virus vaccine, unspecified formulation; Translations: [Fluzone PF Quadrivalent ] YELENA JAMES [facility] Comment on above: Reason for Medicatio n: Other (see comment) Payers Date Payer Category [facility] [id number] 2023 Unknown [facility] xxxxxx [id number] 2023-Present [phone] [address] [place] [address] [id number] 2023 Unknown [id number] 1985 Unknown [id number] 2.16.840.1.146106.3.579. 2.593 1985 Unknown [id number] 2.16.840.1.387348.3.579. 2.593 1985 Unknown [id number] 2.16.840.1.083972.3.579. 2.593 1985 Unknown [id number] 2.16.840.1.638979.3.579. 2.593 1985 Unknown [id number] 2.16840.1.340362.3.579. 2.59 1985 Unknown [id number] 2.16.840.1.930193.3.579. 2.727 1985 Unknown [id number] 2.16840.1.965951.3.579. 2.72 1985 Unknown [id number] 2.840.1.454874.3.579. 2.72 1985 Unknown [id number] 2.840.1.260850.3.579. 2.72 1985 Unknown [id number] 2.16840.1.498843.3.579. 2.1258 1985 Unknown [id number] 2.840.1.158440.3.579. 2.1258 1985 Unknown [id number] 2.840.1.042839.3.579. 2.1258 1985 Unknown [id number] 2.840.1.328247.3.579. 2.125 1985 Unknown [id number] 2.16840.1.870968.3.579. 2.1258 1985 Unknown [id number] 2.16840.1.931977.3.579. 2.1258 1985 Unknown [id number] 2.16840.1.959979.3.579. 2.1258 1985 Unknown [id number] 2.840.1.261023.3.579. 2.1258 1985 Unknown [id number] 2.16.840.1.439174.3.579. 2.1258 1985 Unknown [id number] 2.840.1.387219.3.579. 2.1258 1985 Unknown [id number] 2.16840.1.336515.3.579. 2.1258 1985 Unknown [id number] 2.840.1.240421.3.579. 2.1258 1985 Unknown [id number] 2.840.1.892087.3.579. 2.1258 1985 Unknown [id number] .840.1.131877.3.579. 2.1258 1985 Unknown [id number] 2.840.1.105571.3.579. 2.1258 1985 Unknown [id number] .0.1.664762.3.579. 2.1258 1985 Unknown [id number] 2.840.1.413343.3.579. 2.1258 1985 Unknown [id number] .840.1.871065.3.579. 2.1258 1985 Unknown [id number] .840.1.905603.3.579. 2.1258 1985 Unknown [id number] 09.12.830.1.786133.3.579. 2.1258 1985 Unknown [id number] .840.1.995636.3.579. 2.1258 1985 Unknown [id number] 2.840.1.871109.3.579. 2.1258 1985 Unknown [id number] 2.840.1.061157.3.579. 2.1258 1985 Unknown [id number] 2.840.1.243701.3.579. 2.1258 1985 Unknown [id number] 2.16840.1.544067.3.579. 2.1259 1985 Unknown [id number] 2.16.840.1.308030.3.579. 2.1259 1959 Unknown [id number] 1959 Unknown [id number] Social History Date Type Detail Facility Start: 02-22-2021 End: 05-07-2023 Tobacco smoking status Never smoked tobacco (finding) [facility] Tobacco smoking status Never [facility] Start: 05-26-2023 End: 08-18-2024 Sex Assigned At Female [facility] Start: 05-07-2023 Tobacco use and exposure Smokeless tobacco non-user [facility] Start: 03-16-2024 End: 08-18-2024 Alcoholic beverage intake Current drinker of alcohol (finding) [facility] Start: 05-26-2023 End: 08-18-2024 History of Social function [facility] How [...] at Not on file [facility] Clinical Notes 10-16-2020 to 08-18-2024 Lorena Wilder, OSKAR - 08/18/2024 1:30 PM ESTPatient InstructionsDasha Elder, PT - 08/11/2024 10:30 AM Danny Elder PT - 07/19/2024 9:30 AM OSKAR Stevens - 06/09/2024 1:00 PM EST Note Date & Type Note Facility 08-18-2024 History of Present illness Narrative GENERAL HISTORY AND PHYSICAL: NAME: Tracie Dennis : 1985 HISTORY OF PRESENT ILLNESS: Tracie Dennis is an 39 y.o. female is here for orthopedic evaluation right shoulder pain that has developed since last week when she was moving a mattress and slipped and fell catching herself with her right hand and landing on her knee. She is seen here more on urgent basis for the shoulder pain. She has been using some ibuprofen but has noted little improvement with rest and time. This occurred on the 13 of August. She is right-hand dominant. PAST MEDICAL HISTORY: Past Medical History: Diagnosis Date Anxiety Obesity (BMI 30-39.9) Ovarian cyst Postop check x4 PAST SURGICAL HISTORY: Past Surgical History: Procedure Laterality Date APPENDECTOMY 2013 CHOLECYSTECTOMY 2018 LASER ABLATION 05/2024 OVARIAN CYST REMOVAL Left 12/2021 TUBAL LIGATION 05/2024 SOCIAL HISTORY: Social History Occupational History Not on file Tobacco Use Smoking status: Never Smokeless tobacco: Never Vaping Use Vaping status: Unknown Substance and Sexual Activity Alcohol use: Yes Drug use: Not on file Sexual activity: Yes control/protection: None ALLERGIES: Allergies Allergen Reactions Ciprofloxacin Rash Other Reaction(s): Tendon pain MEDICATIONS: Current Outpatient Medications Medication Instructions ibuprofen 800 mg, Every 8 hours REVIEW OF SYSTEMS: Review of Systems General: Denies appetite or significant weight change. Denies fever, chills or night sweats. Denies lightheadedness. ENT: Denies dry mouth, sore throat or swollen glands. Denies difficulty swallowing. Denies ear pain. Respiratory: Denies chest pain, SOB, cough or wheezing. Denies asthma or pneumonia symptoms. Cardiovascular: Denies CP or palpitations. No syncope or dyspnea on exertion. Gastrointestinal: Denies nausea or vomiting. Denies heartburn or abdominal pain. Denies diarrhea. Genitourinary: Denies frequent or painful urination. Musculoskeletal: See HPI for comments. Integumentary: Denies rash, lesion or skin infection. Neurologic: Denies dizziness, headache or seizure history. Vitals: Body mass index is 33.89 kg/m . PHYSICAL EXAM: Physical Exam Physical exam she is slow to move the shoulder above 90 degrees of flexion she is able to extend to about 130 before developing some impingement pain. He has abduction to 80 degrees before developing pain associated with impingement she is able to extend beyond this. She does have noted subacromial crepitus with abduction at 90 and passive internal external rotation. She has limitations with internal rotation able to get to the upper lumbar region slowly and external rotation from neutral is 80 degrees. She has good subscap and infraspinatus strength testing with only minimal weakness associated with pain inhibition of the supraspinatus but appears to be intact. XR shoulder 2+ views right Imaging Result: Grashey and scapular Y-view of the right shoulder taken in the office today demonstrating no evidence of acute fracture bony tumor no proximal migration of the humeral head in relation to the glenoid no significant OA of the GH joint. Early arthritic findings of the AC joint with no significant spurring. Orders Placed This Encounter Procedures XR shoulder 2+ views right Order Specific Question: Is the patient ? Answer: No Order Specific Question: Reason for exam: Answer: pain XR shoulder 2+ views right Imaging Result: Grashey and scapular Y-view of the right shoulder taken in the office today demonstrating no evidence of acute fracture bony tumor no proximal migration of the humeral head in relation to the glenoid no significant OA of the GH joint. Early arthritic findings of the AC joint with no significant spurring. ASSESSMENT: Right shoulder pain, unspecified chronicity Rotator cuff impingement syndrome of right shoulder Patient off her subacromial injection and or organized therapy but would like to stick with her own ibuprofen and home exercise program. PLAN: Stick with your ibuprofen every 8 hours as needed for pain and discomfort taking this medicine with food to avoid GI upset. Tylenol for breakthrough discomfort. Ice pack 20 minutes several times a day and before bed we will be helpful. Work on home exercise program as provided in the office today. Call if you wish to pursue subacromial injection of cortisone and or organized physical therapy in the next few weeks for failure to improve. OSKAR Mcmillan documented in this encounter [facility] 08-18-2024 Instructions OSKAR Mcmillan - 08/18/2024 1:30 PM EST Stick with your ibuprofen every 8 hours as needed for pain and discomfort taking this medicine with food to avoid GI upset. Tylenol for breakthrough discomfort. Ice pack 20 minutes several times a day and before bed we will be helpful. Work on home exercise program as provided in the office today. Call if you wish to pursue subacromial injection of cortisone and or organized physical therapy in the next few weeks for failure to improve. documented in this encounter [facility] 08-11-2024 History of Present illness Narrative Images from the original note were not included. Physical Therapy Treatment Visit / DISCHARGE Patient Name: Tracie Dennis Today's Date: 08/11/2024 Encounter Diagnoses Name Primary? Tear of tendon of left ankle, subsequent encounter Yes Peroneal tendinitis of left lower extremity Cuboid syndrome, subsequent encounter Visit number: 5 (6 visits in 2023) Timed Code Treatment Minutes: 39 minutes Total Treatment Time: 44 minutes Time In: 1030 Time Out: 1121 History: Pt states her left foot was injured last year when her son fell on it. Had X-rays which were negative. Six weeks later her daughter fell on other side of foot. X-rays were again negative and pt wore boot for a number of weeks. States sx's were improved until she started exercising to loose weight. Finally had an MRI which showed tiny tear of peroneus longus tendon as detailed. PT was suggested at that time but pt was undergoing an unrelated surgery so just rested left foot. 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 Pt states she has been icing and massaging left foot on her own. Prior to all of this, was walking about 1 hour on TM at home, about 2.5 mph. Precautions: [place] Subjective: Pt states pain today is minimal. Still has not tried working out at home. Plans on today being last PT due to cost. Will message Dr if pain continues. Pain: 08/06 currently Objective: PT Evaluation (07/09/2024) Left ANKLE AROM: 2 degrees DF with knee extended, 8 degrees DF with knee flexed, 32 degrees inversion with ERP noted, 16 degrees eversion PROM: 9 degrees DF with knee extended, 12 degrees DF with knee flexed Strength: ankle PF 4/5, Palpation: min tenderness noted palpation near left cuboid and 5th met Treatment: Education: HEP education with demonstration, Educated on Eval Findings and POC Manual Therapy: (10 minutes) Passive ROM, Joint mobilization, Soft Tissue Mobilization, Myofascial Release, Muscle Energy Technique, Neural Mobilization, Myofascial Cupping, Dry Needling, IASTM, and Scar mobilization as needed. Cuboid manip and mobs to decrease pain. IDN around cuboid and distal Peroneal with static placement x 4 needles.(No Charge) Therapeutic Exercise: (21 minutes) Resumed exercises this date with pain anisa. Strength, Endurance, Flexibility, ROM, HEP, Neural Mobilization, Power, and Core Stability as needed. Therapeutic Activity: Exercises to improve dynamic activities, functional tasks, functional mobility to return to prior activity level as needed. Neuromuscular re-education: () Provided cues to improve intrinsic and ankle activation around ankle complex. Fair follow through but likes to incorporate hip for ankle IV/EV. Balance Training, Muscle Facilitation, Dynamic Stability, Core Stabilization, and Blood Flow Restriction Training (BFRT) as needed. Modalities: () Heat, Ice, Electrical Stimulation, Ultrasound, Cervical Mechanical Traction, Lumbar Mechanical Traction, Iontophoresis, and Fluidotherapy as needed. declined CP left foot. US (x8 minutes) 0.8 w/cm at 2mHz and 10%. Assessment: Pt has completed 11 PT sessions for left foot pain. ROM of left ankle is WFL. Strength left ankle eversion remains 4-/5 with some discomfort. Pain ranges 0-4/10 depending on activity. LEFS score has improved to 71/80. We will now discharge per pt request. Outcome Measure: Lower Extremity Functional Scale (LEFS): 56/80, 71/80 (08/09) Rehab Diagnosis: left foot pain; difficulty walking Short Term Goal: To be met in 2 weeks Goal 1: Pt to be instructed in home exercise program. MET Care Home Goals: To be met in 10 weeks Goal 1: Pt to report independence and compliance with home program. MET Goal 2: Pt to achieve 5/5 strength left ankle PF to assist with functional mobility and stairs. NOT MET Goal 3: Pt to achieve 20 degrees of left ankle DF to assist with functional tasks such as squatting. NOT MET Goal 4: Pt to score no less than 70/80 on LEFS indicating improved QOL. MET DISCHARGE PT. documented in this encounter [facility] 07-19-2024 History of Present illness Narrative Images from the original note were not included. Physical Therapy Treatment Visit Patient Name: Tracie Dennis Today's Date: 07/19/2024 Encounter Diagnoses Name Primary? Peroneal tendinitis of left lower extremity Yes Cuboid syndrome, subsequent encounter Tear of tendon of left ankle, subsequent encounter Visit number: 4 Timed Code Treatment Minutes: 40 minutes Total Treatment Time: 45 minutes Time In: 929 Time Out: 1015 History: Pt states her left foot was injured last year when her son fell on it. Had X-rays which were negative. Six weeks later her daughter fell on other side of foot. X-rays were again negative and pt wore boot for a number of weeks. States sx's were improved until she started exercising to loose weight. Finally had an MRI which showed tiny tear of peroneus longus tendon as detailed. PT was suggested at that time but pt was undergoing an unrelated surgery so just rested left foot. 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 Pt states she has been icing and massaging left foot on her own. Prior to all of this, was walking about 1 hour on TM at home, about 2.5 mph. Precautions: [place] Subjective: Left foot, mostly lateral Pain: 4/10 Objective: PT Evaluation (07/09/2024) Left ANKLE AROM: 2 degrees DF with knee extended, 8 degrees DF with knee flexed, 32 degrees inversion with ERP noted, 16 degrees eversion PROM: 9 degrees DF with knee extended, 12 degrees DF with knee flexed Strength: ankle PF 4/5, Palpation: min tenderness noted palpation near left cuboid and 5th met Treatment: Education: HEP education with demonstration, Educated on Eval Findings and POC Manual Therapy: () Passive ROM, Joint mobilization, Soft Tissue Mobilization, Myofascial Release, Muscle Energy Technique, Neural Mobilization, Myofascial Cupping, Dry Needling, IASTM, and Scar mobilization as needed. IDN with static placement (5 mins no charge) Therapeutic Exercise: (32 minutes) Instructed Pt through ankle/foot ROM in open and closed chain therex. Fair tolerance, needing cues to improve technique. Strength, Endurance, Flexibility, ROM, HEP, Neural Mobilization, Power, and Core Stability as needed. Therapeutic Activity: Exercises to improve dynamic activities, functional tasks, functional mobility to return to prior activity level as needed. Neuromuscular re-education: () Provided cues to improve intrinsic and ankle activation around ankle complex. Fair follow through but likes to incorporate hip for ankle IV/EV. Balance Training, Muscle Facilitation, Dynamic Stability, Core Stabilization, and Blood Flow Restriction Training (BFRT) as needed. Modalities: (8 minutes) Heat, Ice, Electrical Stimulation, Ultrasound, Cervical Mechanical Traction, Lumbar Mechanical Traction, Iontophoresis, and Fluidotherapy as needed. US x 8 mins 0.8 w/cm at 2mHz and 10%. Assessment: Pt has completed 4 PT sessions for left foot pain. Strength left foot eversion 4-5/. Progressed standing exercises this date to increase functional strength of left LE. Outcome Measure: Lower Extremity Functional Scale (LEFS): 56/80 Rehab Diagnosis: left foot pain; difficulty walking Short Term Goal: To be met in 2 weeks Goal 1: Pt to be instructed in home exercise program. Care Home Goals: To be met in 10 weeks Goal 1: Pt to report independence and compliance with home program. Goal 2: Pt to achieve 5/5 strength left ankle PF to assist with functional mobility and stairs. Goal 3: Pt to achieve 20 degrees of left ankle DF to assist with functional tasks such as squatting. Goal 4: Pt to score no less than 70/80 on LEFS indicating improved QOL. Pt will benefit from skilled PT for 2-3x/week from 07/09/2024 to 09/17/2024 to address the above impairments. I hereby deem this POC medically necessary. Please sign below. Date: documented in this encounter [facility] 07-05-2024 History of Present illness Narrative Images from the original note were not included. HPI: Tracie Dennis presents for an MRI follow-up. She states that once she started exercising again the pain came back. Pt states she has tried using the walking boot for over 3-4 weeks again with no relief. The boot seemed to cause more pain in the left foot. She has pain to the lateral left foot along the outside of foot that worsens with activity. She has done shoe gear changes, NSAIDs, [...] DEFORMITIES: none PAIN ELICITED WITH PALPATION OF: Pain with palpation overlying the base of the fourth, fifth metatarsal associated cuboid joint. Pain with palpation overlying the insertion of the peroneal brevis tendon and distal styloid process of the fifth metatarsal. There is mild pain with palpation to the more substance of the peroneal tendons along the inferior lateral ankle. There is no pain with compression to the left midfoot PAIN ELICITED WITH ROM: Dorsiflexion plantar flexion of the lateral aspect of the tarsometatarsal joint left MUSCLE STRENGTH: 5/5 for all pedal groups tested Assessments: Peroneal tendon tear left Insertional Peroneal Brevis tendonitis Left foot pain Plan: Peroneal tendon tear: In the findings of the MRI and options for further treatment. She does have a tear within the peroneal tendon and further treatment would be a course of immobilization. We did discuss alternative therapy such as physical therapy, cortisone injections, bracing and orthotics. Patient states that she was not very consistent with the immobilization as she was unsure if it was helping with her pain and symptoms. Prior to attempting Alternative treatment such as Physical therapy, orthotics and bracing she would like to dedicate the full 6-8 weeks of immobilization with a walking boot and see if this does not improve her symptoms. Patient was advised to use the boot at all times when weightbearing. She can remove the boot when resting and perform range of motion exercises to the foot and ankle. She will follow up in 1 month for recheck. documented in this encounter [facility] 06-09-2024 History of Present illness Narrative Reason for Appointment: Patient ID: Tracie Dennis is a 39 y.o. female who presents for Post-op Visit Patient presents today for 1 Week Post Op Follow Up appointment. MEDICATIONS Current Outpatient Medications Medication Instructions escitalopram [...] Respiratory: Negative. Cardiovascular: Negative. Gastrointestinal: Negative. Genitourinary: Negative. Musculoskeletal: Negative. Skin: Negative. Neurological: Negative. All other systems reviewed and are negative. Hematological: Negative. Endocrine: Negative. Allergic/Immunologic: Negative. OBJECTIVE Objective: Physical Exam Constitutional: Appearance: Normal appearance. She is normal weight. HENT: Head: Normocephalic. Cardiovascular: Rate and Rhythm: Normal rate. Pulses: Normal pulses. Pulmonary: Effort: Pulmonary effort is normal. Breath sounds: Normal breath sounds. Abdominal: Palpations: Abdomen is soft. Comments: Left lateral abdominal incision tender, no purulent drainage Remainder of incisions clean and healing well Musculoskeletal: General: Normal range of motion. Neurological: General: No focal deficit present. Mental Status: She is alert and oriented to person, place, and time. Skin: General: Skin is warm. Psychiatric: Mood and Affect: Mood normal. Behavior: Behavior normal. Thought Content: Thought content normal. Judgment: Judgment normal. Vitals and nursing note reviewed. Vitals: Estimated body mass index is 33.96 kg/m as calculated from the following: Height as of 03/16/24: 5' 6 . Weight as of this encounter: 210 lb 6.4 oz. BP: 116/80 No LMP recorded. ASSESSMENT & PLAN ICD-10-CM 1. Postop check Z09 Post Op Follow Up: Patient presents today for a postop follow up after having a Bilateral Laparoscopic Salpingectomy with ablation performed at [facility] with Dr. Chahal. Patient is healing well and shows no signs or symptoms of infection. Pathology results was reviewed with the patient in great detail and all restrictions have been lifted. Follow Up: Patient is to return to the office for annual exam unless needed otherwise. Documented by OSKAR Jacobson on behalf of: OSKAR Jacobson documented in this encounter [facility] 06-02-2024 History of Present illness Narrative Images from the original note were not included. HPI: Tracie Dennis presents for an MRI follow-up. She states that once she started exercising [...] DEFORMITIES: none PAIN ELICITED WITH PALPATION OF: Pain with palpation overlying the base of the fourth, fifth metatarsal associated cuboid joint. Pain with palpation overlying the insertion of the peroneal brevis tendon and distal styloid process of the fifth metatarsal. There is mild pain with palpation to the more substance of the peroneal tendons along the inferior lateral ankle. There is no pain with compression to the left midfoot PAIN ELICITED WITH ROM: Dorsiflexion plantar flexion of the lateral aspect of the tarsometatarsal joint left MUSCLE STRENGTH: 5/5 for all pedal groups tested Assessments: Peroneal tendon tear left Insertional Peroneal Brevis tendonitis Left foot pain Plan: Peroneal tendon tear: In the findings of the MRI and options for further treatment. She does have a tear within the peroneal tendon and further treatment would be a course of immobilization. We did discuss alternative therapy such as physical therapy, cortisone injections, bracing and orthotics. Patient states that she was not very consistent with the immobilization as she was unsure if it was helping with her pain and symptoms. Prior to attempting Alternative treatment such as Physical therapy, orthotics and bracing she would like to dedicate the full 6-8 weeks of immobilization with a walking boot and see if this does not improve her symptoms. Patient was advised to use the boot at all times when weightbearing. She can remove the boot when resting and perform range of motion exercises to the foot and ankle. She will follow up in 1 month for recheck. documented in this encounter [facility] 05-11-2024 History of Present illness Narrative Reason for Appointment: Patient ID: Tracie Dennis is a 39 y.o. female who presents for EMBX Patient presents today for Pre Op/Endometrial Biopsy appointment. Patient is scheduled to undergo Da Loly assisted Bilateral Laparoscopic Salpingectomy and Endometrial Ablation with [facility] on 06/04/[address] Chahal at [facility]. MEDICATIONS Current Outpatient Medications Medication Instructions [...] nursing note reviewed. Exam conducted with a market basket maker present. Vitals: Estimated body mass index is [...] reviewed, and patient is to proceed to [facility]. Follow Up: Patient is to follow up between 1-2 weeks post op to assess proper healing and recovery from procedure. Documented by Abida Wellington LPN on behalf of: Vikram Chahal DO documented in this encounter [facility] 04-29-2024 History of Present illness Narrative Images from the original note were not included. HPI: Tracie Dennis presents today for Recheck of left [...] current diagnosis. 2. Order was placed into [facility] for MRI left ankle. 3. Patient was instructed on scheduling once prior authorization is obtained if needed and follow-up afterward. Patient was instructed to make an appointment 3-5 days afterward to discuss the results and further treatment plan. 4. Patient was instructed on continued conservative treatment in the meantime including immobilization, NSAIDs, supportive shoe gear. 5. RTC: following MRI. documented in this encounter [facility] 03-16-2024 History of Present illness Narrative Reason for Appointment: Patient ID: Tracie Dennis is a 39 y.o. female who presents for No chief complaint on file. Patient presents today for Acute Visit.patient presents for irregular bleeding and pain MEDICATIONS No current outpatient medications ALLERGIES Allergies Allergen Reactions Ciprofloxacin Rash Other [...] Respiratory: Negative. Cardiovascular: Negative. Gastrointestinal: Negative. Genitourinary: Negative. Musculoskeletal: Negative. Skin: Negative. Neurological: Negative. All other systems reviewed and are negative. Hematological: Negative. Endocrine: Negative. Allergic/Immunologic: Negative. OBJECTIVE Objective: Physical Exam Constitutional: Appearance: Normal appearance. She is normal weight. HENT: Head: Normocephalic. Cardiovascular: Rate and Rhythm: Normal rate. Pulses: Normal pulses. Pulmonary: Effort: Pulmonary effort is normal. Breath sounds: Normal breath sounds. Abdominal: Palpations: Abdomen is soft. Musculoskeletal: General: Normal range of motion. Neurological: General: No focal deficit present. Mental Status: She is alert and oriented to person, place, and time. Psychiatric: Mood and Affect: Mood normal. Behavior: Behavior normal. Thought Content: Thought content normal. Judgment: Judgment normal. Vitals and nursing note reviewed. Vitals: Estimated body mass index is 33.43 kg/m as calculated from the following: Height as of this encounter: 5' 6 . Weight as of this encounter: 207 lb 1.9 oz. BP: 110/64 Patient's last menstrual period was 02/27/2024. ASSESSMENT & PLAN ICD-10-CM 1. Menopause Z78.0 2. Pain of ovary N94.89 3. Pain in female genitalia on intercourse N94.10 4. Hormone disorder E34.9 Estradiol Estrone Cortisol, free DHEA-sulfate Sex hormone binding globulin Insulin, total Serotonin serum TSH T4, free T3, reverse Progesterone Vitamin D 1,25 dihydroxy Ferritin T3, free Thyroglobulin Thyroglobulin Antibody Thyroid peroxidase antibody T4 TESTOSTERONE, FREE Testosterone, free, total Hemoglobin A1c Glucose, random C-peptide Cortisol, free Insulin, total Serotonin serum Thyroglobulin Thyroglobulin Antibody T4 Glucose, random C-peptide Patient presents for perimenopausal symptoms including pain with intercourse, ovarian pain, irregular bleeding. Patient has history of ovarian cysts. States recently she had increase in night sweats and pain with intercourse. We discussed options including salpingectomy with ablation. We will order US, labs and get patient with budpaur for hormone evaluation. Pt will follow with DR Chahal when testing complete. 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 PREOPERATIVE DIAGNOSIS: Pelvic pain, left ovarian cyst 6 cm in nature. POSTOPERATIVE DIAGNOSIS: Pelvic pain without left ovarian cyst, however, there was a small adhesion which was easily taken down from the anterior abdominal wall that was omental in nature. SURGEON: Vikram Chahal D.O. GOLF COURSE MECHANIC: VITA Rondon URINE OUTPUT: Yellow and clear. [...] abdominal wall Electronically Authenticated and Edited by: Vikram Chahal DO on 01/01/2022 09:27 PM EDT IFC Signed and Approved by: DR VIKRAM CHAHAL . 01/01/2022 21:27:00 [facility] 10-16-2020 Note HNO ID: [id number] Author: Minesh Gurrola Service: ? Author Type: Physician Engineering Associate Type: Progress Notes Filed: 10/16/2020 1:03 PM Note Text: SUBJECTIVE Tracie Dennis is a 35 year old female, [...] NOHEMI TEST: Positive STRENGTH: 5/5 biceps, triceps, tobacco drummer, finger abduction, WE, WF, AND EPL STABILITY: all joints stable CREPITUS: negative NEUROLOGICAL EXAM: Sensory: sensation intact to light touch axillary, radial, median, AND ulnar distributions 2-point discrimination intact throughout all digits. Motor strength: equal bilaterally with 5/5 biceps, triceps, tobacco drummer, finger abduction, WE, WF, thumb opposition, AND [...] has been identified and corrected by editing. [facility] Evaluation + Plan note No data available for this section [facility] Evaluation note Diagnosis Sprain of tarsometatarsal joint of left foot, subsequent encounter- Primary Stress reaction of bone Stress fracture of other bone Left foot pain Pain in soft tissues of limb documented [facility] encounter [facility] Diagnosis Pre-op examination Request for sterilization Menorrhagia with regular cycle Abnormal uterine bleeding (AUB) Pelvic pain in female Unspecified symptom associated with female genital organs Hormone disorder Unspecified endocrine disorder documented [facility] this encounter [facility] Diagnosis Tear of tendon of left ankle, subsequent encounter- Primary Peroneal tendinitis of left lower extremity Left foot pain Pain in soft tissues of limb documented [facility] encounter [facility]* Diagnosis Postop check Follow-up examination, following unspecified surgery documented [facility] encounter [facility]* Diagnosis Tear of tendon of left ankle, subsequent encounter- Primary Peroneal tendinitis of left lower extremity Cuboid syndrome, subsequent encounter Left foot pain Pain in soft tissues of limb documented [facility]* Diagnosis Peroneal tendinitis of left lower extremity- Primary Cuboid syndrome, subsequent encounter Tear of tendon of left ankle, subsequent encounter documented [facility] encounter [facility]* Diagnosis Peroneal tendinitis of left lower extremity- Primary Cuboid syndrome, subsequent encounter Tear of tendon of left ankle, subsequent encounter documented [facility]* Diagnosis Menopause Symptomatic menopausal or female climacteric states Pain of ovary Pain in female genitalia on intercourse Dyspareunia Hormone disorder Unspecified endocrine disorder documented in this encounter [facility]* Diagnosis Peroneal tendinitis of left lower extremity- Primary Cuboid syndrome, subsequent encounter Tear of tendon of left ankle, subsequent encounter documented [facility] encounter [facility]* Diagnosis Peroneal tendinitis of left lower extremity- Primary Cuboid syndrome, subsequent encounter Tear of tendon of left ankle, subsequent encounter documented [facility] encounter [facility]* Diagnosis Tear of tendon of left ankle, subsequent encounter Peroneal tendinitis of left lower extremity Cuboid syndrome, subsequent encounter documented [facility] encounter [facility]* Diagnosis Tear of tendon of left ankle, subsequent encounter- Primary Peroneal tendinitis of left lower extremity Cuboid syndrome, subsequent encounter documented in [facility] encounter [facility]* Diagnosis Tear of tendon of left ankle, subsequent encounter- Primary Peroneal tendinitis of left lower extremity Cuboid syndrome, subsequent encounter documented in this encounter [facility]* Diagnosis Tear of tendon of left ankle, subsequent encounter- Primary Peroneal tendinitis of left lower extremity Cuboid syndrome, subsequent encounter documented in [facility] encounter [facility]* Diagnosis Tear of tendon of left ankle, subsequent encounter- Primary Peroneal tendinitis of left lower extremity Cuboid syndrome, subsequent encounter documented in this encounter [facility] note* Diagnosis Right shoulder pain, unspecified chronicity- Primary Rotator cuff impingement syndrome of right shoulder documented in this encounter [facility] Discharge instructions No data available for this section [facility] data available for this section [facility] - Outpatient (Routine) - Authorized Specialty Diagnoses / Procedures Referred By Gisela gibbons Referred To Contact Physical Therapy Diagnoses Tear of tendon of left ankle, subsequent encounter Peroneal tendinitis of left lower extremity Cuboid syndrome, subsequent encounter Procedures [place] OFFICE[facility]PATIENT [facility] Tierra Stephenson DPM [address] [place] [id number] Phone: tel: fax: Dasha Elder PT Referral ID Status Reason Start Date Expiration Date Visits Requested Visits Authorized [id number] Authorized Specialty Services Required 07/05/2024 01/01/[address] [facility] for visit Narrative* Rehabilitation - Outpatient (Routine) - Authorized Specialty Diagnoses / Procedures Referred By Gisela gibbons Referred To Contact Physical Therapy Diagnoses Tear of tendon of left ankle, subsequent encounter Peroneal tendinitis of left lower extremity Cuboid syndrome, subsequent encounter Procedures [place] OFFICE[facility]OUTPATIENT [facility] Tierra Stephenson, DPM [address] [place] [address] Phone: tel: fax: Dasha Elder, RANDY Referral ID Status Reason Start Date Expiration Date Visits Requested Visits Authorized [id number] Authorized Specialty Services Required 07/05/2024 07/27/2024 60 60 [facility]* Rehabilitation - Outpatient (Routine) - Closed Specialty Diagnoses / Procedures Referred By Gisela gibbons Referred To Contact Physical Therapy Diagnoses Tear of tendon of left ankle, subsequent encounter Peroneal tendinitis of left lower extremity Cuboid syndrome, subsequent encounter Procedures [place] OFFICE/OUTPATIENT [facility] Milagro Stephensonra Rosie, DPM [address] [address] Phone: tel: fax: Dasha Elder, PT Referral ID Status Reason Start Date Expiration Date V isits Requested Visits Authorized [id number] Closed Specialty Services Required 07/05/2024 07/27/2024 60 60 [facility] N[facility]* Rehabilitation - Outpatient (Routine) - Authorized Specialty Diagnoses / Procedures Referred By Gisela gibbons Referred To Contact Physical Therapy Diagnoses Tear of tendon of left ankle, subsequent encounter Peroneal tendinitis of left lower extremity Cuboid syndrome, subsequent encounter Procedures LA MANUAL THERAPY TQS 1/> REGIONS EACH 15 MINUTES LA THER PX 1/> AREAS EACH 15 MIN NEUROMUSC REEDUCA LA THERAPEUTIC PX 1/> AREAS EACH 15 MIN EXERCISES LA OCCUPATIONAL THERAPY EVALUATION Kita Stephensonandra Rosie, DPM [address] [address] Phone: tel: fax: Dasha Elder, RANDY Referral ID Status Reason Start Date Expiration Date V isits Requested Visits Authorized [id number] Authorized 07/28/2024 08/19/2024 60 3 [facility] N[facility]* Rehabilitation - Outpatient (Routine) - Authorized Specialty Diagnoses / Procedures Referred By Gisela gibbons Referred To Contact Physical Therapy Diagnoses Tear of tendon of left ankle, subsequent encounter Peroneal tendinitis of left lower extremity Cuboid syndrome, subsequent encounter Procedures LA MANUAL THERAPY TQS 1/> REGIONS EACH 15 MINUTES LA THER PX 1/> AREAS EACH 15 MIN NEUROMUSC REEDUCA LA THERAPEUTIC PX 1/> AREAS EACH 15 MIN EXERCISES LA OCCUPATIONAL THERAPY EVALUATION Sachin Tierra Velez, DPM [address] [place] [address] Phone: tel: fax: Dasha Elder, PT Referral ID Status Reason Start Date Expiration Date V isits Requested Visits Authorized [id number] Authorized 07/28/2024 07/27/2025 60 60 [facility] N[facility]* Rehabilitation - Outpatient (Routine) - Closed Specialty Diagnoses / Procedures Referred By Gisela gibbons Referred To Contact Physical Therapy Diagnoses Tear of tendon of left ankle, subsequent encounter Peroneal tendinitis of left lower extremity Cuboid syndrome, subsequent encounter Procedures LA MANUAL THERAPY TQS 1/> REGIONS EACH 15 MINUTES LA THER PX 1/> AREAS EACH 15 MIN NEUROMUSC REEDUCA LA THERAPEUTIC PX 1/> AREAS EACH 15 MIN EXERCISES LA OCCUPATIONAL THERAPY EVALUATION Tierra Stephenson, DPM [address] [place] [address] Phone: tel: fax: Dasha Elder, RANDY Referral ID Status Reason Start Date Expiration Date Visits Re quested Visits Authorized [id number] Closed 07/28/2024 07/27/2025 60 60 [facility] Summary Purpose Family History No Family History [...] DPM [address] [place] [address] Referral ID Status Reason Start Date Expiration Date V isits Requested Visits Authorized [id number] Pending Review 04/29/2024 10/26/2024 1 1 Additional Source Comments INFORMATION SOURCE (unrecogn ized section and content) DATE CREATED AUTHOR 08/26/2021 [facility] DATE CREATED AUTHOR AUTHOR'S ORGANIZ ATION 11/09/2022 [facility] DATE CREATED AUTHOR AUTHOR'S ORGANIZ ATION 11/14/2022 [facility] DATE CREATED AUTHOR AUTHOR'S ORGANIZ ATION 04/03/[address] [facility] DATE CREATED AUTHOR AUTHOR'S ORGANIZ ATION 08/20/2024 [facility] EPIC Patient Care team informatio n (unrecognized section and content) End Finder Forming Department Relationship Specialty Start Date End Date Unallocated, Antionette Morales MD [facility] [place] [address] PCP - General 05/07/23 End Finder Forming Department Relationship Specialty Start Date End Date Unallocated, Antionette Morales MD [facility] [place] [address] PCP - General 05/07/23 End Finder Forming Department Relationship Specialty Start Date End Date Unallocated, Antionette Morales MD [facility] [place] [address] PCP - General 05/07/23 End Finder Forming Department Relationship Specialty Start Date End Date Unallocated, Antionette Morales MD [facility] [address] [facility] [address] PCP - General 05/07/23 End Finder Forming Department Relationship Specialty Start Date End Date Unallocated, Antionette Morales MD [facility] [place] [address] PCP - General 05/07/23 End Finder Forming Department Relationship Specialty Start Date End Date Unallocated, Antionette Morales MD [facility] [address] [facility] [address] PCP - General 05/07/23 End Finder Forming Department Relationship Specialty Start Date End Date Unallocated, Antionette Morales MD [address] [place] [address] PCP - General 05/07/23 End Finder Forming Department Relationship Specialty Start Date End Date Unallocated, Antionette Morales MD [address] [place] [address] PCP - General 05/07/23 End Finder Forming Department Relationship Specialty Start Date End Date Unallocated, Antionette Morales MD [address] [place] [address] PCP - General 05/07/23 End Finder Forming Department Relationship Specialty Start Date End Date Unallocated, Antionette Morales MD [address] [place] [address] PCP - General 05/07/23 Marco Antonio Weaver, [address] [place] [address] PCP - [place] [facility] 06/27/23 End Finder Forming Department Relationship Specialty Start Date End Date Unallocated, Antionette Morales MD [address] [place] [address] PCP - General 05/07/23 Marco Antonio Weaver DO [address] [place] [address] PCP - [place] [facility] 06/27/23 End Finder Forming Department Relationship Specialty Start Date End Date Unallocated, Antionette Morales MD [address] [place] [address] PCP - General 05/07/23 Marco Antonio Weaver, [address] [place] [address] PCP - [place] [facility] 06/27/23 End Finder Forming Department Relationship Specialty Start Date End Date Unallocated, Antionette [place]ales [place] [address] PCP - General 05/07/23 End Finder Forming Department Relationship Specialty Start Date End Date Unallocated, [place] [address] PCP - General 05/07/23 End Finder Forming Department Relationship Specialty Start Date End Date Unallocated, [place] [address] PCP - General 05/07/23 End Finder Forming Department Relationship Specialty Start Date End Date Unallocated, [place] [address] PCP - General 05/07/23 End Finder Forming Department Relationship Specialty Start Date End Date Unallocated, Antionette Morales MD [place] [address] PCP - General 05/07/23 End Finder Forming Department Relationship Specialty Start Date End Date Unallocated, Antionette Morales [place] [address] PCP - General 05/07/23 End Finder Forming Department Relationship Specialty Start Date End Date Unallocated, Antionette Morales [place] [address] PCP - General 05/07/23 End Finder Forming Department Relationship Specialty Start Date End Date Unallocated, Antionette Morales [place] [address] PCP - General 05/07/23 End Finder Forming Department Relationship Specialty Start Date End Date Unallocated, [place] [address] PCP - General 05/07/23 End Finder Forming Department Relationship Specialty Start Date End Date Unallocated, Antionette Morales MD [address] [place] [address] PCP - General 05/07/23 End Finder Forming Department Relationship Specialty Start Date End Date Unallocated, Antionette Morales MD [address] [facility] [place] [id number] PCP - General 05/07/23 Reason for Visit (unrecogniz ed section and content) Reason Comments EMBX Reason Comments Post-op Visit Reason Comments Pain FOR RECORDS PERTAINING TO PATIENTS WHO ARE [...] BE BASED ON THE PRIMARY CLINICAL RECORDS. [facility] [employer] [facility]. provides no warranty or guarantee of the accuracy or completeness of information in this document.
== END 2024-12-15 13:55 | disposition home or self-care (01) ==
LOC: MAMMO 13:54
PROVIDERS: Visit Provider Obstetrics & Gynecology
DX: Z12.31 Encounter for screening mammogram for malignant neoplasm of breast (principal); Z80.3 Family history of malignant neoplasm of breast
CPT/HCPCS: 77063; 77067

== ENCOUNTER 2025-04-04 21:21 | Outpatient (REF) | payer BC, SELFPAY ==
--- OUTSIDE RECORDS SUMMARY | 2025-04-04 21:27 | XMS_ITS | CCD ---
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 Role Phone Wilda Buckner Primary Care [...] [ciprofloxacin] Drug Allergy 3 Tenalgia (finding), Rash [facility] (1 source) Ciprofloxacin Drug Allergy 7 [facility] Repository Medications Current Medications Medication Drug Class(es) Dates Sig (Normalized) Sig (Original) ibuprofen 800 mg oral tablet (4 sources) Nonsteroidal Anti-inflammatory Drug Start: 06-04-2024 take [...] Test Name Value Interpretation Reference Range Facility MM TOMOSYNTHESIS SCREENING B Ion 12-15-2024 [place] [address] Mammography Report Signed Patient: TRACIE DENNIS MR#: [id number] : 1985 Acct:[id number] Age/Sex: 39 / F ADM Date: 12/15/24 Loc: MAMMO Attending Dr: Vikram Chahal D.O. Ordering Physician: Vikram Chahal D.O. Results: Date of Service: 12/15/24 Follow Up: Procedure(s): MM tomosynthesis screening BI Accession Number(s): [id number] cc: Vikram Chahal D.O.; Physician,Non-Staff Baldev Patient Name: TRACIE DENNIS MR#: [id number] : 1985 Exam Date: 12/15/2024 Ordering Doctor: DR VIKRAM CHAHAL . RADIOLOGY REPORT PROCEDURE: MM TOMOSYNTHESIS SCREENING BI COMPARISON: MM TOMOSYNTHESIS SCREENING BI, 12/15/2023. MG MAMM DIAGNOSTIC 3D YARITZA CAD, 10/31/2022. INDICATIONS: Screening Calculator Name NCI Breast Cancer Risk Assessment Tool 5 Year Breast Cancer Risk 0.60% Lifetime Breast Cancer Risk 11.10% Personal Breast Cancer No Personal Ovarian Cancer No Treatments None Family Cancers Aunt-paternal with breast cancer at age 48. LOCATION: [facility] BREAST COMPOSITION: There are scattered areas of fibroglandular density. FINDINGS: RIGHT BREAST: No significant suspicious finding. Benign-appearing lymph nodes are noted along the right chest. LEFT BREAST: No significant suspicious finding. Benign-appearing lymph nodes are noted along the left chest wall. There is a similar focal asymmetry. DIAGNOSTIC CATEGORY 2--BENIGN FINDING. NO CHANGE FROM COMPARISON. RECOMMENDATIONS: ROUTINE MAMMOGRAM AND CLINICAL EVALUATION IN 12 MONTHS. PLEASE NOTE: A NORMAL MAMMOGRAM DOES NOT EXCLUDE THE POSSIBILITY OF BREAST CANCER. A CLINICALLY SUSPICIOUS PALPABLE LUMP SHOULD BE BIOPSIED. Dictated by: Cj Salomon MD on 12/15/2024 at 16:29 Approved by: jC Salomon MD on 12/15/2024 at 16:33 Dictated By: Cj Salomon M.D. Signed By: 12/15/24 1634 DD/ 1633 TD/TT: Regulatory Affairs Assistant: [facility] Radiology, Radiologist, - 12/15/2024 [place] [address] Mammography Report Signed Patient: TRACIE DENNIS MR#: [id number] : 1985 Acct:[id number] Age/Sex: 39 / F ADM Date: 12/15/24 Loc: MAMMO Attending Dr: Vikram Chahal D.O. Ordering Physician: Vikram Chahal D.O. Results: Date of Service: 12/15/24 Follow Up: Procedure(s): MM tomosynthesis screening BI Accession Number(s): [id number] cc: Vikram Chahal D.O.; Physician,Non-Staff Baldev Patient Name: TRACIE DENNIS MR#: [id number] : 1985 Exam Date: 12/15/2024 Ordering Doctor: DR VIKRAM CHAHAL . RADIOLOGY REPORT PROCEDURE: MM TOMOSYNTHESIS SCREENING BI COMPARISON: MM TOMOSYNTHESIS SCREENING BI, 12/15/2023. MG MAMM DIAGNOSTIC 3D YARITZA CAD, 10/31/2022. INDICATIONS: Screening Calculator Name NCI Breast Cancer Risk Assessment Tool 5 Year Breast Cancer Risk 0.60% Lifetime Breast Cancer Risk 11.10% Personal Breast Cancer No Personal Ovarian Cancer No Treatments None Family Cancers Aunt-paternal with breast cancer at age 48. LOCATION: [facility] BREAST COMPOSITION: There are scattered areas of fibroglandular density. FINDINGS: RIGHT BREAST: No significant suspicious finding. Benign-appearing lymph nodes are noted along the right chest. LEFT BREAST: No significant suspicious finding. Benign-appearing lymph nodes are noted along the left chest wall. There is a similar focal asymmetry. DIAGNOSTIC CATEGORY 2--BENIGN FINDING. NO CHANGE FROM COMPARISON. RECOMMENDATIONS: ROUTINE MAMMOGRAM AND CLINICAL EVALUATION IN 12 MONTHS. PLEASE NOTE: A NORMAL MAMMOGRAM DOES NOT EXCLUDE THE POSSIBILITY OF BREAST CANCER. A CLINICALLY SUSPICIOUS PALPABLE LUMP SHOULD BE BIOPSIED. Dictated by: Cj Salomon MD on 12/15/2024 at 16:29 Approved by: Cj Salomon MD on 12/15/2024 at 16:33 Dictated By: Cj Salomon M.D. Signed By: 12/15/24 163 DD/ 32 TD/TT: Regulatory Affairs Assistant: [facility] Radiology Study observation (narrative) [facility] MM TOMOSYNTHESIS SCREENING B IOrdered By: Radiologist Radiology on 12-15-2024 [facility] Work Phone: XR Shoulder - right 2 Viewso n 08-18-2024 Imaging Result: Grashey and scapular Y-view of the right shoulder taken in the office today demonstrating no evidence of acute fracture bony tumor no proximal migration of the humeral head in relation to the glenoid no significant OA of the GH joint. Early arthritic findings of the AC joint with no significant spurring. [facility] Radiology Study observation (narrative) [facility] ALL CBC WITH AUTO DIFFon BASOPHILS ABSOLUTE AUTO 0 [facility] Basophils/100 WBC (Bld) 0.5 % 0.2 - 2.0 % [facility] Eosinophils/100 WBC (Bld) 0.8 % Low 0.9 - 7.0 % [facility] Erythrocyte distribution width (RBC) [Ratio] 13.1 % 11.0 - 15.0 % [facility] Hematocrit (Bld) [Volume fraction] 42.5 % 36.0 - 48.0 % [facility] Hemoglobin (Bld) [Mass/Vol] 14.2 g/dL 12.0 - 16.0 g/dL [facility] IMMATURE GRANULOCYTES ABS AUTO 0.02 [facility] Immature granulocytes/100 WBC (Bld) 0.3 % 0.0 - 0.5 % [facility] Interpretation and review of laboratory results Abnormal [facility] LYMPHOCYTES ABSOLUTE AUTO 2.5 [facility] Lymphocytes/100 WBC (Bld) 31.4 % 20.5 - 60.0 % [facility] MCH (RBC) [Entitic mass] 28.1 pg 26.7 - 34.0 pg [facility] MCHC (RBC) [Mass/Vol] 33.4 g/dL 29.9 - 35.2 g/dL [facility] MCV (RBC) [Entitic vol] 84.2 fL 81.0 - 99.0 fL [facility] MONOCYTES ABSOLUTE AUTO 0.7 [facility] Monocytes/100 WBC (Bld) 8.7 % 1.7 - 12.0 % [facility] NEUTROPHILS ABSOLUTE AUTO 4.6 [facility] Neutrophils/100 WBC (Bld) 58.3 % 43.0 - 75.0 % [facility] Platelet mean volume (Bld) [Entitic vol] 8.8 fL Low 9.5 - 13.5 fL [facility] TBH EO # 0.1 [facility]H PLT [address] [facility] RBC 5.[address] [facility] WBC 7.9 [facility] HCG ( test) Ql (U)o n 05-11-2024 Interpretation and review of laboratory results Normal [facility] Preg Test, Ur Negative [facility] MR ANKLE LEFT WO IV CONTRAST [...] formation. There are no structural deformities noted [facility] Radiology Study observation (narrative) [facility] MLR HEMOGLOBIN A1Con 024 Glucose [Mass/Vol] 100 mg/dL [facility] HbA1c (Bld) [Mass fraction] 5.1 % 4.5 - 6.2 % [facility] Comment on above: ADA RECOMMENDED LIMI T 4.0 - 6.0 ADA THERAPEUTIC TARGET < 7.0 ACTION SUGGESTED > 7.0 [facility] MR KNEE RIGHT WO IV CONTRAST [...] Questions Consent for Treatmenton Consent for Treatment [id number] #1.00CD:127 Normal [facility] Physician Orderon 04-02-2023 Physician Order [id number] 0#1.00CD:127 Normal [facility] XR Foot 3+ Views Lefton [...] mGy = na DAP = na Normal [facility] XR Wrist 3+ Views Lefton [...] mGy = . DAP = . Normal [facility] XR Wrist 3+ Views Righton [...] mGy = . DAP = . Normal [facility] Consent for Treatmenton 12-26 Consent for Treatment [id number] #1.00CD:127 Normal [facility] Physician Orderon 01-09-2023 Physician Order [id number] 5#1.00CD:127 Normal [facility] SURGICAL PATH REPORTon 11-14 SURGICAL PATH REPORT [facility] Department of Pathology [address] [place] [id number] Name: TRACIE DENNIS : 1985 [facility] [id number] Number: Gender Female [facility] : n: Admit 37 years Attending VIKRAM CHAHAL Age: Provider: Ordering VIKRAM CHAHAL Provider: Consulti Surgical Pathology Report ng: ACCESSION: COLLECTED DATE/TIME: RECEIVED DATE/TIME: PATHOLOGIST: [id number] 11/12/2022 16:30 EDT 11/13/2022 13:47 EDT DEJUAN RODRIGUEZ MD Final Diagnosis Report for THE [facility], [place] ENDOMETRIAL BIOPSY: - PROLIFERATIVE ENDOMETRIUM. DEJUAN [...] ald 11/13/2022 Tissue pathology report for: THE [address] [address]; ____ Print 11/14/2022 14:01 EDT Number: Date/Time: [facility] Department of Pathology [address] [place] [phone] Name: TRACIE DENNIS : 1985 [facility] [id number] Number: Gender Female [facility] : n: Admit 37 years Attending VIKRAM CHAHAL Age: Provider: Ordering VIKRAM CHAHAL Provider: Consulti Surgical Pathology Report ng: ACCESSION: COLLECTED DATE/TIME: RECEIVED DATE/TIME: PATHOLOGIST: [id number] 11/12/2022 16:30 EDT 11/13/2022 13:47 EDT MICHAEL ZAVALA, DEJUAN Gross Description PATHOLOGY SERVICES PROVIDED BY [employer] (CLIA #[id number]) in cooperation with [facility] at [address] [place] [address] (CLIA #[id number]) Microscopic Diagnosis The final diagnosis is based on a microscopic exam of shipping services sales representative sections. Codes CPT CODE: 88346 ____ Print 11/14/2022 14:01 EDT Number: Date/Time: [facility] Comment on above: Performed By: #### 9 [id number] #### [facility] Laboratory Services [address] [place] [address] Post Graduate Internship: Dejuan Rodriguez MD MG MAMM DIAGNOSTIC 3D YARITZA CA Don 10-31-2022 MG MAMM DIAGNOSTIC 3D YARITZA CAD Patient: TRACIE DENNIS Exam Date: 10/31/2022 : 1985 Gender:F Ordering : DR VIKRAM CHAHAL . Admission #: [id number] Family : Order #: [id number] CLICK HERE TO VIEW EXAM RADIOLOGY REPORT [...] : DR VIKRAM CHAHAL . Admission #: [id number] Family : Order #: [id number] CLICK HERE TO VIEW EXAM RADIOLOGY REPORT [...] doubtful clinical significance. Electronically authenticated by: KENNY GILMANNAATERESA Date: 2022-10-31 09:40 Normal [facility] PAP ACOG PANEL 2: 30 to 65on 10-30-2022 . . Normal [facility] Comment on above: Result Comment: Perf ormed at: WB Performed By: #### 4 [id number] #### [facility] [address] [address] [address] Edwina Vicente Age Gdln ACOG Testing [facility] Comment on above: Performed By: #### 4 [id number] #### [facility] [address] [address] [address] Edwina Vicente DIAGNOSIS: Comment Normal [facility] Comment on above: Result Comment: NEGA TIVE FOR INTRAEPITHELIAL LESION OR MALIGNANCY. Performed at: WB Performed By: #### 4 [id number] #### [facility] [address] [address] [address] Edwina Vicente HPV Aptima Negative Normal Negative [facility] Comment on above: Result Comment: This nucleic acid amplification test detects fourteen high-risk HPV types (16,18,31,33,35,39,45,51,52,56,58,59,66,68) without differentiation. Performed at: =G Performed By: #### 4 [id number] #### [facility] [address] [address] [address] dEwina Vicente HPV Genotype Reflex Comment Normal [facility] Comment on above: Result Comment: Crit eria not met, HPV Genotype not performed. Performed at: WB Performed By: #### 4 [id number] #### [facility] [address] [address] [address] Edwina Vicente Methodology: CTIM Normal [facility] Comment on above: Result Comment: The Thin Prep(R) Emt I/85 was unable to read this specimen. Therefore a manual review was performed. Performed at: WB Performed By: #### 4 [id number] #### [facility] [address] [place] [address] Dr. Edwina Vicente Note: Comment [facility] Comment on above: Result Comment: The Pap smear is a screening test designed to aid in the detection of premalignant and malignant conditions of the uterine cervix. It is not a diagnostic procedure and should not be used as the sole means of detecting cervical cancer. Both false-positive and false-negative reports do occur. . Performed at: WB Performed By: #### 4 [id number] #### [facility] [address] [place] [address] Dr. Edwina Vicente Performed by: Comment Normal [facility] Comment on above: Result Comment: Bo Rao, Tour Manager (ASCP) Performed at: WB Performed By: #### 4 [id number] #### [facility] [address] [place] [address] Dr. Edwina Vicente Specimen adequacy: Comment Normal [facility] Comment on above: Result Comment: Sati sfactory for evaluation. Endocervical and/or squamous metaplastic cells (endocervical component) are present. Performed at: WB Performed By: #### 4 [id number] #### [facility] [address] [place] [address] Dr. Edwina Vicente Coding Summary.on 09-30-2022 Coding Summary. CD:[id number] Gh0bWw+PGhlYWQ+PE1FV KUrY49puIFtsM7XL1zUA E9KMKMFTAVUEE8NGR4wc ZF2ZGfnR4DhgjUy AbptyGOzRG41LCs9CKX7 vYskKCofdS2lmFTiY7q3 UkIkIV84uS80NJigEFDl NkL7FkSlrvzgrZZb A3rdKcEgrUUdVxl+PHRh YmxlIHdpZHRoPScxMDAl KrQyrFavDD2uKi8sCYHf LWNvbGxhcHNlOiBj i3foUKQyXHpfCC3kwSul L1GybNW8GJNrc7h0Db30 dHI+CHXfWES7iCugCGyz a569GnRvd3jaZTU8 cYTiAJcrUEZ7Y85ai1Y5 NUXeLLStJPM6iMG8mS5o zOcrkwxsI9GzdZKcChO2 KSH3dDQjxK9vhJdx xyslyO3uBpw+W52QLC4O MEXJCE3GMpo5A0KoKfex dHI+YX70PNPeAH71yNRc aUKpg7obcGh4EeRf SRMrKVL8pRbdTCdlo9Xi FFFuG98cvZApq6T0YPCh yEkpjNKrXhYdmJE2yW8b LUkymaech9sitspp Vdaqv4ktuz44xL51M27p HPfvPVDaKVF0RFZbPUVs oTobza9pcQ7xTq4+IDxj m1itq4mclQb0LoWf QEWrzqZrpPtpLBO3g2Dp Vf07U8IsxJdqo9EuWhu5 yq80mYDhu5J3pLK0SUiq AQLfuU9dCPsiFgD3 SZHpKvCzrR18sREdKTne Db2qgHbujWhkDK3iIOBc jzugZAJmwK8iTOWrwAIv eZjeEC1bIOWyghjv n267LvRqJDH4GCYrkNUx H9VpaH1sMnIlDDBtHZBs X8YeoZNjLYzvA478SYqh XbB5ONCybyMyH2Kw ADBhaChlWrL1b6A2Fx2L u0EyyshwJFA1LUryJESl VcR5UsUkPbC6F4TfFuk6 KYOoeHwwUH9lT2Kp WVZgddyzncwcqIQ1BUSs MQWcyD27mJKyMTwbNj2k p7D6m001QNFcYPJhwP34 Wq0zaJmzQVBvmPZX xS7hdsbno7ozzzltDdYu RYSlQYj5EIs2DZQnhUvg DfFbYXZ9TlF7GLF5jESk wD6qsFbcqidprK3l Oyc+F58stC6uKYW5JJV4 jzrlRKIphfHfTQ06ML75 S6OvWgdrvOIzyUO+PGRp pnPrlJtnXW5lKbCt j0yyf4EgCThoV7BdIEMa KHviVpl0SMEmAUR2vNG4 oS5mXEZdXJrvh2W7hNE5 X5ZshzDsjc0zc4kz MIUsOKazG05hdICbu5A4 NTEwoYQ0KFTigGrhAwXv dE16Mmf+IBHfvWglf1Ab Hefzm0dbx5vqaRe9 IjMwJSIgdmFsaWduPSJ0 g7CbNw45S88pYLssVDQw VJFpDZMeHTMuyAurpb2z kD9lGh6+PGNvbCB3 bBN2dI1jHZRjWcE0PJgd U659InKwoRWgWjeme0rk t6dkzLm0KtKfECJwwbLy cNspIIM1i6PoIg33 C11rUUjwBVAwYPQhRTVt WGWchWpolb3zxL8nMc5+ LO5fy4pgsq13hT62zJZ+ SWBzFEY4xGltPSka CSMclG2uLWunNcO3SJYu UeHovH62wKHcRWtwXh0o jRgdrIjbJS2bUTXqvdvr h682CyVkn6cfRRYa xGYvNEwbRHY7M94dx0Y3 FRNrNAJoGGP8zNK2pF2c bGlnbjogbGVmdDsgdmVy cKcgCLrzGRlcD486 IHRvcDsnPlBhdGllbnQg OkKkJZy7H4EnFkt2TQNv wFpsTY7hgWTlYSegTu2x zIqpnAekGC0bLNRb prnxp630ZmEpa8jqAJSr xFRmHZxsGBV6L39mh5K1 JURrIFLiHKH2rBA0gX9k bGlnbjogbGVmdDsg mkHdiSrdZVwnCLdyW382 IHRvcDsnPkJpcnRoIERh jIU6PW22LH11zOQly8S4 lZF8T1LtNYXdtkon xghzyFL2SQZeTCFrmU34 Xb9unHiwNa3jRHCjMUX4 TJKykDNoN2OgbV4rYwPv OEEnKZBnW7AyvZCu HRzrD127PGxfYoW4DXJm ymQpO3NdCRDezHkmCrD8 z6S8Ja1NY3M8SN58SU94 vABts1T0jBV8Y3Pa MZOlrbdortttaKA2ZMFb SCWmmL68Vj1nlDdqSe1l SGIaJJP3TVFdaGQqQ3Ov rI4lYjWnVVWvKSWh J0DgeSXrXAttH896ALxx ReH6QLHjjkNvF9YlAYIh kOzwBwK1x2B3Gv7VFNy0 JP83GV29jKQoc8D6 aOW4R3FnCDQmdpzangld cRG3FDCcFBZivZ32Qx8e uYqnBd9dGXYfGQP7APIv mTNaL2PhxM2dDsXs XRYyNRNiL4IthVNuZMnz I265PPuiImL3CKMrmgJr V6XbBRTqwEenHyT1a7E3 Bb6YJDFcWB21ZBA9 dVC9CJ14LF73S0DtIqgt dGFibGU+PHRhYmxlIHdp ZHRoPScxMDAlJyBzdHls MA7zRr1eSCUfBJJe sMviaAMbWsOjo3geTLLt MAymJZ8npOupG7DaxOZ5 MRIwr0p8Lf47V80nV4Hk dXA+NFZyqTY3iLK0 qK6uFzUvWnK3FKwhT484 OhMoeNLbYbmrt3jmd3ku pVf5GsR7XBJgbnEoxZqc GFG7h9KpRa45E44o IHdpZHRoPSIxNSUiIHZh hNhqqv5hiH7dQg8+PGNv jLN0dPN1oZ4kBsPoBjM2 UHrwO757JeZhhAVg Labrn3ita6qcqWy5YtDg JLBubmNvkKeyEQV8m3Gy Is97Q2OqxWuvn3GaKrk9 ik69gPMqk4X6vXZ4 Y6NsYGIasdkfeDSxyRct MB8mOVKhhkpiDEZdaC2g QZTaG0w8JrBnBgU3UQzt R1XrxgB2ZXJhvZWa SZpgDIV0A39mh8P8LVIa OBRlXTE6jCD7vF9ngJht bjogbGVmdDsgdmVydGlj SDhmOWosT498TZYf uTmaPFBohE7vULPpxLJv wIxxHC6oOXNolsydVeNP RVBPVEUsIFRSSVNIQSBK VP45VF01jESgm2I2 xIM1Q2YpZNPgzfepglyf eKX0VFRrQCSisC79eIEd ENlsLd7qy1O1f934UQGp HFLjtL04Vd4ioHjk GSQvzPNQvM7hjoovc4yz otpnFqYbOWTfIHt6RAq8 CATspJnwDdZyAYW9BuO6 XOD6aMCcoQ6ttLzj yiixpL6lKxg+MDgvMTAv CBo1LEdshLC+PHRkIHN0 sFivFUyfMAIneV2pBJBx O4d3TpCkMbK0KWhv G6KaLJWfihajRo31sC7o XhAqSlO8OXueM4OjyvV1 KIDxaQElWKcwMPC6P33x f3S9OSZmLUVzEHL4 eXZ5gR6bjHipqzkkvFTl dDsgdmVydGljYWwtYWxp M521QYKkdLehWzH0NNcx JUOoHF39RM40mIMb u3C3uRP5R5DdNQTjmxjp dxidaAI1ZONgNBGqlG40 tXOcUWngEf2ww2E0n506 XIKgRHJmkU08Mj4e nGxbHGYhoVSDgD5jvlmz f7zadfsoYiBvBZZrKTj9 SXy7FQHlsVefUuRsCNU1 NcW7DWZ2lGMbhC1f yEodywionI7uZlp+RmVt IRjsDB50ZB78zUXxg2O5 jJB9J8XrHWRfckkcqkiy mJD1ZCNxCSLnvY38 gJTuAPlpBn9wb4I8c951 ZQUoHWRaxS61Gh6wmVbp PVVzfZCPaS7xausmz9xk cjogIzAwMDAwMDt0 TMj0ROGsaXglFtPyQNG7 RiK2IXY8bYOflQ0cuZqz fxhriJ5pEny+K4N2nKX4 aWVudDwvdGQ+PC90 fq29N4YdUkcyGea7TOEy SRR3eKE1oC9rDHJlHVrp d7Z8xFF0Z8GdcyIfej9z h3gwFFKhJKheJ65u wHVvv0A7MHGyhEB5IJQx dIjpVtFcsD79Iph+PGNv tHxzs5MmBjium6kdd9cn bKl9CuMuQIFmnwBo cIrqSPO1n2QcNg43X42q IHdpZHRoPSIzMCUiIHZh iCxowy0rtV7tNd7+PGNv yNW2kJA5nB8sNiSy DeF7XIieQ962TbGhbALy Ekpgv1khb2fzrNm5BtOl JRJkzqLjcKqfBDG3k6Pl Jm42Y5ZutXfqi8Kl Ovg4iy97eRJto1M5mWJ6 E4CdAFKqrbfnmMVsiCbj II5vMSZgximrSACrxJ0q CMLaF7r5EkUpYvZ9 SHzyA0AztnC3TAJlcZWe YNDiyQXPbD0xgxdor1ai gyrcQdRbFVVwWKq9FAg0 LWFsaWduOiBsZWZ0 JuQ4ZOD6yUUyeA5ngLhn xvxkgF8fVwr+ECr6c3hb cTViKA0yzVH2ZP62UU17 aDNwf6H7rGS9J7Fl DQOuhqnylccuqEI4JZWc NZRczY00Cr2orLdoMe3h MLSkZKU4VNZjnZHjN4Wg zV1yOiSlDIXfJUVg L0BdyABnPGgtK165AYli JyN5HTAueeAcE0OxJKMz dAacAkM6s3W3Pl7ZNV13 LZ02BK88wVBer5Q2 uGB6X6GwAUSoiseuyyhk qOB3WJIjLZHjbG41To1u nTfjIh8eXOQcHOM2ORZb hCRbS8OmrR1uAvHr PMLnMTNsT6QvuLQgFTcx E196HUibOhC5PCJaryCb G6FfTHRpbVtzAcP6t9Q9 Ax7JPi73PH35SI44 pQMbu7I4wWP8D7KaKNMo xlseealmuAY1CUWuCIPn iT91Wr8prXexJs6mSJBz XOM5ZUNasSGbH7Wl yA2dNjXeCJIiACWdV1Md oKMvEAhiV765RJucDkY9 QRVxnpHfM9XqWAElnIfh JjF7g4M4Sa5XQZlj dgi5J8RxHutxnZT+PC90 LQFaYG38qLKmmGTnn4am cCr9SfUiKONrOKN6dCqu HHakf6ZfQVTcA96k bGFw (more content not included)... Normal [facility] Auto Diffon 09-24-2022 Basophils/100 WBC (Bld) 0.5 % Normal 0.0-2.0 [facility] Comment on above: Order Comment: Order Added by Discern Expert. Performed By: #### 2 [id number], [id number], [id number], [id number], [id number], [id number] #### [facility] [address] [place] [address] Basophils/Leukocytes Auto (Bld) [Pure # fraction] 0.0 E9/L Normal 0.0-0.2 [facility] Comment on above: Order Comment: Order Added by Discern Expert. Performed By: #### 2 [id number], [id number], [id number], [id number], [id number], [id number] #### [facility] [address] [place] [address] Eosinophils/100 WBC (Bld) 0.9 % Normal 0.0-8.0 [facility] Comment on above: Order Comment: Order Added by Discern Expert. Performed By: #### 2 [id number], 4690962, 0252999, 4577810, [id number], [id number] #### [facility] [address] [place] [address] Eosinophils/Leukocyte s Auto (Bld) [Pure # fraction] 0.1 E9/L Normal 0.0-0.5 [facility] Comment on above: Order Comment: Order Added by Discern Expert. Performed By: #### 2 398647, [id number], [id number], 4702831, [id number], [id number] #### [facility] [address] [place] [address] Lymphocytes/100 WBC (Bld) 28.2 % Normal 14.0-50.0 [facility] Comment on above: Order Comment: Order Added by Discern Expert. Performed By: #### 2 629513, 9917267, 1850035, 6450750, 5684993, [id number] #### [facility] [address] [place] [address] Lymphocytes/Leukocyte s Auto (Bld) [Pure # fraction] 2.6 E9/L Normal 1.0-4.0 [facility] Comment on above: Order Comment: Order Added by Discern Expert. Performed By: #### 2 615615, 0693032, 6487107, 3636468, 0165502, [id number] #### [facility] [address] [place] [address] 14680 Monocytes/100 WBC (Bld) 7.4 % Normal 4.0-14.0 [facility] Comment on above: Order Comment: Order Added by Discern Expert. Performed By: #### 2 454757, 7104463, 2776300, 6504931, 0694758, [id number] #### [facility] [address] [place] [address] Monocytes/Leukocytes Auto (Bld) [Pure # fraction] 0.7 E9/L Normal 0.2-1.0 [facility] Comment on above: Order Comment: Order Added by Discern Expert. Performed By: #### 2 693769, 4850669, 1712425, 0868162, 4004274, [id number] #### [facility] [address] [place] [address] Neutrophils/100 WBC (Bld) 63.0 % Normal 36.0-75.0 [facility] Comment on above: Order Comment: Order Added by Discern Expert. Performed By: #### 2 368651, 7253529, 2596647, 4622182, 7884339, [id number] #### [facility] [address] [place] [address] Neutrophils/Leukocyte s Auto (Bld) [Pure # fraction] 5.7 E9/L Normal 2.0-7.5 [facility] Comment on above: Order Comment: Order Added by Discern Expert. Performed By: #### 2 280980, 0161980, 5010650, 5366742, 9935328, 72088017 #### [facility] [address] [place] [address] CBC w/ Auto Diffon 3 Erythrocyte distribution width (RBC) [Ratio] 13.6 % Normal 10.9-14.2 [facility] Comment on above: Performed By: #### 2 641225, 3496220, 6189658, 9713018, 8217842, 06784061 #### [facility] [address] [place] [address] Hematocrit (Bld) [Volume fraction] 41.4 % Normal 34.0-46.0 [facility] Comment on above: Performed By: #### 2 854798, 6381725, 2486409, 8580624, 7249624, 99254269 #### [facility] [address] [place] [address] Hemoglobin (Bld) [Mass/Vol] 13.7 g/dL Normal 12.0-16.0 [facility] Comment on above: Performed By: #### 2 743491, 0837569, 6088757, 0713075, 2820463, 98961768 #### [facility] [address] [place] [address] MCH (RBC) [Entitic mass] 27.6 pg Normal 27.0-34.0 [facility] Comment on above: Performed By: #### 2 111001, 0845426, 8206730, 8274421, 7941010, 37731458 #### [facility] [address] [place] [address] MCHC (RBC) [Mass/Vol] 33.1 g/dL Normal 31.4-36.0 [facility] Comment on above: Performed By: #### 2 586383, 7305276, 9930798, 5568188, 5928963, 72626293 #### [facility] [address] [place] [address] MCV (RBC) [Entitic vol] 83.2 fL Normal 80.0-100.0 [facility] Comment on above: Performed By: #### 2 024866, 9427677, 6482593, 9037976, 9665867, 17134399 #### [facility] [address] [place] [address] Platelet mean volume (Bld) [Entitic vol] 7.8 fL Normal 6.4-10.8 [facility] Comment on above: Performed By: #### 2 905063, 7798075, 1428905, 5592837, 5890094, 02207775 #### [facility] [address] [place] [address] Platelets (Bld) [#/Vol] 310.0 E9/L Normal 150.0-500.0 [facility] Comment on above: Performed By: #### 2 103716, 3716644, 2074618, 9343354, 5228804, 46041310 #### [facility] [address] [place] [address] RBC (Bld) [#/Vol] 5.0 E12/L Normal 4.3-5.9 [facility] Comment on above: Performed By: #### 2 637896, 3940291, 8878927, 2299531, 7767874, 48044588 #### [facility] [address] [place] [address] WBC corrected for nucl RBC Auto (Bld) [#/Vol] 9.1 E9/L Normal 4.0-11.0 [facility] Comment on above: Performed By: #### 2 [id number], 2214951, 2199690, 7007868, 7097852, [id number] #### [facility] [address] [place] [address] CHEMISTRYOrdered By: SYSTEM SYSTEM on 09-24-2022 Albumin [...] rate/Area] mL/min/1.73 m2 Normal >=59mL/min/1. 73 m2 [facility] Chem S Globulin (S) [Mass/Vol] 3.2 g/dL [...] ratio] 12 mg/mg Normal 10 - 20 [facility] Remisol CMPon 09-24-2022 Albumin [Mass/Vol] 4.0 g/dL Normal 3.3-5.0 [facility] Comment on above: Performed By: #### 2 813199, 3233154, 4827516, 8208878, 0165353, [id number] #### [facility] [address] [place] [address] Albumin/Globulin (S) [Mass conc ratio] 1.2 Normal 1.1-2.2 [facility] Comment on above: Performed By: #### 2 440913, 4975890, 3692658, 0660464, 7086050, 10914155 #### [facility] [address] [place] [address] ALP [Catalytic activity/Vol] 51 Int._Unit/L Normal 21-98 [facility] Comment on above: Performed By: #### 2 206283, 7381647, 0286611, 5575560, 1210758, 21361315 #### [facility] [address] [place] [address] ALT No additional P-5'-P [Catalytic activity/Vol] 16 Int._Unit/L Normal 6-46 [facility] Comment on above: Performed By: #### 2 201665, 8610770, 0867829, 5208512, 7336177, 72089558 #### [facility] [address] [place] [address] Anion gap [Moles/Vol] 9 mmol/L Normal 6-16 [facility] Comment on above: Performed By: #### 2 168808, 2614577, 4427475, 4795131, 5970306, 32824300 #### [facility] [address] [place] [address] AST [Catalytic activity/Vol] 15 Int._Unit/L Normal 5-43 [facility] Comment on above: Performed By: #### 2 405319, 2349945, 9454799, 2681328, 1456844, 48610285 #### [facility] [address] [place] [address] Bilirubin [Mass/Vol] 0.7 mg/dL Normal 0.0-1.1 [facility] Comment on above: Performed By: #### 2 276693, 5523228, 1642573, 4664884, 4107138, 18350408 #### [facility] [address] [place] [address] Calcium [Mass/Vol] 8.8 mg/dL Low 8.9-11.1 [facility] Comment on above: Performed By: #### 2 889688, 5275021, 0982075, 0228391, 4935851, 49826934 #### [facility] [address] [place] [address] Chloride [Moles/Vol] 102 mmol/L Normal 101-111 [facility] Comment on above: Performed By: #### 2 838167, 2563875, 3340025, 9958241, 1793969, 50052055 #### [facility] [address] [place] [address] CO2 [Moles/Vol] 29 mmol/L Normal 21-31 [facility] Comment on above: Performed By: #### 2 913355, 1269072, 4862423, 7357645, 8184796, 61597372 #### [facility] [address] [place] [address] Creatinine [Mass/Vol] 0.8 mg/dL Normal 0.5-1.3 [facility] Comment on above: Performed By: #### 2 610855, 3455493, 4433378, 4853594, 6906526, 33603295 #### [facility] [address] [place] [address] Globulin (S) [Mass/Vol] 3.2 g/dL Normal 1.4-4.0 [facility] Comment on above: Performed By: #### 2 146596, 5422085, 1626537, 8358888, 8989368, 47608314 #### [facility] [address] [place] [address] Glucose [Mass/Vol] 97 mg/dL Normal 55-199 [facility] Comment on above: Result Comment: If t his glucose result represents a fasting glucose, interpretation should refer to the following reference range: 55-99 mg/dL Performed By: #### 2 789740, 8404641, 0070171, 1334444, 8548310, 28477703 #### [facility] [address] [place] [address] Potassium [Moles/Vol] 3.7 mmol/L Normal 3.5-5.3 [facility] Comment on above: Performed By: #### 2 317831, 3913857, 5760025, 7872857, 7512444, 92992092 #### [facility] [address] [place] [address] Protein [Mass/Vol] 7.2 g/dL Normal 6.0-7.8 [facility] Comment on above: Performed By: #### 2 560016, 4943017, 7905192, 8355833, 1013751, 15422089 #### [facility] [address] [place] [address] Sodium [Moles/Vol] 136 mmol/L Normal 135-145 [facility] Comment on above: Performed By: #### 2 701360, 6612666, 0985960, 3975459, 7522388, 99375266 #### [facility] [address] [place] [address] Urea nitrogen [Mass/Vol] 10 mg/dL Normal 5-21 [facility] Comment on above: Performed By: #### 2 769541, 8109406, 5984141, 5600415, 9429023, 42044898 #### [facility] [address] [place] [address] Urea nitrogen/Creatinine [Mass ratio] 12 No Units Normal 10-20 [facility] Comment on above: Performed By: #### 2 187587, 4110804, 2013530, 3539663, 0244494, 32452694 #### [facility] [address] [place] [address] Consent for Treatmenton 08-29 Consent for Treatment [id number] #1.00CD:127 Normal [facility] HEMATOLOGYOrdered By: SYSTEM SYSTEM on [...] 13.7 g/dL Normal 12.0 - 16.0 gm/dL FT HemeAutoSS MCH (RBC) [Entitic mass] 27.6 pg Normal 27.0 - 34.0 pg FT HemeAutoSS MCHC (RBC) [Mass/Vol] 33.1 g/dL Normal 31.4 - 36.0 gm/dL FT HemeAutoSS MCV (RBC) [Entitic vol] 83.2 fL Normal 80.0 - 100.0 fL FT HemeAutoSS Platelet mean volume (Bld) [Entitic vol] 7.8 fL Normal 6.4 - 10.8 fL FT HemeAutoSS Platelets (Bld) [#/Vol] 310.0 E9/L Normal 150.0 - 500.0 E9/L FT [facility]SS RBC (Bld) [#/Vol] 5.0 E12/L Normal 4.3 - 5.9 E12/L FT [facility]SS WBC corrected for nucl RBC Auto (Bld) [#/Vol] 9.1 E9/L Normal 4.0 - 11.0 E9/L [facility] HemeAutoSS Lipid Panelon 09-24-2022 Cholesterol [Mass/Vol] 185 mg/dL Normal 120-200 [facility] Comment on above: Performed By: #### 2 286784, 8456743, 5508060, 8560172, 4502097, 56165111 #### [facility] [address] [place] [address] Cholesterol in HDL [Mass/Vol] 69 mg/dL Invalid Interpretation Code [facility] Comment on above: Result Comment: HDL > or equal to 60 mg/dL: Low cardiovascular risk HDL < 40 mg/dL : High cardiovascular risk Performed By: #### 2 089843, 8332568, 3082835, 9532691, 3682140, 55966004 #### [facility] [address] [place] [address] Cholesterol in LDL [Mass/Vol] 93 mg/dL Normal <=129 [facility] Comment on above: Performed By: #### 2 764111, 2529839, 2791252, 4583301, 1206482, 06754873 #### [facility] [address] [place] [address] Cholesterol in VLDL [Mass/Vol] 20 mg/dL Normal 7-40 [facility] Comment on above: Performed By: #### 2 434099, 0000007, 6380157, 6267007, 0682569, 98323433 #### [facility] [address] [place] [address] Triglyceride [Mass/Vol] 102 mg/dL Normal <=149 [facility] Comment on above: Performed By: #### 2 600559, 2389123, 3748209, 4383692, 9770222, 45916271 #### [facility] [address] [place] [address] Physician Orderon 09-24-2022 Physician Order [id number] #1.00CD:127 Normal [facility] TSHon 09-24-2022 TSH Qn 2.06 m[IU]/L Normal 0.34-5.60 [facility] Comment on above: Performed By: #### 2 279862, 6899972, 7082539, 7610085, 1420809, 36930580 #### [facility] [address] [place] [address] eGFRon 09-24-2022 GFR/1.73 sq M.predicted among blacks MDRD (S/P/Bld) [Vol rate/Area] mL/min/{1.73_m2} Normal >=59 [facility] Comment on above: Order Comment: Order added by Discern Expert. Result Comment: eGFR is race adjusted. AA=. Performed By: #### 2 309388, 7692647, 4008428, 1836887, 9354341, 95007389 #### [facility] [address] [place] [address] GFR/1.73 sq M.predicted among non-blacks MDRD (S/P/Bld) [Vol rate/Area] mL/min/{1.73_m2} Normal >=59 [facility] Comment on above: Order Comment: Order added by Discern Expert. Result Comment: Clam Digger isis kidney disease could be indicated at eGFR's of less than 60 mL/min/1.73m2. Kidney failure is indicated at less than 15 mL/min/1.73m2. Performed By: #### 2 322060, 9050018, 8266868, 5099188, 3945975, 93643210 #### [facility] [address] [place] [address] CBC AUTO DIFFon 12-28-2021 BASO # 0.1 103/ul Normal 0.0-0.1 [facility] Comment on above: Performed By: #### C BC #### [facility] [address] [address] [address] Edwina Vicente Basophils/100 WBC (Bld) 0.8 % Normal 0.2-2.0 [facility] Comment on above: Performed By: #### C BC #### [facility] [address] [place] [address] Dr. Edwina Vicente EO # 0.1 103/ul Normal 0.0-0.7 [facility] Comment on above: Performed By: #### C BC #### [facility] [address] [place] [address] Dr. Edwina Vicente Eosinophils/100 WBC (Bld) 1.6 % Normal 0.9-7.0 [facility] Comment on above: Performed By: #### C BC #### [facility] [address] [place] [address] Dr. Edwina Vicente Erythrocyte distribution width (RBC) [Ratio] 12.8 % Normal 11.0-15.0 [facility] Comment on above: Performed By: #### C BC #### [facility] [address] [place] [address] Dr. Edwina Vicente Hematocrit (Bld) [Volume fraction] 43.1 % Normal 36.0-48.0 [facility] Comment on above: Performed By: #### C BC #### [facility] [address] [place] [address] Dr. Edwina Vicente Hemoglobin (Bld) [Mass/Vol] 14.1 g/dL Normal 12.0-16.0 [facility] Comment on above: Performed By: #### C BC #### [facility] [address] [place] [address] Dr. Edwina Vicente IG # 0.01 10e3/ul Normal 0.00-0.03 [facility] Comment on above: Performed By: #### C BC #### [facility] [address] [place] [address] Dr. Edwina Vicente IG % 0.2 % Normal 0.0-0.5 [facility] Comment on above: Performed By: #### C BC #### [facility] [address] [place] [address] Dr. Edwina Vicente LYMPH # 2.4 103/ul Normal 1.2-3.8 [facility] Comment on above: Performed By: #### C BC #### [facility] [address] [place] [address] Dr. Edwina Vicente Lymphocytes/100 WBC (Bld) 37.2 % Normal 20.5-60.0 [facility] Comment on above: Performed By: #### C BC #### [facility] [address] [place] [address] Dr. Edwina Vicente MANUAL DIFF REQ NO Normal [facility] Comment on above: Performed By: #### C BC #### [facility] [address] [place] [address] Dr. Edwina Vicente MCH (RBC) [Entitic mass] 27.3 pg Normal 26.7-34.0 [facility] Comment on above: Performed By: #### C BC #### [facility] [address] [place] [address] Dr. Edwina Vicente MCHC (RBC) [Mass/Vol] 32.7 g/dL Normal 29.9-35.2 [facility] Comment on above: Performed By: #### C BC #### [facility] [address] [place] [address] Dr. Edwina Vicente MCV (RBC) [Entitic vol] 83.4 fL Normal 81.0-99.0 [facility] Comment on above: Performed By: #### C BC #### [facility] [address] [place] [address] Dr. Edwina Vicente MONO # 0.5 103/ul Normal 0.3-0.8 [facility] Comment on above: Performed By: #### C BC #### [facility] [address] [place] [address] Dr. Edwina Vicente Monocytes/100 WBC (Bld) 8.1 % Normal 1.7-12.0 [facility] Comment on above: Performed By: #### C BC #### [facility] [address] [place] [address] Dr. Edwina Vicente NEUT # 3.3 103/ul Normal 1.4-6.5 [facility] Comment on above: Performed By: #### C BC #### [facility] [address] [place] [address] Dr. Edwina Vicente Neutrophils/100 WBC (Bld) 52.1 % Normal 43.0-75.0 [facility] Comment on above: Performed By: #### C BC #### [facility] [address] [place] [address] Dr. Edwina Vicente Platelet mean volume (Bld) [Entitic vol] 8.8 fL Critically low 9.5-13.5 [facility] Comment on above: Performed By: #### C BC #### [facility] [address] [place] [address] Dr. Edwina Vicente PLT 328 103/ul Normal 150-450 [facility] Comment on above: Performed By: #### C BC #### [facility] [address] [place] [address] Dr. Edwina Vicente RBC 5.17 106/ul Normal 4.20-5.40 [facility] Comment on above: Performed By: #### C BC #### [facility] [address] [place] [address] Dr. Edwina Vicente WBC 6.4 103/ul Normal 4.0-11.0 [facility] Comment on above: Performed By: #### C BC #### [facility] [address] [address] [address] Edwina Vicente PREG QUANT HCGon 12-28-2021 HCG QUANT <1 Normal [facility] Comment on above: Performed By: #### P REGQNT #### [facility] [address] [address] [address] Edwina Vicente HCG RANGE SEE BELOW Normal [facility] Comment on above: Result Comment: 5-50 0-1 WEEK 40-300 1-2 WEEKS 100-1,000 2-3 WEEKS 500-6,000 3-4 WEEKS 5,000-200,000 1-2 MONTHS 10,000-100,000 2-3 MONTHS 3,000-50,000 2ND TRIMESTER 1,000-50,000 3RD TRIMESTER Performed By: #### P REGQNT #### [facility] [address] [place] [address] Dr. Edwina Vicente US PELVIS AND TRANSVAGon [...] [facility] Covid-19 PCR (CVDTB)on SARS-CoV-2 (COVID-19) RNA [...] for this test is supported by the Prec[employer] Grinder of Health and Human Service's declaration that [...] longer be used). Performed By: #### C [facility] #### [facility] [address] [place] [address] Dr. Edwina Pereira 10-16-2020 [facility] Office Visit (DESIRE) TRACIE DENNIS ([id number]) 1985 F Date Time Provider Department 10/16/20 1:15 PM MINESH GURROLA)[facility] During your visit today, we recorded the [...] NOHEMI TEST: Positive STRENGTH: 5/5 biceps, triceps, sales service manager, finger abduction, WE, WF, AND EPL STABILITY: all joints stable CREPITUS: negative NEUROLOGICAL EXAM: Sensory: sensation intact to light touch axillary, radial, median, AND ulnar distributions 2-point discrimination intact throughout all digits. Motor strength: equal bilaterally with 5/5 biceps, triceps, sales service manager, finger abduction, WE, WF, thumb opposition, AND [...] times daily.Disp: 100 gRfl: 1 CONSULT TO FIBERGLASS INSULATION INSTALLER [[id number]] Order #: [id number]: 1 FUTURE Prescriptions as of 10/16/2020 Sig: [...] by MINESH GURROLA PA-C on 10/16/20 Normal [facility] Vital Signs Date Time Vital Sign Value Performing Clinician David guzman 08-18-2024 13:26-050 Body height 167.6 cm [facility] Work Phone: [facility] [employer] 08-18-2024 13:26-0500 Body mass index (BMI) [Ratio] 33.89 kg/m2 [facility] [employer] Work Phone: [facility] [employer] 08-18-2024 13:26-0500 Body weight 95.25 kg [facility] [employer] Work Phone: [facility] 06-09-2024 13:00-0500 Body mass index (BMI) [Ratio] 33.96 kg/m2 Susan Crow PA Work Phone: [facility] 06-09-2024 13:00-0500 Body weight 95.44 kg Susan Lowell PA Work Phone: [facility] 06-09-2024 13:00-0500 Diastolic blood pressure 80 mm[Hg] Susan Lowell PA Work Phone: [facility] 06-09-2024 13:00-0500 Systolic blood pressure 116 mm[Hg] Susan Lowell PA Work Phone: [facility] 05-11-2024 09:56-0400 Body mass index (BMI) [Ratio] 34.02 kg/m2 Vikram Tirso DO Work Phone: [facility] 05-11-2024 09:56-0400 Body weight 95.62 kg Vikram Tirso DO Work Phone: [facility] 05-11-2024 09:56-0400 Diastolic blood pressure 78 mm[Hg] Vikram Tirso DO Work Phone: [facility] 05-11-2024 09:56-0400 Systolic blood pressure 116 mm[Hg] Vikram Tirso DO Work Phone: [facility] 03-16-2024 09:38-0400 Body height 167.6 cm Susan Lowell PA Work Phone: [facility] 03-16-2024 09:38-0400 Body mass index (BMI) [Ratio] 33.43 kg/m2 Susan Lowell PA Work Phone: [facility] 03-16-2024 09:38-0400 Body weight 93.95 kg Susan Lowell PA Work Phone: [facility] 03-16-2024 09:38-0400 Diastolic blood pressure 64 mm[Hg] Susan [place] PA Work Phone: [facility] 03-16-2024 09:38-0400 Systolic blood pressure 110 mm[Hg] Susan Crow PA Work Phone: [facility] Healthcare Encounters Encounter Date Encounter Type Care Provider Facility Start: 04-04-2025 End: 04-04-2025 Bamboo flowsheet Bree Jeronimo PUBLIC IMPROVEMENT INSPECTOR Work Phone: [facility] Start: 04-04-2025 End: 04-04-2025 Bamboo flowsheet Bree Jeronimo PUBLIC IMPROVEMENT INSPECTOR Work Phone: [facility] Start: 12-15-2024 End: 12-15-2024 Clinisync Result Encounter Vikram Tirso DO Work Phone: [facility] Department Unsolicited Start: 12-15-2024 End: 12-15-2024 Clinisync Result Encounter Vikram Tirso DO Work Phone: [facility] Unsolicited Start: 08-18-2024 End: 08-18-2024 Patient encounter procedure Lorena Wilder PA Work Phone: [facility] Comment on above: Right shoulder pain, [...] Start: 08-09-2024 End: 08-09-2024 Bamboo flowsheet Saray Brink PRINCIPAL GIFTS OFFICER [facility] Start: 08-09-2024 End: 08-09-2024 Bamboo flowsheet Saray Brink PRINCIPAL GIFTS OFFICER [facility] Start: 08-09-2024 End: 08-09-2024 ambulatory Saray Brink PRINCIPAL GIFTS OFFICER [facility] Comment on above: Tear of tendon of le ft ankle, subsequent encounter (Primary Dx); Peroneal tendinitis of left lower extremity; Cuboid syndrome, subsequent encounter Start: 08-06-2024 End: 08-06-2024 Bamboo flowsheet Joe Toscano PRINCIPAL GIFTS OFFICER [facility] Start: 08-06-2024 End: 08-06-2024 Bamboo flowsheet Joe Toscano PRINCIPAL GIFTS OFFICER [facility] Start: 08-06-2024 End: 08-06-2024 ambulatory Joe Toscano PRINCIPAL GIFTS OFFICER [facility] Comment on above: Tear of tendon of le ft ankle, subsequent encounter (Primary Dx); Peroneal tendinitis of left lower extremity; Cuboid syndrome, subsequent encounter Start: 08-04-2024 End: 08-04-2024 Bamboo flowsheet Joe Toscano PRINCIPAL GIFTS OFFICER [facility] Start: 08-04-2024 End: 08-04-2024 Bamboo flowsheet Joe Toscano PRINCIPAL GIFTS OFFICER [facility] Start: 08-04-2024 End: 08-04-2024 ambulatory Joe Toscano PRINCIPAL GIFTS OFFICER [facility] Comment on above: Tear of tendon of le ft ankle, subsequent encounter (Primary Dx); Peroneal tendinitis of left lower extremity; Cuboid syndrome, subsequent encounter Start: 07-29-2024 End: 07-29-2024 ambulatory Joe Toscano PRINCIPAL GIFTS OFFICER [facility] Comment on above: Tear of tendon of le ft ankle, subsequent encounter (Primary Dx); Peroneal tendinitis of left lower extremity; Cuboid syndrome, subsequent encounter Start: 07-26-2024 End: 07-26-2024 Bamboo flowsheet Joe Toscano PRINCIPAL GIFTS OFFICER [facility] Start: 07-26-2024 End: 07-26-2024 Bamboo flowsheet Joe Toscano PRINCIPAL GIFTS OFFICER [facility] Start: 07-26-2024 End: 07-26-2024 ambulatory Joe Toscano PRINCIPAL GIFTS OFFICER [facility] Comment on above: Tear of tendon of le ft ankle, subsequent encounter; Peroneal tendinitis of left lower extremity; Cuboid syndrome, subsequent encounter Start: 07-23-2024 End: 07-23-2024 Bamboo flowsheet Saray Santiago PRINCIPAL GIFTS OFFICER [facility] Start: 07-23-2024 End: 07-23-2024 Bamboo flowsheet Saray Santiago PRINCIPAL GIFTS OFFICER [facility] Start: 07-23-2024 End: 07-23-2024 ambulatory Saray Santiago PRINCIPAL GIFTS OFFICER [facility] Comment on above: Peroneal [...] Start: 07-14-2024 End: 07-14-2024 Bamboo flowsheet Saray Santiago PRINCIPAL GIFTS OFFICER [facility] Start: 07-14-2024 End: 07-14-2024 Bamboo flowsheet Saray Santiago PRINCIPAL GIFTS OFFICER [facility] Start: 07-14-2024 End: 07-15-2024 ambulatory Saray Santiago PRINCIPAL GIFTS OFFICER [facility] Comment on above: Peroneal tendinitis of left lower extremity (Primary Dx); Cuboid syndrome, subsequent encounter; Tear of tendon of left ankle, subsequent encounter Start: 07-12-2024 End: 07-12-2024 Bamboo flowsheet Saray Hernandezink PRINCIPAL GIFTS OFFICER [facility] Start: 07-12-2024 End: 07-12-2024 Bamboo flowsheet Saray Hernandezink PRINCIPAL GIFTS OFFICER [facility] Start: 07-12-2024 End: 07-12-2024 ambulatory Saray Santiago PRINCIPAL GIFTS OFFICER [facility] Comment on above: Peroneal [...] 15 minutes Tierra Stephenson DPM Work Phone: [facility] Comment on above: Tear of tendon of le ft ankle, subsequent encounter (Primary Dx); Peroneal tendinitis of left lower extremity; Cuboid syndrome, subsequent encounter; Left foot pain Start: 07-05-2024 End: 07-05-2024 ambulatory TIERRA STEPHENSON Not Available Start: 07-05-2024 End: 07-05-2024 Bamboo flowsheet Tierra Stephenson DPM Work Phone: [facility] Start: 07-05-2024 End: 07-05-2024 Bamboo flowsheet Tierra Stephenson DPM Work Phone: [facility] Start: 06-09-2024 End: 06-09-2024 Bamboo flowsheet Susan SCHMITT Work Phone: [facility] Start: 06-09-2024 End: 06-09-2024 Bamboo flowsheet Susan SCHMITT Work Phone: [facility] Start: 06-09-2024 End: 06-09-2024 Postop follow up visit related to original px Susan SCHMITT Work Phone: [facility] Comment on above: Postop check Start: 06-09-2024 End: 06-09-2024 ambulatory SUSAN CROW Not Available Start: 06-04-2024 End: 06-04-2024 Clinisync Result Encounter Vikram Tirso DO Work Phone: [facility] External Department Unsolicited Start: 06-04-2024 End: 06-04-2024 Clinisync Result Encounter Vikram Tirso DO Work Phone: [facility] External Department Unsolicited Start: 06-02-2024 End: 06-02-2024 Bamboo flowsheet Tierra Stephenson DPM Work Phone: [facility] Start: 06-02-2024 End: 06-02-2024 Bamboo flowsheet Tierra Stephenson DPM Work Phone: [facility] Start: 06-02-2024 End: 06-02-2024 Office outpatient visit 15 minutes Tierra Stephenson DPM Work Phone: [facility] Comment on above: Tear of tendon of le ft ankle, subsequent encounter (Primary Dx); Peroneal tendinitis of left lower extremity; Left foot pain Start: 06-02-2024 End: 06-02-2024 ambulatory TIERRA STEPHENSON Not Available Start: 05-28-2024 End: 05-28-2024 ambulatory TIERRA STEPHENSON Not Available Start: 05-11-2024 End: 05-11-2024 Patient encounter procedure Vikram Tirso DO Work Phone: [facility] Comment on above: Pre-op examination; Request for sterilization; Menorrhagia with regular cycle; Abnormal uterine bleeding (AUB); Pelvic pain in female; Hormone disorder Start: 05-11-2024 End: 05-11-2024 Preprocedural examination done Vikram Tirso DO Work Phone: [facility] Start: 05-11-2024 End: 05-11-2024 ambulatory VIKRAM TIRSO Not Available Start: 04-29-2024 End: 04-29-2024 Office outpatient visit 15 minutes Tierra Stephenson DPM Work Phone: [facility] Comment on above: Sprain of tarsometat arsal joint of left foot, subsequent encounter (Primary Dx); Stress reaction of bone; Left foot pain Start: 04-29-2024 End: 04-29-2024 ambulatory TIERRA STEPHENSON Not Available Start: 04-29-2024 End: 04-29-2024 Bamboo flowsheet Tierra Stephenson DPM Work Phone: [facility] Start: 04-29-2024 End: 04-29-2024 Bamboo flowsheet Tierra Stephenson DPM Work Phone: [facility] Start: 03-17-2024 End: 03-17-2024 Clinisync Result Encounter Susan SCHMITT Work Phone: [facility] Unsolicited Start: 03-17-2024 End: 03-17-2024 Clinisync Result Encounter Susan SCHMITT Work Phone: [facility] Unsolicited Start: 03-16-2024 End: 03-16-2024 Bamboo flowsheet Susan SCHMITT Work Phone: [facility] Start: 03-16-2024 End: 03-16-2024 Bamboo flowsheet Susan SCHMITT Work Phone: [facility] Start: 03-16-2024 End: 03-16-2024 Office [...] Not Available Start: 08-27-2023 End: 08-27-2023 ambulatory SUSAN CROW Not Available Start: 04-02-2023 End: 04-03-2023 ambulatory Wilda Buckner [place] Start: 04-02-2023 End: 04-02-2023 Patient encounter procedure Wilda Buckner [facility] Start: 01-09-2023 End: 01-10-2023 ambulatory Wilda Buckner [place] Start: 01-09-2023 End: 01-09-2023 Patient encounter procedure Wilda Buckner [facility] Start: 11-12-2022 End: 11-13-2022 ambulatory VIKRAM CHAHAL Facility:[facility] Start: 10-31-2022 End: 11-01-[address] VIKRAM CHAHAL . Facility: Start: 10-23-2022 End: 10-23-[address] VIKRAM CHAHAL . Facility: Start: 09-24-2022 End: 09-25-2022 ambulatory Wilda Buckner [place] Start: 09-24-2022 End: 09-24-2022 Patient encounter procedure Wilda Buckner [facility] Start: 05-03-2022 End: 08-02-2022 ambulatory Kaushal Craft [place] Start: 12-28-2021 End: 12-28-[address] DOCTOR DUEÑAS Facility: Start: 12-27-2021 Encounter for preprocedural laboratory examination DR VIKRAM CHAHAL . [facility] Start: 12-26-2021 End: 12-27-2021 Encounter for preprocedural laboratory examination DR VIKRAM CHAHAL . Facility: Start: 12-26-2021 End: 12-27-[address] VIKRAM CHAHAL . Facility: Start: 12-18-2021 End: 12-18-2021 Patient encounter procedure YELENA JAMES [facility] Procedures Date Procedure Procedure Detail Performing Clinician Start: 12-15-2024 MM TOMOSYNTHESIS SCREENING NEMO gillespie DO Work Phone: Start: 12-15-2024 Mammography Bree Jeronimo NP Work Phone: Start: 08-18-2024 Radex shoulder complete minimum 2 [...] W/ CHOLANGI OGRAM Start: 04-25-2013 Appendectomy YELENA RENATAEWAWhitney Plan of Treatment Date Care Activity Detail Author Start: 12-03-2026 Screening for malign ant neoplasm of cervix [facility] Start: 12-15-2025 Screening for malign ant neoplasm of breast Mammogram [facility] Start: 04-04-2025 End: 04-04-2025 Patient encounter procedure 04/04/2025 1:30 PM EDT Procedure Visit VALENT[facility]N CESPEDES [address] [place] [address] Bree Jeronimo, PUBLIC IMPROVEMENT INSPECTOR [address] [place] [address] Arrived VALENT[facility] CESPEDES Comment on above: Arrived Start: 03-28-2025 Influenza vaccination [facility] Start: 02-22-2025 End: 02-22-2025 Patient encounter procedure 02/22/2025 10:00 AM EDT Office Visit [facility] [address] [place] [id number] Susan Crow PA [address] [place], [place] [id number] [facility] Start: 12-13-2024 End: 12-13-2024 Patient encounter procedure 12/13/2024 9:00 AM EDT Office Visit [facility] [address] [place] [address] Vikram Chahal DO [address] [place] [address] [facility] Start: 09-22-2024 End: 09-22-2024 Professional / ancillary services management 09/22/2024 8:00 AM EST Ancillary Procedure [facility] [address] [place] [id number] [facility] Start: 08-18-2024 End: 08-18-2024 ambulatory 08/18/2024 10:30 AM EST Treatment [facility] [address] [facility] [address] [place] [address] Dasha Elder, PT [facility] Start: 08-16-2024 End: 08-16-2024 ambulatory 08/16/2024 10:30 AM EST Treatment [facility] [address] [facility] [address] [place] [address] Saray Santiago, PRINCIPAL GIFTS OFFICER [facility] Start: 08-11-2024 End: 08-11-2024 [...] EST Treatment [facility] [address] [facility] [address] [place] [address] Saray Santiago, PRINCIPAL GIFTS OFFICER [facility] Start: 07-29-2024 End: 07-29-2024 ambulatory 07/29/2024 9:00 AM EST Treatment [facility] [address] [facility] [address] [place] [address] Joe Toscano, PRINCIPAL GIFTS OFFICER [facility] Start: 07-26-2024 End: 07-26-2024 [...] EST Evaluation [facility] [address] [facility] [address] [place] [address] Dasha Elder, PT Arrived [facility] Comment on above: Arrived Start: 07-05-2024 End: 07-05-2024 Patient encounter procedure [facility] Comment on above: Arrived Start: 06-02-2024 End: 06-02-2024 Patient encounter procedure 06/02/2024 9:45 AM EST Office Visit [facility] [address] [place] [address] Tierra Stephenson, DPM [address] [place] [address] Arrived [facility] Comment on above: Arrived Start: 05-11-2024 End: 05-11-2024 Patient encounter procedure 05/11/2024 9:30 AM EDT Procedure Visit [facility] [address] [place] [address] Vikram Chahal DO [address] [place] [address] [facility] Start: 04-29-2024 End: 04-29-2024 Patient encounter procedure 04/29/2024 3:00 PM EDT Office Visit [facility] [address] [place] [address] Tierra Stephenson, DPM [address] [place] [address] Arrived [facility] Comment on above: Arrived Start: 03-28-2024 Influenza vaccination Influenza Vacc ine (#1) [facility] Start: 03-16-2024 End: 03-16-2025 C-peptide C-peptide Lab Routine Hormone disorder Expected: 03/16/2024 (Approximate), Expires: 03/16/2025 [facility] Comment on above: Expected: 03/16/2024 (Approximate), Expires: 03/16/2025 Start: 03-16-2024 End: 03-16-2025 Cortisol free Cortisol, free Lab Routine Hormone disorder Expected: 03/16/2024 (Approximate), Expires: 03/16/2025 [facility] Comment on above: Expected: 03/16/2024 (Approximate), Expires: 03/16/2025 Start: 03-16-2024 End: 08-20-2025 Glucose [Mass/volume] in Serum or Plasma Glucose, random Lab Routine Hormone disorder Expected: 03/16/2024 (Approximate), Expires: 03/16/2025 [facility] Comment on above: Expected: 03/16/2024 (Approximate), Expires: 03/16/2025 Start: 03-16-2024 End: 03-16-2025 Insulin, total Insulin, total Lab Routine Hormone disorder Expected: 03/16/2024 (Approximate), Expires: 03/16/2025 [facility] Comment on above: Expected: 03/16/2024 (Approximate), Expires: 03/16/2025 Start: 03-16-2024 End: 03-16-2025 Serotonin serum Serotonin serum Lab Routine Hormone disorder Expected: 03/16/2024 (Approximate), Expires: 03/16/2025 [facility] Comment on above: Expected: 03/16/2024 (Approximate), Expires: 03/16/2025 Start: 03-16-2024 End: 03-16-2025 Thyroglobulin Thyroglobulin Lab Routine Hormone disorder Expected: 03/16/2024 (Approximate), Expires: 03/16/2025 [facility] Comment on above: Expected: 03/16/2024 (Approximate), Expires: 03/16/2025 Start: 03-16-2024 End: 03-16-2025 Thyroglobulin Antibody Thyroglobulin Antibody Lab Routine Hormone disorder Expected: 03/16/2024 (Approximate), Expires: 03/16/2025 [facility] Comment on above: Expected: 03/16/2024 (Approximate), Expires: 03/16/2025 Start: 03-16-2024 End: 03-16-2025 Thyrotropin [Units/volume] in Serum or Plasma [facility] Comment on above: Ordered: 03/16/2024 Expected: 03/16/2024 (Approximate), Expires: 03/16/2025 Start: 03-16-2024 End: 03-16-2024 Patient encounter procedure 03/16/2024 9:30 AM EDT Office Visit [facility] [address] [facility] [place] [address] Susan Crow PA [address] [place] [address] Arrived [facility] Comment on above: Arrived Start: 2015 Screening for malign ant neoplasm of cervix HPV/Cotest [facility] Biopsy endometrium Biopsy endome trium Procedures Routine Hormone disorder Ordered: 05/11/2024 [facility] Work Phone: Comment on above: Ordered: 05/11/2024 DHEA-sulfate DHEA-sulfate Lab Routine Hormone disorder Ordered: 03/16/2024 [facility] Comment on above: Ordered: 03/16/2024 Estradiol Estradiol Lab Ro utine Hormone disorder Ordered: 03/16/2024 [facility] Work Phone: Comment on above: Ordered: 03/16/2024 Estrone Estrone Lab Rout ine Hormone disorder Ordered: 03/16/2024 [facility] Comment on above: Ordered: 03/16/2024 Ferritin [Mass/volum e] in Serum or Plasma Ferritin Lab Routine Hormone disorder Ordered: 03/16/2024 [facility] Comment on above: Ordered: 03/16/2024 Hemoglobin A1c/Hemoglobin.total in Blood Hemoglobin A1c Lab Routine Hormone disorder Ordered: 03/16/2024 [facility] Comment on above: Ordered: 03/16/2024 MR Ankle - left WO contrast MR ankle left wo IV contrast Imaging Routine Sprain of tarsometatarsal joint of left foot, subsequent encounter Stress reaction of bone Ordered: 04/29/2024 [facility] Work Phone: Comment on above: Ordered: 04/29/2024 Progesterone Progesterone Lab Routine Hormone disorder Ordered: 03/16/2024 [facility] Comment on above: Ordered: 03/16/2024 Sex hormone binding globulin Sex hormone binding globulin Lab Routine Hormone disorder Ordered: 03/16/2024 [facility] Comment on above: Ordered: 03/16/2024 T3, reverse T3, reverse Lab Routine Hormone disorder Ordered: 03/16/2024 [facility] Comment on above: Ordered: 03/16/2024 TESTOSTERONE, FREE TESTOSTERONE, FREE Lab Routine Hormone disorder Ordered: 03/16/2024 [facility] Comment on above: Ordered: 03/16/2024 Testosterone, free, total Testos terone, free, total Lab Routine Hormone disorder Ordered: 03/16/2024 [facility] Comment on above: Ordered: 03/16/2024 Thyroid peroxidase antibody Thyroid peroxidase antibody Lab Routine Hormone disorder Ordered: 03/16/2024 [facility] Comment on above: Ordered: 03/16/2024 Thyroxine (T4) free [Mass/volume] in Serum or Plasma T4, free Lab Routine Hormone disorder Ordered: 03/16/2024 [facility] Comment on above: Ordered: 03/16/2024 Triiodothyronine (T3 ) Free [Mass/volume] in Serum or Plasma T3, free Lab Routine Hormone disorder Ordered: 03/16/2024 [facility] Comment on above: Ordered: 03/16/2024 Vitamin D 1,25 dihydroxy Vitamin D 1,25 dihydroxy Lab Routine Hormone disorder Ordered: 03/16/2024 [facility] Comment on above: Ordered: 03/16/2024 Immunizations Immunization Date Immunization Notes Care Provider Fa cili 05-21-2022 influenza virus vaccine, unspecified formulation Wilda Buckner [facility] Comment on above: Reason for Medicatio n: Prophylaxis 05-25-2021 influenza virus vaccine, unspecified formulation; Translations: [Fluzone PF Quadrivalent ] YELENA JAMES [facility] Comment on above: Reason for Medicatio n: Other (see comment) Payers Date Payer Category Payer [facility] [id number] 2023 Unknown [facility] xxxxxx [id number] 2023-Present [phone] [facility] [id number] [place] [address] [id number] 2023 Unknown [id number] 1985 Unknown [id number] 2.16.840.1.419761.3.579. 2.593 1985 Unknown [id number] 2.16.840.1.057801.3.579. 2.593 1985 Unknown [id number] 2.16.840.1.717266.3.579. 2.593 1985 Unknown [id number] 2.16.840.1.862393.3.579. 2.593 1985 Unknown [id number] 2.16.840.1.601967.3.579. 2.593 1985 Unknown [id number] 2.16840.1.861831.3.579. 2.727 1985 Unknown [id number] 2.16.840.1.995724.3.579. 2.727 1985 Unknown [id number] 2.16.840.1.490199.3.579. 2.727 1985 Unknown [id number] 2.16.840.1.532002.3.579. 2.727 1985 Unknown [id number] 2.16840.1.936998.3.579. 2.1259 1985 Unknown [id number] 2.16.840.1.283399.3.579. 2.1259 1985 Unknown [id number] 2.16.840.1.618047.3.579. 2.1259 1985 Unknown [id number] 2.16.840.1.103582.3.579. 2.1259 1985 Unknown [id number] 2.16.840.1.200658.3.579. 2.1259 1985 Unknown [id number] 2.16.840.1.060737.3.579. 2.1258 1985 Unknown [id number] 2.16840.1.872744.3.579. 2.1258 1985 Unknown [id number] 2.16.840.1.240944.3.579. 2.1258 1985 Unknown [id number] 2.840.1.828283.3.579. 2.1258 1985 Unknown [id number] 2.16840.1.492264.3.579. 2.1258 1985 Unknown [id number] 2.840.1.886291.3.579. 2.1258 1985 Unknown [id number] 2.840.1.020073.3.579. 2.1258 1985 Unknown [id number] 2.840.1.292350.3.579. 2.1258 1985 Unknown [id number] 2.840.1.345934.3.579. 2.1258 1985 Unknown [id number] .840.1.983446.3.579. 2.1258 1985 Unknown [id number] 2.840.1.528951.3.579. 2.1258 1985 Unknown [id number] 2.840.1.254459.3.579. 2.1258 1985 Unknown [id number] 2.840.1.811679.3.579. 2.1258 1985 Unknown [id number] 2.840.1.955417.3.579. 2.1258 1985 Unknown [id number] 2.840.1.641683.3.579. 2.1258 1985 Unknown [id number] 2.16840.1.183408.3.579. 2.1258 1985 Unknown [id number] 2.16.840.1.263936.3.579. 2.1259 1985 Unknown [id number] 2.16.840.1.772897.3.579. 2.1259 1985 Unknown [id number] 2.16.840.1.271123.3.579. 2.1259 1985 Unknown [id number] 2.16.840.1.427725.3.579. 2.1259 1985 Unknown [id number] 2.16.840.1.793040.3.579. 2.1259 1959 Unknown [id number] 1959 Unknown [id number] Social History Date Type Detail Facility Start: 02-22-2021 End: 05-07-2023 Tobacco smoking status Never smoked tobacco (finding) [facility] Tobacco smoking status Never [facility] Start: 05-26-2023 End: 08-18-2024 Sex Assigned At Female [facility] Start: 05-07-2023 Tobacco use and exposure Smokeless [...] [facility] Clinical Notes 10-16-2020 to 08-18-2024 OSKAR Mcmillan - 08/18/2024 1:30 PM ESTPatient InstructionsSakarin Elder, PT - 08/11/2024 10:30 AM Danny Elder PT - 07/19/2024 9:30 AM OSKAR Stevens - 06/09/2024 1:00 PM EST Note Date & Type Note Facility 01-22-2025 History of Present illness Narrative GENERAL HISTORY [...] improve. OSKAR Mcmillan documented in this encounter [facility] 08-18-2024 Instructions OSKAR Mcmillan - 08/18/2024 1:30 [...] failure to improve. 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 Pt states she has been icing and massaging left foot on her own. Prior to all of this, was walking about 1 hour on TM at home, about 2.5 mph. Precautions: [place] Subjective: Pt states pain today is minimal. [...] be instructed in home exercise program. MET Event Set Up Specialist Goals: To be met in 10 weeks [...] MET DISCHARGE PT. 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 Pt states she has been icing and massaging left foot on her own. Prior to all of this, was walking about 1 hour on TM at home, about 2.5 mph. Precautions: [place] Subjective: Left foot, mostly lateral Pain: 4/10 [...] to be instructed in home exercise program. [facility] Goals: To be met in 10 weeks [...] sign below. Date: documented in this encounter [facility] 07-05-2024 History of Present illness Narrative Images [...] month for recheck. documented in this encounter [facility] 06-09-2024 History of Present illness Narrative Reason [...] of: OSKAR Jacobson documented in this encounter [facility] 06-02-2024 History of Present illness Narrative Images [...] month for recheck. documented in this encounter [facility] 05-11-2024 History of Present illness Narrative Reason [...] nursing note reviewed. Exam conducted with a workers compensation manager present. Vitals: Estimated body mass index is [...] reviewed, and patient is to proceed to [facility] OR. Follow Up: Patient is to follow up between 1-2 weeks post op to assess proper healing and recovery from procedure. Documented by Abida Wellington LPN on behalf of: Vikram Chahal DO documented in this encounter [facility] 04-29-2024 History of Present illness Narrative Images [...] current diagnosis. 2. Order was placed into [facility] for MRI left ankle. 3. [...] RTC: following MRI. documented in this encounter [facility] 03-16-2024 History of Present illness Narrative Reason [...] order US, labs and [facility]. Pt will follow with DR Chahal when testing complete. Documented by OSKAR Jacobson on behalf of: OSKAR Jacobson documented in this encounter [facility] 12-28-2021 Note [facility] [place], [place] NAME: TRACIE DENNIS DATE OF : MEDICAL REC#: [id number] DIRECTOR OF REGULATORY AFFAIRS: [address], TRANSADMIT DATE: 12/28/2021 11:03:00 PIG FARMER DATE: 12/29/2021 21:00 DICTATING PHYSICIAN: VIKRAM CHAHAL DICTATION DATE: 12/28/2021 15:00 OPERATIVE NOTE OPERATION DATE: 12/28/2021 PROCEDURE: Diagnostic laparoscopy. PREOPERATIVE DIAGNOSIS: Pelvic pain, left ovarian cyst 6 cm in nature. POSTOPERATIVE DIAGNOSIS: Pelvic pain without left ovarian cyst, however, there was a small adhesion which was easily taken down from the anterior abdominal wall that was omental in nature. SURGEON: Vikram Chahal D.O. RESIDENTIAL SUBSTANCE ABUSE COUNSELOR: VITA Rondon URINE OUTPUT: Yellow and [...] by: DR VIKRAM CHAHAL . 01/01/2022 21:27:00 [facility] 10-16-2020 Note HNO ID: [id number] Author: Minesh Gurrola Service: ? Author Type: Physician Mental Tester Type: Progress Notes Filed: 10/16/2020 1:03 PM [...] NOHEMI TEST: Positive STRENGTH: 5/5 biceps, triceps, sales service manager, finger abduction, WE, WF, AND EPL STABILITY: all joints stable CREPITUS: negative NEUROLOGICAL EXAM: Sensory: sensation intact to light touch axillary, radial, median, AND ulnar distributions 2-point discrimination intact throughout all digits. Motor strength: equal bilaterally with 5/5 biceps, triceps, sales service manager, finger abduction, WE, WF, thumb opposition, AND [...] has been identified and corrected by editing. [facility] Evaluation + Plan note No data available for this section [facility] Evaluation note Diagnosis Sprain of tarsometatarsal [...] [facility] Diagnosis Right shoulder pain, unspecified chronicity- Primary Rotator cuff impingement syndrome of right shoulder documented in this encounter [facility] Discharge instructions No data available for this section [facility] No data available for this section [facility] Narrative* Rehabilitation - Outpatient (Routine) - Authorized Specialty Diagnoses / Procedures Referred By Gisela gibbons Referred To Contact Physical Therapy Diagnoses Tear of tendon of left ankle, subsequent encounter Peroneal tendinitis of left lower extremity Cuboid syndrome, subsequent encounter Procedures IA OFFICE/OUTPATIENT [facility] Tierra Stephenson DPM [address] [address] Phone: tel: fax: Dasha Elder, PT Referral ID Status Reason Start Date Expiration Date Visits Requested Visits Authorized [id number] Authorized Specialty Services Required 07/05/2024 01/01/2025 60 60 [facility] N[facility]ative* Rehabilitation - Outpatient (Routine) - Authorized Specialty Diagnoses / Procedures Referred By Contac t Referred To Contact Physical Therapy Diagnoses Tear of tendon of left ankle, subsequent encounter Peroneal tendinitis of left lower extremity Cuboid syndrome, subsequent encounter Procedures IA OFFICE/OUTPATIENT [facility] Tierra Stephenson, DPM [address] [place] [address] Phone: tel: fax: Dasha Elder, RANDY Referral ID Status Reason Start Date Expiration Date Visits Requested Visits Authorized [id number] Authorized Specialty Services Required 07/05/2024 07/27/2024 60 60 [facility] HealthcareReason for visit Narrative* Rehabilitation - Outpatient (Routine) - Closed Specialty Diagnoses / Procedures Referred By Gisela t Referred To Contact Physical Therapy Diagnoses Tear of tendon of left ankle, subsequent encounter Peroneal tendinitis of left lower extremity Cuboid syndrome, subsequent encounter Procedures IA OFFICE/OUTPATIENT [facility] Tierra Stephenson, DPM [address] [place] [address] Phone: tel: fax: Dasha Elder, PT Referral ID Status Reason Start Date Expiration Date V isits Requested Visits Authorized [id number] Closed Specialty Services Required 07/05/2024 07/27/2024 60 60 [facility] HealthcareReason for visit Narrative* Rehabilitation - Outpatient (Routine) - Authorized Specialty Diagnoses / Procedures Referred By Contac t Referred To Contact Physical Therapy Diagnoses Tear of tendon of left ankle, subsequent encounter Peroneal tendinitis of left lower extremity Cuboid syndrome, subsequent encounter Procedures IA MANUAL THERAPY TQS 1/> REGIONS EACH 15 MINUTES IA THER PX 1/> AREAS EACH 15 MIN NEUROMUSC REEDUCA IA THERAPEUTIC PX 1/> AREAS EACH 15 MIN EXERCISES IA OCCUPATIONAL THERAPY EVALUATION Tierra Stephenson, DPM [address] [place] [address] Phone: tel: fax: Dasha Elder, RANDY Referral ID Status Reason Start Date Expiration Date V isits Requested Visits Authorized [id number] Authorized 07/28/2024 08/19/2024 60 3 [facility] N[facility]ative* Rehabilitation - Outpatient (Routine) - Authorized Specialty Diagnoses / Procedures Referred By Gisela gibbons Referred To Contact Physical Therapy Diagnoses Tear of tendon of left ankle, subsequent encounter Peroneal tendinitis of left lower extremity Cuboid syndrome, subsequent encounter Procedures IA MANUAL THERAPY TQS 1/> REGIONS EACH 15 MINUTES IA THER PX 1/> AREAS EACH 15 MIN NEUROMUSC REEDUCA IA THERAPEUTIC PX 1/> AREAS EACH 15 MIN EXERCISES IA OCCUPATIONAL THERAPY EVALUATION Tierra Stephenson DPM [address] [place] [id number] Phone: tel: fax: Dasha Elder PT Referral ID Status Reason Start Date Expiration Date V isits Requested Visits Authorized [id number] Authorized 07/28/2024 07/27/2025 60 60 [facility]Reason for [facility] Narrative* Rehabilitation - Outpatient (Routine) - Closed Specialty Diagnoses / Procedures Referred By Gisela t Referred To Contact Physical Therapy Diagnoses Tear of tendon of left ankle, subsequent encounter Peroneal tendinitis of left lower extremity Cuboid syndrome, subsequent encounter Procedures IA MANUAL THERAPY TQS 1/> REGIONS EACH 15 MINUTES IA THER PX 1/> AREAS EACH 15 MIN NEUROMUSC REEDUCA IA THERAPEUTIC PX 1/> AREAS EACH 15 MIN EXERCISES IA OCCUPATIONAL THERAPY EVALUATION Tierra Stephenson DPM [address] [place] [id number] Phone: tel: fax: Dasha Elder PT Referral ID Status Reason Start Date Expiration Date Visits Re quested Visits Authorized [id number] Closed 07/28/2024 07/27/2025 60 60 [facility] [...] DPM [address] [place] [address] Referral ID Status Reason Start Date Expiration Date V isits Requested Visits Authorized [id number] Pending Review 04/29/2024 10/26/2024 1 1 Additional Source Comments INFORMATION SOURCE (unrecogn ized section and content) DATE CREATED AUTHOR 08/26/2021 [facility] DATE CREATED AUTHOR AUTHOR'S ORGANIZ ATION 11/09/2022 [employer] [facility] DATE CREATED AUTHOR AUTHOR'S ORGANIZ ATION 11/14/2022 [facility] DATE CREATED AUTHOR AUTHOR'S ORGANIZ ATION 04/03/2023 [facility] DATE CREATED AUTHOR AUTHOR'S ORGANIZ ATION 08/20/2024 [facility] EPIC Patient Care team informatio n (unrecognized section and content) Roller Presser Operator Relationship Specialty Start Date End Date Unallocated, Valentín Morales MD [address] [place] [address] [place] [address] PCP - General 05/07/23 Roller Presser Operator Relationship Specialty Start Date End Date Unallocated, Valentín Morales MD [address] [place] [address] PCP - General 05/07/23 Roller Presser Operator Relationship Specialty Start Date End Date Unallocated, Valentín Morales MD [facility] [place] [address] PCP - General 05/07/23 Roller Presser Operator Relationship Specialty Start Date End Date Unallocated, Valentín Morales MD [address] [facility] [place] [address] PCP - General 05/07/23 Roller Presser Operator Relationship Specialty Start Date End Date Unallocated, Valentín Morales MD [address] [place] [address] PCP - General 05/07/23 Roller Presser Operator Relationship Specialty Start Date End Date Unallocated, Valentín Morales MD [address] [place] [address] PCP - General 05/07/23 Roller Presser Operator Relationship Specialty Start Date End Date Unallocated, Valentín Morales MD [facility] [place] [address] PCP - General 05/07/23 Roller Presser Operator Relationship Specialty Start Date End Date Unallocated, Valentín Morales MD [facility] [address] [facility] [place] [place] [address] PCP - General 05/07/23 Roller Presser Operator Relationship Specialty Start Date End Date Unallocated, Valentín Morales MD [facility] [place] [address] PCP - General 05/07/23 Roller Presser Operator Relationship Specialty Start Date End Date Unallocated, Valentín Morales MD [facility] [place] [address] PCP - General 05/07/23 Marco Antonio Weaver DO [address] [place] [address] PCP - [place] [employer] 06/27/23 Roller Presser Operator Relationship Specialty Start Date End Date Unallocated, Valentín Morales MD [facility] [address] [facility] [place] [place] [address] PCP - General 05/07/23 Marco Antonio Weaver DO [address] [place] [address] PCP - [place] [employer] 06/27/23 Roller Presser Operator Relationship Specialty Start Date End Date Unallocated, Valentín Morales MD [address] [place] [address] PCP - General 05/07/23 Marco Antonio Weaver DO [address] [place] [address] [facility]/23 Roller Presser Operator Relationship Specialty Start Date End Date Unallocated, Valentín Morales MD [facility] [place] [address] PCP - General 05/07/23 Roller Presser Operator Relationship Specialty Start Date End Date Unallocated, Valentín Morales MD [facility] [place] [address] PCP - General 05/07/23 Roller Presser Operator Relationship Specialty Start Date End Date Unallocated, Valentín Morales MD [facility] [place] [address] PCP - General 05/07/23 Roller Presser Operator Relationship Specialty Start Date End Date Unallocated, Valentín Morales MD [facility] [place] [address] PCP - General 05/07/23 Roller Presser Operator Relationship Specialty Start Date End Date Unallocated, Valentín Morales MD [facility] [place] [address] PCP - General 05/07/23 Roller Presser Operator Relationship Specialty Start Date End Date Unallocated, [place] [address] PCP - General 05/07/23 Roller Presser Operator Relationship Specialty Start Date End Date Unallocated, Valentín Morales MD [address] [place] [address] PCP - General 05/07/23 Roller Presser Operator Relationship Specialty Start Date End Date Unallocated, Valentín [place] [address] PCP - General 05/07/23 Roller Presser Operator Relationship Specialty Start Date End Date Unallocated, Valentín [place] [address] PCP - General 05/07/23 Roller Presser Operator Relationship Specialty Start Date End Date Unallocated, Valentín [place] [address] PCP - General 05/07/23 Roller Presser Operator Relationship Specialty Start Date End Date Unallocated, Valentín Morales MD [address] [facility] [place] [address] PCP General 05/07/23 Roller Presser Operator Relationship Specialty Start Date End Date Unallocated, Valentín Morales MD [address] [facility] [place] [address] PCP General 05/07/23 Roller Presser Operator Relationship Specialty Start Date End Date Unallocated, Valentín Morales MD [address] [place] [address] [facility] General 05/07/23 Reason for Visit (unrecogniz ed [...] BE BASED ON THE PRIMARY CLINICAL RECORDS. [facility] [employer] [facility] provides no warranty or guarantee of the accuracy or completeness of information in this document.
[2025-04-07 14:09] LABS: Age Gdln ACOG Testing Note (.); IGP, Aptima HPV, rfx 16/18,45 Note (.)
== END 2025-04-04 21:22 | disposition home or self-care (01) ==
LOC: LAB 21:21
PROVIDERS: Visit Provider Nurse Practitioner Family
DX: Z01.419 Encounter for gynecological examination (general) (routine) without abnormal findings (principal)
CPT/HCPCS: 87624; 88175